=== PATIENT | male | born 1995 | race Two or more races ===

== ENCOUNTER 2016-08-11 12:04 | Inpatient (IN) | payer OTHER ==
[2016-08-11 12:46] VITALS: BMI 18.7
--- NOTE | 2016-08-11 16:35 | HP ---
COWS - Scale Resting Pulse: 1= MD 81-100 Sweatin= Chills/Flushing Restless Observation: 1= Difficult to Sit Still Pupil Size: 0= Normal to Room Light Bone or Joint Aches: 1= Mild Discomfort Runny Nose/ Eye Tearin= Nasal Congestion GI Upset > 30mins: 3= Vomiting/Diarrhea Tremor Observation: 2= Slight Tremor Visible Yawning Observation: 0= None Anxiety or Irritability: 2=Irritable/Anxious Goose Flesh Skin: 0=Smooth Skin COWS Score: 12 CIWA Score - CIWA Score Nausea/Vomitin Muscle Tremors: 4-Moderate,w/Arms Extend Anxiety: 4-Mod. Anxious/Guarded Agitation: 4-Moderately Restless Paroxysmal Sweats: 1-Minimal Palms Moist Orientation: 0-Oriented Tacttile Disturbances: 0-None Auditory Disturbances: 0-None Visual Disturbances: 0-None Headache: 3-Moderate CIWA-Ar Total Score: 18 Admission ROS BHS - HPI Chief Complaint: withdrawal sx Allergies/Adverse Reactions: Allergies Allergy/AdvReac Type Severity Reaction Status Date / Time No Known Allergies Allergy Verified 08/11/16 16:07 History of Present Illness: 21 years old male with long history of opiate, benzo, nicotine dependence, denies medical issue has anxiety, longest sobriety 4 weeks is admitted to detox Exam Limitations: No Limitations - Ebola screening Have you traveled outside of the country in the last 21 days: No Have you had contact with anyone from an Ebola affected area: No Have you been sick,other than usual withdrawal symptoms: No Do you have a fever: No - Review of Systems Constitutional: Chills, Loss of Appetite, Changes in sleep, Unexplained wgt Loss EENT: reports: No Symptoms Reported Respiratory: reports: No Symptoms reported Cardiac: reports: No Symptoms Reported GI: reports: Diarrhea, Nausea, Poor Appetite, Poor Fluid Intake, Vomiting, Abdominal cramping : reports: No Symptoms Reported Musculoskeletal: reports: Back Pain, Joint Pain, Muscle Pain, Neck Pain Integumentary: reports: No Symptoms Reported Neuro: reports: Tremors Endocrine: reports: No Symptoms Reported Hematology: reports: No Symptoms Reported Psychiatric: reports: Judgement Intact, Orientated x3, Anxious Other Systems: Reviewed and Negative Patient History - Patient Medical History Hx Anemia: No Hx Asthma: No Hx Chronic Obstructive Pulmonary Disease (COPD): No Hx Cancer: No Hx Cardiac Disorders: No Hx Congestive Heart Failure: No Hx Hypertension: No Hx Hypercholesterolemia: No Hx Pacemaker: No HX Cerebrovascular Accident: No Hx Seizures: No Hx Dementia: No Hx Diabetes: No Hx Gastrointestinal Disorders: No Hx Liver Disease: No Hx Genitourinary Disorders: No Hx Sexually Transmitted Disorders: No Hx Renal Disease (ESRD): No Hx Thyroid Disease: No Hx Human Immunodeficiency Virus (HIV): No (NEGATIVE HX) Hx Hepatitis C: No Hx Depression: Yes Hx Suicide Attempt: No Hx Bipolar Disorder: No Hx Schizophrenia: No - Patient Surgical History Past Surgical History: No Hx Neurologic Surgery: No Hx Cataract Extraction: No Hx Cardiac Surgery: No Hx Lung Surgery: No Hx Breast Surgery: No Hx Breast Biopsy: No Hx Abdominal Surgery: No Hx Appendectomy: No Hx Cholecystectomy: No Hx Genitourinary Surgery: No Hx Orthopedic Surgery: No - PPD History Previous Implant?: Yes Documented Results: Negative w/o proof Implanted On Prior [facility] Admission?: Yes Date: 11/30/15 PPD to be Administered?: Yes - Smoking Cessation Smoking history: Current every day smoker Have you smoked in the past 12 months: Yes Aproximately how many cigarettes per day: 4 Cigars Per Day: 0 Hx Chewing Tobacco Use: No Initiated information on smoking cessation: Yes 'Breaking Loose' booklet given: 08/11/16 - Substance & Tx. History Hx Alcohol Use: No Hx Substance Use: Yes Substance Use Type: Marijuana, Opiates, Tranquilizers Hx Substance Use Treatment: Yes - Substances Abused Alprazolam (Xanax) Route: Oral Frequency: Daily Amount used: 8MG Age of first use: 18 Date of Last Use: 08/10/16 Marijuana/Hashish Route: Smoking Frequency: Daily Amount used: 3 JOINTS Age of first use: 16 Date of Last Use: 08/10/16 OXYCODONE Route: Oral Frequency: Daily Amount used: 6-7 30 MG PILLS Age of first use: 20 Date of Last Use: 08/10/16 Family Disease History - Family Disease History Family Disease History: Heart Disease: Mother Admission Physical Exam BHS - Vital Signs Vital Signs: Vital Signs - 24 hr 08/11/16 12:37 Temperature 97.7 F Pulse Rate 99 H Respiratory 20 Rate Blood Pressure 123/72 - Physical General Appearance: Yes: Appropriately Dressed, Mild Distress, Thin, Tremorous, Irritable, Sweating, Anxious HEENTM: Yes: Hearing grossly Normal, Normal ENT Inspection, Normocephalic, Normal Voice Respiratory: Yes: Chest Non-Tender, Lungs Clear, Normal Breath Sounds, No Respiratory Distress, No Accessory Muscle Use Neck: Yes: Supple, Trachea in good position Breast: Yes: Breasts Symetrical Cardiology: Yes: Regular Rhythm, S1, S2, Tachycardia Abdominal: Yes: Non Tender, Soft Genitourinary: Yes: Within Normal Limits Back: Yes: Normal Inspection Musculoskeletal: Yes: full range of Motion, Gait Steady, Back pain, Muscle Pain Extremities: Yes: Normal Inspection, Normal Range of Motion, Non-Tender, Tremors Neurological: Yes: Fully Oriented, Alert, Motor Strength 5/5, Normal Response, Depressed Affect Integumentary: Yes: Warm Lymphatic: Yes: Within Normal Limits - Diagnostic (1) Cannabis dependence Current Visit: Yes Status: Chronic (2) Opioid dependence with withdrawal Current Visit: No Status: Acute (3) Sedative, hypnotic, or anxiolytic withdrawal Current Visit: Yes Status: Acute (4) Nicotine dependence Current Visit: Yes Status: Acute Qualifiers: Nicotine product type: cigarettes Substance use status: in withdrawal Qualified Code(s): F17.213 - Nicotine dependence, cigarettes, with withdrawal (5) Weight loss Current Visit: Yes Status: Acute Cleared for Admission [facility] - Detox or Rehab [facility] Level of Care: Medically Managed Detox Regimen/Protocol: Methadone/Valium [facility] Breath Alcohol Content Breath Alcohol Content: 0 Urine Drug Screen - Results Drug Screen Negative: No Urine Drug Screen Results: THC-Marijuana, BZO-Benzodiazepines, OXY-Oxycodone
[2016-08-11] MEDS ORDERED: NICOTINE POLACRILEX 2 MG GUM BC PRN (16:50)
[2016-08-11] MEDS ORDERED: ACETAMINOPHEN 325 MG TABLET (FP) PO PRN (16:50)
[2016-08-11] MEDS ORDERED: MAGNESIUM CITRATE 300 ML BOTTLE PO PRN (16:50)
[2016-08-11] MEDS ORDERED: diphenhydrAMINE HCL 50 MG CAPSULE PO PRN (16:50)
[2016-08-11] MEDS ORDERED: LOPERAMIDE HCL 2 MG CAPSULE PO PRN (16:50)
[2016-08-11] MEDS ORDERED: MAGNESIUM HYDROX 2400MG/30ML ORAL SUSPENSION 30 ML CUP PO PRN (16:50)
[2016-08-11] MEDS ORDERED: MENTHOL/PHENOL 1 EACH UD MM PRN (16:50)
[2016-08-11] MEDS ORDERED: IBUPROFEN 400 MG TABLET (FP) PO PRN (16:50)
[2016-08-11] MEDS ORDERED: P-EPHED 60MG/TRIPROLIDI 2.5MG TABLET PO PRN (16:50)
[2016-08-11] MEDS ORDERED: MAG HYDROX/AL HYDROX/SIMETH 30 ML UNIT-DOSE CUP PO PRN (16:50)
[2016-08-11] MEDS ORDERED: guaiFENesin/D-METHORPHAN HB 10 ML UNIT-DOSE CUPS PO PRN (16:50)
[2016-08-11] MEDS ORDERED: METHADONE HCL 10 MG TABLET (FOR DETOX USE ONLY) PO ONE ×2 (18:00→23:00)
[2016-08-11] MEDS ORDERED: diazePAM 5 MG TABLET PO ONE (18:00)
[2016-08-11] MEDS: THIAMINE HCL 100 MG TABLET (FP) PO SCH (22:22)
[2016-08-11] MEDS: diazePAM 5 MG TABLET PO SCH (22:22)
[2016-08-11 23:35] LABS: URINE APPEARANCE CLEAR; URINE BILIRUBIN NEGATIVE (NEGATIVE); URINE BLOOD NEGATIVE (NEGATIVE); URINE COLOR COLORLESS; URINE GLUCOSE (UA) NEGATIVE (NEGATIVE); URINE KETONE NEGATIVE (NEGATIVE); URINE LEUK ESTERASE NEGATIVE (NEGATIVE); URINE NITRITE NEGATIVE (NEGATIVE); URINE PROTEIN NEGATIVE (NEGATIVE); URINE UROBILINOGEN NEGATIVE E.U./dl (0.2-1.0)
[2016-08-12] MEDS: diazePAM 5 MG TABLET PO PRN ×3 (03:50→18:12)
[2016-08-12] MEDS: diazePAM 5 MG TABLET PO SCH ×3 (06:13→22:29)
[2016-08-12] MEDS ORDERED: METHADONE HCL 10 MG TABLET (FOR DETOX USE ONLY) PO SCH (10:00)
[2016-08-12 10:09] LABS: MCH 32.8 pg (25.7-33.7); MCHC 33.8 g/dl (32.0-35.9); MEAN CELL VOLUME 97.2 fl (80-96); MEAN PLT VOLUME 9.4 fl (7.5-11.1); PLATELET COUNT 215 K/MM3 (134-434); RDW 13.6 % (11.9-15.9); WHITE BLOOD COUNT 10.9 K/mm3 (4.0-10.0)
[2016-08-12] MEDS ORDERED: QUEtiapine FUMARATE 100 MG TABLET (FP) PO SCH (10:15)
[2016-08-12 10:22] LABS: ALBUMIN 3.9 g/dl (3.4-5.0); ALK PHOS 73 U/L (45-117); ANION GAP 8 (8-16); BILIRUBIN,TOTAL 0.3 mg/dL (0.2-1.0); CALCIUM 9.1 mg/dL (8.5-10.1); CO2 30 mmol/L (21-32); CREATININE 0.7 mg/dL (0.7-1.3); GLUCOSE,RANDOM 93 mg/dL (74-106); SGOT/AST 31 U/L (15-37); SGPT/ALT 46 U/L (12-78); TOT PROT 7.3 g/dl (6.4-8.2)
[2016-08-12] MEDS: NICOTINE 14 MG/24 HOURS TOPICAL PATCH TD SCH (10:34)
[2016-08-12] MEDS: PRENATAL VITAMINS W/ FOLIC ACID TABLET (FP) PO SCH (10:35)
[2016-08-12] MEDS: ASPIRIN 81 MG CHEWABLE TABLETS PO SCH (10:35)
--- NOTE | 2016-08-12 12:10 | PN ---
S CIWA - CIWA Score Nausea/Vomitin Muscle Tremors: 3 Anxiety: 3 Agitation: 2 Paroxysmal Sweats: 3 Orientation: 0-Oriented Tacttile Disturbances: 1-Very Mild Itch/Numbness Auditory Disturbances: 0-None Visual Disturbances: 0-None Headache: 0-None Present CIWA-Ar Total Score: 14 BHS COWS - Scale Resting Pulse: 0= DC 80 or Below Sweatin= Chills/Flushing Restless Observation: 1= Difficult to Sit Still Pupil Size: 1= Pupils >than Normal Bone or Joint Aches: 2= Severe Diffuse Aches Runny Nose/ Eye Tearin= Nasal Congestion GI Upset > 30mins: 1= Stomach Cramp Tremor Observation of Outstretched Hands: 1= Tremor [place], Not Seen Yawning Observation: 1= 1-2x During Session Anxiety or Irritability: 1=Feels Anxious/Irritable Goose Flesh Skin: 0=Smooth Skin COWS Score: 10 S Progress Note (SOAP) Subjective: interruptedd sleep, sweats shakes , dizzy Objective: 08/12/16 12:09 Vital Signs Temperature 97.3 F L 08/12/16 09:58 Pulse Rate 79 08/12/16 09:58 Respiratory Rate 18 08/12/16 09:58 Blood Pressure 121/75 08/12/16 09:58 O2 Sat by Pulse Oximetry (%) Laboratory Tests 08/11/16 08/12/16 08/12/16 23:20 06:00 06:00 WBC 10.9 H D RBC 4.19 Hgb 13.7 Hct 40.7 MCV 97.2 H MCHC 33.8 RDW 13.6 Plt Count 215 MPV 9.4 Sodium 141 Potassium 4.4 Chloride 103 Carbon Dioxide 30 Anion Gap 8 BUN 5 L D Creatinine 0.7 Creat Clearance w eGFR > 60 Random Glucose 93 Calcium 9.1 Total Bilirubin 0.3 D AST 31 D ALT 46 D Alkaline Phosphatase 73 Total Protein 7.3 Albumin 3.9 Urine Color Colorless Urine Appearance Clear Urine pH 8.0 Ur Specific [place] 1.004 Urine Protein Negative Urine Glucose (UA) Negative Urine Ketones Negative Urine Blood Negative Urine Nitrite Negative Urine Bilirubin Negative Urine Urobilinogen Negative Ur Leukocyte Esterase Negative pt aox3 in nad ambulating Assessment: 08/12/16 12:09 withdrawl sx's Plan: cont. detox increase fluids ensure bid
--- NOTE | 2016-08-12 13:27 | CONSULT ---
[facility] Psychiatric Consult - Data Date of interview: 08/12/16 Admission source: [facility] Identifying data: This is 21 years old male with Bipolar disorder history intoxcicated with: Opioids, Alcohol, Cannabis, Xanax, Substance Abuse History: - Smoking Cessation. Smoking history: Current every day smoker. Have you smoked in the past 12 months: Yes. Aproximately how many cigarettes per day: 4. Cigars Per Day: 0. Hx Chewing Tobacco Use: No. Initiated information on smoking cessation: Yes. 'Breaking Loose' booklet given : 08/11/16. - Substance & Tx. History. Hx Alcohol Use: No. Hx Substance Use: Yes. Substance Use Type: Marijuana, Opiates, Tranquilizers. Hx Substance Use Treatment: Yes. - Substances Abused. Alprazolam (Xanax). Route: Oral. Frequency: Daily. Amount used: 8MG. Age of first use: 18. Date of Last Use: 08/10/16. Marijuana/Hashish. Route: Smoking. Frequency: Daily. Amount used: 3 JOINTS. Age of first use: 16. Date of Last Use: 08/10/16. OXYCODONE. Route: Oral. Frequency: Daily. Amount used: 6-7 30 MG PILLS. Age of first use: 20. Date of Last Use: 08/10/16 Medical History: Denies Psychiatric History: Patient reports to carry Bipolar disorder since 16 tears old, [facility]. Reports being stable befors on Depakote 250mg po bidand Seroquel 159mg po bid Physical/Sexual Abuse/Trauma History: Denies Additional Comment: Depakote 250mg po bid and Seroquel 159mg po bid Mental Status Exam - Mental Status Exam Alert and Oriented to: Person Cognitive Function: Fair Patient Appearance: Unkempt Mood: Sad, Suspicious Patient Behavior: Cooperative Speech Pattern: Appropriate Voice Loudness: Normal Thought Process: Goal Oriented Thought Disorder: Being Controlled Hallucinations: Denies Suicidal Ideation: Denies Homicidal Ideation: Denies Insight/Judgement: Fair Sleep: Difficulty falling asleep Appetite: Weight loss Muscle strength/Tone: Normal Gait/Station: Normal Additional Comments: Depakote 250mg po bidand Seroquel 159mg po bid Psychiatric Findings - Problem List ([place] 1, 2,3) (1) Nicotine dependence Current Visit: Yes Status: Acute Qualifiers: Nicotine product type: cigarettes Substance use status: in withdrawal Qualified Code(s): F17.213 - Nicotine dependence, cigarettes, with withdrawal (2) Sedative, hypnotic, or anxiolytic withdrawal Current Visit: Yes Status: Acute (3) Cannabis dependence Current Visit: Yes Status: Chronic (4) Opioid dependence with withdrawal Current Visit: No Status: Acute (5) Bipolar disorder Current Visit: Yes Status: Acute - Initial Treatment Plan Initial Treatment Plan: Depakote 250mg po bidand Seroquel 159mg po bid
--- NOTE | 2016-08-12 14:27 | EKG ---
Test Reason : Blood Pressure : / mmHG Vent. Rate : 058 BPM Atrial Rate : 058 BPM P-R Int : 170 ms QRS Dur : 092 ms QT Int : 410 ms P-R-T Axes : 065 073 063 degrees QTc Int : 402 ms SINUS BRADYCARDIA WITH SINUS ARRHYTHMIA OTHERWISE NORMAL ECG WHEN COMPARED WITH ECG OF 11-AUG-2016 18:17, NO SIGNIFICANT CHANGE WAS FOUND Confirmed by BARBRA BERMUDEZ MD ([id number]) on 08/12/2016 2:27:35 PM Referred By: Confirmed By:BARBRA BERMUDEZ MD
--- NOTE | 2016-08-12 14:28 | EKG ---
Test Reason : Blood Pressure : / mmHG Vent. Rate : 084 BPM Atrial Rate : 084 BPM P-R Int : 148 ms QRS Dur : 090 ms QT Int : 360 ms P-R-T Axes : 079 079 059 degrees QTc Int : 425 ms NORMAL SINUS RHYTHM WITH SINUS ARRHYTHMIA NORMAL ECG NO PREVIOUS ECGS AVAILABLE Confirmed by AIDAN VELARDE, BARBRA ([id number]) on 08/12/2016 2:28:24 PM Referred By: Confirmed By:BARBRA BERMUDEZ MD
[2016-08-12] MEDS: DIVALPROEX SODIUM 250 MG TABLET E.C. (FP) PO SCH ×2 (15:18→22:29)
[2016-08-12] MEDS: QUEtiapine FUMARATE 50 MG TABLET PO SCH (22:29)
[2016-08-12] MEDS: THIAMINE HCL 100 MG TABLET (FP) PO SCH (22:29)
[2016-08-13] MEDS: diazePAM 5 MG TABLET PO PRN (01:36)
[2016-08-13] MEDS: PRENATAL VITAMINS W/ FOLIC ACID TABLET (FP) PO SCH (10:29)
[2016-08-13] MEDS: DIVALPROEX SODIUM 250 MG TABLET E.C. (FP) PO SCH (10:29)
[2016-08-13] MEDS: diazePAM 5 MG TABLET PO SCH ×2 (10:29→22:21)
[2016-08-13] MEDS: QUEtiapine FUMARATE 50 MG TABLET PO SCH ×2 (10:29→22:21)
[2016-08-13] MEDS: METHADONE HCL 5 MG TABLET (FOR DETOX USE ONLY) PO SCH (10:29)
[2016-08-13] MEDS: NICOTINE 14 MG/24 HOURS TOPICAL PATCH TD SCH (10:30)
[2016-08-13] MEDS: ASPIRIN 81 MG CHEWABLE TABLETS PO SCH (10:30)
--- NOTE | 2016-08-13 10:33 | PN ---
[facility] CIWA - CIWA Score Nausea/Vomitin-No Nausea/No Vomiting Muscle Tremors: 4-Moderate,w/Arms Extend Anxiety: 3 Agitation: 3 Paroxysmal Sweats: 3 Orientation: 0-Oriented Tacttile Disturbances: 0-None Auditory Disturbances: 0-None Visual Disturbances: 0-None Headache: 0-None Present CIWA-Ar Total Score: 13 BHS COWS - Scale Resting Pulse: 2= ID 101-120 Sweatin= Chills/Flushing Restless Observation: 1= Difficult to Sit Still Pupil Size: 0= Normal to Room Light Bone or Joint Aches: 2= Severe Diffuse Aches Runny Nose/ Eye Tearin= Nasal Congestion GI Upset > 30mins: 0= None Tremor Observation of Outstretched Hands: 2= Slight Tremor Visible Yawning Observation: 0= None Anxiety or Irritability: 2=Irritable/Anxious Goose Flesh Skin: 0=Smooth Skin COWS Score: 11 S Progress Note (SOAP) Subjective: agitation anxiety sweats i need to see psych again Objective: 08/13/16 10:30 Vital Signs Temperature 98.0 F 08/13/16 09:52 Pulse Rate 104 H 08/13/16 09:52 Respiratory Rate 18 08/13/16 09:52 Blood Pressure 143/64 08/13/16 09:52 O2 Sat by Pulse Oximetry (%) Laboratory Tests 08/11/16 08/12/16 08/12/16 23:20 06:00 06:00 WBC 10.9 H D RBC 4.19 Hgb 13.7 Hct 40.7 MCV 97.2 H MCHC 33.8 RDW 13.6 Plt Count 215 MPV 9.4 Sodium 141 Potassium 4.4 Chloride 103 Carbon Dioxide 30 Anion Gap 8 BUN 5 L D Creatinine 0.7 Creat Clearance w eGFR > 60 Random Glucose 93 Calcium 9.1 Total Bilirubin 0.3 D AST 31 D ALT 46 D Alkaline Phosphatase 73 Total Protein 7.3 Albumin 3.9 Urine Color Colorless Urine Appearance Clear Urine pH 8.0 Ur Specific [place] 1.004 Urine Protein Negative Urine Glucose (UA) Negative Urine Ketones Negative Urine Blood Negative Urine Nitrite Negative Urine Bilirubin Negative Urine Urobilinogen Negative Ur Leukocyte Esterase Negative RPR Titer 08/12/16 06:00 WBC RBC Hgb Hct MCV MCHC RDW Plt Count MPV Sodium Potassium Chloride Carbon Dioxide Anion Gap BUN Creatinine Creat Clearance w eGFR Random Glucose Calcium Total Bilirubin AST ALT Alkaline Phosphatase Total Protein Albumin Urine Color Urine Appearance Urine pH Ur Specific [place] Urine Protein Urine Glucose (UA) Urine Ketones Urine Blood Urine Nitrite Urine Bilirubin Urine Urobilinogen Ur Leukocyte Esterase RPR Titer Nonreactive awake/alert ambulating no acute distress Assessment: 08/13/16 10:33 withdrawal sx Plan: continue detox increase fluids psych consult ordered
--- NOTE | 2016-08-13 12:13 | PN ---
Psychiatric Progress Note Vital Signs: Vital Signs Period Temp Pulse Resp BP Sys/[place] Pulse Ox Last 24 Hr 96.3 F-98.2 F 81-114 16-18 100-143/56-71 Date of Session: 08/13/16 Chief Complaint:: Follow up visit HPI: Asked to see this patient who is requesting " more seroquel." ROS: Unremarkable.Patient is ambulatory.No somatic complaints.Normal vitals. Current Medications: Active Medications Generic Name Dose Route Start Last Admin Trade Name Freq PRN Reason Stop Dose Admin Acetaminophen 650 mg 08/11/16 16:50 Tylenol - PO Q4H PRN FEVER OR PAIN Al Hydroxide/Mg Hydroxide 30 ml 08/11/16 16:50 Mylanta Oral Suspension - PO Q6H PRN DYSPEPSIA Aspirin 81 mg 08/12/16 10:00 08/13/16 10:30 Asa - PO 81 mg DAILY POLO Administration Diazepam 10 mg 08/11/16 16:50 08/13/16 01:36 Valium - PO 08/14/16 16:50 10 mg Q4H PRN Administration WITHDRAWAL(CONT SUBST) Diazepam 5 mg 08/13/16 10:00 08/13/16 10:29 Valium - PO 08/14/16 22:01 5 mg BID POLO Administration Diazepam 5 mg 08/15/16 10:00 Valium - PO 08/15/16 10:01 DAILY POLO Diphenhydramine HCl 50 mg 08/11/16 16:50 08/13/16 01:36 Benadryl - PO 50 mg HSMR1 PRN Administration INSOMNIA Divalproex Sodium 250 mg 08/12/16 13:45 08/13/16 10:29 Depakote - PO 250 mg BID POLO Administration Eucalyptus/Menthol/Phenol/Sorbitol 1 each 08/11/16 16:50 Cepastat Lozenge - MM Q4H PRN SORE THROAT Guaifenesin 10 ml 08/11/16 16:50 Robitussin Dm - PO Q6H PRN COUGH Loperamide HCl 4 mg 08/11/16 16:50 Imodium - PO Q6H PRN DIARRHEA Magnesium Citrate 300 ml 08/11/16 16:50 Citroma - PO Q48H PRN CONSTIPATION Magnesium Hydroxide 30 ml 08/11/16 16:50 Milk Of Magnesia - PO DAILY PRN CONSTIPATION Methadone HCl 10 mg 08/15/16 10:00 Dolophine - PO 08/15/16 10:01 DAILY POLO Methadone HCl 15 mg 08/13/16 10:00 08/13/16 10:29 Dolophine - PO 08/14/16 10:01 15 mg DAILY POLO Administration Methadone HCl 5 mg 08/16/16 06:00 Dolophine - PO 08/16/16 06:01 DAILY@0600 POLO Nicotine 14 mg 08/12/16 10:00 08/13/16 10:30 Nicoderm Patch - TD Not Given DAILY POLO Nicotine Polacrilex 2 mg 08/11/16 16:50 Nicorette Gum - BC Q2H PRN NICOTINE REPLACEMENT RX Multivit/Folic Acid/Iron 1 tab 08/12/16 10:00 08/13/16 10:29 Vitamins ([facility]) - PO 1 tab DAILY POLO Administration Pseudoephedrine/Triprolidine 1 combo 08/11/16 16:50 Actifed - PO TID PRN NASAL CONGESTION Quetiapine Fumarate 150 mg 08/12/16 22:00 08/13/16 10:29 Seroquel - PO 150 mg BID POLO Administration Thiamine HCl 100 mg 08/11/16 22:00 08/12/16 22:29 Vitamin B1 - PO 100 mg HS POLO Administration Medication(s) Change(s): Depakote is raised to 250 mg daily + 500 mg po hs.Side effects/benefits of seroquel and depakote are discussed with the patient.He is made aware of the risk of blood dyscrasias,liver dysfunction,weight gain, abnormal involuntary movements and metabolic syndrome.Mr Grewal is in agreement with this careplan. Current Side Effect: No Lab tests ordered: Yes (valproic acid level in the morning on 08/14/16) Lab tests reviewed: Yes Provider note:: Chart reviewed.Patient seen.Dr Jaimes's note is appreciated.This patient is already known to this remote mortgage underwriter.He is clearly medication-seeking,manipulative and testing the limits.Discreetly inquiring about benzodiazepines.Mr Grewal does admit to total non-adherence to OPD care ( clinic attendance/medications) since his most recent stay at [facility] in November 2015.Just started seroquel and valproate.Patient is counseled about compliance with rules/unit regulations.Medications are adjusted (see medications changes section for details). Total face to face time:: 35 Mental Status Exam - Mental Status Exam Alert and Oriented to: Time, Place, Person Cognitive Function: Good Patient Appearance: Well Groomed Mood: Irritable Affect: Normal Range Patient Behavior: Cooperative Speech Pattern: Clear Voice Loudness: Normal Thought Process: Goal Oriented Thought Disorder: Not Present Hallucinations: Denies Suicidal Ideation: Denies Homicidal Ideation: Denies Insight/Judgement: Poor Sleep: Poorly, Difficulty falling asleep (already on seroquel) Appetite: Good Muscle strength/Tone: Normal Gait/Station: Normal Psychiatric Treatment Plan - Problem List (1) Bipolar disorder Current Visit: Yes (2) Nicotine dependence Current Visit: Yes Qualifiers: Nicotine product type: cigarettes Substance use status: in withdrawal Qualified Code(s): F17.213 - Nicotine dependence, cigarettes, with withdrawal (3) Sedative, hypnotic, or anxiolytic withdrawal Current Visit: Yes (4) Cannabis dependence Current Visit: Yes (5) Opioid dependence with withdrawal Current Visit: Yes
[2016-08-13] MEDS: THIAMINE HCL 100 MG TABLET (FP) PO SCH (22:21)
[2016-08-13] MEDS: DIVALPROEX SODIUM 500 MG TABLET E.C. PO SCH (22:21)
--- NOTE | 2016-08-14 09:29 | PN ---
BHS Progress Note (SOAP) Subjective: nausea, sweats, interrupte dsleep, anxeity, fatigue, PPD+ indruated 10mm, no respiratory symptoms, leg pains, no cough or sob, no sputum production Objective: 08/14/16 09:27 Vital Signs - 8 hr 08/14/16 08/14/16 03:30 06:00 Temperature 98.1 F Pulse Rate 83 Respiratory 16 16 Rate Blood Pressure 115/75 Laboratory Tests 08/11/16 08/12/16 08/12/16 23:20 06:00 06:00 WBC 10.9 H D RBC 4.19 Hgb 13.7 Hct 40.7 MCV 97.2 H MCHC 33.8 RDW 13.6 Plt Count 215 MPV 9.4 Sodium 141 Potassium 4.4 Chloride 103 Carbon Dioxide 30 Anion Gap 8 BUN 5 L D Creatinine 0.7 Creat Clearance w eGFR > 60 Random Glucose 93 Calcium 9.1 Total Bilirubin 0.3 D AST 31 D ALT 46 D Alkaline Phosphatase 73 Total Protein 7.3 Albumin 3.9 Urine Color Colorless Urine Appearance Clear Urine pH 8.0 Ur Specific [place] 1.004 Urine Protein Negative Urine Glucose (UA) Negative Urine Ketones Negative Urine Blood Negative Urine Nitrite Negative Urine Bilirubin Negative Urine Urobilinogen Negative Ur Leukocyte Esterase Negative RPR Titer 08/12/16 06:00 WBC RBC Hgb Hct MCV MCHC RDW Plt Count MPV Sodium Potassium Chloride Carbon Dioxide Anion Gap BUN Creatinine Creat Clearance w eGFR Random Glucose Calcium Total Bilirubin AST ALT Alkaline Phosphatase Total Protein Albumin Urine Color Urine Appearance Urine pH Ur Specific [place] Urine Protein Urine Glucose (UA) Urine Ketones Urine Blood Urine Nitrite Urine Bilirubin Urine Urobilinogen Ur Leukocyte Esterase RPR Titer Nonreactive PPD+ 10mm induration right forearm Assessment: 08/14/16 09:27 withdrawal sx, PPD+, needs cxr Plan: cont detox, will be d/c tomorrow to f/u with PCP for CXR and new ly dx PPD+, patiet counseled re: risk of TB and need for follow up, symptomatic relief of withdrawalsx, fluids, ambulation
[2016-08-14] MEDS ORDERED: DIVALPROEX SODIUM 250 MG TABLET E.C. (FP) PO SCH (10:00)
[2016-08-14] MEDS: METHADONE HCL 5 MG TABLET (FOR DETOX USE ONLY) PO SCH (10:15)
[2016-08-14] MEDS: NICOTINE 14 MG/24 HOURS TOPICAL PATCH TD SCH (10:15)
[2016-08-14] MEDS: PRENATAL VITAMINS W/ FOLIC ACID TABLET (FP) PO SCH (10:15)
[2016-08-14] MEDS: diazePAM 5 MG TABLET PO SCH ×2 (10:16→22:13)
[2016-08-14] MEDS: QUEtiapine FUMARATE 50 MG TABLET PO SCH ×2 (10:16→22:13)
[2016-08-14] MEDS: cloNIDine HCL 0.1 MG TABLET PO SCH ×2 (11:12→22:12)
[2016-08-14] MEDS: NAPROXEN 500 MG TABLET (FP) PO SCH ×2 (11:12→22:13)
[2016-08-14] MEDS: CYCLOBENZAPRINE HCL 10 MG TABLET (FP) PO SCH ×2 (13:12→22:13)
[2016-08-14] MEDS: diazePAM 5 MG TABLET PO PRN (13:12)
[2016-08-14] MEDS: hydrOXYzine HCL 25 MG TABLET (FP) PO SCH ×2 (13:28→22:12)
[2016-08-14] MEDS ORDERED: ZOLPIDEM TARTRATE 5 MG TABLET PO PRN (22:00)
[2016-08-14] MEDS: THIAMINE HCL 100 MG TABLET (FP) PO SCH (22:13)
[2016-08-14] MEDS: DIVALPROEX SODIUM 500 MG TABLET E.C. PO SCH (22:13)
[2016-08-14 22:24] VITALS: BP 112/80; PULSE 102; TEMP 97.9
[2016-08-15] MEDS: hydrOXYzine HCL 25 MG TABLET (FP) PO SCH (06:16)
[2016-08-15] MEDS: CYCLOBENZAPRINE HCL 10 MG TABLET (FP) PO SCH (06:16)
[2016-08-15] MEDS ORDERED: diazePAM 5 MG TABLET PO SCH (10:00)
[2016-08-15] MEDS ORDERED: METHADONE HCL 10 MG TABLET (FOR DETOX USE ONLY) PO SCH (10:00)
--- NOTE | 2016-08-15 10:45 | DS ---
[facility] Detox Discharge Summary Admission Date: 08/11/16 Discharge Date: 08/15/16 - History Present History: Cannabis Dependence, Opioid Dependence, Sedative Dependence Pertinent Past History: PPD + - Physical Exam Results Vital Signs: Vital Signs Temperature 97.9 F 08/14/16 22:24 Pulse Rate 102 H 08/14/16 22:24 Respiratory Rate 18 08/15/16 03:30 Blood Pressure 112/80 08/14/16 22:24 O2 Sat by Pulse Oximetry (%) Pertinent Admission Physical Exam Findings: WITHDRAWAL SX. Laboratory Last Values WBC 10.9 K/mm3 (4.0-10.0) H D 08/12/16 06:00 RBC 4.19 M/mm3 (4.00-5.60) 08/12/16 06:00 Hgb 13.7 GM/dL (11.7-16.9) 08/12/16 06:00 Hct 40.7 % (35.4-49) 08/12/16 06:00 MCV 97.2 fl (80-96) H 08/12/16 06:00 MCHC 33.8 g/dl (32.0-35.9) 08/12/16 06:00 RDW 13.6 % (11.9-15.9) 08/12/16 06:00 Plt Count 215 K/MM3 (134-434) 08/12/16 06:00 MPV 9.4 fl (7.5-11.1) 08/12/16 06:00 Sodium 141 mmol/L (136-145) 08/12/16 06:00 Potassium 4.4 mmol/L (3.5-5.1) 08/12/16 06:00 Chloride 103 mmol/L (98-107) 08/12/16 06:00 Carbon Dioxide 30 mmol/L (21-32) 08/12/16 06:00 Anion Gap 8 (8-16) 08/12/16 06:00 BUN 5 mg/dL (7-18) L D 08/12/16 06:00 Creatinine 0.7 mg/dL (0.7-1.3) 08/12/16 06:00 Creat Clearance w eGFR > 60 (>60) 08/12/16 06:00 Random Glucose 93 mg/dL (74-106) 08/12/16 06:00 Calcium 9.1 mg/dL (8.5-10.1) 08/12/16 06:00 Total Bilirubin 0.3 mg/dL (0.2-1.0) D 08/12/16 06:00 AST 31 U/L (15-37) D 08/12/16 06:00 ALT 46 U/L (12-78) D 08/12/16 06:00 Alkaline Phosphatase 73 U/L (45-117) 08/12/16 06:00 Total Protein 7.3 g/dl (6.4-8.2) 08/12/16 06:00 Albumin 3.9 g/dl (3.4-5.0) 08/12/16 06:00 Urine Color Colorless 08/11/16 23:20 Urine Appearance Clear 08/11/16 23:20 Urine pH 8.0 (5.0-8.0) 08/11/16 23:20 Ur Specific [place] 1.004 (1.001-1.035) 08/11/16 23:20 Urine Protein Negative (NEGATIVE) 08/11/16 23:20 Urine Glucose (UA) Negative (NEGATIVE) 08/11/16 23:20 Urine Ketones Negative (NEGATIVE) 08/11/16 23:20 Urine Blood Negative (NEGATIVE) 08/11/16 23:20 Urine Nitrite Negative (NEGATIVE) 08/11/16 23:20 Urine Bilirubin Negative (NEGATIVE) 08/11/16 23:20 Urine Urobilinogen Negative E.U./dl (0.2-1.0) 08/11/16 23:20 Ur Leukocyte Esterase Negative (NEGATIVE) 08/11/16 23:20 Valproic Acid < 3.000 ug/ml (50-100) L 08/14/16 08:00 RPR Titer Nonreactive (NONREACTIVE) 08/12/16 06:00 LABS NOTED - Treatment Hospital Course: Detox Protocol Followed, Detoxed Safely, Responded well, Discharged Condition Good, Rehab Referral Accepted - Medication Discharge Medications: Ambulatory Orders Divalproex [Depakote -] 250 mg PO BID #60 tablet.ec 08/12/16 Quetiapine Fumarate [Seroquel -] 50 mg PO BID #60 tablet 08/12/16 Quetiapine Fumarate [Seroquel] 100 mg PO BID #60 tablet 08/12/16 - Diagnosis (1) Nicotine dependence Status: Acute Qualifiers: Nicotine product type: cigarettes Substance use status: in withdrawal Qualified Code(s): F17.213 - Nicotine dependence, cigarettes, with withdrawal (2) Opioid dependence with withdrawal Status: Acute (3) Sedative, hypnotic, or anxiolytic withdrawal Status: Acute (4) Cannabis dependence Status: Chronic (5) Bipolar disorder Status: Acute - AMA Did Patient Leave Against Medical Advice: No
[2016-08-16] MEDS ORDERED: METHADONE HCL 5 MG TABLET (FOR DETOX USE ONLY) PO SCH (06:00)
== END 2016-08-15 09:39 | disposition home or self-care (01) | DRG 773 ==
LOC: YASAS 12:04 → Y6N 17:44
PROVIDERS: ADMIT Internal Medicine Addiction Medicine; ATTEND Internal Medicine Addiction Medicine
PROC: HZ2ZZZZ Detoxification Services for Substance Abuse Treatment (ICD-10-PCS; principal; 2016-08-11)
DX: F11.23 Opioid dependence with withdrawal (principal); F13.230 Sedative, hypnotic or anxiolytic dependence with withdrawal, uncomplicated; F12.20 Cannabis dependence, uncomplicated; F17.210 Nicotine dependence, cigarettes, uncomplicated; F31.9 Bipolar disorder, unspecified; R00.0 Tachycardia, unspecified; R76.11 Nonspecific reaction to tuberculin skin test without active tuberculosis; Z87.898 Personal history of other specified conditions
CPT/HCPCS: 36415; 80053; 80164; 81003; 85027; 86593; 93005; 93010

== ENCOUNTER 2017-04-04 01:36 | Emergency (ER) | payer OTHER ==
[2017-04-04 01:50] VITALS: BP 109/60; TEMP 98.6; BMI 19.0
[2017-04-04 01:52] VITALS: PULSE 88
[2017-04-04] MEDS ORDERED: KETOROLAC TROMETHAMINE 60 MG/2 ML VIAL IM ONE (02:08)
[2017-04-04] MEDS ORDERED: ACETAMINOPHEN 325 MG TABLET (FP) PO ONE (02:09)
[2017-04-04] MEDS ORDERED: AMOXICILLIN 500 MG CAPSULE (FP) PO ONE (02:10)
[2017-04-04] MEDS ORDERED: KETOROLAC TROMETHAMINE 60 MG/2 ML VIAL ONE (02:13)
[2017-04-04] MEDS ORDERED: ACETAMINOPHEN 325 MG TABLET (FP) ONE (02:13)
[2017-04-04] MEDS ORDERED: AMOXICILLIN 250 MG CAPSULE ONE (02:14)
--- NOTE | 2017-04-04 02:14 | PDOC ---
History of Present Illness - General Chief Complaint: Toothache Stated Complaint: TOOTHACHE Time Seen by Provider: 04/04/17 02:08 - History of Present Illness Initial Comments: 04/04/17 06:33 Chief complaint: Toothache History of present illness: Patient states that he has a cracked upper right molar, has appointment with his dentist this week, but his pain is uncontrolled. He has been taking Motrin and antibiotics, but he ran out of medication Review of systems: No fever/chills, joint or muscle aches, swelling of the mouth or face. Past medical history: Drug abuse Social/family history reviewed and noncontributory Physical exam: Alert and oriented well-developed well-nourished no acute distress cooperative Afebrile, vital signs normal Patient indicates pain in one of the upper right molars, no objective findings on exam. The tooth appears intact. There is no notable decay. There is no gingival inflammation or swelling. The tooth is not loose to palpation, but the patient does complain of pain with pressure on the crown. ENT otherwise clear Neck supple without nodes Impression: Possible early dental abscess Plan: Analgesics and antibiotics, to see his dentist for definitive treatment as soon as possible. It was emphasized that the antibiotic treatment was just temporary and that serious illnesses good result from just taking antibiotics and not having the tooth treated by a dentist, since infection may be present and may get worse. The patient seemed to understand and agree. Discharged in the , and a friend improved and fully ambulatory to follow-up as directed Past History - Past Medical History Allergies/Adverse Reactions: Allergies Allergy/AdvReac Type Severity Reaction Status Date / Time No Known Allergies Allergy Verified 04/04/17 01:39 Home Medications: Ambulatory Orders Amoxicillin - [Amoxicillin 250mg Capsule -] 250 mg PO TID #15 capsule 04/04/17 Diclofenac Sodium [Voltaren -] 50 mg PO TID PRN #20 tablet. 04/04/17 Anemia: No Asthma: No Cancer: No Cardiac Disorders: No CVA: No COPD: No CHF: No Dementia: No Diabetes: No GI Disorders: No Disorders: No HTN: No Hypercholesterolemia: No Kidney Stones: No Liver Disease: No Psychiatric Problems: Yes (BIPOLAR) Suicide Attempt (Hx): No Seizures: No Thyroid Disease: No - Surgical History Abdominal Surgery: No Appendectomy: No Cardiac Surgery: No Cholecystectomy: No Lung Surgery: No Neurologic Surgery: No Orthopedic Surgery: No - Reproductive History Testicular Surgery: No - Immunization History Immunization Up to Date: Yes - Psycho/Social/Smoking Cessation Hx Anxiety: Yes Suicidal Ideation: No Smoking History: Current every day smoker Have you smoked in the past 12 months: Yes Number of Cigarettes Smoked Daily: 4 Cigars Per Day: 0 Information on smoking cessation initiated: Yes 'Breaking Loose' booklet given: 08/11/16 Hx Alcohol Use: No Drug/Substance Use Hx: No Substance Use Type: None Hx Substance Use Treatment: Yes *Physical Exam - Vital Signs Last Vital Signs Temp Pulse Resp BP Pulse Ox 98.6 F 88 18 109/60 99 04/04/17 01:43 04/04/17 01:43 04/04/17 01:43 04/04/17 01:43 04/04/17 01:43 *DC/Admit/Observation/Transfer Diagnosis at time of Disposition: Toothache - Discharge Dispostion Disposition: HOME Condition at time of disposition: Improved Admit: No - Prescriptions Prescriptions: Amoxicillin - [Amoxicillin 250mg Capsule -] 250 mg PO TID #15 capsule Diclofenac Sodium [Voltaren -] 50 mg PO TID PRN #20 tablet.dr DUVALL Reason: Pain - Referrals Referrals: Conner Luong [Staff Physician] - 24 hours - Patient Instructions Printed Discharge Instructions: DI for Dental Pain Additional Instructions: see dentist or oral surgeon for surgical treatment within 2 days Antibiotic and pain medication as directed. You may add Tylenol or acetaminophen as needed.
== END 2017-04-04 02:30 | disposition home or self-care (01) ==
LOC: FER 01:36
PROC: 3E0233Z Introduction of Anti-inflammatory into Muscle, Percutaneous Approach (ICD-10-PCS; principal; 2017-04-04)
DX: K08.89 Other specified disorders of teeth and supporting structures (principal); F17.210 Nicotine dependence, cigarettes, uncomplicated
CPT/HCPCS: 96372; 99282-25

== ENCOUNTER 2017-04-18 22:14 | Emergency (ER) | payer OTHER ==
[2017-04-18 22:29] VITALS: BP 114/60; PULSE 65; TEMP 98.1; BMI 18.3
--- NOTE | 2017-04-18 23:18 | PDOC ---
History of Present Illness - General Chief Complaint: Pain, Acute Stated Complaint: TOOTH PAIN Time Seen by Provider: 04/18/17 22:40 - History of Present Illness Initial Comments: This 21-year-old man with a history of bipolar disorder but no other significant medical problems, presents with recurrent pain in right lower molar tooth. He was seen here on April 04 with partial avulsion of the right first lower molar tooth. He was prescribed amoxicillin and diclofenac pending evaluation by his dentist. Patient was scheduled to have the tooth extracted last week but he missed appointment because of the of his daughter. He had relief of the pain with amoxicillin/diclofenac He states that he ran out of the medications a few days ago and pain has recurred. He states he has a new appointment for tooth extraction April 29. Patient denies fever/chills/ facial edema. He has had no headache or generalized facial pain. Past History - Past Medical History Allergies/Adverse Reactions: Allergies Allergy/AdvReac Type Severity Reaction Status Date / Time No Known Allergies Allergy Verified 04/18/17 22:17 Home Medications: Ambulatory Orders Amoxicillin - [Amoxicillin 250mg Capsule -] 250 mg PO TID #15 capsule 04/04/17 Diclofenac Sodium [Voltaren -] 50 mg PO TID PRN #20 tablet. 04/04/17 Amoxicillin - [Amoxicillin 250mg Capsule -] 250 mg PO TID #30 cap 04/18/17 Diclofenac Sodium [Voltaren -] 50 mg PO TID PRN #30 tablet. 04/18/17 Anemia: No Asthma: No Cancer: No Cardiac Disorders: No CVA: No COPD: No CHF: No Dementia: No Diabetes: No GI Disorders: No Disorders: No HTN: No Hypercholesterolemia: No Kidney Stones: No Liver Disease: No Psychiatric Problems: Yes (BIPOLAR) Seizures: No Thyroid Disease: No - Surgical History Abdominal Surgery: No Appendectomy: No Cardiac Surgery: No Cholecystectomy: No Lung Surgery: No Neurologic Surgery: No Orthopedic Surgery: No - Reproductive History Testicular Surgery: No - Immunization History Immunization Up to Date: Yes - Suicide/Smoking/Psychosocial Hx Smoking History: Current every day smoker Have you smoked in the past 12 months: Yes Number of Cigarettes Smoked Daily: 6 Cigars Per Day: 0 Information on smoking cessation initiated: Yes 'Breaking Loose' booklet given: 08/11/16 Hx Alcohol Use: No Drug/Substance Use Hx: No Substance Use Type: None Hx Substance Use Treatment: Yes Review of Systems - Review of Systems Able to Perform ROS?: Yes Comments:: 12 point review of systems is negative except for what is noted in the history of present illness *Physical Exam - Vital Signs Last Vital Signs Temp Pulse Resp BP Pulse Ox 98.1 F 65 16 114/60 100 04/18/17 22:19 04/18/17 22:19 04/18/17 22:19 04/18/17 22:19 04/18/17 22:19 - Physical Exam Comments: GENERAL: HEAD: Normal with no signs of trauma. EYES: PERRLA, EOMI, sclera anicteric, conjunctiva clear. ENT: Ears normal, nares patent, oropharynx clear without exudates. Moist mucous membranes. Partial avulsion of crown, first right mandibular molar; no periapical gingival erythema/edema/tenderness No other dental edema/erythema/tenderness Medical Decision Making - Medical Decision Making Patient presents with painful right lower molar tooth that had crown partially avulsed; he had presented here 2 weeks ago with effective relief of his symptoms with amoxicillin/diclofenac. He missed appointment for extraction last week and has new appointment in 10 days. No new problems. Refill of amoxicillin/diclofenac in previous dosages sent to his pharmacy. Patient should keep the appointment for extraction; he should return to emergency room or see his doctor if he has further pain or experiences fever/ headache/generalized facial pain while taking medications. *DC/Admit/Observation/Transfer Diagnosis at time of Disposition: Toothache - Discharge Dispostion Disposition: HOME Condition at time of disposition: Stable - Prescriptions Prescriptions: Amoxicillin - [Amoxicillin 250mg Capsule -] 250 mg PO TID #30 cap Diclofenac Sodium [Voltaren -] 50 mg PO TID PRN #30 tablet.dr DUVALL Reason: Pain - Patient Instructions Printed Discharge Instructions: DI for Dental Pain Additional Instructions: Continue amoxicillin 250 mg 3 times a day Diclofenac 50 mg up to 3 times a day as needed for pain (take with food) Follow-up with your dentist on 04/29 for extraction as scheduled
== END 2017-04-18 23:34 | disposition home or self-care (01) ==
LOC: FER 22:14
DX: K08.89 Other specified disorders of teeth and supporting structures (principal); F31.9 Bipolar disorder, unspecified; F17.210 Nicotine dependence, cigarettes, uncomplicated
CPT/HCPCS: 99281-25

== ENCOUNTER 2017-07-15 18:25 | Emergency (ER) | payer SELFPAY ==
--- NOTE | 2017-07-15 19:07 | PDOC ---
History of Present Illness - General History Source: Patient Exam Limitations: No Limitations - General Chief Complaint: Toothache Stated Complaint: TOOTHACHE Time Seen by Provider: 07/15/17 19:06 Past History - Past Medical History Anemia: No Asthma: No Cancer: No Cardiac Disorders: No CVA: No COPD: No CHF: No Dementia: No Diabetes: No GI Disorders: No Disorders: No HTN: No Hypercholesterolemia: No Kidney Stones: No Liver Disease: No Psychiatric Problems: Yes (BIPOLAR) Seizures: No Thyroid Disease: No - Surgical History Abdominal Surgery: No Appendectomy: No Cardiac Surgery: No Cholecystectomy: No Lung Surgery: No Neurologic Surgery: No Orthopedic Surgery: No - Reproductive History Testicular Surgery: No - Immunization History Immunization Up to Date: Yes - Suicide/Smoking/Psychosocial Hx Smoking History: Current every day smoker Have you smoked in the past 12 months: Yes Number of Cigarettes Smoked Daily: 6 Cigars Per Day: 0 'Breaking Loose' booklet given: 08/11/16 Hx Alcohol Use: No Drug/Substance Use Hx: No Substance Use Type: None Hx Substance Use Treatment: Yes - Past Medical History Allergies/Adverse Reactions: Allergies Allergy/AdvReac Type Severity Reaction Status Date / Time No Known Allergies Allergy Verified 04/18/17 22:17 Home Medications: Ambulatory Orders Amoxicillin - [Amoxicillin 250mg Capsule -] 250 mg PO TID #15 capsule 04/04/17 Diclofenac Sodium [Voltaren -] 50 mg PO TID PRN #20 tablet. 04/04/17 Amoxicillin - [Amoxicillin 250mg Capsule -] 250 mg PO TID #30 cap 04/18/17 Diclofenac Sodium [Voltaren -] 50 mg PO TID PRN #30 tablet. 04/18/17 *DC/Admit/Observation/Transfer - Discharge Dispostion Condition at time of disposition: Good - Referrals Referrals: Estiven Ervin MD [Primary Care Provider] - - Patient Instructions - Post Discharge Activity
[2017-07-15 19:10] VITALS: BP 103/56; PULSE 65; TEMP 98.3; BMI 18.2
--- NOTE | 2017-07-15 19:10 | PDOC ---
History of Present Illness - History of Present Illness Initial Comments: 07/15/17 19:27 Patient is a 22 year old male with a PMHx of bipolar disorder, and substance abuse who presents to the ER with pain in left lower molar tooth. Patient states he had an appointment on the to get the rest of his tooth remove but something always comes up. Patient was seen around 1 month ago for similar pain in right lower molar. Patient states his tooth broke up little by little while eating. Patient is here for a shot they give to help lessen his toothache. PCP: Estiven Ervin Adult PAST MEDICAL HISTORY: no significant history PAST SURGICAL HISTORY: no significant history FAMILY HISTORY: no pertinent history SOCIAL HISTORY: opioid abuse MEDICATIONS: reviewed ALLERGIES: As per nursing notes ROS General: No fevers or chills, no weakness, no weight loss HEENT: + left lower molar toothache. No change in vision. No sore throat, No ear pain Cardiovascular: No chest pain or shortness of breath Respiratory:No cough, or wheezing. Gastrointestinal: No nausea, vomiting, diarrhea or constipation, No rectal bleeding Genitourinary: No dysuria, hematuria, or frequency Musculoskeletal: No joint or muscle pain or swelling Neurologic: No headache, vertigo, dizziness or loss of consciousness Psychiatric: No depression Skin: No rashes or easy bruising Endocrine: No increased thirst or abnormal weight change Allergic: No skin or latex allergy All other systems reviewed and normal PE GENERAL: The patient is awake, alert, and fully oriented, in no acute distress. HEAD: Normal with no signs of trauma. EYES: Pupils equal, round and reactive to light, extraocular movements intact, sclera anicteric, conjunctiva clear. MOUTH: Poor dentition, multiple teeth missing bilateral upper and lower molars. Left lower molar -> tenderness upon palpation, some erythema, no abscess or palpable collection. EXTREMITIES: Normal range of motion, no edema. NEUROLOGICAL: Normal speech, normal gait. PSYCH: Normal mood, normal affect. SKIN: Warm, Dry, normal turgor, no rashes or lesions noted. <Shania Silva - Last Filed: 07/15/17 20:24> - General History Source: Patient Exam Limitations: No Limitations - History of Present Illness Initial Comments: A portion of this note was documented by scribe services under my direction. I have reviewed the details of the note, within reason, and agree with the documentation. The case summary and management plan written by me. Assessment and plan: This is a 22-year-old male who comes in complaining of left lower pain in his first molar. Patient this is patient's third ED visit for tooth pain over the last 3 months. Patient has missed 2 appointments with his dentist to have the issues addressed. Patient was counseled that it is very important that he keeps his next dental appointment as this is a recurrent problem and is not can resolve until he gets it taken care of. Patient was given amoxicillin for possible dental infection and anti-inflammatories for the pain. He says he has an appointment with his dentist in 3 weeks. <Marybel Adhikari I - Last Filed: 07/15/17 20:48> - General Chief Complaint: Toothache Stated Complaint: TOOTHACHE Time Seen by Provider: 07/15/17 19:06 Past History <Shania Silva - Last Filed: 07/15/17 20:24> - Past Medical History Anemia: No Asthma: No Cancer: No Cardiac Disorders: No CVA: No COPD: No CHF: No Dementia: No Diabetes: No GI Disorders: No Disorders: No HTN: No Hypercholesterolemia: No Kidney Stones: No Liver Disease: No Psychiatric Problems: Yes (BIPOLAR) Seizures: No Thyroid Disease: No - Surgical History Abdominal Surgery: No Appendectomy: No Cardiac Surgery: No Cholecystectomy: No Lung Surgery: No Neurologic Surgery: No Orthopedic Surgery: No - Reproductive History Testicular Surgery: No - Immunization History Immunization Up to Date: Yes - Suicide/Smoking/Psychosocial Hx Smoking History: Current every day smoker Have you smoked in the past 12 months: Yes Number of Cigarettes Smoked Daily: 6 Cigars Per Day: 0 'Breaking Loose' booklet given: 08/11/16 Hx Alcohol Use: No Drug/Substance Use Hx: No Substance Use Type: None Hx Substance Use Treatment: Yes <Marybel Adhikari Last Filed: 07/15/17 20:48> - Past Medical History Allergies/Adverse Reactions: Allergies Allergy/AdvReac Type Severity Reaction Status Date / Time No Known Allergies Allergy Verified 04/18/17 22:17 Home Medications: Ambulatory Orders Amoxicillin - [Amoxicillin 250mg Capsule -] 250 mg PO TID #15 capsule 04/04/17 Diclofenac Sodium [Voltaren -] 50 mg PO TID PRN #20 tablet. 04/04/17 Amoxicillin - [Amoxicillin 250mg Capsule -] 250 mg PO TID #30 cap 04/18/17 Diclofenac Sodium [Voltaren -] 50 mg PO TID PRN #30 tablet. 04/18/17 Amoxicillin - [Amoxicillin 500mg Capsule -] 500 mg PO BID #14 capsule 07/15/17 Naproxen 500 mg PO BID #28 tablet. 07/15/17 *Physical Exam - Vital Signs Last Vital Signs Temp Pulse Resp BP Pulse Ox 98.3 F 65 20 103/56 95 07/15/17 18:28 07/15/17 18:28 07/15/17 18:28 07/15/17 18:28 07/15/17 18:28 <Shania Silva - Last Filed: 07/15/17 20:24> *DC/Admit/Observation/Transfer - Attestations Scribe Attestion: 07/15/17 19:29 Documentation prepared by Shania Silva, acting as hospital medical biller for Marybel Adhikari MD. <Shania Silva - Last Filed: 07/15/17 20:24> - Discharge Dispostion Admit: No <Marybel Adhikari I - Last Filed: 07/15/17 20:48> Diagnosis at time of Disposition: Dentalgia - Discharge Dispostion Disposition: ELOPED Condition at time of disposition: Good - Prescriptions Prescriptions: Amoxicillin - [Amoxicillin 500mg Capsule -] 500 mg PO BID #14 capsule Naproxen 500 mg PO BID #28 tablet.dr - Referrals Referrals: Estiven Ervin MD [Primary Care Provider] - - Patient Instructions Printed Discharge Instructions: DI for Tooth Decay, DI for Dental Pain Additional Instructions: Get the prescription filled for amoxicillin and take one tablet twice a day for one week this is for infection. In addition to that take Naprosyn 1 tablet twice a day for pain. Do not skip your next appointment with your dentist. Return to the emergency department immediately with ANY new, persistent or worsening symptoms. Continue any medications as previously prescribed by your physician. . Please make sure your doctor reviews the results of your emergency evaluation. Thank you for coming to the Emergency Department today for your care. It was a pleasure to see you today. Please note that your evaluation is INCOMPLETE until you follow-up with your doctor. - Post Discharge Activity
[2017-07-15] MEDS ORDERED: KETOROLAC TROMETHAMINE 60 MG/2 ML VIAL IM ONE (19:19)
[2017-07-15] MEDS ORDERED: KETOROLAC TROMETHAMINE 60 MG/2 ML VIAL ONE (19:21)
[2017-07-15] MEDS ORDERED: AMOXICILLIN 500 MG CAPSULE (FP) PO ONE (19:54)
== END 2017-07-15 20:00 | disposition home or self-care (01) ==
LOC: FER 18:25
PROC: 3E0233Z Introduction of Anti-inflammatory into Muscle, Percutaneous Approach (ICD-10-PCS; principal; 2017-07-15)
DX: K08.89 Other specified disorders of teeth and supporting structures (principal)
CPT/HCPCS: 99282-25

== ENCOUNTER 2017-09-05 23:32 | Emergency (ER) | payer OTHER ==
--- NOTE | 2017-09-05 23:39 | PDOC ---
History of Present Illness - General Chief Complaint: Respiratory Stated Complaint: DRY COUGH, MISSED METHADONE CLINIC TODAY Time Seen by Provider: 09/05/17 23:34 History Source: Patient Exam Limitations: No Limitations - History of Present Illness Initial Comments: 09/05/17 23:37 This is a 22-year-old male who said that he missed his methadone dose about 12 hours ago and is concerned because he thinks he may be withdrawing from the methadone. Patient is complaining of some sweating and doesn't feel well. Patient denies any chest pain or shortness of breath. Patient is complaining of some mild nausea but no vomiting or diarrhea. PAST MEDICAL HISTORY: Methadone dependence PAST SURGICAL HISTORY: no significant history FAMILY HISTORY: no pertinant history SOCIAL HISTORY: Pt lives with family and is employed. MEDICATIONS: reviewed ALLERGIES: As per nursing notes Review of Systems General: No fevers or chills, no weakness, no weight loss HEENT: No change in vision. No sore throat,. No ear pain CardioVascular: No chest pain or shortness of breath Respiratory:No cough, or wheezing. Gastrointestinal: + nausea, vomitting, diarrhea or constipation, No rectal bleeding Genitourinary: No dysuria, hematuria, or frequency Musculoskeletal: No joint or muscle pain or swelling Neurologic: No headache, vertigo, dizziness or loss of consciousness Psychiatric: nor depression Skin: No rashes or easy bruising Endocrine: no increased thirst or abnormal weight change Allergic: no skin or latex allergy All other systems reviewed and normal Exam: General: Well-nourished well-developed individual, no acute distress, patient is drowsy but arousable HEENT: Throat: Normal, tonsils normal, no erythema or exudate Neck: Supple, no meningeal signs, no lymphadenopathy Eyes::Pupils equal reactive and round, extraocular motion intact. Patient's pupils are somewhat constricted. Chest: Nontender to palpation Cardiac: S1-S2 normal, regular rate and rhythm, no murmurs rubs or gallops Respiratory: Lungs clear to auscultation bilateral Abdomen: Soft, nondistended, normal bowel sounds, nontender to palpation diffusely Extremities: Warm, dry there is no swelling or diaphoresis , no cyanosis, clubbing, or edema Skin: No rashes Neuro: Alert and oriented x3, CN II - XII intact, nonfocal exam with normal strength, normal sensation, normal reflexes, normal gait, Psych: Normal mood and affect Assessment and plan: This is a 22-year-old male who comes in complaining of possible withdrawal symptoms. Patient was concerned because he missed a dose of his methadone. Patient was reassured that these symptoms will be mild and that he should go to his clinic early in the morning to try to get his dose early. Patient discharged home. Past History - Past Medical History Allergies/Adverse Reactions: Allergies Allergy/AdvReac Type Severity Reaction Status Date / Time No Known Allergies Allergy Verified 09/05/17 23:33 Home Medications: Ambulatory Orders Alprazolam [Xanax] 2 mg PO DAILY 09/05/17 Methadone [Dolophine -] 50 mg PO DAILY 09/05/17 Anemia: No Asthma: No Cancer: No Cardiac Disorders: No CVA: No COPD: No CHF: No Dementia: No Diabetes: No GI Disorders: No Disorders: No HTN: No Hypercholesterolemia: No Kidney Stones: No Liver Disease: No Psychiatric Problems: Yes (BIPOLAR) Seizures: No Thyroid Disease: No - Surgical History Abdominal Surgery: No Appendectomy: No Cardiac Surgery: No Cholecystectomy: No Lung Surgery: No Neurologic Surgery: No Orthopedic Surgery: No - Reproductive History Testicular Surgery: No - Immunization History Immunization Up to Date: Yes - Suicide/Smoking/Psychosocial Hx Smoking History: Current every day smoker Have you smoked in the past 12 months: Yes Number of Cigarettes Smoked Daily: 6 Cigars Per Day: 0 'Breaking Loose' booklet given: 08/11/16 Hx Alcohol Use: No Drug/Substance Use Hx: No Substance Use Type: None Hx Substance Use Treatment: Yes *DC/Admit/Observation/Transfer Diagnosis at time of Disposition: Methadone dependence - Discharge Dispostion Disposition: HOME Condition at time of disposition: Stable Admit: No Decision to Admit order Date/Time: 09/05/17 23:38 It is not unsafe for you to miss a dose of methadone. You may experience some mild symptoms with withdrawal but it is more dangerous to take any additional medications and to wait until you next dose of methadone. My recommendation is that you go to your clinic early in the morning and see if you can get her dose of methadone a little early. Return to the emergency department immediately with ANY new, persistent or worsening symptoms. Continue any medications as previously prescribed by your physician. You should follow up with your primary doctor as soon as possible regarding today's emergency department visit. . Please make sure your doctor reviews the results of your emergency evaluation. Thank you for coming to the Emergency Department today for your care. It was a pleasure to see you today. Please note that your evaluation is INCOMPLETE until you follow-up with your doctor. - Referrals - Patient Instructions Additional Instructions: It is not a problem if you miss a dose of methadone. She may experience some mild withdrawal symptoms otherwise taking additional medication is more dangerous than the mild withdrawal symptoms you may experience. It is my recommendation that you try to go to the clinic earlier in the morning to see if you can get your dose of little early today. Continue any medications as previously prescribed by your physician. You should follow up with your primary doctor as soon as possible regarding today's emergency department visit. . Please make sure your doctor reviews the results of your emergency evaluation. Thank you for coming to the Emergency Department today for your care. It was a pleasure to see you today. Please note that your evaluation is INCOMPLETE until you follow-up with your doctor. - Post Discharge Activity
[2017-09-05 23:40] VITALS: BP 117/78; PULSE 76; TEMP 97.5; BMI 17.6
== END 2017-09-05 23:45 | disposition home or self-care (01) ==
LOC: FER 23:32
DX: F11.20 Opioid dependence, uncomplicated (principal)
CPT/HCPCS: 99281-25

== ENCOUNTER 2017-09-10 09:13 | Inpatient (IN) | payer OTHER ==
--- NOTE | 2017-09-10 09:14 | PDOC ---
History of Present Illness - General Chief Complaint: Nausea Stated Complaint: NAUSEA Time Seen by Provider: 09/10/17 09:14 History Source: Patient Exam Limitations: No Limitations - History of Present Illness Travel History: No Initial Comments: 09/10/17 09:18 Mr Grewal is a 22-year-old male with a history of Bipolar D/o, h/o polysubstance abuse, currently compliant with methadone program who presents to the ER via private auto with a complaint of absominal pain, nausea. PT states his symptoms began yesterday after dinner and a beer He noted abdominal pain in the center of his abdomen, which he describes as feeling like his insides/organs are being twisted, rates his pain 10/10 Pain is constant but waxes and wanes in intensity. 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 MEDICATIONS: Methadone ALLERGIES: denies Review of Systems General: No fevers or chills, no weakness, no weight loss HEENT: No change in vision. No sore throat,. No ear pain CardioVascular: No chest pain or shortness of breath Respiratory:No cough, or wheezing. Gastrointestinal: + nausea, abdominal pain Mo: vomiting, diarrhea or constipation Genitourinary: No dysuria, hematuria, or frequency Musculoskeletal: No joint or muscle pain or swelling Neurologic: No headache, vertigo, dizziness or loss of consciousness Psychiatric: no depression Skin: No rashes or easy bruising Endocrine: no increased thirst or abnormal weight change Allergic: no skin or latex allergy Exam: General: Well-nourished well-developed individual,pt arrives walking in to the ER, appears uncomfortable, bent over due to pain HEENT: Throat: Normal, tonsils normal, no erythema or exudate Neck: Supple, no meningeal signs, no lymphadenopathy Eyes::Pupils equal reactive and round, extraocular motion intact. Patient's pupils are somewhat constricted. Chest: Nontender to palpation Cardiac: S1-S2 normal, regular rate and rhythm, no murmurs rubs or gallops Respiratory: Lungs clear to auscultation bilateral Abdomen: Soft, pt is tender to palpation diffusely and pushes my hand away, unable to eval for guarding or rebound Extremities: Warm, dry there is no swelling or diaphoresis , no cyanosis, clubbing, or edema Skin: No rashes Neuro: Alert and oriented x3, CN II - XII intact, nonfocal exam with normal strength, normal sensation, normal reflexes, normal gait, Psych: Normal mood and affect 09/10/17 09:25 Past History - Past Medical History Allergies/Adverse Reactions: Allergies Allergy/AdvReac Type Severity Reaction Status Date / Time No Known Allergies Allergy Verified 09/05/17 23:33 Home Medications: Ambulatory Orders Alprazolam [Xanax] 2 mg PO DAILY 09/05/17 Methadone [Dolophine -] 50 mg PO DAILY 09/05/17 Acetaminophen [Tylenol .Regular Strength -] 650 mg PO Q4H PRN tablet 09/11/17 Anemia: No Asthma: No Cancer: No Cardiac Disorders: No CVA: No COPD: No CHF: No Dementia: No Diabetes: No GI Disorders: No Disorders: No HTN: No Hypercholesterolemia: No Kidney Stones: No Liver Disease: No Psychiatric Problems: Yes (BIPOLAR) Seizures: No Thyroid Disease: No - Surgical History Abdominal Surgery: No Appendectomy: No Cardiac Surgery: No Cholecystectomy: No Lung Surgery: No Neurologic Surgery: No Orthopedic Surgery: No - Reproductive History Testicular Surgery: No - Immunization History Immunization Up to Date: Yes - Suicide/Smoking/Psychosocial Hx Smoking History: Current every day smoker Have you smoked in the past 12 months: Yes Number of Cigarettes Smoked Daily: 6 Cigars Per Day: 0 'Breaking Loose' booklet given: 08/11/16 Hx Alcohol Use: No Drug/Substance Use Hx: No Substance Use Type: None Hx Substance Use Treatment: Yes Abd/GI Specific PMHX - Complaint Specific PMHX Hepatitis: No Pancreatitis: No ED Treatment Course - LABORATORY CBC & Chemistry Diagram: 09/10/17 09:45 09/10/17 09:45 Medical Decision Making - Medical Decision Making 09/10/17 09:36 22 yo M presenting to the ER with a complaint of abdominal pain and nausea Pt differential is broad and incluedes Gastritis, early gastroenteritis, early appendicitis, biliary colic, SBO, cannabiniod cyclical vomiting Will do: Labs IV hydration Tylenol IV Zofran CT abd and pelvis Re assessment 09/10/17 10:17 Laboratory Tests 09/10/17 09/10/17 09:45 09:45 WBC 9.7 Hgb 14.3 Hct 42.4 Plt Count 235 Sodium 134 L Potassium 3.8 Chloride 102 Carbon Dioxide 26 BUN 13 D Creatinine 0.7 Random Glucose 105 Total Bilirubin 0.6 D AST 20 ALT [address] with po contrast (BMI is <25) CT abdomen and pelvis read as Acute Appendicitis (please note, I did NOT received a call from the Radiologist) 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
[2017-09-10] MEDS ORDERED: ONDANSETRON 4 MG/2 ML VIAL IVPB ONE (09:16)
[2017-09-10] MEDS ORDERED: SODIUM CHLORIDE 1,000 ML IV STA ×2 (09:16→13:04)
[2017-09-10] MEDS ORDERED: ACETAMINOPHEN INJECTION 100 ML IVPB ONE (09:35)
[2017-09-10] MEDS ORDERED: ONDANSETRON 4 MG/2 ML VIAL ONE (09:35)
[2017-09-10] MEDS ORDERED: FAMOTIDINE 20 MG/50 ML IVPB 20 MG/50 ML MG IVPB ONE (09:35)
[2017-09-10 09:58] LABS: BASO % 1.1 % (0-2.0); EOS % 3.9 % (0-4.5); HEMATOCRIT 42.4 % (35.4-49); HEMOGLOBIN 14.3 GM/dl (11.7-16.9); LYMPH % 24.3 % (8-40); MCH 31.9 pg (25.7-33.7); MCHC 33.7 g/dl (32.0-35.9); MEAN CELL VOLUME 94.7 fl (80-96); MONO % 5.8 % (3.8-10.2); NEUT % 64.9 % (42.8-82.8); PLATELET COUNT 235 K/MM3 (134-434); RBC 4.48 M/mm3 (4.00-5.60); RDW 12.3 % (11.9-15.9); WHITE BLOOD COUNT 9.7 K/mm3 (4.0-10.8)
[2017-09-10] MEDS ORDERED: FAMOTIDINE IV 20 MG/12 ML VIAL IVPUSH SCH (10:00)
[2017-09-10] MEDS: ACETAMINOPHEN 1000 MG/100 ML VIAL (NON FORMULARY) IVPB ONE ×2 (10:05→21:52)
[2017-09-10 10:12] LABS: ALBUMIN 4.4 g/dl (3.5-5.0); ALK PHOS 63 U/L (32-92); ANION GAP 6 (8-16); BILIRUBIN,TOTAL 0.6 mg/dl (0.2-1.0); BLOOD UREA NITROGEN 13 mg/dl (7-18); CALCIUM 9.7 mg/dl (8.4-10.2); CHLORIDE 102 mmol/L (98-107); CO2 26 mmol/L (22-28); CREATININE 0.7 mg/dl (0.6-1.3); GLUCOSE,RANDOM 105 mg/dl (74-106); POTASSIUM 3.8 mmol/L (3.5-5.1); SGOT/AST 20 U/L (10-42); SGPT/ALT 14 U/L (10-40); SODIUM 134 mmol/L (136-145); TOT PROT 7.7 g/dl (6.4-8.3)
[2017-09-10] MEDS ORDERED: PIPERACILLIN/TAZOB 4.5 GM 4.5 GM in DEXTROSE 5%-WATER - 100 ML IVPB ONE (13:04)
[2017-09-10] MEDS ORDERED: PIPERACILLIN/TAZOBACTAM 4.5 GM VIAL IVPB ONE (13:19)
--- NOTE | 2017-09-10 13:50 | PN ---
Progress Note (short form) - Note Progress Note: surgery 22m admitted for acute appendicitis. zosyn started. no fever. wbc wnl. Plan- for appendectomy. needs to be transferred to [facility] and awaiting anesthesia/OR availability.
[2017-09-10 14:02] LABS: INR 1.11 (0.82-1.09); PROTHROMBIN TIME (PATIENT) 12.4 SEC (10.2-13.0)
[2017-09-10] MEDS ORDERED: DEXTROSE 5%-0.45% SALINE 1,000 ML IV SCH ×2 (18:45→21:30)
[2017-09-10 18:52] VITALS: BMI 16.1
[2017-09-10] MEDS: PIPERACILLIN/TAZOB 3.375 GM/50 ML PRE-DOCKED IVPB ONE ×2 (20:36→20:39)
--- NOTE | 2017-09-10 20:52 | OP ---
Operative Note - Note: Operative Date: 09/10/17 Pre-Operative Diagnosis: acute appendicitis Operation: laparoscopic appendectomy Findings: tip appendicitis, non ruptured Post-Operative Diagnosis: Same as Pre-op Surgeon: Hank Fisher Anesthesiologist/LICENSED AIRCRAFT MAINTENANCE ENGINEER: Suresh Lara Anesthesia: General Specimens Removed: appendix Estimated Blood Loss (mls): 10
[2017-09-10] MEDS ORDERED: ACETAMINOPHEN 325 MG TABLET (FP) PO PRN ×2 (20:53→23:18)
[2017-09-10] MEDS ORDERED: oxyCODONE HCL 5 MG TABLET PO PRN (20:53)
[2017-09-10] MEDS ORDERED: MORPHINE SULFATE 10 MG/1 ML *VIAL IVPUSH PRN ×2 (20:53→23:03)
--- NOTE | 2017-09-10 21:03 | HP ---
Admitting History and Physical - Smoking History Smoking history: Current every day smoker Have you smoked in the past 12 months: Yes Aproximately how many cigarettes per day: 6 - Alcohol/Substance Use Hx Alcohol Use: No Home Medications - Allergies Allergies/Adverse Reactions: Allergies Allergy/AdvReac Type Severity Reaction Status Date / Time No Known Allergies Allergy Verified 09/05/17 23:33 - Home Medications Home Medications: Ambulatory Orders Alprazolam [Xanax] 2 mg PO DAILY 09/05/17 Methadone [Dolophine -] 50 mg PO DAILY 09/05/17 Family Disease History - Family Disease History Family Disease History: Heart Disease: Mother Physical Examination Vital Signs: Vital Signs Temperature 99.6 F 09/10/17 18:00 Pulse Rate 73 09/10/17 18:00 Respiratory Rate 16 09/10/17 18:00 Blood Pressure 134/77 09/10/17 18:00 O2 Sat by Pulse Oximetry (%) 96 09/10/17 18:00 Labs: CBC, BMP 09/10/17 09:45 09/10/17 09:45
[2017-09-10] MEDS ORDERED: MEPERIDINE HCL CARPU-JECT 50 MG/1 ML DISP.SYRIN IVPUSH ONE (21:35)
[2017-09-10] MEDS: HYDROmorphone HCL CARPU-JECT 4 MG/1 ML DISP.SYRIN IVPUSH PRN ×4 (21:54→22:24)
[2017-09-10] MEDS ORDERED: FAMOTIDINE 20 MG/50 ML IVPB 20 MG/50 ML MG IVPB SCH (22:00)
[2017-09-10] MEDS: MORPHINE SULFATE 10 MG/1 ML *VIAL IVPUSH PRN (23:32)
[2017-09-11] MEDS: oxyCODONE HCL 5 MG TABLET PO PRN ×2 (01:44→09:44)
[2017-09-11] MEDS: PIPERACILLIN/TAZOB 3.375 GM 3.375 GM in DEXTROSE 5%-WATER - 50 ML IVPB SCH ×2 (02:39→08:50)
[2017-09-11] MEDS ORDERED: PIPERACILLIN/TAZOB 3.375 GM/50 ML PRE-DOCKED IVPB SCH (03:00)
[2017-09-11] MEDS: MORPHINE SULFATE 10 MG/1 ML *VIAL IVPUSH PRN (06:16)
[2017-09-11] MEDS ORDERED: PT OWN MED DRAWER 7, Y5N ONE ×2 (06:33→08:02)
[2017-09-11 06:44] VITALS: TEMP 98.7
--- NOTE | 2017-09-11 09:55 | PN ---
Progress Note (short form) - Note Progress Note: Anesthesiology Post-op 22 y.o. male POD#1 s/p laparoscopic appendectomy under GA. Pt. is AA+Ox3, in NAD. He is tolerating PO intake and denies n/v. Pain is present but well-controlled. VSS. No apparent anesthesia-related issues. Stable post-operative course. Continue management as per primary team.
[2017-09-11] MEDS ORDERED: FAMOTIDINE 20 MG/50 ML IVPB 20 MG/50 ML MG IVPB SCH (10:00)
[2017-09-11] MEDS ORDERED: ENOXAPARIN NA (PORCINE) 40 MG/0.4 ML DISP.SYRIN SQ SCH (10:00)
--- NOTE | 2017-09-11 10:14 | PN ---
Progress Note (short form) - Note Progress Note: surgery pt seen and examined. feels well. ambulating. voiding. tolerating diet. afebrile abd- soft, nt, bandages intact Plan- surgically stable for d/c off narcotics and abx. ok shower Tuesday am. no lifting. 2 weeks off work. f/u in about 2 weeks for staple removal. [phone]
[2017-09-11 10:26] VITALS: BP 129/56; PULSE 67
--- NOTE | 2017-09-11 13:18 | CONS ---
DATE OF CONSULTATION: 09/10/2017 REASON FOR CONSULTATION: Acute appendicitis. This is an emergency room consultation at the request of emergency room physician. The patient was subsequently admitted to the hospital, transferred to the [facility], and is being seen and examined now. BRIEF HISTORY: A 22-year-old male, history of bipolar disorder and methadone dependence, who presented to [place] emergency room complaining of abdominal pain, nausea, and vomiting. He was refusing abdominal exam and pushing the emergency room physician's hands away. Noted to have normal white blood cell count and no fever. He had a CAT scan of his abdomen and pelvis, which showed a dilated appendix with fluid around it, consistent with acute appendicitis as well as possible appendicoliths. He was admitted to the hospital. Arrangements were made to transfer to the [facility], as the [facility] does not provide operating room services on weekends. After being transferred and OR team becoming available, he presents now to proceed with surgery. The patient currently has no nausea or vomiting. He has received a 2nd dose of Zosyn antibiotic and feels better and he has remained afebrile. His past medical history is as stated in HPI. His past surgical history is nil. Social history is positive for tobacco, positive for alcohol, and positive for marijuana as well as methadone. His family history is negative for malignancy in the immediate family. He has no known drug allergies. REVIEW OF SYSTEMS: General: Denies fatigue or malaise. Cardiac: Denies chest pain or palpitations. Respiratory: Denies shortness of breath. Gastrointestinal: Currently no nausea, no vomiting, no diarrhea, no blood in his stool. Admits to mild abdominal pain. Genitourinary: Denies dysuria. Musculoskeletal: Denies joint pain, joint swelling. Psychiatric: Admits to anxiety. PHYSICAL EXAMINATION: General: This is a thin 22-year-old male in no distress. Vital Signs: He is afebrile. HEENT: Head is normocephalic. Sclerae are anicteric. Neck: Supple. Chest: Clear. Abdomen: Softly distended. He grabs my hand whenever I touch his skin. He appears to have diffuse tenderness but his voluntary guarding makes his exam limited. He does not appear to localize to the right lower quadrant. Extremities: His extremities have no edema. ASSESSMENT: This is a 22-year-old male, methadone dependent, with abdominal pain, nausea and vomiting, improved on antibiotics, and CAT scan evidence of acute uncomplicated appendicitis. Clinically, CAT scan diagnosis is acute appendicitis and his CAT scan is 95% correct. Likely this is acute appendicitis. I agree with admission. I agree with Zosyn antibiotic, which will cover E coli and other enteric as well as gram-negative related arnaldo. At this point, will proceed with surgery. Risks and benefits have been explained to patient in detail. These are including but not limited to the possibility of conversion to open, the possibility of injury to viscera or bladder, the possibility of blood loss requiring blood transfusion, the possibility of future hernia, the possibility of future obstruction, the possibility of infection, possibility of staple line dehiscence, plus a multitude of medical risks including but not limited to cardiac, neurologic, pulmonary, and vascular complications, even . The patient understands these risks and is agreeable to surgery. His fiancee was present during this conversation and she is agreeable to this as well. DO SHERON VAIL/[id number]
--- NOTE | 2017-09-11 19:50 | OP ---
DATE OF OPERATION: 09/10/2017 PREOPERATIVE DIAGNOSIS: Acute appendicitis. POSTOPERATIVE DIAGNOSIS: Acute appendicitis. PROCEDURE: Laparoscopic appendectomy, lavage. SURGEON: Hank Fisher DO TECHNICAL COMMUNICATOR: None. ANESTHESIOLOGIST: Suresh Lara MD INTRAOPERATIVE FINDINGS: Thick and inflamed tip of the appendix, nonperforated with inflammatory fluid. BLOOD LOSS: Minimal SPECIMEN: Appendix. DRAINS: None. COMPLICATIONS: None. DISPOSITION: Recovery room in stable condition. BRIEF HISTORY: He is a 22-year-old male on methadone with bipolar disorder who presents with signs and symptoms of acute appendicitis and CT scan evidence to support that. He presents now for appendectomy. PROCEDURE: The patient was placed in the supine position. After general anesthesia was initiated, the abdomen was prepped and draped in the sterile fashion. A Izaguirre catheter was inserted. The patient is already on Zosyn antibiotic. Next, a vertical incision was made infraumbilical with a scalpel. We carried this through the skin and subcutaneous tissue. The fascia was then lifted with a Jerald clamp and incised vertically. The peritoneum was entered bluntly. Next a 0 Vicryl stitch was placed across the fascial defect and used to secure the Paula trocar. Pneumoperitoneum was then created, followed by insertion of a 5-mm 30-degree laparoscope. Next two 5 -mm trocars were placed; one was suprapubic with care to avoid injury to the bladder and one in the left lower quadrant lateral to the rectus muscle. At this point, attention was turned to the right lower quadrant. The appendix was seen. The distal third was thickened and inflamed, consistent with tip appendicitis. A window was made at the base. The LigaSure device was used to divide the mesoappendix in multiple wells. The multifire vascular load stapler 30 mm in length was used to divided the appendix at its base and when firing the staple line was inspected. It was intact with no bleeding. No breaks and no sign of ischemia. The appendix was then removed through the infraumbilical trocar site and sent to pathology marked as a specimen. A limb lavage was done and inflammatory fluid was suctioned from the pelvis. At this point, trocars were removed under direct visualization and no bleeding was noted. Pneumoperitoneum was released. The fascia of the infraumbilical trocar site was then closed with multiple interrupted 0 Vicryl sutures. The 3 skin incisions were closed with carolynn and Dermabond dressing was placed. Overall the patient tolerated the procedure well. There were no complications. Izaguirre catheter was placed at the beginning of the operation and was removed at the end. DO SHERON VAIL/[id number] MTDD
--- NOTE | 2017-09-13 13:29 | PATH ---
Surgical Pathology Report Patient Name: IDRIS PAZ [facility]. Rec. #: [id number] /Age/Gender: 1995 (Age: 22) / M Account: [id number] Location: [address] [place] [address]/[facility] Taken: 09/10/2017 Received: 09/12/2017 Reported: 09/13/2017 Physicians: Maikol Owusu M.D. Specimen(s) Received APPENDIX Clinical History Appendicitis Final Diagnosis APPENDIX, LAPAROSCOPIC APPENDECTOMY: ACUTE APPENDICITIS. Electronically Signed Alka Ocampo M.D. Gross Description Received in formalin, labeled "appendix," is a 9.5 cm. in length vermiform appendix with a stapled margin of resection and moderate attached fat. The serosa is robertson-rivera and smooth. Sectioning reveals a fecal material throughout the lumen. The wall of the appendix averages 0.1 cm. in thickness. Reach Truck Operator sections are submitted in one cassette. /09/12/2017 [facility]09/12/2017
--- NOTE | 2017-09-14 19:53 | DS ---
Physical Examination Vital Signs: Vital Signs Temperature 98.7 F 09/11/17 06:00 Pulse Rate 67 09/11/17 10:00 Respiratory Rate 18 09/11/17 10:00 Blood Pressure 129/56 09/11/17 10:00 O2 Sat by Pulse Oximetry (%) 99 09/10/17 22:50 Labs: CBC, BMP 09/10/17 09:45 09/10/17 09:45 Discharge Summary Reason For Visit: APPENDIDTIS Condition: Stable - Instructions Referrals: Steffi Canseco MD [Staff Physician] - Hank Fisher MD [Staff Physician] - Disposition: HOME - Home Medications Comprehensive Discharge Medication List: Ambulatory Orders Alprazolam [Xanax] 2 mg PO DAILY 09/05/17 Methadone [Dolophine -] 50 mg PO DAILY 09/05/17 Acetaminophen [Tylenol .Regular Strength -] 650 mg PO Q4H PRN tablet 09/11/17
== END 2017-09-11 11:00 | disposition home or self-care (01) | DRG 225 ==
LOC: FER 09:13 → J6S 18:00
PROVIDERS: ADMIT Internal Medicine; ATTEND Internal Medicine
PROC: 0DTJ4ZZ Resection of Appendix, Percutaneous Endoscopic Approach (ICD-10-PCS; principal; 2017-09-10 20:30)
DX: K35.80 Unspecified acute appendicitis (principal); F31.9 Bipolar disorder, unspecified; F17.210 Nicotine dependence, cigarettes, uncomplicated; F11.20 Opioid dependence, uncomplicated; F12.10 Cannabis abuse, uncomplicated
CPT/HCPCS: 36415; 74177-TC; 80053; 85025; 85610; 86850; 86900; 86901; 88304-TC; 99285-25

== ENCOUNTER 2017-09-17 16:20 | Emergency (ER) | payer OTHER ==
[2017-09-17 16:38] VITALS: BP 112/65; PULSE 82; TEMP 98; BMI 17.6
[2017-09-17] MEDS ORDERED: NAPROXEN 375 MG TABLET (FP) PO ONE (16:53)
--- NOTE | 2017-09-17 16:53 | PDOC ---
History of Present Illness - General Chief Complaint: Toothache Stated Complaint: left lower tooth ache - History of Present Illness Initial Comments: 09/17/17 16:56 The patient is a 22 year old male with no significant PMH who presents for evaluation of tooth pain. The patient reports that he has many dental issues and is scheduled to be evaluated by a dentist this month. He reports pain in his lower posterior pre-molar and notes cold sensitivity as well. He denies fevers, chills, SOB, chest pain, nausea or vomiting. Past History - Past Medical History Allergies/Adverse Reactions: Allergies Allergy/AdvReac Type Severity Reaction Status Date / Time No Known Allergies Allergy Verified 09/17/17 16:24 Home Medications: Ambulatory Orders Methadone [Dolophine -] 50 mg PO DAILY 09/05/17 Amoxicillin - [Amoxicillin 500mg Capsule -] 500 mg PO TID #21 capsule 09/17/17 Naproxen [Naprosyn -] 375 mg PO BID #20 tablet 09/17/17 Anemia: No Asthma: No Cancer: No Cardiac Disorders: No CVA: No COPD: No CHF: No Dementia: No Diabetes: No GI Disorders: No Disorders: No HTN: No Hypercholesterolemia: No Kidney Stones: No Liver Disease: No Psychiatric Problems: Yes (BIPOLAR) Seizures: No Thyroid Disease: No - Surgical History Abdominal Surgery: No Appendectomy: Yes Cardiac Surgery: No Cholecystectomy: No Lung Surgery: No Neurologic Surgery: No Orthopedic Surgery: No - Reproductive History Testicular Surgery: No - Immunization History Immunization Up to Date: Yes - Suicide/Smoking/Psychosocial Hx Smoking History: Current every day smoker Have you smoked in the past 12 months: Yes Number of Cigarettes Smoked Daily: 6 Cigars Per Day: 0 Information on smoking cessation initiated: Yes 'Breaking Loose' booklet given: 09/17/17 Hx Alcohol Use: No Drug/Substance Use Hx: Yes Substance Use Type: None Hx Substance Use Treatment: Yes Review of Systems - Review of Systems Comments:: 09/17/17 17:02 Constitutional: No fevers, chills, fatigue, malaise HEENT: Tooth Pain. No Rhinorrhea, nasal congestion, visual changes Cardiovascular: No chest pain, syncope, palpitations, lightheadedness Respiratory: No Cough, SOB, Hemoptysis, Gastrointestinal: No Abdominal pain, Nausea, Vomiting, Constipation, Diarrhea, Melena Genitourinary: No Dysuria, Frequency, Urgency, Hesitancy, Hematuria, Flank pain Musculoskeletal: No Myalgia, arthralgia Skin: No rashes, itching, bruising, pallor Neurologic: No Headache, Dizziness, Numbness, Weakness, or Tingling Psychiatric: No Hallucinations. No SI or HI *Physical Exam - Vital Signs Last Vital Signs Temp Pulse Resp BP Pulse Ox 98 F 82 20 112/65 96 09/17/17 16:24 09/17/17 16:24 09/17/17 16:24 09/17/17 16:24 09/17/17 16:24 - Physical Exam Comments: 09/17/17 17:02 General Appearance: Nourished. No Apparent Distress HEENT: Tooth number 20 is carious with exposed pulp. Poor dentition noted. No Pharyngeal Erythema, Tonsillar Exudate, Tonsillar Erythema Neck: No Cervical Lymphadenopathy Respiratory/Chest: Lungs Clear, Normal Breath Sounds. No Crackles, Rales, Rhonchi, Wheezing Cardiovascular: Regular Rhythm, Regular Rate. No Murmur, Gallops, Rubs Gastrointestinal/Abdominal: Normal Bowel Sounds, Soft. Well healing laperscopy wounds. No Guarding, Rebound, Tenderness Musculoskeletal: No CVA Tenderness Extremity: Normal Capillary Refill Integumentary: Normal Color, Dry, Warm Neurologic: Fully Oriented, Alert, Normal Mood/Affect, Normal Response, Medical Decision Making - Medical Decision Making 09/17/17 17:12 The patient is a 22 year old male with no significant PMH s/p recent appendectomy who presents for evaluation of tooth pain. Given the patient's physical exam, it is likely his symptoms are due to pulpitis and dental caries. They are no signs of abscess or systemic infection. We are comfortable discharging the patient home with dental follow up on amoxocillin and naprosyn. We discussed the plan with the patient who voiced understanding and is agreeable with the plan. *DC/Admit/Observation/Transfer Diagnosis at time of Disposition: Toothache - Discharge Dispostion Disposition: HOME Condition at time of disposition: Stable Admit: No - Prescriptions Prescriptions: Amoxicillin - [Amoxicillin 500mg Capsule -] 500 mg PO TID #21 capsule Naproxen [Naprosyn -] 375 mg PO BID #20 tablet - Referrals - Patient Instructions Printed Discharge Instructions: DI for Tooth Decay, DI for Dental Pain Additional Instructions: Please return to the ER if you experience concerning or worsening symptoms including worsening pain, fevers, chills, or difficulty breathing. We have sent a prescription for antibiotics to your pharmacy that you should take three times a day. We have also sent a prescription for Naprosyn that you may take twice a day as needed for pain management. Please call to schedule a follow up appointment with your dentist within 2-3 days to have your teeth evaluated. - Post Discharge Activity
[2017-09-17] MEDS ORDERED: AMOXICILLIN 500 MG CAPSULE (FP) PO ONE (17:00)
[2017-09-17] MEDS ORDERED: NAPROXEN 375 MG TABLET (FP) ONE (17:01)
--- NOTE | 2017-09-17 17:03 | PDOC ---
Attending Attestation - Resident Resident Name: Enrrique Garza - ED Attending Attestation I have performed the following: I have examined & evaluated the patient, The case was reviewed & discussed with the resident, I agree w/resident's findings & plan - HPI HPI: 09/17/17 17:01 22-year-old man is here one week post appendectomy. His laparoscopic appendectomy wounds are healing well without problems. He is complaining of a toothache in tooth #20. He is under the care of a dentist, but his next appointment is not until next week. He complains of cold sensitivity and pain to the tooth. There is no swelling or abscess. There is no change in the floor of his mouth. There is no difficulty speaking or swallowing. - Physicial Exam PE: 09/17/17 17:01 On examination, the patient is awake, alert, and fully oriented. There is no facial swelling. There is no trismus. Tooth #20 is carious with tap tenderness. There is no adjacent abscess or gum swelling. The floor the mouth is soft. On abdominal examination, the laparoscopic appendectomy wounds are healing well without swelling, erythema, or discharge. They are clean and dry. - Medical Decision Making 09/17/17 17:02 Impression: #1) toothache, tooth #20, no signs of abscess. Findings consistent with pulpitis secondary to caries. Patient will be treated with amoxicillin and Naprosyn. He continues on his methadone maintenance 60 mg daily. #2) status post appendectomy with benign abdominal examination and wounds healing well. Patient is stable for discharge with dental follow-up.
[2017-09-17] MEDS ORDERED: AMOXICILLIN 250 MG CAPSULE ONE (17:04)
== END 2017-09-17 17:14 | disposition home or self-care (01) ==
LOC: FER 16:20
DX: K08.89 Other specified disorders of teeth and supporting structures (principal); F31.9 Bipolar disorder, unspecified; F17.210 Nicotine dependence, cigarettes, uncomplicated
CPT/HCPCS: 99282-25

== ENCOUNTER 2017-09-25 14:29 | Emergency (ER) | payer OTHER ==
[2017-09-25] MEDS ORDERED: METHADONE HCL 10 MG TABLET PO ONE (14:35)
--- NOTE | 2017-09-25 14:35 | PDOC ---
History of Present Illness <Steffi Babcock - Last Filed: 09/25/17 14:39> - General History Source: Patient, Old Records Exam Limitations: No Limitations - History of Present Illness Initial Comments: 09/25/17 14:46 The patient is a 22 year old male with a past medical history of Bipolar disorder and polysubstance abuse (currently compliant with methadone program) who states that he missed his methadone dose this morning and thinks he may be withdrawing from methadone. He states that his normal dose is 60mg. He denies any tremors or diarrhea. <Shimon Quan - Last Filed: 09/25/17 14:47> - General Chief Complaint: Substance Abuse Stated Complaint: MISSED HIS METHADONE DOSE Time Seen by Provider: 09/25/17 14:34 Past History - Past Medical History Anemia: No Asthma: No Cancer: No Cardiac Disorders: No CVA: No COPD: No CHF: No Dementia: No Diabetes: No GI Disorders: No Disorders: No HTN: No Hypercholesterolemia: No Kidney Stones: No Liver Disease: No Psychiatric Problems: Yes (BIPOLAR) Seizures: No Thyroid Disease: No - Surgical History Abdominal Surgery: No Appendectomy: Yes Cardiac Surgery: No Cholecystectomy: No Lung Surgery: No Neurologic Surgery: No Orthopedic Surgery: No - Reproductive History Testicular Surgery: No - Immunization History Immunization Up to Date: Yes - Suicide/Smoking/Psychosocial Hx Smoking History: Current every day smoker Have you smoked in the past 12 months: Yes Number of Cigarettes Smoked Daily: 6 Cigars Per Day: 0 'Breaking Loose' booklet given: 09/17/17 Hx Alcohol Use: No Drug/Substance Use Hx: Yes Substance Use Type: None Hx Substance Use Treatment: Yes <Steffi Babcock - Last Filed: 09/25/17 14:39> <Shimon Quan - Last Filed: 09/25/17 14:47> - Past Medical History Allergies/Adverse Reactions: Allergies Allergy/AdvReac Type Severity Reaction Status Date / Time No Known Allergies Allergy Verified 09/17/17 16:24 Home Medications: Ambulatory Orders Methadone [Dolophine -] 50 mg PO DAILY 09/05/17 Amoxicillin - [Amoxicillin 500mg Capsule -] 500 mg PO TID #21 capsule 09/17/17 Naproxen [Naprosyn -] 375 mg PO BID #20 tablet 09/17/17 Review of Systems - Review of Systems Able to Perform ROS?: Yes Comments:: 09/25/17 14:46 GENERAL/CONSTITUTIONAL: No fever or chills. No weakness. GASTROINTESTINAL: No nausea, vomiting, diarrhea or constipation. MUSCULOSKELETAL: No joint or muscle swelling or pain. No neck or back pain. SKIN: No rash NEUROLOGIC: No headache, vertigo, loss of consciousness, or change in strength/ sensation. ENDOCRINE: No abnormal weight change. <Shimon Quan - Last Filed: 09/25/17 14:47> *Physical Exam - Physical Exam Comments: GENERAL: Awake, alert, and fully oriented, in no acute distress HEAD: No signs of trauma EYES: PERRLA, EOMI, sclera anicteric, conjunctiva clear ENT: Auricles normal inspection, hearing grossly normal, nares patent, oropharynx clear without exudates. Moist mucosa NECK: Normal ROM, supple, no lymphadenopathy, JVD, or masses LUNGS: Breath sounds equal, clear to auscultation bilaterally. No wheezes, and no crackles HEART: Mild tachycardia, normal S1 and S2, no murmurs, rubs or gallops ABDOMEN: Soft, nontender, normoactive bowel sounds. No guarding, no rebound. No masses EXTREMITIES: Normal range of motion, no edema. No clubbing or cyanosis. No cords, erythema, or tenderness NEUROLOGICAL: Cranial nerves II through XII grossly intact. Normal speech, normal gait SKIN: Warm, Dry, normal turgor, no rashes or lesions noted. <Steffi Babcock - Last Filed: 09/25/17 14:39> - Vital Signs Last Vital Signs Temp Pulse Resp BP Pulse Ox 99.4 F 109 H 20 120/90 96 09/25/17 14:31 09/25/17 14:31 09/25/17 14:31 09/25/17 14:31 09/25/17 14:31 <Shimon Quan - Last Filed: 09/25/17 14:47> ED Treatment Course - Medications Given in the ED: ED Medications Discontinued Medications Generic Name Dose Route Start Last Admin Trade Name Freq PRN Reason Stop Dose Admin Methadone HCl 50 mg 09/25/17 14:35 09/25/17 14:44 Dolophine - PO 09/25/17 14:36 50 mg ONCE ONE Administration <Shimon Quan - Last Filed: 09/25/17 14:47> Medical Decision Making - Medical Decision Making 09/25/17 14:42 Last recorded dose of methadone as recorded in [facility] chart review was 50mg. He states current dose is 60mg, however, the clinic is closed and the after- hours number is not working. I told him I was willing to give the last verified dose, he was amenable to that. Stable for DC. <Steffi Babcock - Last Filed: 09/25/17 14:39> *DC/Admit/Observation/Transfer - Discharge Dispostion Admit: No <Steffi Babcock - Last Filed: 09/25/17 14:39> - Attestations Scribe Attestion: 09/25/17 14:47 Documentation prepared by Shimon Quan, acting as medical case manager for Steffi Babcock MD. <Shimon Quan - Last Filed: 09/25/17 14:47> Diagnosis at time of Disposition: Methadone dependence - Discharge Dispostion Disposition: HOME Condition at time of disposition: Stable
[2017-09-25 14:40] VITALS: BP 120/90; PULSE 109; TEMP 99.4; BMI 18.7
[2017-09-25] MEDS ORDERED: METHADONE HCL 10 MG TABLET ONE (14:42)
== END 2017-09-25 14:55 | disposition home or self-care (01) ==
LOC: FER 14:29
DX: F11.20 Opioid dependence, uncomplicated (principal); F31.9 Bipolar disorder, unspecified
CPT/HCPCS: 99281-25

== ENCOUNTER 2017-10-06 20:54 | Emergency (ER) | payer OTHER ==
[2017-10-06 23:15] VITALS: BP 132/76; PULSE 100; TEMP 98.7; BMI 18.3
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
[2017-10-06] MEDS ORDERED: METHADONE HCL 10 MG TABLET PO ONE (23:43)
[2017-10-06] MEDS ORDERED: METHADONE HCL 10 MG TABLET ONE (23:46)
== END 2017-10-06 23:51 | disposition home or self-care (01) ==
LOC: FER 20:54
DX: F11.20 Opioid dependence, uncomplicated (principal); F17.210 Nicotine dependence, cigarettes, uncomplicated; F31.9 Bipolar disorder, unspecified
CPT/HCPCS: 99282-25

== ENCOUNTER 2017-11-06 02:53 | Emergency (ER) | payer OTHER ==
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
[2017-11-06 03:23] VITALS: BP 117/67; PULSE 92; TEMP 98.5; BMI 18.3
[2017-11-06] MEDS ORDERED: AMOXICILLIN 500 MG CAPSULE (FP) PO ONE (04:12)
[2017-11-06] MEDS ORDERED: METHADONE HCL 10 MG TABLET PO ONE (04:12)
[2017-11-06] MEDS ORDERED: METHADONE HCL 10 MG TABLET ONE (04:15)
[2017-11-06] MEDS ORDERED: AMOXICILLIN 250 MG CAPSULE ONE (04:16)
== END 2017-11-06 04:44 | disposition home or self-care (01) ==
LOC: FER 02:53
DX: F11.20 Opioid dependence, uncomplicated (principal); S00.83XA Contusion of other part of head, initial encounter; S02.81XA Fracture of other specified skull and facial bones, right side, initial encounter for closed fracture; F17.210 Nicotine dependence, cigarettes, uncomplicated; F31.9 Bipolar disorder, unspecified
CPT/HCPCS: 70486-TC; 99281-25

== ENCOUNTER 2017-11-07 03:11 | Emergency (ER) | payer OTHER ==
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
[2017-11-07 05:02] VITALS: BP 138/78; PULSE 88; TEMP 98.4; BMI 23.7
== END 2017-11-07 04:05 | disposition home or self-care (01) ==
LOC: FER 03:11
DX: F11.20 Opioid dependence, uncomplicated (principal); F17.210 Nicotine dependence, cigarettes, uncomplicated; F31.9 Bipolar disorder, unspecified
CPT/HCPCS: 99281-25

== ENCOUNTER 2017-11-08 09:58 | Inpatient (IN) | payer OTHER ==
[2017-11-08 10:39] VITALS: BMI 17.9
--- NOTE | 2017-11-08 13:08 | HP ---
CIWA Score - CIWA Score Nausea/Vomitin-Mild Nausea/No Vomiting Muscle Tremors: 4-Moderate,w/Arms Extend Anxiety: 4-Mod. Anxious/Guarded Agitation: 4-Moderately Restless Paroxysmal Sweats: 1-Minimal Palms Moist Orientation: 1-Uncertain about Date Tacttile Disturbances: 0-None Auditory Disturbances: 0-None Visual Disturbances: 0-None Headache: 0-None Present CIWA-Ar Total Score: 15 Admission ROS BHS - HPI Chief Complaint: withdrawal sx from xanax Allergies/Adverse Reactions: Allergies Allergy/AdvReac Type Severity Reaction Status Date / Time No Known Allergies Allergy Verified 11/08/17 11:13 History of Present Illness: 22 years old male with long history of xanax nicotine dependence has bipolar ii is admitted to detox Exam Limitations: No Limitations - Ebola screening Have you traveled outside of the country in the last 21 days: No Have you had contact with anyone from an Ebola affected area: No Have you been sick,other than usual withdrawal symptoms: No Do you have a fever: No - Review of Systems Constitutional: Loss of Appetite, Changes in sleep, Unintentional Wgt. Loss, Unexplained wgt Loss EENT: reports: No Symptoms Reported Respiratory: reports: No Symptoms reported Cardiac: reports: No Symptoms Reported GI: reports: Diarrhea, Nausea, Poor Appetite, Poor Fluid Intake, Indigestion, Abdominal cramping : reports: No Symptoms Reported Musculoskeletal: reports: No Symptoms Reported Integumentary: reports: No Symptoms Reported Neuro: reports: Tremors Endocrine: reports: No Symptoms Reported Hematology: reports: No Symptoms Reported Psychiatric: reports: Judgement Intact, Anxious, Depressed Other Systems: Reviewed and Negative Patient History - Patient Medical History Hx Anemia: No Hx Asthma: No Hx Chronic Obstructive Pulmonary Disease (COPD): No Hx Cancer: No Hx Cardiac Disorders: No Hx Congestive Heart Failure: No Hx Hypertension: No Hx Hypercholesterolemia: No Hx Pacemaker: No HX Cerebrovascular Accident: No Hx Seizures: No Hx Dementia: No Hx Diabetes: No Hx Gastrointestinal Disorders: No Hx Liver Disease: No Hx Genitourinary Disorders: No Hx Sexually Transmitted Disorders: No Hx Renal Disease (ESRD): No Hx Thyroid Disease: No Hx Human Immunodeficiency Virus (HIV): No (NEGATIVE HX) Hx Hepatitis C: No Hx Depression: No Hx Suicide Attempt: No Hx Bipolar Disorder: Yes Hx Schizophrenia: No - Patient Surgical History Past Surgical History: No Hx Neurologic Surgery: No Hx Cataract Extraction: No Hx Cardiac Surgery: No Hx Lung Surgery: No Hx Breast Surgery: No Hx Breast Biopsy: No Hx Abdominal Surgery: No Hx Appendectomy: Yes Hx Cholecystectomy: No Hx Genitourinary Surgery: No Hx Orthopedic Surgery: No Anesthesia Reaction: No - PPD History Previous Implant?: Yes Documented Results: Negative w/proof Implanted On Prior [facility] Admission?: Yes Date: 08/13/16 Results: 0mm PPD to be Administered?: Yes - Reproductive History Patient : No - Smoking Cessation Smoking history: Current every day smoker Have you smoked in the past 12 months: Yes Aproximately how many cigarettes per day: 8 Cigars Per Day: 0 Hx Chewing Tobacco Use: No Initiated information on smoking cessation: Yes 'Breaking Loose' booklet given: 11/08/17 - Substance & Tx. History Hx Alcohol Use: No Hx Substance Use: Yes Substance Use Type: Tranquilizers Hx Substance Use Treatment: Yes (2015 [facility] - Substances Abused Heroin Route: Inhalation Frequency: Daily Amount used: 8 BAGS Age of first use: 21 Date of Last Use: 11/07/17 XANAX Route: Oral Frequency: Daily Amount used: 16MG Age of first use: 18 Date of Last Use: 11/07/17 MARIJUNA Route: Smoking Frequency: Daily Amount used: $60 Age of first use: 17 Date of Last Use: 11/07/17 Family Disease History - Family Disease History Family Disease History: Heart Disease: Mother Admission Physical Exam S - Vital Signs Vital Signs: Vital Signs - 24 hr 11/08/17 10:34 Temperature 97.4 F L Pulse Rate 78 Respiratory 17 Rate Blood Pressure 125/58 - Physical General Appearance: Yes: Appropriately Dressed, Mild Distress, Thin, Tremorous, Irritable, Sweating, Anxious HEENTM: Yes: Hearing grossly Normal, Normocephalic, Normal Voice Respiratory: Yes: Chest Non-Tender, Lungs Clear, Normal Breath Sounds, No Respiratory Distress, No Accessory Muscle Use Neck: Yes: Supple, Trachea in good position Breast: Yes: Breasts Symetrical Cardiology: Yes: Regular Rhythm, Regular Rate, S1, S2 Abdominal: Yes: Non Tender, Soft, Increased Bowel Sounds Genitourinary: Yes: Within Normal Limits Back: Yes: Normal Inspection Musculoskeletal: Yes: full range of Motion, Gait Steady, Back pain, Muscle Pain Extremities: Yes: Normal Inspection, Normal Range of Motion, Non-Tender, Tremors Neurological: Yes: Alert, Motor Strength 5/5, Normal Response, Depressed Affect Integumentary: Yes: Warm, Other (hands multiple skin abrasion) Lymphatic: Yes: Within Normal Limits - Diagnostic (1) Methadone maintenance therapy patient Current Visit: Yes Status: Chronic (2) Nicotine dependence Current Visit: Yes Status: Acute Qualifiers: Nicotine product type: cigarettes Substance use status: in withdrawal Qualified Code(s): F17.213 - Nicotine dependence, cigarettes, with withdrawal (3) Positive PPD Current Visit: Yes Status: Resolved (4) Sedative, hypnotic, or anxiolytic withdrawal Current Visit: Yes Status: Acute (5) Weight loss Current Visit: Yes Status: Acute Cleared for Admission [facility] - Detox or Rehab [facility] Level of Care: Medically Managed Detox Regimen/Protocol: Valium [facility] Breath Alcohol Content Breath Alcohol Content: 0 Urine Drug Screen - Results Drug Screen Negative: No Urine Drug Screen Results: THC-Marijuana, OPI-Opiates, BZO-Benzodiazepines, MTD- Methadone
[2017-11-08] MEDS ORDERED: MAGNESIUM HYDROX 2400MG/30ML ORAL SUSPENSION 30 ML CUP PO PRN (13:13)
[2017-11-08] MEDS ORDERED: MAGNESIUM CITRATE 300 ML BOTTLE PO PRN (13:13)
[2017-11-08] MEDS ORDERED: MAG HYDROX/AL HYDROX/SIMETH 30 ML UNIT-DOSE CUP PO PRN (13:13)
[2017-11-08] MEDS ORDERED: LOPERAMIDE HCL 2 MG CAPSULE PO PRN (13:13)
[2017-11-08] MEDS ORDERED: MENTHOL/PHENOL 1 EACH UD MM PRN (13:13)
[2017-11-08] MEDS ORDERED: NICOTINE POLACRILEX 2 MG GUM BUC PRN (13:13)
[2017-11-08] MEDS ORDERED: guaiFENesin/D-METHORPHAN HB 10 ML UNIT-DOSE CUPS PO PRN (13:13)
[2017-11-08] MEDS ORDERED: ACETAMINOPHEN 325 MG TABLET (FP) PO PRN (13:13)
[2017-11-08] MEDS ORDERED: P-EPHED 60MG/TRIPROLIDI 2.5MG TABLET PO PRN (13:13)
[2017-11-08] MEDS ORDERED: IBUPROFEN 400 MG TABLET (FP) PO PRN (13:13)
[2017-11-08] MEDS ORDERED: diazePAM 5 MG TABLET PO ONE (13:50)
[2017-11-08] MEDS ORDERED: BACITRACIN 0.9 GM PACKET TP ONE (13:50)
[2017-11-08] MEDS: NICOTINE 14 MG/24 HOURS TOPICAL PATCH TD SCH (14:37)
--- NOTE | 2017-11-08 16:25 | EKG ---
Test Reason : Blood Pressure : / mmHG Vent. Rate : 059 BPM Atrial Rate : 059 BPM P-R Int : 170 ms QRS Dur : 090 ms QT Int : 416 ms P-R-T Axes : 064 076 057 degrees QTc Int : 411 ms SINUS BRADYCARDIA WITH MARKED SINUS ARRHYTHMIA OTHERWISE NORMAL ECG WHEN COMPARED WITH ECG OF 12-AUG-2016 06:48, NO SIGNIFICANT CHANGE WAS FOUND Confirmed by MD ALEXIS, YORDY ([id number]) on 11/08/2017 4:24:44 PM Referred By: Confirmed By:YORDY ESPINOZA MD
[2017-11-08] MEDS: diazePAM 5 MG TABLET PO PRN (18:07)
[2017-11-08 18:54] LABS: URINE APPEARANCE CLEAR; URINE BILIRUBIN NEGATIVE (<2.0 mg/dL); URINE BLOOD NEGATIVE (NEGATIVE); URINE COLOR YELLOW; URINE GLUCOSE (UA) NEGATIVE (NEGATIVE); URINE KETONE NEGATIVE (NEGATIVE); URINE LEUK ESTERASE TRACE (NEGATIVE); URINE NITRITE NEGATIVE (NEGATIVE); URINE PROTEIN NEGATIVE (NEGATIVE); URINE UROBILINOGEN 4.0 E.U/dl mg/dL (0.2-1.0)
[2017-11-08 19:02] LABS: EPI CELLS RARE /HPF (FEW); URINE MUCUS FEW
[2017-11-08] MEDS ORDERED: THIAMINE HCL 100 MG TABLET (FP) PO SCH (22:00)
[2017-11-08] MEDS ORDERED: MELATONIN 5 MG TABLETS PO PRN (22:00)
[2017-11-08] MEDS: diazePAM 5 MG TABLET PO SCH (23:06)
[2017-11-09] MEDS: diazePAM 5 MG TABLET PO SCH ×2 (06:14→13:22)
[2017-11-09] MEDS: diazePAM 5 MG TABLET PO PRN (08:57)
[2017-11-09] MEDS ORDERED: PRENATAL VITAMINS W/ FOLIC ACID TABLET (FP) PO SCH (10:00)
--- NOTE | 2017-11-09 10:02 | CONSULT ---
[facility] Psychiatric Consult - Data Date of interview: 11/09/17 Admission source: [facility] Identifying data: Readmission to [facility] for this 22 y/o [place]-born male seeking detox treatment on for benzodiazepine (xanax),marihuana and opiate (oxycodone) dependence.Patient is single,a father of one (six month old daughter),domiciled (lives with parents) and currently employed ([employer]). Substance Abuse History: Confirmed by patient in this session.Details in current [facility] report : Smoking history: Current every day smoker. Have you smoked in the past 12 months: Yes. Aproximately how many cigarettes per day: 8. Cigars Per Day: 0. Hx Chewing Tobacco Use: No. Initiated information on smoking cessation: Yes. 'Breaking Loose' booklet given: 11/08/17. - Substance & Tx. History. Hx Alcohol Use: No. Hx Substance Use: Yes. Substance Use Type : Tranquilizers. Hx Substance Use Treatment: Yes (2015 [facility]). - Substances Abused. Heroin. Route: Inhalation. Frequency: Daily. Amount used: 8 BAGS. Age of first use: 21. Date of Last Use: 11/07/17. XANAX. Route: Oral. Frequency: Daily. Amount used: 16MG. Age of first use: 18. Date of Last Use: 11/07/17. MARIJUNA. Route: Smoking. Frequency: Daily. Amount used: $60. Age of first use: 17. Date of Last Use: 11/07/17 Medical History: Weight loss and recent history of appendectomy (2018). Psychiatric History: Patient is already known to this lyric writer : first psychiatric breakdown occurred at age 17.Diagnosed with Bipolar Disorder.History of multiple psychiatric hospitalizations at [facility] in [place], [place].Treated with various medications, including valproate, aripriprazole and seroquel.Mr Carmina is known for chronic non-adherence to OPD care (affiliated with [facility]) and psychotropic medications.Also known for a past history of elopements from institutions ( patient's own report).Denies history of suicide attempts.Currently on methadone maintenance (60 mg/day). Physical/Sexual Abuse/Trauma History: Patient denies. Additional Comment: Urine Drug Screen Results: THC-Marijuana, OPI-Opiates, BZO- Benzodiazepines, MTD-Methadone.Noted. Mental Status Exam - Mental Status Exam Alert and Oriented to: Time, Place, Person Cognitive Function: Good Patient Appearance: Well Groomed (thin habitus ; patient appears emaciated ; name of daughter tattooed on right forearm) Mood: Nervous, Anxious Affect: Mood Congruent Patient Behavior: Fatigued, Talkative, Cooperative Speech Pattern: Clear, Appropriate Voice Loudness: Normal Thought Process: Goal Oriented Thought Disorder: Not Present Hallucinations: Denies Suicidal Ideation: Denies Homicidal Ideation: Denies Insight/Judgement: Poor Sleep: Poorly, Difficulty falling asleep Appetite: Poor, Weight loss Muscle strength/Tone: Normal Gait/Station: Normal Psychiatric Findings - Problem List ([place] 1, 2,3) (1) Opioid dependence with withdrawal Current Visit: Yes Status: Acute (2) Opioid dependence on agonist therapy Current Visit: Yes Status: Acute (3) Sedative, hypnotic, or anxiolytic withdrawal Current Visit: Yes Status: Acute (4) Cannabis dependence Current Visit: Yes Status: Chronic (5) Nicotine dependence Current Visit: Yes Status: Acute Qualifiers: Nicotine product type: cigarettes Substance use status: in withdrawal Qualified Code(s): F17.213 - Nicotine dependence, cigarettes, with withdrawal (6) Substance induced mood disorder Current Visit: Yes Status: Acute (7) Bipolar disorder Current Visit: Yes Status: Chronic - Initial Treatment Plan Initial Treatment Plan: Psychoeducation.Sleep hygiene.Detoxification in progress.Patient has expressed the wish to resume treatment with seroquel and valproate.Made aware of side effects/benefits of both drugs.Will start seroquel 100 mg po hs + depakote 250 mg po bid.PAtient consented (verbally) to this plan of care.Observation.
[2017-11-09 10:03] LABS: HEMOGLOBIN 13.3 GM/dL (11.7-16.9); MCH 33.3 pg (25.7-33.7); MEAN CELL VOLUME 97.9 fl (80-96); MEAN PLT VOLUME 9.9 fl (7.5-11.1); PLATELET COUNT 204 K/MM3 (134-434); RBC 3.98 M/mm3 (4.00-5.60); RDW 13.6 % (11.9-15.9); WHITE BLOOD COUNT 8.7 K/mm3 (4.0-10.0)
[2017-11-09] MEDS: NICOTINE 14 MG/24 HOURS TOPICAL PATCH TD SCH (10:24)
[2017-11-09 10:37] LABS: CHLORIDE 105 mmol/L (98-107); POTASSIUM 4.4 mmol/L (3.5-5.1); SODIUM 140 mmol/L (136-145)
[2017-11-09] MEDS ORDERED: METHADONE HCL 10 MG TABLET PO ONE (10:37)
[2017-11-09] MEDS ORDERED: METHADONE 40 MG, METHADONE 20 MG PO ONE (10:45)
[2017-11-09 11:03] LABS: ALBUMIN 4.3 g/dl (3.4-5.0); ALK PHOS 75 U/L (45-117); ANION GAP 5 (8-16); BILIRUBIN,TOTAL 0.6 mg/dL (0.2-1.0); BLOOD UREA NITROGEN 15 mg/dL (7-18); CALCIUM 9.4 mg/dL (8.5-10.1); CO2 30 mmol/L (21-32); CREATININE 0.7 mg/dL (0.7-1.3); GLUCOSE,RANDOM 92 mg/dL (74-106); SGOT/AST 93 U/L (15-37); SGPT/ALT 67 U/L (12-78); TOT PROT 7.6 g/dl (6.4-8.2)
[2017-11-09] MEDS ORDERED: METHADONE HCL 40 MG DISPERSABLE TABLET ONE (11:04)
[2017-11-09] MEDS ORDERED: METHADONE HCL 10 MG TABLET ONE (11:04)
--- NOTE | 2017-11-09 12:54 | PN ---
S CIWA - CIWA Score Nausea/Vomitin-No Nausea/No Vomiting Muscle Tremors: 4-Moderate,w/Arms Extend Anxiety: 4-Mod. Anxious/Guarded Agitation: 4-Moderately Restless Paroxysmal Sweats: 1-Minimal Palms Moist Orientation: 0-Oriented Tacttile Disturbances: 0-None Auditory Disturbances: 0-None Visual Disturbances: 0-None Headache: 0-None Present CIWA-Ar Total Score: 13 S Progress Note (SOAP) Subjective: ANXIETY,IRRITABILITY,RESTLESSNESS,YAWNING,MUSCLE ACHES,GOOSE BUMPS. Objective: 11/09/17 12:53 Vital Signs Temperature 96.9 F L 11/09/17 09:47 Pulse Rate 83 11/09/17 09:47 Respiratory Rate 18 11/09/17 09:47 Blood Pressure 106/71 11/09/17 09:47 O2 Sat by Pulse Oximetry (%) Laboratory Tests 11/08/17 11/09/17 11/09/17 18:00 06:00 06:00 WBC 8.7 RBC 3.98 L Hgb 13.3 D Hct 39.0 MCV 97.9 H MCH 33.3 MCHC 34.0 RDW 13.6 Plt Count 204 MPV 9.9 Sodium 140 Potassium 4.4 Chloride 105 Carbon Dioxide 30 Anion Gap 5 L BUN 15 D Creatinine 0.7 Creat Clearance w eGFR > 60 Random Glucose 92 Calcium 9.4 Total Bilirubin 0.6 D AST 93 H D ALT 67 D Alkaline Phosphatase 75 Total Protein 7.6 Albumin 4.3 Urine Color Yellow Urine Appearance Clear Urine pH 7.0 Ur Specific [place] 1.026 Urine Protein Negative Urine Glucose (UA) Negative Urine Ketones Negative Urine Blood Negative Urine Nitrite Negative Urine Bilirubin Negative Urine Urobilinogen 4.0 e.u/dl Ur Leukocyte Esterase Trace Urine WBC (Auto) <1 Urine RBC (Auto) 1 Ur Epithelial Cells Rare Urine Mucus Few RPR Titer 11/09/17 06:00 WBC RBC Hgb Hct MCV MCH MCHC RDW Plt Count MPV Sodium Potassium Chloride Carbon Dioxide Anion Gap BUN Creatinine Creat Clearance w eGFR Random Glucose Calcium Total Bilirubin AST ALT Alkaline Phosphatase Total Protein Albumin Urine Color Urine Appearance Urine pH Ur Specific [place] Urine Protein Urine Glucose (UA) Urine Ketones Urine Blood Urine Nitrite Urine Bilirubin Urine Urobilinogen Ur Leukocyte Esterase Urine WBC (Auto) Urine RBC (Auto) Ur Epithelial Cells Urine Mucus RPR Titer Nonreactive Assessment: 11/09/17 12:54 WITHDRAWAL SX Plan: CONTINUE DETOX INCREASE PO FLUIDS
[2017-11-09 17:58] VITALS: BP 120/65; PULSE 54; TEMP 98.3
--- NOTE | 2017-11-09 19:19 | DS ---
[facility] Detox Discharge Summary Admission Date: 11/08/17 Discharge Date: 11/09/17 - History Present History: Sedative Dependence Additional Comments: Patient insist on leaving today, although it advise for him to stay and continue to treatment. Denies suicidal / homicidal ideation. The patient verbalizes he understands the risks and complications that may result from the refusal of medical care which may include and permanent disability and has the mental capacity to make such decision. Patient advised to seek medical care at local ER , PCP or urgent care if symptoms worsen. Pertinent Past History: Methadone maintenance therapy patient hx +PPD Weight loss Vital Signs Temperature 98.3 F 11/09/17 17:57 Pulse Rate 54 L 11/09/17 17:57 Respiratory Rate 16 11/09/17 17:57 Blood Pressure 120/65 11/09/17 17:57 O2 Sat by Pulse Oximetry (%) Laboratory Last Values WBC 8.7 K/mm3 (4.0-10.0) 11/09/17 06:00 RBC 3.98 M/mm3 (4.00-5.60) L 11/09/17 06:00 Hgb 13.3 GM/dL (11.7-16.9) D 11/09/17 06:00 Hct 39.0 % (35.4-49) 11/09/17 06:00 MCV 97.9 fl (80-96) H 11/09/17 06:00 MCH 33.3 pg (25.7-33.7) 11/09/17 06:00 MCHC 34.0 g/dl (32.0-35.9) 11/09/17 06:00 RDW 13.6 % (11.9-15.9) 11/09/17 06:00 Plt Count 204 K/MM3 (134-434) 11/09/17 06:00 MPV 9.9 fl (7.5-11.1) 11/09/17 06:00 Sodium 140 mmol/L (136-145) 11/09/17 06:00 Potassium 4.4 mmol/L (3.5-5.1) 11/09/17 06:00 Chloride 105 mmol/L (98-107) 11/09/17 06:00 Carbon Dioxide 30 mmol/L (21-32) 11/09/17 06:00 Anion Gap 5 (8-16) L 04/25/18 06:00 BUN 15 mg/dL (7-18) D 11/09/17 06:00 Creatinine 0.7 mg/dL (0.7-1.3) 11/09/17 06:00 Creat Clearance w eGFR > 60 (>60) 11/09/17 06:00 Random Glucose 92 mg/dL (74-106) 11/09/17 06:00 Calcium 9.4 mg/dL (8.5-10.1) 11/09/17 06:00 Total Bilirubin 0.6 mg/dL (0.2-1.0) D 11/09/17 06:00 AST 93 U/L (15-37) H D 11/09/17 06:00 ALT 67 U/L (12-78) D 11/09/17 06:00 Alkaline Phosphatase 75 U/L (45-117) 11/09/17 06:00 Total Protein 7.6 g/dl (6.4-8.2) 11/09/17 06:00 Albumin 4.3 g/dl (3.4-5.0) 11/09/17 06:00 Urine Color Yellow 11/08/17 18:00 Urine Appearance Clear 11/08/17 18:00 Urine pH 7.0 (5.0-8.0) 11/08/17 18:00 Ur Specific [place] 1.026 (1.001-1.035) 11/08/17 18:00 Urine Protein Negative (NEGATIVE) 11/08/17 18:00 Urine Glucose (UA) Negative (NEGATIVE) 11/08/17 18:00 Urine Ketones Negative (NEGATIVE) 11/08/17 18:00 Urine Blood Negative (NEGATIVE) 11/08/17 18:00 Urine Nitrite Negative (NEGATIVE) 11/08/17 18:00 Urine Bilirubin Negative (<2.0 mg/dL) 11/08/17 18:00 Urine Urobilinogen 4.0 e.u/dl mg/dL (0.2-1.0) 11/08/17 18:00 Ur Leukocyte Esterase Trace (NEGATIVE) 11/08/17 18:00 Urine WBC (Auto) <1 /hpf (3-5) 11/08/17 18:00 Urine RBC (Auto) 1 /hpf (0-3) 11/08/17 18:00 Ur Epithelial Cells Rare /HPF (FEW) 11/08/17 18:00 Urine Mucus Few 11/08/17 18:00 RPR Titer Nonreactive (NONREACTIVE) 11/09/17 06:00 - Physical Exam Results Vital Signs: Vital Signs Temperature 98.3 F 11/09/17 17:57 Pulse Rate 54 L 11/09/17 17:57 Respiratory Rate 16 11/09/17 17:57 Blood Pressure 120/65 11/09/17 17:57 O2 Sat by Pulse Oximetry (%) - Medication Discharge Medications: Ambulatory Orders Methadone [Dolophine -] 60 mg PO DAILY 10/03/17 Depakote 11/08/17 Seroquel 100 mg PO DAILY 11/08/17 - Diagnosis (1) History of positive PPD Current Visit: Yes Status: Acute (2) Nicotine dependence Current Visit: Yes Status: Acute Qualifiers: Nicotine product type: cigarettes Substance use status: in withdrawal Qualified Code(s): F17.213 - Nicotine dependence, cigarettes, with withdrawal (3) Weight loss Current Visit: Yes Status: Acute (4) Bipolar disorder Current Visit: Yes Status: Chronic (5) Methadone maintenance therapy patient Current Visit: Yes Status: Chronic (6) Sedative, hypnotic, or anxiolytic withdrawal Current Visit: Yes Status: Chronic - AMA Did Patient Leave Against Medical Advice: No
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
[2017-11-09] MEDS ORDERED: DIVALPROEX SODIUM 250 MG TABLET E.C. PO SCH (22:00)
[2017-11-09] MEDS ORDERED: QUEtiapine FUMARATE 100 MG TABLET (FP) PO SCH (22:00)
[2017-11-10] MEDS ORDERED: METHADONE HCL 10 MG TABLET PO SCH (06:00)
[2017-11-10] MEDS ORDERED: METHADONE 40 MG, METHADONE 20 MG PO SCH (06:00)
[2017-11-10] MEDS ORDERED: diazePAM 5 MG TABLET PO SCH (10:00)
[2017-11-12] MEDS ORDERED: diazePAM 5 MG TABLET PO SCH (10:00)
== END 2017-11-09 18:51 | disposition left against medical advice (07) | DRG 770 ==
LOC: YASAS 09:58 → Y3N 13:40
PROVIDERS: ADMIT Internal Medicine; ATTEND Internal Medicine
PROC: HZ2ZZZZ Detoxification Services for Substance Abuse Treatment (ICD-10-PCS; principal; 2017-11-08)
DX: F11.20 Opioid dependence, uncomplicated (principal); F13.230 Sedative, hypnotic or anxiolytic dependence with withdrawal, uncomplicated; F12.20 Cannabis dependence, uncomplicated; F17.210 Nicotine dependence, cigarettes, uncomplicated; F31.9 Bipolar disorder, unspecified; F19.24 Other psychoactive substance dependence with psychoactive substance-induced mood disorder; Z68.1 Body mass index [BMI] 19.9 or less, adult; R76.11 Nonspecific reaction to tuberculin skin test without active tuberculosis
CPT/HCPCS: 36415; 80053; 81003; 81015; 85027; 86593; 93005; 93010

== ENCOUNTER 2017-11-29 14:34 | Emergency (ER) | payer OTHER ==
[2017-11-29 14:40] VITALS: BP 119/80; PULSE 93; TEMP 98.9; BMI 18.3
[2017-11-29] MEDS ORDERED: ONDANSETRON *ODT* 4 MG TABLET SL ONE (14:52)
[2017-11-29] MEDS ORDERED: ONDANSETRON *ODT* 4 MG TABLET ONE (14:56)
--- NOTE | 2017-11-29 15:04 | PDOC ---
History of Present Illness - General History Source: Patient Exam Limitations: No Limitations <Mey Magana - Last Filed: 11/29/17 15:00> - History of Present Illness Initial Comments: 11/29/17 15:04 Patient is a 22 M, with PMHx of polysubstance abuse, depression, anxiety, and bipolar disorder who presents to the ED for missed methadone treatment. Patient states that he normally takes 50 mg of methadone. His last dose was Tuesday. He states that he tried stopping cold turkey. He missed his appointment today at 11am. He is currently complaining of nausea and diarrhea. He denies vomiting. <Shania Silva - Last Filed: 11/29/17 15:38> - General Chief Complaint: Psychiatric Stated Complaint: missed my methadone Time Seen by Provider: 11/29/17 14:42 Past History - Past Medical History Anemia: No Asthma: No Cancer: No Cardiac Disorders: No CVA: No COPD: No CHF: No Dementia: No Diabetes: No GI Disorders: No Disorders: No HTN: No Hypercholesterolemia: No Kidney Stones: No Liver Disease: No Psychiatric Problems: Yes (depression/anxiety /bipolar) Seizures: No Thyroid Disease: No - Surgical History Abdominal Surgery: No Appendectomy: Yes Cardiac Surgery: No Cholecystectomy: No Lung Surgery: No Neurologic Surgery: No Orthopedic Surgery: No - Reproductive History Testicular Surgery: No - Immunization History Immunization Up to Date: Yes - Suicide/Smoking/Psychosocial Hx Smoking History: Current every day smoker Have you smoked in the past 12 months: Yes Number of Cigarettes Smoked Daily: 3 Cigars Per Day: 0 Information on smoking cessation initiated: Yes 'Breaking Loose' booklet given: 11/29/17 Hx Alcohol Use: No Drug/Substance Use Hx: Yes Substance Use Type: Tranquilizers Hx Substance Use Treatment: Yes (2015 [facility]) <Mey Magana - Last Filed: 11/29/17 15:00> <Shania Silva - Last Filed: 11/29/17 15:38> - Past Medical History Allergies/Adverse Reactions: Allergies Allergy/AdvReac Type Severity Reaction Status Date / Time No Known Allergies Allergy Verified 11/29/17 14:36 Home Medications: Ambulatory Orders Methadone [Dolophine -] 50 mg PO DAILY 10/03/17 Divalproex Sodium [Depakote] 250 mg PO DAILY 11/29/17 Ondansetron [Zofran *Odt*] 8 mg SL TID PRN #15 od.tablet MDD 3 11/29/17 Review of Systems - Review of Systems Comments:: 11/29/17 15:04 GENERAL/CONSTITUTIONAL: No fever or chills. No weakness. HEAD, EYES, EARS, NOSE AND THROAT: No change in vision. No ear pain or discharge. No sore throat. GASTROINTESTINAL: +nausea, no vomiting, +diarrhea, no constipation. GENITOURINARY: No dysuria, frequency, or change in urination. CARDIOVASCULAR: No chest pain or shortness of breath. RESPIRATORY: No cough, wheezing, or hemoptysis. MUSCULOSKELETAL: No joint or muscle swelling or pain. No neck or back pain. SKIN: No rash NEUROLOGIC: No headache, vertigo, loss of consciousness, or change in strength/ sensation. ENDOCRINE: No increased thirst. No abnormal weight change. HEMATOLOGIC/LYMPHATIC: No anemia, easy bleeding, or history of blood clots. ALLERGIC/IMMUNOLOGIC: No hives or skin allergy. <Shania Silva - Last Filed: 11/29/17 15:38> *Physical Exam - Vital Signs Last Vital Signs Temp Pulse Resp BP Pulse Ox 98.9 F 93 H 16 119/80 100 11/29/17 14:37 11/29/17 14:37 11/29/17 14:37 11/29/17 14:37 11/29/17 14:37 <Mey Magana - Last Filed: 11/29/17 15:00> - Vital Signs Last Vital Signs Temp Pulse Resp BP Pulse Ox 98.9 F 93 H 16 119/80 100 11/29/17 14:37 11/29/17 14:37 11/29/17 14:37 11/29/17 14:37 11/29/17 14:37 - Physical Exam Comments: 11/29/17 15:04 GENERAL: Awake, alert, and fully oriented, in no acute distress HEAD: No signs of trauma EYES: PERRLA, EOMI, sclera anicteric, conjunctiva clear ENT: Auricles normal inspection, nares patent, Moist mucosa NECK: Normal ROM, supple, no lymphadenopathy, JVD, or masses LUNGS: Breath sounds equal, clear to auscultation bilaterally. No wheezes, and no crackles HEART: Slightly tachycardic. Regular rate and rhythm, normal S1 and S2, no murmurs, rubs or gallops ABDOMEN: Soft, nontender, normoactive bowel sounds. No guarding, no rebound. No masses EXTREMITIES: Normal range of motion, no edema. No clubbing or cyanosis. No cords, erythema, or tenderness NEUROLOGICAL: Normal speech SKIN: Warm, Dry, normal turgor, no rashes or lesions noted. <Shania Silva - Last Filed: 11/29/17 15:38> ED Treatment Course - Medications Given in the ED: ED Medications Discontinued Medications Generic Name Dose Route Start Last Admin Trade Name Freq PRN Reason Stop Dose Admin Ondansetron HCl 4 mg 11/29/17 14:52 11/29/17 14:57 Zofran Odt - SL 11/29/17 14:53 4 mg ONCE ONE Administration <Mey Magana - Last Filed: 11/29/17 15:00> - Medications Given in the ED: ED Medications Discontinued Medications Generic Name Dose Route Start Last Admin Trade Name Freq PRN Reason Stop Dose Admin Ondansetron HCl 4 mg 11/29/17 14:52 11/29/17 14:57 Zofran Odt - SL 11/29/17 14:53 4 mg ONCE ONE Administration <Shania Silva - Last Filed: 11/29/17 15:38> Medical Decision Making - Medical Decision Making 11/29/17 15:00 22-year-old history of methadone use currently gets 50 mg daily missed his clinic today as it closes at 11 AM. Has not had his methadone for the last 4 days she was trying to get off of it. Today complaining of nausea and diarrhea no vomiting no fevers or chills no other current complaints Plan Will give anti-emetics and patient to follow up with his methadone clinic on the day following <Mey Magana - Last Filed: 11/29/17 15:00> *DC/Admit/Observation/Transfer <Mey Magana - Last Filed: 11/29/17 15:00> - Attestations Scribe Attestion: 11/29/17 15:05 Documentation prepared by Shania Silva, acting as medical doctor nuclear medicine for Mey Magana MD. <Shania Silva - Last Filed: 11/29/17 15:38> Diagnosis at time of Disposition: Opiate withdrawal - Discharge Dispostion Disposition: HOME Condition at time of disposition: Improved - Prescriptions Prescriptions: Ondansetron [Zofran *Odt*] 8 mg SL TID PRN #15 od.tablet MDD 3 PRN Reason: Nausea - Patient Instructions Additional Instructions: He should follow up with her methadone clinic tomorrow take Zofran 8 mg every 8 hours as needed for nausea drink plenty of liquids return for any problems or concerns
== END 2017-11-29 15:15 | disposition home or self-care (01) ==
LOC: FER 14:34
DX: F15.93 Other stimulant use, unspecified with withdrawal (principal); F31.9 Bipolar disorder, unspecified; F19.10 Other psychoactive substance abuse, uncomplicated
CPT/HCPCS: 99281-25; Q0162

== ENCOUNTER 2018-05-10 22:49 | Emergency (ER) | payer OTHER ==
[2018-05-10 22:56] VITALS: BP 133/68; PULSE 100; TEMP 98; BMI 13.5
[2018-05-10] MEDS ORDERED: diphenhydrAMINE HCL 25 MG CAPSULE (FP) PO ONE ×2 (23:08→23:10)
--- NOTE | 2018-05-10 23:08 | PDOC ---
History of Present Illness - General Chief Complaint: Allergic Reaction Stated Complaint: ALLERGIC REACTION Time Seen by Provider: 05/10/18 23:03 - History of Present Illness Initial Comments: 05/10/18 23:45 Chief complaint: Itchy rash History of present illness: Itchy rash trunk and extremities for approximately 1 hour after ingesting oxycodone. The patient had taken this medication once previously. No other suspicious injections or food intake Review of systems: No fever/chills, headache, chest pain, shortness of breath, abdominal pain, nausea, vomiting, diarrhea, irritation in the throat or swelling of the tongue oropharynx lips or face, no wheezing or chest tightness Past medical history: Psychiatric disorder, drug abuse, alcohol abuse. Physical exam: Alert oriented well-developed well-nourished no acute distress. No respiratory distress. Afebrile, vital signs normal HEENT clear. The oropharynx is clear, without edema, swelling, or erythema Neck supple without bruit mass or nodes Chest clear with full breath sounds throughout bilaterally, no wheezes rales or rhonchi, respiratory rate 12 and unlabored, O2 saturation 99% CV regular without murmur rub or gallop Abdomen benign Neurological intact Skin: Diffuse urticaria trunk and extremities, the skin is very dry as well Impression: Urticaria, acute, secondary to oxycodone. No sign of angioedema or other serious drug reaction Plan: Avoid oxycodone. Moisturizer. Benadryl. Follow-up primary physician 24 hours. Itching is improved. Fully ambulatory and in no distress upon discharge Past History - Past Medical History Allergies/Adverse Reactions: Allergies Allergy/AdvReac Type Severity Reaction Status Date / Time No Known Allergies Allergy Verified 01/19/18 17:42 Home Medications: Ambulatory Orders Aripiprazole [Abilify] 5 mg PO DAILY #7 tablet 05/10/18 Diphenhydramine HCl [Benadryl -] 25 - 50 mg PO Q6H #20 capsule 05/10/18 Divalproex Sodium [Depakote] 250 mg PO BID #14 tablet. 05/10/18 Mineral Oil/Petrolat,Wht/Water [Eucerin] 1 applic TP QID #1 jar 05/10/18 Quetiapine Fumarate [Seroquel] 300 mg PO DAILY #7 tablet 05/10/18 Anemia: No Asthma: No Cancer: No Cardiac Disorders: No CVA: No COPD: No CHF: No DVT: No Dementia: No Diabetes: No GI Disorders: No Disorders: No HTN: No Hypercholesterolemia: No Kidney Stones: No Liver Disease: No Psychiatric Problems: Yes (BIPOLOAR) Seizures: No Thyroid Disease: No - Surgical History Abdominal Surgery: No Appendectomy: Yes Cardiac Surgery: No Cholecystectomy: No Lung Surgery: No Neurologic Surgery: No Orthopedic Surgery: No - Reproductive History Testicular Surgery: No - Immunization History Immunization Up to Date: Yes - Suicide/Smoking/Psychosocial Hx Smoking History: Current every day smoker Have you smoked in the past 12 months: Yes Number of Cigarettes Smoked Daily: 20 Cigars Per Day: 0 Information on smoking cessation initiated: Yes 'Breaking Loose' booklet given: 05/10/18 Hx Alcohol Use: No Drug/Substance Use Hx: Yes Substance Use Type: None, Opiates, Prescribed Hx Substance Use Treatment: Yes (2015 [facility]) *Physical Exam - Vital Signs Last Vital Signs Temp Pulse Resp BP Pulse Ox 98 F 100 H 15 133/68 100 05/10/18 22:53 05/10/18 22:53 05/10/18 22:53 05/10/18 22:53 05/10/18 22:53 *DC/Admit/Observation/Transfer Diagnosis at time of Disposition: Urticaria - Discharge Dispostion Disposition: HOME Condition at time of disposition: Stable Decision to Admit order: No - Prescriptions Prescriptions: Aripiprazole [Abilify] 5 mg PO DAILY #7 tablet Diphenhydramine HCl [Benadryl -] 25 - 50 mg PO Q6H #20 capsule Divalproex Sodium [Depakote] 250 mg PO BID #14 tablet. Mineral Oil/Petrolat,Wht/Water [Eucerin] 1 applic TP QID #1 jar Quetiapine Fumarate [Seroquel] 300 mg PO DAILY #7 tablet - Referrals Referrals: Estiven Ervin MD [Primary Care Provider] - 24 hours - Patient Instructions Printed Discharge Instructions: DI for Adverse Drug Reaction -- Allergic - Post Discharge Activity
== END 2018-05-10 23:21 | disposition home or self-care (01) ==
LOC: FER 22:49
DX: L50.9 Urticaria, unspecified (principal); F31.9 Bipolar disorder, unspecified; F17.210 Nicotine dependence, cigarettes, uncomplicated
CPT/HCPCS: 99283-25

== ENCOUNTER 2018-10-07 15:42 | Emergency (ER) | payer OTHER ==
[2018-10-07 16:04] VITALS: BP 103/70; PULSE 100; TEMP 98; BMI 13.4
--- NOTE | 2018-10-07 16:07 | PDOC ---
*Physical Exam - Vital Signs Last Vital Signs Temp Pulse Resp BP Pulse Ox 98.0 F 100 H 20 103/70 95 10/07/18 15:43 10/07/18 15:43 10/07/18 15:43 10/07/18 15:43 10/07/18 15:43 - Physical Exam Comments: 10/07/18 16:21 note started in error, see other note *DC/Admit/Observation/Transfer Diagnosis at time of Disposition: Toothache - Discharge Dispostion Disposition: HOME Condition at time of disposition: Stable - Prescriptions Prescriptions: Amoxicillin - [Amoxicillin 500mg Capsule -] 500 mg PO TID #21 capsule Naproxen [Naprosyn -] 375 mg PO BID PRN #20 tablet PRN Reason: toothache pain - Referrals Referrals: Estiven Ervin MD [Primary Care Provider] - - Patient Instructions - Post Discharge Activity
[2018-10-07] MEDS ORDERED: NAPROXEN 375 MG TABLET (FP) PO ONE (16:17)
[2018-10-07] MEDS ORDERED: AMOXICILLIN 500 MG CAPSULE (FP) PO ONE (16:18)
--- NOTE | 2018-10-07 16:20 | PDOC ---
History of Present Illness - General History Source: Patient Exam Limitations: No Limitations - History of Present Illness Initial Comments: 10/07/18 16:29 The patient is a 23 year old male, with a significant past medical history of substance abuse, alcohol abuse, anxiety, and depression, who presents to the emergency department with toothache #20 since 6am. The patient notes he is under the care of a dentist (Dr. Leahy), working on a root canal, but his next appointment is not until Tuesday. The patient describes the pain as throbbing sensation and notes he is unable to drink, eat, or chew food. The patient denies any facial pain, facial swelling, neck swelling, or change in the floor of his mouth. The patient denies taking any medication for pain relief. The patient denies chest pain, shortness of breath, or dizziness. The patient denies fevers, chills, nausea, vomiting, diarrhea, or constipation. Allergies: NKDA Past surgical history: Appendectomy Social history: Smokes ppd of cigarettes. Regularly smokes marijuana. Occasionally drinks alcohol. PCP: Estiven Larson Psychiatrist: at [facility] <Gabriela Bañuelos - Last Filed: 10/07/18 16:35> <Thee Willis - Last Filed: 10/07/18 16:43> - General Chief Complaint: Toothache Stated Complaint: TOOTHACHE Time Seen by Provider: 10/07/18 15:58 Past History <Gabriela Bañuelos - Last Filed: 10/07/18 16:35> - Past Medical History Anemia: No Asthma: No Cancer: No Cardiac Disorders: No CVA: No COPD: No CHF: No DVT: No Dementia: No Diabetes: No GI Disorders: No Disorders: No HTN: No Hypercholesterolemia: No Kidney Stones: No Liver Disease: No Psychiatric Problems: Yes (BIPOLOAR) Seizures: No Thyroid Disease: No - Surgical History Abdominal Surgery: No Appendectomy: Yes Cardiac Surgery: No Cholecystectomy: No Lung Surgery: No Neurologic Surgery: No Orthopedic Surgery: No - Reproductive History Testicular Surgery: No - Immunization History Immunization Up to Date: Yes - Suicide/Smoking/Psychosocial Hx Smoking History: Current every day smoker Have you smoked in the past 12 months: Yes Number of Cigarettes Smoked Daily: 20 Cigars Per Day: 0 Information on smoking cessation initiated: Yes 'Breaking Loose' booklet given: 01/29/18 Hx Alcohol Use: No Drug/Substance Use Hx: Yes Substance Use Type: None, Opiates, Prescribed Hx Substance Use Treatment: Yes ([facility]) <Thee Willis - Last Filed: 10/07/18 16:43> - Past Medical History Allergies/Adverse Reactions: Allergies Allergy/AdvReac Type Severity Reaction Status Date / Time No Known Allergies Allergy Verified 10/07/18 16:06 Home Medications: Ambulatory Orders Amoxicillin - [Amoxicillin 500mg Capsule -] 500 mg PO TID #21 capsule 10/07/18 Naproxen [Naprosyn -] 375 mg PO BID PRN #20 tablet 10/07/18 Review of Systems - Review of Systems Able to Perform ROS?: Yes Comments:: 10/07/18 16:30 CONSTITUTIONAL: Absent: Fever, Chills, Diaphoresis, Generalized Weakness, Malaise, Loss of Appetite HEENT: Absent: Rhinorrhea, Nasal Congestion, Throat Pain, Throat Swelling, Difficulty Swallowing, Mouth Swelling, Ear Pain, Eye Pain, Visual Changes TOOTH: Present: Toothache on tooth #20 Absent: facial pain, facial swelling, neck swelling, or change in the floor of his mouth. CARDIOVASCULAR: Absent: Chest Pain, Syncope, Palpitations, Irregular Heart Rate, Lightheadedness , Peripheral Edema RESPIRATORY: Absent: Cough, Shortness of Breath, SOB with Exertion, Orthopnea, Wheezing, Stridor, Hemoptysis GASTROINTESTINAL: Absent: Abdominal pain, Abdominal Distension, Nausea, Vomiting, Diarrhea, Constipation, Melena, Hematochezia GENITOURINARY: Absent: Dysuria, Frequency, Urgency, Hesitancy, Flank Pain, Genital Pain MUSCULOSKELETAL: Absent: Myalgia, Arthralgia, Joint Swelling, Back pain, Neck Pain SKIN: Absent: Rash, Itching, Pallor HEMEATOLOGIC/IMMUNOLOGIC: Absent: Easy Bleeding, Easy Bruising, Lymphadenopathy, Frequent infections ENDOCRINE: Absent: Unexplained Weight Gain, Unexplained Weight Loss, Heat Intolerance, Cold Intolerance NEUROLOGIC: Absent: Headache, Focal Weakness, Paresthesias, Vertigo, Lightheadedness, Unsteady Gait, Seizure, Mental Status Changes, Incontinence PSYCHIATRIC: Absent: Anxiety, Depression All Other Systems: Reviewed and Negative <Gabriela Bañuelos - Last Filed: 10/07/18 16:35> *Physical Exam - Vital Signs Last Vital Signs Temp Pulse Resp BP Pulse Ox 98.0 F 100 H 20 103/70 95 10/07/18 15:43 10/07/18 15:43 10/07/18 15:43 10/07/18 15:43 10/07/18 15:43 - Physical Exam Comments: 10/07/18 16:30 GENERAL: The patient is awake, alert, and fully oriented, in no acute distress. HEAD: Normal with no signs of trauma. EYES: Pupils equal, round and reactive to light, extraocular movements intact, sclera anicteric, conjunctiva clear. ENT: Ears normal, nares patent, oropharynx clear without exudates. Moist mucous membranes. TOOTH:(+)Tooth #20 is carious, with multiple carious other teeth.(+) tooth #20 tap tenderness. No abscess adjacent to the tooth. No facial pain, facial swelling, neck swelling, or change in the floor of his mouth. NECK: Normal range of motion, supple without lymphadenopathy, JVD, or masses. LUNGS: Breath sounds equal, clear to auscultation bilaterally. No wheezes, and no crackles. HEART: Regular rate and rhythm, normal S1 and S2 without murmur, rub or gallop. ABDOMEN: Soft, nontender, normoactive bowel sounds. No guarding, no rebound. No masses. EXTREMITIES: Normal range of motion, no edema. No clubbing or cyanosis. No cords , erythema, or tenderness. NEUROLOGICAL: Cranial nerves II through XII grossly intact. Normal speech, normal gait. PSYCH: Normal mood, normal affect. SKIN: Warm, Dry, normal turgor, no rashes or lesions noted. <Gabriela Bañuelos - Last Filed: 10/07/18 16:35> - Vital Signs Last Vital Signs Temp Pulse Resp BP Pulse Ox 98.0 F 100 H 20 103/70 95 10/07/18 15:43 10/07/18 15:43 10/07/18 15:43 10/07/18 15:43 10/07/18 15:43 <Thee Willis - Last Filed: 10/07/18 16:43> Moderate Sedation - Procedure Monitoring Vital Signs: Procedure Monitoring Vital Signs Temperature 98.0 F 10/07/18 15:43 Pulse Rate 100 H 10/07/18 15:43 Respiratory Rate 20 10/07/18 15:43 Blood Pressure 103/70 10/07/18 15:43 O2 Sat by Pulse Oximetry (%) 95 10/07/18 15:43 <Gabriela Bañuelos - Last Filed: 10/07/18 16:35> - Procedure Monitoring Vital Signs: Procedure Monitoring Vital Signs Temperature 98.0 F 10/07/18 15:43 Pulse Rate 100 H 10/07/18 15:43 Respiratory Rate 20 10/07/18 15:43 Blood Pressure 103/70 10/07/18 15:43 O2 Sat by Pulse Oximetry (%) 95 10/07/18 15:43 <Thee Willis - Last Filed: 10/07/18 16:43> Medical Decision Making - Medical Decision Making 10/07/18 16:38 23 y/o man known to me from prior visits, c/o toothache since 6 am. Is under dental care for multiple severely carious teeth. Exam with tap tender, carious #20, multiple other teeth in poor repair. No abscess, no facial, jaw or floor of mouth swelling. Speech and swallowing normal. Rx for amoxicilling and naprosyn with f/u Tuesday to the dentist, reviewed with patient danger signs to return. <Thee Willis - Last Filed: 10/07/18 16:43> *DC/Admit/Observation/Transfer - Attestations Scribe Attestion: 10/07/18 16:31 Documentation prepared by Gabriela Bañuelos, acting as medical biller for Thee Willis MD <Gabriela Bañuelos - Last Filed: 10/07/18 16:35> - Discharge Dispostion Decision to Admit order: No <Thee Willis - Last Filed: 10/07/18 16:43> Diagnosis at time of Disposition: Toothache - Discharge Dispostion Disposition: HOME Condition at time of disposition: Stable - Prescriptions Prescriptions: Amoxicillin - [Amoxicillin 500mg Capsule -] 500 mg PO TID #21 capsule Naproxen [Naprosyn -] 375 mg PO BID PRN #20 tablet PRN Reason: toothache pain - Referrals Referrals: Estiven Ervin MD [Primary Care Provider] - - Patient Instructions Printed Discharge Instructions: DI for Dental Pain Additional Instructions: see other note with discharge instructions - Post Discharge Activity
[2018-10-07] MEDS ORDERED: AMOXICILLIN 250 MG CAPSULE ONE (16:27)
[2018-10-07] MEDS ORDERED: NAPROXEN 375 MG TABLET (FP) ONE (16:27)
== END 2018-10-07 16:33 | disposition home or self-care (01) ==
LOC: FER 15:42
DX: K08.89 Other specified disorders of teeth and supporting structures (principal); F31.9 Bipolar disorder, unspecified; F17.210 Nicotine dependence, cigarettes, uncomplicated; F41.8 Other specified anxiety disorders
CPT/HCPCS: 99282-25

== ENCOUNTER 2019-01-05 23:00 | Emergency (ER) | payer OTHER ==
--- NOTE | 2019-01-05 23:02 | PDOC ---
History of Present Illness - General Chief Complaint: Toothache Stated Complaint: TOOTHACHE Time Seen by Provider: 01/05/19 23:01 - History of Present Illness Initial Comments: 01/06/19 03:00 Pt presents to the Ed complaining of tooth pain that has been present for a week. States that he has multiple dental issues and follows with a dentist who is treating him for these issues. He has dental follow up next week. Denies fevers or facial swelling. Requesting naprosen and antibiotics, since this improved his pain the last time he had a tooth ache. Past History - Past Medical History Allergies/Adverse Reactions: Allergies Allergy/AdvReac Type Severity Reaction Status Date / Time No Known Allergies Allergy Verified 10/07/18 16:06 Home Medications: Ambulatory Orders Amoxicillin - [Amoxicillin 250mg Capsule -] 250 mg PO TID #21 capsule 01/05/19 Naproxen [Naprosyn] 500 mg PO BID PRN #30 tablet 01/05/19 Anemia: No Asthma: No Cancer: No Cardiac Disorders: No CVA: No COPD: No CHF: No DVT: No Dementia: No Diabetes: No GI Disorders: No Disorders: No HTN: No Hypercholesterolemia: No Kidney Stones: No Liver Disease: No Psychiatric Problems: Yes (BIPOLOAR) Seizures: No Thyroid Disease: No - Surgical History Abdominal Surgery: No Appendectomy: Yes Cardiac Surgery: No Cholecystectomy: No Lung Surgery: No Neurologic Surgery: No Orthopedic Surgery: No - Reproductive History Testicular Surgery: No - Immunization History Immunization Up to Date: Yes - Suicide/Smoking/Psychosocial Hx Smoking History: Current every day smoker Have you smoked in the past 12 months: Yes Number of Cigarettes Smoked Daily: 20 Cigars Per Day: 0 'Breaking Loose' booklet given: 01/29/18 Hx Alcohol Use: No Drug/Substance Use Hx: Yes Substance Use Type: None, Opiates, Prescribed Hx Substance Use Treatment: Yes (2016 [facility]) Review of Systems - Review of Systems Able to Perform ROS?: Yes Is the patient limited Bulgarian proficient: No HEENTM: Yes: Mouth Pain, Dental Problems *Physical Exam - Physical Exam Comments: 01/06/19 03:02 Gen: alert, NAD HEENT: no facial swelling. No trismus. + severe dental caries. Patient points at tooth #19 as the location of his pain. Teeth 18, 19 and 20 have severe dental caries and are almost worn down to the gum. No fluctuance. Medical Decision Making - Medical Decision Making 01/06/19 03:06 Pt presents to the ED complaining of severe dental caries and requesting antibiotics and pain control. Will treat with naproxen and amoxicillin and advise to follow up with his dentist. *DC/Admit/Observation/Transfer Diagnosis at time of Disposition: Toothache - Discharge Dispostion Disposition: HOME Condition at time of disposition: Good Decision to Admit order: No - Prescriptions Prescriptions: Amoxicillin - [Amoxicillin 250mg Capsule -] 250 mg PO TID #21 capsule Naproxen [Naprosyn] 500 mg PO BID PRN #30 tablet PRN Reason: Severe Pain - Referrals - Patient Instructions Printed Discharge Instructions: DI for Tooth Decay Additional Instructions: you came to the Ed for pain in your tooth. You should call the dentist for follow up on Tuesday. Return to the ED for swelling of the face, tongue or jaw, fever, difficulty breathing or swallowing, other new or worsening symptoms. - Post Discharge Activity
[2019-01-05] MEDS ORDERED: NAPROXEN 500 MG TABLET (FP) PO ONE (23:06)
[2019-01-05 23:09] VITALS: BP 120/94; PULSE 75; TEMP 98.5; BMI 13.4
[2019-01-05] MEDS ORDERED: NAPROXEN 500 MG TABLET (FP) ONE (23:10)
[2019-01-05] MEDS ORDERED: AMOXICILLIN 250 MG CAPSULE PO ONE (23:14)
[2019-01-05] MEDS ORDERED: AMOXICILLIN 250 MG CAPSULE ONE (23:19)
== END 2019-01-05 23:20 | disposition home or self-care (01) ==
LOC: FER 23:00
DX: K08.89 Other specified disorders of teeth and supporting structures (principal); F31.9 Bipolar disorder, unspecified; F17.210 Nicotine dependence, cigarettes, uncomplicated
CPT/HCPCS: 99282-25

== ENCOUNTER 2019-02-18 15:26 | Emergency (ER) | payer OTHER ==
[2019-02-18 15:35] VITALS: BP 120/90; PULSE 89; TEMP 98.7; BMI 18.9
--- NOTE | 2019-02-18 15:55 | PDOC ---
History of Present Illness - General Chief Complaint: Urinary Problem Stated Complaint: trouble urinating Time Seen by Provider: 02/18/19 15:28 History Source: Patient Exam Limitations: No Limitations - History of Present Illness Initial Comments: 02/18/19 15:54 23 y/o male recently admitted for psychological issues and placed on Subaxone and Seroquel, presents to ER with difficulty urinating. No fever or chills. No back pain, N/V/d/C. Denies discharge or dysuria. No hematuria as well. Severity: mild Past History - Past Medical History Allergies/Adverse Reactions: Allergies Allergy/AdvReac Type Severity Reaction Status Date / Time No Known Allergies Allergy Verified 02/18/19 15:28 Home Medications: Ambulatory Orders Buprenorphine HCl/Naloxone HCl [Suboxone 8 mg-2 mg Sl Tablets] 1 each SL BID 11/03 Diphenhydramine [Benadryl -] 50 mg PO DAILY 02/18/19 Quetiapine Fumarate [Seroquel -] 50 mg PO DAILY 02/18/19 Quetiapine Fumarate [Seroquel] 300 mg PO HS 02/18/19 Anemia: No Asthma: No Cancer: No Cardiac Disorders: No CVA: No COPD: No CHF: No DVT: No Dementia: No Diabetes: No GI Disorders: No Disorders: No HTN: No Hypercholesterolemia: No Kidney Stones: No Liver Disease: No Psychiatric Problems: Yes (BIPOLOAR) Seizures: No Thyroid Disease: No - Surgical History Abdominal Surgery: No Appendectomy: Yes Cardiac Surgery: No Cholecystectomy: No Lung Surgery: No Neurologic Surgery: No Orthopedic Surgery: No - Reproductive History Testicular Surgery: No - Immunization History Immunization Up to Date: Yes - Suicide/Smoking/Psychosocial Hx Smoking History: Never smoked Have you smoked in the past 12 months: Yes Number of Cigarettes Smoked Daily: 20 Cigars Per Day: 0 'Breaking Loose' booklet given: 01/29/18 Hx Alcohol Use: No Drug/Substance Use Hx: No Substance Use Type: None, Opiates, Prescribed Hx Substance Use Treatment: Yes (2015 [facility]) Review of Systems - Review of Systems Able to Perform ROS?: Yes Is the patient limited Bengali proficient: No Constitutional: No: Chills, Fever Respiratory: No: Cough, Shortness of Breath Cardiac (ROS): No: Chest Pain ABD/GI: No: Nausea, Vomiting : No: Burning, Flank Pain, Hematuria *Physical Exam - Vital Signs Last Vital Signs Temp Pulse Resp BP Pulse Ox 98.7 F 89 18 120/90 100 02/18/19 15:27 02/18/19 15:27 02/18/19 15:27 02/18/19 15:27 02/18/19 15:27 ED Treatment Course - ADDITIONAL ORDERS Additional order review: 02/18/19 17:03 Patient is able to produce urine Will need to follow up with Urology Pt is in agreement with plan *DC/Admit/Observation/Transfer Diagnosis at time of Disposition: Urinary retention - Discharge Dispostion Disposition: HOME Condition at time of disposition: Stable Decision to Admit order: No - Referrals Referrals: Santiago Pham MD [Staff Physician] - - Patient Instructions Printed Discharge Instructions: DI for Urinary Retention in Men Additional Instructions: Fluids, rest, Tylenol Follow up with Urologist If worsen return to ER - Post Discharge Activity
== END 2019-02-18 17:09 | disposition home or self-care (01) ==
LOC: FER 15:26
DX: R33.9 Retention of urine, unspecified (principal); F31.9 Bipolar disorder, unspecified
CPT/HCPCS: 36415; 81003; 87086; 87491; 87591; 99282-25

== ENCOUNTER 2020-02-07 21:55 | Emergency (ER) | payer OTHER ==
[2020-02-07 22:05] VITALS: BP 113/71; PULSE 90; TEMP 98.5; BMI 18.8
--- NOTE | 2020-02-08 00:09 | PDOC ---
Documentation entered by Oliverio Wilhelm SCRIBE, acting as scribe for Kathy Melara MD. Kathy Melara MD: This documentation has been prepared by the Choco sandoval Angel, SCRIBE, under my direction and personally reviewed by me in its entirety. I confirm that the documentation accurately reflects all work, treatment, procedures, and medical decision making performed by me. History of Present Illness - General Chief Complaint: RX Refill Stated Complaint: PRESCRIPTION REFILL Time Seen by Provider: 02/07/20 21:57 History Source: Patient Exam Limitations: No Limitations - History of Present Illness Initial Comments: 02/07/20 22:31 The patient is a 24 year old male with a significant past medical history of substance abuse, alcohol abuse, anxiety, and depression who presents to the ED for a prescription refill. The patient was told by his psychiatrist to come into the ED to get a refill of his prescription which would be enough until his next appointment that is in 2 weeks. Since the patient has finished his medications he has not been sleeping and has had no appetite. The patient takes 100mg of Seroquel in the morning and 300mg at night, 600mg of Gabapentin 3 times a day,Remeron 30mg at night. The patient has no complaints here in the ED. Past History - Medical History Allergies/Adverse Reactions: Allergies Allergy/AdvReac Type Severity Reaction Status Date / Time No Known Allergies Allergy Verified 02/07/20 21:58 Home Medications: Ambulatory Orders Quetiapine Fumarate [Seroquel -] 100 mg PO DAILY 02/18/19 Quetiapine Fumarate [Seroquel] 300 mg PO HS 02/18/19 Gabapentin [Neurontin] 600 mg PO TID #42 tablet 02/07/20 Mirtazapine [Remeron -] 30 mg PO DAILY #14 tablet 02/07/20 Quetiapine Fumarate [Seroquel -] 100 mg PO DAILY #14 tablet 02/07/20 Quetiapine Fumarate [Seroquel -] 300 mg PO HS #14 tab 02/07/20 Anemia: No Asthma: No Cancer: No Cardiac Disorders: No CVA: No COPD: No CHF: No DVT: No Dementia: No Diabetes: No GI Disorders: No Disorders: No HTN: No Hypercholesterolemia: No Kidney Stones: No Liver Disease: No Psychiatric Problems: Yes (BIPOLOAR) Seizures: No Thyroid Disease: No - Surgical History Abdominal Surgery: No Appendectomy: Yes Cardiac Surgery: No Cholecystectomy: No Lung Surgery: No Neurologic Surgery: No Orthopedic Surgery: No - Reproductive History Testicular Surgery: No - Immunization History Immunization Up to Date: Yes - Psycho-Social/Smoking History Smoking History: Never smoked Have you smoked in the past 12 months: Yes Number of Cigarettes Smoked Daily: 20 Cigars Per Day: 0 'Breaking Loose' booklet given: 01/29/18 Review of Systems - Review of Systems Able to Perform ROS?: Yes Comments:: 02/07/20 22:37 GENERAL/CONSTITUTIONAL: No fever or chills. No weakness. HEAD, EYES, EARS, NOSE AND THROAT: No change in vision. No ear pain or discharge. No sore throat. CARDIOVASCULAR: No chest pain or shortness of breath. RESPIRATORY: No cough, wheezing, or hemoptysis. GASTROINTESTINAL: No nausea, vomiting, diarrhea or constipation. GENITOURINARY: No dysuria, frequency, or change in urination. MUSCULOSKELETAL: No joint or muscle swelling or pain. No neck or back pain. SKIN: No rash NEUROLOGIC: No headache, vertigo, loss of consciousness, or change in strength/sensation. ENDOCRINE: No increased thirst. No abnormal weight change. HEMATOLOGIC/LYMPHATIC: No anemia, easy bleeding, or history of blood clots. ALLERGIC/IMMUNOLOGIC: No hives or skin allergy. *Physical Exam - Physical Exam 02/07/20 22:36 GENERAL: Awake, alert, and fully oriented, in no acute distress HEAD: No signs of trauma EYES: PERRLA, EOMI, sclera anicteric, conjunctiva clear ENT: Auricles normal inspection, hearing grossly normal, nares patent, oropharynx clear without exudates. Moist mucosa NECK: Normal ROM, supple, no lymphadenopathy, JVD, or masses LUNGS: Breath sounds equal, clear to auscultation bilaterally. No wheezes, and no crackles HEART: Regular rate and rhythm, normal S1 and S2, no murmurs, rubs or gallops ABDOMEN: Soft, nontender, normoactive bowel sounds. No guarding, no rebound. No masses EXTREMITIES: Normal range of motion, no edema. No clubbing or cyanosis. No cords, erythema, or tenderness NEUROLOGICAL: Cranial nerves II through XII grossly intact. Normal speech, normal gait SKIN: Warm, Dry, normal turgor, no rashes or lesions noted. Medical Decision Making - Medical Decision Making As noted above, this 24-year-old man with a history of substance abuse and anxiety/depression presents to the ER in the company of his mother with a request for prescription refill: He states that he cannot see his psychiatrist for 2 weeks and he has run out of his medications. He was told by his psychiatrist to present to an ER for prescription refill. He has no specific complaints currently. He states he has difficulty sleeping and eating if he does not take his medications. Patient was unsure of dosages of his medication. Patient states that he uses [email or web address] in [place] for his regular pharmacy. This pharmacy was contacted by telephone and the following medications were on record (last filled in August of this year): Neurontin 600 mg 3 times a day Seroquel 100 mg once a day,during the day Seroquel 300 mg at bedtime Remeron 30 mg at bedtime A 2-week supply of each of the above medications was transmitted electronically to the pharmacy. The patient was discharged with instructions to return to the ER as needed and to use his prescriptions as prescribed. He should keep his appointment with his psychiatrist in 2 weeks as scheduled. Discharge - Discharge Information Problems reviewed: Yes Clinical Impression/Diagnosis: Prescription refill Condition: Stable Disposition: HOME - Additional Discharge Information Prescriptions: Gabapentin [Neurontin] 600 mg PO TID #42 tablet Mirtazapine [Remeron -] 30 mg PO DAILY #14 tablet Quetiapine Fumarate [Seroquel -] 100 mg PO DAILY #14 tablet Quetiapine Fumarate [Seroquel -] 300 mg PO HS #14 tab - Follow up/Referral - Patient Discharge Instructions Additional Instructions: continue medications as previously prescribed followup with your psychiatrist in 2 weeks as scheduled return to ER as needed - Post Discharge Activity
== END 2020-02-07 22:40 | disposition home or self-care (01) ==
LOC: FER 21:55
DX: Z76.0 Encounter for issue of repeat prescription (principal)
CPT/HCPCS: 99282-25

== ENCOUNTER 2020-04-07 22:00 | Inpatient (IN) | payer OTHER ==
--- OUTSIDE RECORDS SUMMARY | 2020-04-07 22:19 | XMS ---
:1995 Author Organization [facility] Care Team Providers Name Role Phone [facility] Unavailable Unavailable ED STAFF DENISE MACHUCA Unavailable Unavailable MEGHAN STROUD MD Unavailable Unavailable Sheron STROUD MD Unavailable Unavailable Sheron STROUD MD Unavailable Unavailable MD LEESA Unavailable Unavailable MD LAZARO Unavailable Unavailable MD Karan Unavailable Unavailable MD Karan Unavailable Unavailable MD Karan Unavailable Unavailable MD Miriam Unavailable Unavailable MD BENNY Unavailable Unavailable Tory Carter MD Unavailable Unavailable Tory Carter MD Unavailable Unavailable Tory Carter MD Unavailable Unavailable Tory Carter MD Unavailable Unavailable Carter, B Unavailable Unavailable Carter, B Unavailable Unavailable Carter B Unavailable Unavailable Carter, B Unavailable Unavailable Raul B Unavailable Unavailable Raul B Unavailable Unavailable Carter, B Unavailable Unavailable Carter, B Unavailable Unavailable Carter, B Unavailable Unavailable Carter B Unavailable Unavailable Carter B Unavailable Unavailable Carter B Unavailable Unavailable Carter B Unavailable Unavailable Carter, B Unavailable Unavailable Carter, B Unavailable Unavailable Carter, B Unavailable Unavailable Carter, B Unavailable Unavailable Carter, B Unavailable Unavailable Carter B Unavailable Unavailable Carter, B Unavailable Unavailable Carter, B Unavailable Unavailable Carter, B Unavailable Unavailable Carter, B Unavailable Unavailable Carter, B Unavailable Unavailable Carter, B Unavailable Unavailable Carter, B Unavailable Unavailable Carter B Unavailable Unavailable Carter B Unavailable Unavailable Carter B Unavailable Unavailable Carter B Unavailable Unavailable Carter, B Unavailable Unavailable Carter, B Unavailable Unavailable Carter, B Unavailable Unavailable Carter, B Unavailable Unavailable Carter, B Unavailable Unavailable Carter B Unavailable Unavailable Carter, B Unavailable Unavailable Carter B Unavailable Unavailable Carter, B Unavailable Unavailable Carter, B Unavailable Unavailable Raul B Unavailable Unavailable Raul B Unavailable Unavailable Carter, B Unavailable Unavailable Carter, B Unavailable Unavailable Carter B Unavailable Unavailable Carter B Unavailable Unavailable Carter B Unavailable Unavailable Carter B Unavailable Unavailable Carter, B Unavailable Unavailable Raul B Unavailable Unavailable Raul B Unavailable Unavailable Raul B Unavailable Unavailable Tory Carter MD Unavailable Unavailable Carter, B Unavailable Unavailable Carter, B Unavailable Unavailable Carter, B Unavailable Unavailable Carter, B Unavailable Unavailable Carter, B Unavailable Unavailable Raul B Unavailable Unavailable Raul B Unavailable Unavailable Raul B Unavailable Unavailable [id number] Unavailable Unavailable MD REGGIE Unavailable Unavailable MD ARNOLD Unavailable Unavailable MD ORLIN Unavailable Unavailable ED STAFF PHYSICIAN Unavailable Unavailable MD Amado Unavailable Unavailable Derek Unavailable [phone] MD HERNANDEZ Unavailable Unavailable ED STAFF PHYSICIAN Unavailable Unavailable NEHA SLAVA Unavailable Unavailable ED STAFF PHYSICIAN Unavailable Unavailable Other Unavailable Unavailable CANEVA, M.D. Unavailable Unavailable MD DARREN Unavailable Unavailable MD ABRAHAM Unavailable Unavailable EMERGENCY SERVICE, X Unavailable Unavailable LEIA YUNG Unavailable Unavailable Neha VELARDE Unavailable Unavailable ALEXIS TONY Unavailable Unavailable ARTIS MORGAN Unavailable Unavailable OJSE L Unavailable Unavailable PEPPER MARTINEZ Unavailable Unavailable Re-disclosure Warning The records that you are about to access may contain information from federally- assisted alcohol or drug abuse programs. If such information is present, then the following federally mandated warning applies: This information has been disclosed to you from records protected by federal confidentiality rules (42 CFR part 2). The federal rules prohibit you from making any further disclosure of this information unless further disclosure is expressly permitted by the written consent of the person to whom it pertains or as otherwise permitted by 42 CFR part 2. A general authorization for the release of medical or other information is NOT sufficient for this purpose. The Federal rules restrict any use of the information to criminally investigate or prosecute any alcohol or drug abuse patient.The records that you are about to access may contain highly sensitive health information, the redisclosure of which is protected by Article 27-F of the [facility] Public Health law. If you continue you may haveaccess to information: Regarding HIV / AIDS; Provided by facilities licensed or operated by the [facility] Office of Mental Health; or Provided by the [facility] Office for People With Developmental Disabilities. If such information is present, then the following [facility] mandated warning applies: This information has been disclosed to you from confidential records which are protected by state law. State law prohibits you from making any further disclosure of this information without the specific written consent of the person to whom it pertains, or as otherwise permitted by law. Any unauthorized further disclosure in violation of state law may result in a fine or penitentiary sentence or both. A general authorization for the release of medical or other information is NOT sufficient authorization for further disclosure. Advance Directives Directive Description Driver License Reviewing Officer Health Associate Status Observation Data S ource(s) Description Advance No [facility] Advance No [facility] Allergies and Adverse Reactions Type Description Substance Reaction Status Data Source(s ) Drug allergy No Known Allergies No Known NO KNOWN ALLERG [place] [facility] Encounters Encounter Providers Location Date Indications Data Source(s ) Emergency Attender: ICU-EMERG 04/06/2020 [facility] - David Russo 11:48:00 AM FACE?/EMPRESS [facility] MDAttender: EDT - Doctor Other 04/06/2020 01:15:00 PM EDT [facility]PP[facility] SPRAY TO FACE?/EMPRESS Patient discharged. Inpatient Attender: CECILY ESPINOZA H-HAL6 04/03/2020 03:06:00 [facility] PRIYANKAENGAttender: STAFF ED PM EDT - 04/05/2020 [facility] Center STAFF PHYSICIANAdmitter: 11:35:00 AM EDT CECILY TONYReferrer: CECILY TONY Patient discharged. Outpatient Attender: SLAVA SOLOMON H 03/26/2020 Nealtrudy hernández [facility] ARNABAdmitter: SLAVA 12:00:00 PM EDT [facility] NEHA SLAVA Attender: Slava Neha Positive 03/26/2020 NEX TGEN ([facility] 12:00:00 PM EDT [facility] 03/26/2020 [place]) 12:00:00 PM EDT Inpatient Attender: SISI GORMAN 02/24/2020 [facility] ANDREEdmitter: ALE 01:31:00 PM EDT - [facility] 02/28/2020 10:23:00 PM EDT Patient discharged. Outpatient [facility] 02/24/2020 12:16:00 PM EDT - [address] [place] [address] 02:41:00 PM EDT Patient discharged. Outpatient Attender: ARCADIO [facility] 02/23/2020 09:25:00 [facility] SONDRAdmitter: ARCADIO EDT - 02/23/2020 [facility] REGGIE 11:04:00 PM EDT Patient discharged. Emergency Attender: EDDIE, 02/06/2020 RT HIP PROBLEM [facility]: 12:34:00 AM EDT [facility] EMERGENCY SERVICE, Corpor ation XAdmitter: ARTIS MORGAN RT HIP PROBLEM Emergency Attender: DILSHAD, 01/16/2020 [facility]: [facility]00 AM EDT [facility] EMERGENCY SERVICE, Corpor ation XAdmitter: LEIA YUNG [place] [place] Emergency Attender: SINA ED STAFF H 01/16/2020 08:00:00 AM [facility] PHYSICIANAttender: STAFF ED EDT - 01/16/2020 Medical Center STAFF PHYSICIANAdmitter: SINA 01:12:00 PM EDT ED STAFF PHYSICIAN Patient discharged. Emergency Attender: DENISE HESS STAFF H 01/03/2020 05:21:00 AM [facility] PHYSICIANAttender: STAFF ED EDT - 01/03/2020 [facility] Center STAFF PHYSICIANAdmitter: 04:53:00 PM EDT DENISE ED STAFF PHYSICIAN Patient discharged. Inpatient Attender: SISI GORMAN 11/24/2019 11:32:00 PM [facility] V[facility]CTOR EDT - 11/30/2019 [facility] 10:36:00 PM EDT Patient discharged. Outpatient ST 11/24/2019 10:35:00 PM EDT - [address] [place] [address] 11:44:00 PM EDT Patient discharged. Emergency Attender: Karina Fischer 11/24/2019 10:08:00 OVERD OSE AM.[facility] MDConsultant: Bailey AM EDT - 11/24/2019 [facility] Sheikh PRACHI 10:22:00 PM EDT OVERDOSE AM.LUCY Patient discharged. Inpatient Attender: COLIN GORMAN 11/13/2019 01:09:00 PM [facility] SOTOAttender: MEGHAN EDT - 11/20/2019 [facility] MAXIMUS MDAdmitter: 10:41:00 PM EDT RODRÍGUEZ ZAPATA Patient discharged. Outpatient STV 11/13/2019 09:23:00 AM EDT - [address] [place] [address] 02:16:00 PM EDT Patient discharged. Outpatient Attender: HVC9 HHHVCC 09/04/2019 01:39:25 PM [facility] ([facility]) Patient admitted. Unlisted evaluation 08/22/2019 05:11:00 NETSMART (Mental and management EST [facility] Inpatient Attender: ANEUDY3Sultana 08/15/2019 08:26:00 [facility] MARK PM EST - 08/22/2019 Hospi turner FAEZAdmitter: 11:14:00 PM EST JASON DOE Patient discharged. Attender: 08/15/2019 [facility] [id number] 08:26:00 PM [facility]_6766 Outpatient STV 08/15/2019 [facility] [place] 07:53:00 PM EST - Hospita l 08/15/2019 09:05:00 PM EST Patient discharged. Attender: 08/15/2019 [facility] [id number] 07:53:00 PM [facility]6766 Emergency Attender: VERNA ED STAFF H 06/29/2019 [facility] PHYSICIANAttender: STAFF ED STAFF 01:43:00 AM [facility] PHYSICIANAdmitter: JUVEE ED STAFF 06/29/2019 PHYSICIAN 04:54:00 AM EST Patient discharged. Outpatient Attender: SLAVA H 05/31/2019 [facility] [place] BAZANABAdmitter: 12:00:00 PM [facility] SLAVA NEHA SLAVA Attender: Slava Positive 05/31/2019 NEXTGEN ( [facility] MD Directions 12:00:00 PM [facility] - 05/31/2019 Medical 12:00:00 PM [facility]) Psychiatric Attender: Omero Akhtar Positive 05/31/2019 NEX TGEN ([facility] Derek Directions 10:14:00 AM [facility] Interview (45+ - 05/31/2019 Medical Min) 10:14:00 AM [facility]) Inpatient Attender: CIARRA CANNON-2S 03/17/2019 [facility] Erwin DOMINGOAdmitter: 09:36:00 AM EDT [facility] santos DOE - 03/21/2019 11:11:00 PM EDT Patient discharged. Attender: 03/17/2019 [facility] [id number] 09:36:00 AM EDT [facility] 03/17/2019 [facility] 09:11:00 AM EDT - Hospita l 03/17/2019 11:11:00 PM EDT Patient discharged. Attender: 03/17/2019 [facility] [id number] 09:11:00 AM EDT [facility]6766 Emergency H 02/22/2019 [facility] 02:40:00 AM EDT - Medical Center 02/22/2019 05:09:00 AM EDT Patient discharged. Emergency H 02/22/2019 12:09:00 AM EDT - [address] [place] [address] 02:12:00 AM EDT Patient discharged. Outpatient 02/15/2019 10:14:10 AM EDT [facility] ([facility]) Patient admitted. Outpatient 02/15/2019 10:14:06 AM EDT [facility] ([facility]) Patient admitted. Outpatient 02/15/2019 09:52:56 AM EDT [facility] ([facility]) Patient admitted. Outpatient 02/15/2019 09:52:52 AM EDT [facility] ([facility]) Patient admitted. Outpatient 02/08/2019 10:58:52 AM EDT [facility] ([facility]) Patient admitted. Outpatient 02/08/2019 10:58:48 AM EDT [facility] ([facility]) Patient admitted. Inpatient Attender: JORDAN CANNON-1D 02/05/2019 06:18:00 [facility] Nhungfrancisco CLARENCEdmitter: CIARRA EDT - [facility]2019 [facility]00 PM EDT Patient discharged. Attender: 02/05/2019 [facility] [id number] 06:18:00 [facility] 02/05/2019 [place] 07:49:00 [facility] 02/05/2019 06:24:00 PM EDT Patient discharged. Attender: 02/05/2019 [facility] oRselyn [id number] 07:49:00 AM EDT [facility]_6766 Attender: 01/29/2019 [facility] [id number] 05:02:00 PM EDT [facility]_6766 Inpatient Attender: CIARRA DOMINGOAttender: DAVIS-3S 01/27/2019 [facility] MONROEOVAAdmitter: ANESHAN 07:31:00 PM EDT [facility] - 02/05/2019 06:17:00 PM EDT Patient discharged. Attender: 01/27/2019 [facility] [id number] 07:31:00 PM EDT [facility]6766 Outpatient [facility] 01/27/2019 [facility] 05:47:00 [facility] 01/27/2019 05:03:00 PM EDT Patient discharged. Attender: 01/27/2019 [facility] [id number] 05:47:00 PM EDT [address] Inpatient Attender: JUAN MARTINEZAdmitter: H-HAL5 01/21/2019 [facility] JUAN MARTINEZReferrer: JUAN 10:15:00 PM E DT [facility] PEPPER MARTINEZ - 01/25/2019 [place] 08:27:00 AM EDT Outpatient Attender: Brittany Carter MDAdmitter: [facility] 01/21/2019 [facility] MD 07:47:00 PM EDT [facility] 01/21/2019 [facility] 08:31:00 PM EDT Attender: 01/21/2019 [facility] [id number] 07:47:00 PM EDT [place] [id number] [facility] Emergency H 01/09/2019 [place] 08:57:00 PM EDT Medical Center Attender: 01/27/2018 [facility] [id number] 06:40:00 PM EDT [facility]6766 Hospital Attender: 12/18/2017 [place] [id number] 06:39:00 PM EDT [place] [id number] Hospital Attender: 12/18/2017 [place] [id number] 05:30:00 PM EDT [place] [id number] Hospital Attender: 10/12/2017 [facility] [id number] 02:11:00 PM EDT [facility] [place] [address] Hospital Attender: 05/18/2017 [facility] [id number] 08:22:00 PM EDT [place] [address] Hospital Attender: 05/18/2017 [facility] Steve.[id number] 07:09:00 PM EDT [place] [address] Hospital Attender: 08/19/2016 [place] [id number] 04:28:00 PM [place] [address] Hospital Attender: 08/19/2016 [facility] Steve.[id number] 02:28:00 PM [place] [address] Hospital Attender: 12/12/2015 [place] [id number] 03:08:00 PM EDT [place] [address] Hospital Attender: 12/11/2015 [place] [id number] 06:00:00 [facility] [place] [address] Hospital Attender: 12/05/2015 [place] [id number] 03:04:00 PM EDT [place] [address] Hospital Attender: 12/05/2015 [address].[id number] 12:13:00 [place] [address] Hospital Attender: 11/27/2015 [address].[id number] 02:31:00 PM [facility] Hospital[facility] [place] [address] Hospital Attender: 11/16/2015 [place] [id number] 12:23:00 PM EDT [facility]6766 Hospital Attender: 06/23/2015 [facility] [id number] 04:55:00 PM [facility]6766 Hospital Attender: 06/23/2015 [facility] [id number] 02:24:00 PM [facility]6766 Hospital Attender: 12/29/2012 [facility] [id number] 01:51:00 PM EDT [place] [id number] Hospital Attender: 12/28/2012 [facility] [id number] 02:55:00 PM EDT [facility]6766 Hospital Attender: 11/22/2012 [facility] [id number] 03:45:00 PM EDT [facility]6766 Hospital Attender: 11/20/2012 [facility] [id number] 11:09:00 PM EDT [place] [id number] [facility] Immunizations Vaccine Date Status Description Data Source(s) Tdap 01/16/2020 09:09:00 AM EDT completed [facility] Medications Medication Brand Start Product Dose Route Administrative [facility] Indications Reaction Description Data Name Date Form Instructions Instructions Source(s) 0.9% NaCl 0.9% 999 UNK active 0.9% NaCl [facility] IV NaCl 2020 mL IV Give r [facility] IV 01:30: 1000 mL; IV Health 18 AM rate: [facility] EDT over 30 Corporatio minutes n Medication administered onsite Tylenol Tylenol 02/06/2020 1000 UNK active Tylen ol [facility] 01:04:23 AM mg Infus ion [facility] (AD (AD EDT (ADULT) or Care GT 50 kg Corporation 1000 mg IVPB Medication administered onsite Afrin 12 Hour 01/17/2020 999 MG UNK completed Afrin 12 [place] 0.05 % Nasal 02:36:12 PM Hour 0.05 % [facility] EDT Nasal [facility] USE Corpora tion 1 SPRAY IN EACH NOSTRIL TWICE DAILY. Dispense: 15 Supervising physician: Artis Morgan Amoxicillin-P 01/17/2020 999 MG UNK [facility] Clav[facility]ate [facility] Clavulanate [facility] 87 875-125 MG Corporati on Oral Tablet TAKE 1 TABLET TWICE DAILY AFTER MEALS Dispense: 20 Supervising physician: Artis Morgan Amoxicillin-P 01/17/2020 999 MG UNK [facility] 02:36[facility]12 PM [facility] Clavulanate [facility] Clavulanate [facility] 87 875-125 MG Corporati on Oral Tablet TAKE 1 TABLET TWICE DAILY AFTER MEALS Dispense: 20 Supervising physician: Artis Morgan Afrin 12 Hour 01/17/2020 999 MG UNK completed Afrin 12 [place] 0.05 % Nasal 02:36:12 PM Hour 0.05 % [facility] EDT Nasal [employer] USE Corpora tion 1 SPRAY IN EACH NOSTRIL TWICE DAILY. Dispense: 15 Supervising physician: Artis Morgan Afrin 12 Hour 01/16/2020 999 MG UNK completed Afrin 12 [place] 0.05 % Nasal 04:31:06 PM Hour 0.05 % [facility] EDT Nasal [facility] [employer] USE Corpora tion 1 SPRAY IN EACH NOSTRIL TWICE DAILY. Dispense: 15 Supervising physician: MATY Root Amoxicillin-P 01/16/2020 999 MG UNK [facility] 04:31:06 PM [facility] Clavulanate [facility] Clavulanate [facility] 87 875-125 MG Corporati on Oral Tablet TAKE 1 TABLET TWICE DAILY AFTER MEALS Dispense: 20 Supervising physician: MATY Root Afrin 12 Hour 01/16/2020 999 MG UNK completed Afrin 12 [place] 0.05 % Nasal 04:31:06 PM Hour 0.05 % [facility] EDT Nasal [facility] [employer] USE Corpora tion 1 SPRAY IN EACH NOSTRIL TWICE DAILY. Dispense: 15 Supervising physician: MATY Root Amoxicillin-P 01/16/2020 999 MG UNK [facility] ot 04:31:06 PM [facility] Clavulanate EDT Clavulanate H [facility] Care 87 875-125 MG Corporati on Oral Tablet TAKE 1 TABLET TWICE DAILY AFTER MEALS Dispense: 20 Supervising physician: MATY Root Tylenol Tylenol 01/16/2020 1000 UNK active Tylen ol [place] [facility] (AD Infusion 11:39:37 AM mg [facility] ([facility]ADULT[facility] or Health Ca re GT 50 kg Corporation 1000 mg IVPB Medication administered onsite Buprenorphine Suboxone - 11/30/2019 1 SUBLINGUAL complete d Suboxone - [facility] 8 MG / 8 MG-2 MG 12:00:00 AM Film 8 MG-2 [facility] Naloxone 2 MG SUBLINGUAL EDT SUBLI [facility] Oral Strip Film Film [Suboxone] gabapentin 600 Gabapentin 11/30/2019 1 ORAL completed Gabapentin [facility] Oral Tablet - 600 MG 12:00:00 AM Table - 600 MG [facility] ORAL Tablet EDT t ORAL Tablet H ospital quetiapine 300 SEROquel - 02/14/2019 ORAL completed [facility] Oral Tablet 300 MG ORAL 12:00:00 AM [facility] [Seroquel] Tablet EDT Hospita l gabapentin gabapentin 999 oral completed aaliyah apentin [place] MG [facility] Corporati on Buprenorphine Suboxone 999 sublingual completed Suboxone [place] 12 MG / MG [facility] Naloxone 3 MG Health Oral Strip Care [Suboxone] Corporati on quetiapine 25 Seroquel 999 oral completed Se roquel [place] MG Oral Tablet MG er Co unty [Seroquel] Health Care Corporati on quetiapine 25 Seroquel 999 oral completed Se roquel [place] MG Oral Tablet MG er Co unty [Seroquel] Health Care Corporati on No known completed [facility] medications. [facility] gabapentin gabapentin 999 oral completed aaliyah apentin [place] MG [facility] Corporati on Buprenorphine Suboxone 999 sublingual completed Suboxone [place] 12 MG / MG [facility] Naloxone 3 MG Health Oral Strip Care [Suboxone] Corporati on Insurance Providers Payer name Policy type Policy ID Covered Covered republican's Policy P linden / Coverage republican ID relationship to [place] Inf ormation type es[place] MVP MEDICAID [id number] SP [id number] [facility] [id number] 01 [id number] ACUTE W [id number] 01 [id number] O Medicaid Medicaid [id number] Medicaid Medicaid [id number] 1 [id number] Self Pay Self Pay 1 MVP/HHP O [id number] 01 [id number] O [facility] O [id number] 01 [id number] ACUTE MVP PSYCH OP O [id number] 01 [id number] W [id number] 01 [id number] MVP/HHP O [id number] 01 [id number] 500 SELF PAY [id number] Self [id number] MEDICAID OP [id number] Self [id number] MMC MVP [id number] Self [id number] 500 HARMONIOUS SELF PAY [id number] Self [id number] MEDICAID INP [id number] Self [id number] H PSYCH UNK [id number] MEDICAID [id number] SP [id number] MVP MEDICAID [id number] SP [id number] HMO UNK [id number] [place] [id number] PT [id number] [facility] SELF PAY 0000 Self 0000 MEDICAID INP [id number] Self [id number] H PSYCH MMC MVP [id number] Self [id number] 500 HARMONIOUS [place] [id number] PT [id number] [facility] SELF PAY 00 Self 00 MEDICAID INP [id number] Self [id number] H PSYCH MMC MVP [id number] Self [id number] HARMONIOUS SELF PAY 0000 Self 0000 MEDICAID INP [id number] Self [id number] H PSYCH MMC MVP [id number] Self [id number] 500 HARMONIOUS MVP/P [id number] self [id number] SELF PAY 00 Self 00 MEDICAID INP [id number] Self [id number] H PSYCH MMC MVP [id number] Self [id number] 500 HARMONIOUS HEALTHCARE SELF PAY 00 Self 00 MEDICAID INP [id number] Self [id number] H REHAB MVP/HHP O [id number] 01 [id number] 500 MVP MEDICAID [id number] SP [id number] HMO SELF PAY 00 Self 00 MEDICAID INP [id number] Self [id number] H PSYCH MMC MVP [id number] Self [id number] 500 HARMONIOUS HEALTHCARE [facility] O [id number] ACUTE SVW O [id number] INPATIENT - 0 ER VISIT MVP/HHP O [id number] Problems, Conditions, and Diagnoses Code Display Name Description Problem Type Effective Data Sour ce(s) Dates [id number] Mixed anxiety and Mixed anxiety and Complaint 07/18/2019 [facility] depressive disorder depressive 12:00:00 PM Hosp ital (disorder) disorder EST [id number] Psychoactive Psychoactive Complaint 12/18/2017 [facility] substance use substance use 12:00:00 PM Hospita l disorder (disorder) disorder EDT [id number] Psychoactive Psychoactive Complaint 12/18/2017 [facility] substance use substance use 12:00:00 PM [facility] disorder (disorder) disorder EDT [id number] Bipolar affective Bipolar affective Complaint 12/18/2017 [facility] disorder, current disorder, current 12:00:00 PM Hospital episode depression episode depression EDT (disorder) 97291584 Opioid dependence Opioid dependence Complaint 12/18/2017 [facility] (disorder) 12:00:00 PM Hospital EDT 53634892 Bipolar disorder Bipolar disorder Complaint 12/[facility]/2017 [facility]00 PM [facility] EDT 68378511 Psychoactive Psychoactive Complaint 12/18/2017 [facility] use substance use 12:00:00 [facility] disorder (disorder) disorder EDT 91880641 Psychoactive Psychoactive Complaint 12/18/2017 [facility] use substance use 12:00:00 PM [facility] (disorder) disorder EDT [id number] Bipolar affective Bipolar affective Complaint 12/18/2017 [facility] disorder, current disorder, current 12:00:00 PM Hospital episode depression episode depression EDT (disorder) 21307786 Opioid dependence Opioid dependence Complaint 12/18/2017 [facility] (disorder) 12:00:00 PM Hospital EDT 67921629 Bipolar disorder Bipolar disorder Complaint 12/18/2017 [facility]order) [facility]:00 PM [facility] EDT 09533899 Psychoactive Psychoactive Complaint 12/18/2017 [facility] use substance use 12:00:00 [facility] (disorder) disorder EDT 06818896 Psychoactive Psychoactive Complaint 12/18/2017 [facility] substance use substance use 12:00:00 PM [facility] (disorder) disorder EDT 231152259 Bipolar affective Bipolar affective Complaint 12/18/2017 [facility] disorder, current disorder, current 12:00:00 PM Hospital episode depression episode depression EDT (disorder) 12523148 Opioid dependence Opioid dependence Complaint 12/18/2017 [facility] (disorder) 12:00:00 PM Hospital EDT 84263942 Bipolar disorder Bipolar disorder Complaint 12/18/2017 [facility] ([facility]order) 12:00:00 PM [facility] EDT 75708786 Psychoactive Psychoactive Complaint 12/18/2017 [facility] substance use substance use 12:00:00 PM [facility] (disorder) disorder EDT 36513513 Psychoactive Psychoactive Complaint 12/18/2017 [facility] substance use substance use 12:00:00 PM [facility] (disorder) disorder EDT 185056784 Bipolar affective Bipolar affective Complaint 12/18/2017 [facility] disorder, current disorder, current 12:00:00 PM Hospital episode depression episode depression EDT (disorder) 62719668 Opioid dependence Opioid dependence Complaint 12/18/2017 [facility] (disorder) 12:00:00 PM Hospital EDT 80686470 Bipolar disorder Bipolar disorder Complaint 12/18/2017 [facility]order) 12:[facility]:00 PM [facility] EDT 38423698 Psychoactive Psychoactive Complaint 12/18/2017 [facility] substance use substance use 12:00:00 PM [facility] (disorder) disorder EDT 11910608 Psychoactive Psychoactive Complaint 12/18/2017 [facility] substance use substance use 12:00:00 PM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 to non-numeric Serum Health in Serum or results) System Plasma A/GRatio 1.57 Normal (applies A/G Ratio [facility] to non-numeric Health results) System Glomerular Greater than Normal (applies GFR [facility] filtration 90 eGFR will to non-numeric Health rate/1.73 sq provide results) System M.predicted clinicians [Volume with a more Rate/Area] in accurate Serum or Plasma indicator of by renal function Creatinine-base then the serum d formula creatinine. (CKD-EPI) The eGFR is automatically calculated from an empiric formula (endorsed by the [employer]) which incorporates age, sex, and race.Clinician s may notice surprisingly low GFR's with serum creatinine valueswithin normal range- particularly in elderly women (with low muscle mass).In the hospital setting, the eGFR should add an element of safety in drug dosing, in assessing the risk of IV contrast administration , and in assessing vascular risk.The NKF staging system is as follows:Normal : eGFR >90 with no kidney markersStage 1: eGFR >90 with kidney markers*Stage 2: eGFR 60-89Stage 3: eGFR 30-59Stage 4: eGFR 15-29Stage 5: eGFR <15 (usually requiring dialysis)*Thee ers include: Proteinuria, Hematuria, abnormal imaging-studie s, or other blood or urine test abnormalities Anion gap in 11.00 mmol/L Normal (applies Anion Gap [facility] Serum or Plasma to non-numeric Health results) System ID Date Data Source [id number] 04/06/2020 02:16:08 PM EDT [facility] Name Value Range Interpretation Description Data Sup porting Code Source(s) Document(s ) Amphetamine Negative Normal (applies Amphetamine [facility] [Mass/volume] to non-numeric Level, Urine Health in Urine results) System Cut-off = 1000 ng/mL Benzodiazepines Negative Normal (applies Benzodiazepines, [facility] [Mass/volume] in to non-numeric Urine Health S ystem Urine results) Cut-off = 200 ng/mL Barbiturates Negative Normal (applies to Barbiturate [facility] [Mass/volume] in non-numeric Screen, Urine Health System Urine by Screen results) method Cut-off = 200 ng/mL [id number],Urine Negative Normal (applies to Opiate 300, [facility] non-numeric results) Urine System Cut-off = 300 ng/mL Methadone Negative Normal (applies to Methadone Level, [facility] [Mass/volume] in non-numeric Urine System Urine results) Cut-off = 300 ng/mL Cocaine Negative Normal (applies Cocaine [facility] metabolites.other to non-numeric Metabolite Health System [Mass/volume] in Urine results) Screen, Urine Cut-off = 300 ng/mL THC Positive Abnormal (applies to non-numeric THC [facility] results) These results are for medical treatment only. The positive findings are unconfirmed. Request confirmatory/quantitative test i f needed. Phencyclidine Negative Normal (applies Phencyclidine, Urine [facility] [Mass/volume] in to non-numeric Health yste Urine results) Cut-off = 25 ng/mL ID Date Data Source LIPID.[id number] 04/04/2020 06:40:00 AM EDT [facility] Name Value Range Interpretation Description Data Sup porting Code Source(s) Document(s ) Triglyceride < 150 <content [facility] [Mass/volume] in styleCode="[facility] Serum or Plasma d">Triglycerid [facility] </content>46 MG/DL<content styleCode="Evy lics"> (< 150 MG/DL)</conten t> Cholesterol -<200 <content [facility] [Mass/volume] in styleCode="Chris Jeanette Serum or Plasma d">Cholesterol Medical </content>160 Center MG/DL<content styleCode="Evy lics"> (-<200 MG/DL)</conten t> UNK > 60 Below low normal <content Saint styleCode="Chris Jeanette d">HDL- Medical Cholesterol Center </content>53 MG/DL L<content styleCode="Evy lics"> (> 60 MG/DL)</conten t> UNK < 100 <content Saint styleCode="Chris Jeanette d">LDL-Cholest [facility] </content>98 MG/DL<content styleCode="Evy lics"> (< 100 MG/DL)</conten t> ID Date Data Source HematologyRou.[id number] 04/04/2020 06:40:00 AM EDT [facility] nt [facility] 0400 Name Value Range Interpretation Description Data Sup porting Code Source(s) Document(s ) Leukocytes 4.4-11.0 <content [facility] [#/volume] in styleCode="Bold Jeanette Blood by ">White Blood Medical Automated count Cell Count Center </content>7.71 KCUMM<content styleCode="Ital ics"> (4.4-11.0 KCUMM)</content > Hemoglobin 13.5-17. <content [facility] [Mass/volume] in 5 styleCode="Bold Jeanette Blood ">Hemoglobin Medical </content>14.0 Center G/DL<content styleCode="Ital ics"> (13.5-17.5 G/DL)</content> Erythrocyte mean 80.0-100 <content [facility] corpuscular .0 styleCode="Bold Jeanette volume [Entitic ">Mean Medical volume] by Corpuscular Center Automated count Volume </content>92.5 FL<content styleCode="Ital ics"> (80.0-100.0 FL)</content> Erythrocytes 4.4-5.9 Below low normal <content [facility] [#/volume] in styleCode="Bold Jeanette Blood by ">Red Blood Medical Automated count Cell Count Center </content>4.39 MCUMM L<content styleCode="Ital ics"> (4.4-5.9 MCUMM)</content > Hematocrit 41.0-53. Below low normal <content Saint [Volume 0 styleCode="Bold Jeanette Fraction] of ">Hematocrit Medical Blood by </content>40.6 Center Automated count % L<content styleCode="Ital ics"> (41.0-53.0 %)</content> Platelets 130-400 <content Saint [#/volume] in styleCode="Bold Jeanette Blood by ">Platelet Medical Automated count Count Center </content>244 KCUMM<content styleCode="Ital ics"> (130-400 KCUMM)</content > Erythrocyte 11.5-14. <content [facility] distribution 5 styleCode="Bold Jeanette width [Ratio] by ">Red Cell Medical Automated count Distribution Center Width </content>12.2 %<content styleCode="Ital ics"> (11.5-14.5 %)</content> Erythrocyte mean 32.0-37. <content [facility] corpuscular 0 styleCode="Bold Jeanette hemoglobin ">Mean Corpus. Medical concentration Hgb Center [Mass/volume] by Concentration Automated count ([facility]) </content>34.5 G/DL<content styleCode="Ital ics"> (32.0-37.0 G/DL)</content> Erythrocyte mean 26.0-34. <content [facility] corpuscular 0 styleCode="Bold Jeanette hemoglobin ">Mean Medical [Entitic mass] Corposcular Center by Automated Hemoglobin count </content>31.9 PG<content styleCode="Ital ics"> (26.0-34.0 PG)</content> Platelet mean 8.0-11.0 Above high <content [facility] volume [Entitic normal styleCode="Bold Jeanette volume] in Blood ">Mean Platelet Medical by Automated Volume Center count </content>11.2 FL H<content styleCode="Ital ics"> (8.0-11.0 FL)</content> UNK 0.0 <content Saint styleCode="Bold Jeanette ">Nucleated Red Medical Blood Cell Center Count </content>0.00 KCUMM<content styleCode="Ital ics"> (0.0 KCUMM)</content > UNK 0 <content Saint styleCode="Bold Jeanette ">Nucleated Red Medical Blood Cell Center </content>0.0 /100<content styleCode="Ital ics"> (0 /100)</content> ID Date Data Source GFR(Creatinine).[id number] 04/04/2020 06:40:00 AM EDT [facility] 0-0400 Name Value Range Interpretation Code Description Data Meche rce(s) Supporting Document(s ) UNK > 60 <content [facility] styleCode="Bold"> Medical Cent er EGFR </content>111 GFR<content styleCode="Italic s"> (> 60 GFR)</content> ID Date Data Source CHMROUTINECCDA.[id number] 04/04/2020 06:40:00 AM EDT [facility] -0400 Name Value Range Interpretation Description Data Sup porting Code Source(s) Document(s ) UNK 4.2-5.8 <content Saint styleCode="Chris Jeanette d">Hemoglobin Medical A1C Center </content>5.5 %<content styleCode="Evy lics"> (4.2-5.8 %)</content> Phosphate 2.5-4.5 <content Saint [Mass/volume] styleCode="Chris Jeanette in Serum or d">Phosphorus Medical Plasma </content>4.5 Center MG/DL<content styleCode="Evy lics"> (2.5-4.5 MG/DL)</conten t> Magnesium 1.6-2.3 <content [facility] [Mass/volume] styleCode="Chris Jeanette in Serum or d">Magnesium Medical Plasma </content>2.2 Center MG/DL<content styleCode="Evy lics"> (1.6-2.3 MG/DL)</conten t> ID Date Data Source [facility].[id number] 04/04/2020 06:40:00 AM EDT [facility] Name Value Range Interpretation Description Data Sup porting Code Source(s) Document(s ) Sodium 137-145 <content [facility] [Moles/volume] styleCode="Chris Jeanette in Serum or d">Sodium Medical Plasma </content>138 Center MEQ/L<content styleCode="Evy lics"> (137-145 MEQ/L)</conten t> UNK 9-20 <content Saint styleCode="Chris Jeanette d">BUN Medical </content>14 Center MG/DL<content styleCode="Evy lics"> (9-20 MG/DL)</conten t> Potassium 3.5-5.3 <content Saint [Moles/volume] styleCode="Chris Jeanette in Serum or d">Potassium Medical Plasma </content>4.7 Center MEQ/L<content styleCode="Evy lics"> (3.5-5.3 MEQ/L)</conten t> Chloride 98-107 Below low normal <content Saint [Moles/volume] styleCode="Chris Jeanette in Serum or d">Chloride Medical Plasma </content>96 Center MEQ/L L<content styleCode="Evy lics"> (98-107 MEQ/L)</conten t> Creatinine 0.5-1.3 <content [facility] [Mass/volume] styleCode="Chris Jeanette in Serum or d">Creatinine Medical Plasma </content>0.9 Center MG/DL<content styleCode="Evy lics"> (0.5-1.3 MG/DL)</conten t> Carbon 22-30 Above high normal <content Saint dioxide, total styleCode="Chris Bhats [Moles/volume] d">Carbon Medical in Serum or Dioxide Center Plasma </content>35 MEQ/L H<content styleCode="Evy lics"> (22-30 MEQ/L)</conten t> Calcium 8.4-10.2 <content [facility] [Mass/volume] styleCode="Chris Bhats in Serum or d">Calcium Medical Plasma </content>10.1 Center MG/DL<content styleCode="Evy lics"> (8.4-10.2 MG/DL)</conten t> UNK > 60 <content Saint styleCode="Chris Bhats d">EGFR Medical </content>111 Center GFR<content styleCode="Evy lics"> (> 60 GFR)</content> Glucose 74-106 <content Saint [Mass/volume] styleCode="Chris Bhtas in Serum or d">Glucose Medical Plasma </content>91 Center MG/DL<content styleCode="Evy lics"> (74-106 MG/DL)</conten t> ID Date Data Source Urinalysis.[id number] 04/03/2020 08:35:00 PM EDT [facility] 0 Name Value Range Interpretation Description Data Sup porting Code Source(s) Document(s ) Ketones NEGATIVE <content [facility] [Mass/volume] styleCode="Chris Reid in Urine by d">Urine Medical Test strip Ketone Center </content>NEGA TIVE MG/DL<content styleCode="Evy lics"> (NEGATIVE MG/DL)</conten t> UNK CLEAR <content Saint styleCode="Chris Bhats d">Urine Medical Clarity Center </content>JUICE R <content styleCode="Evy lics"> (CLEAR )</content> Color of Urine YELLOW <content Saint styleCode="Chris Jeanette d">Color, Medical Urine Center </content>YELL OW <content styleCode="Evy lics"> (YELLOW )</content> Glucose NEGATIVE <content [facility] [Mass/volume] styleCode="Chris Bhats in Urine by d">Urine Medical Test strip Glucose Center </content>NEGA TIVE MG/DL<content styleCode="Evy lics"> (NEGATIVE MG/DL)</conten t> UNK NEGATIVE <content Saint styleCode="Chris Jeanette d">Urine Medical Bilirubin Center </content>NEGA TIVE <content styleCode="Evy lics"> (NEGATIVE )</content> Protein NEGATIVE <content Saint [Mass/volume] styleCode="Chris Bhats in Urine by d">Urine Medical Test strip Protein Center </content>TRAC E MG/DL<content styleCode="Evy lics"> (NEGATIVE MG/DL)</conten t> Hemoglobin NEGATIVE <content Saint [Presence] in styleCode="Chris Bhats Urine by Test d">Urine Blood Medical strip </content>NEGA Center TIVE <content styleCode="Evy lics"> (NEGATIVE )</content> Urobilinogen 0.2-1.0 <content Saint [Units/volume] styleCode="Chris Bhats in Urine by d">Urine Medical Test strip Urobilinogen Center </content>1.0 MG/DL<content styleCode="Evy lics"> (0.2-1.0 MG/DL)</conten t> Specific 1.015-1.02 <content Saint gravity of 5 styleCode="Chris Jeanette Urine by Test d">Urine Medical strip Specific Center [facility] </content>1.02 5 <content styleCode="Evy lics"> (1.015-1.025 )</content> pH of Urine by 4.5-8.0 <content Saint Test strip styleCode="Chris Jeanette d">Urine pH Medical </content>6.5 Center <content styleCode="Evy lics"> (4.5-8.0 )</content> UNK 0-3 <content Saint styleCode="Chris Jeanette d">Urine White Medical Blood Cell Center </content>0-3 HPF<content styleCode="Evy lics"> (0-3 HPF)</content> UNK NEGATIVE <content Saint styleCode="Chris Jeanette d">Urine Medical Bacteria Center </content>FEW HPF<content styleCode="Evy lics"> (NEGATIVE HPF)</content> Nitrite NEGATIVE <content [Presence] in styleCode="Chris Reid Urine by Test d">Urine Medical strip Nitrite Center </content>NEGA TIVE <content styleCode="Evy lics"> (NEGATIVE )</content> Leukocyte NEGATIVE <content Saint esterase styleCode="Chris Bhats [Presence] in d">Urine Medical Urine by Test Leukocyte Center strip </content>NEGA TIVE <content styleCode="Evy lics"> (NEGATIVE )</content> UNK 0-3 <content Saint styleCode="Chris Jeanette d">Urine Red Medical Blood Cell Center </content>5 - 10 HPF<content styleCode="Evy lics"> (0-3 HPF)</content> UNK NONE SEEN <content Saint styleCode="Chris Jeanette d">Fine Medical Granular Cast Center </content>3-5 LPF<content styleCode="Evy lics"> (NONE SEEN LPF)</content> UNK NONE <content Saint styleCode="Chris Jeanette d">Calcium Medical Oxalate Center Crystal </content>FEW HPF<content styleCode="Evy lics"> (NONE HPF)</content> UNK 0-2 <content Saint styleCode="Chris Jeanette d">Hyaline Medical Cast Center </content>0-1 LPF<content styleCode="Evy lics"> (0-2 LPF)</content> UNK NONE SEEN <content Saint styleCode="Chris Jeanette d">Epithelial Medical Cell Center </content>0-2 HPF<content styleCode="Evy lics"> (NONE SEEN HPF)</content> UNK NONE SEEN <content Saint styleCode="Chris Jeanette d">Urine Mucus Medical </content>MANY Center HPF<content styleCode="Evy lics"> (NONE SEEN HPF)</content> ID Date Data Source CHMROUTINECCDA.[id number] 04/03/2020 08:35:00 PM EDT Neal [facility] -0400 Name Value Range Interpretation Description Data Sup porting Code Source(s) Document(s ) Cannabinoids <content Saint [Presence] in styleCode="[facility] Urine by Screen d">Cannabinoid Medical method >50 ng/mL s Center </content>PRES UMPTIVE POSITIVE NG/ML (Reference Range: not available)<br/ > ID Date Data Source Liver 04/03/2020 04:10:00 PM EDT [facility] Profile.[id number] Name Value Range Interpretation Description Data Sup porting Code Source(s) Document(s ) Alanine 7-50 <content Saint aminotransferase styleCode="Bold"> Michael hs [Enzymatic Alanine Medical activity/volume] Aminotransferase Center in Serum or Plasma (ALT) </content>16 IU/L<content styleCode="Italic s"> (7-50 IU/L)</content> Aspartate 17-59 <content [facility] aminotransferase styleCode="Bold"> Michael hs [Enzymatic Aspartate Medical activity/volume] Aminotransferase Center in Serum or Plasma (AST) </content>27 IU/L<content styleCode="Italic s"> (17-59 IU/L)</content> Albumin 3.5-5.0 Above high <content Saint [Mass/volume] in normal styleCode="Bold"> Michael hs Serum or Plasma Albumin Medical </content>5.4 Center G/DL H<content styleCode="Italic s"> (3.5-5.0 G/DL)</content> Bilirubin.total 0.2-1.3 <content Saint [Mass/volume] in styleCode="Bold"> Michael hs Serum or Plasma Bilirubin Total Medical </content>0.5 Center MG/DL<content styleCode="Italic s"> (0.2-1.3 MG/DL)</content> Alkaline 38-126 <content Saint phosphatase styleCode="Bold"> Jeanette [Enzymatic Alkaline Medical activity/volume] Phosphatase (ALP) Cente r in Serum or Plasma </content>77 IU/L<content styleCode="Italic s"> (38-126 IU/L)</content> UNK 0.0-0.3 <content Saint styleCode="Bold"> Jeanette Bilirubin, Direct Medical </content>< 0.2 Center MG/DL<content styleCode="Italic s"> (0.0-0.3 MG/DL)</content> ID Date Data Source HematologyRou.[id number] 04/03/2020 04:10:00 PM EDT Neal [facility] 0400 Name Value Range Interpretation Description Data Sup porting Code Source(s) Document(s ) Erythrocytes 4.4-5.9 <content Saint [#/volume] in styleCode="Bold Jeanette Blood by ">Red Blood Medical Automated count Cell Count Center </content>4.51 MCUMM<content styleCode="Ital ics"> (4.4-5.9 MCUMM)</content > Leukocytes 4.4-11.0 <content Saint [#/volume] in styleCode="Bold Jeanette Blood by ">White Blood Medical Automated count Cell Count Center </content>9.68 KCUMM<content styleCode="Ital ics"> (4.4-11.0 KCUMM)</content > Hemoglobin 13.5-17. <content Saint [Mass/volume] in 5 styleCode="Bold Jeanette Blood ">Hemoglobin Medical </content>14.4 Center G/DL<content styleCode="Ital ics"> (13.5-17.5 G/DL)</content> Hematocrit 41.0-53. <content Saint [Volume 0 styleCode="Bold Jeanette Fraction] of ">Hematocrit Medical Blood by </content>41.7 Center Automated count %<content styleCode="Ital ics"> (41.0-53.0 %)</content> Erythrocyte mean 32.0-37. <content [facility] corpuscular 0 styleCode="Bold Jeanette hemoglobin ">Mean Corpus. Medical concentration Hgb Center [Mass/volume] by Concentration Automated count (MCHC) </content>34.5 G/DL<content styleCode="Ital ics"> (32.0-37.0 G/DL)</content> Erythrocyte mean 26.0-34. <content [facility] corpuscular 0 styleCode="Bold Jeanette hemoglobin ">Mean Medical [Entitic mass] Corposcular Center by Automated Hemoglobin count </content>31.9 PG<content styleCode="Ital ics"> (26.0-34.0 PG)</content> Erythrocyte mean 80.0-100 <content [facility] corpuscular .0 styleCode="Bold Jeanette volume [Entitic ">Mean Medical volume] by Corpuscular Center Automated count Volume </content>92.5 FL<content styleCode="Ital ics"> (80.0-100.0 FL)</content> UNK 0 <content Saint styleCode="Bold Jeanette ">Nucleated Red Medical Blood Cell Center </content>0.0 /100<content styleCode="Ital ics"> (0 /100)</content> Platelet mean 8.0-11.0 <content Saint volume [Entitic styleCode="Bold Jeanette volume] in Blood ">Mean Platelet Medical by Automated Volume Center count </content>10.5 FL<content styleCode="Ital ics"> (8.0-11.0 FL)</content> Platelets 130-400 <content Saint [#/volume] in styleCode="Bold Jeanette Blood by ">Platelet Medical Automated count Count Center </content>253 KCUMM<content styleCode="Ital ics"> (130-400 KCUMM)</content > Erythrocyte 11.5-14. <content Saint distribution 5 styleCode="Bold Jeanette width [Ratio] by ">Red Cell Medical Automated count Distribution Center Width </content>12.2 %<content styleCode="Ital ics"> (11.5-14.5 %)</content> UNK 0.0 <content Saint styleCode="Bold Jeanette ">Nucleated Red Medical Blood Cell Center Count </content>0.00 KCUMM<content styleCode="Ital ics"> (0.0 KCUMM)</content > ID Date Data Source GFR(Creatinine).[id number] 04/03/2020 04:10:00 PM EDT Neal [facility] 0-0400 Name Value Range Interpretation Code Description Data Meche rce(s) Supporting Document(s ) UNK > 60 <content [facility] styleCode="Bold"> Medical Cent er EGFR </content>127 GFR<content styleCode="Italic s"> (> 60 GFR)</content> ID Date Data Source [facility].[id number] 04/03/2020 04:10:00 PM EDT [facility] Name Value Range Interpretation Description Data Sup porting Code Source(s) Document(s ) Sodium 137-145 <content Saint [Moles/volume] in styleCode="Bold"> [facility] Serum or Plasma Sodium Medical </content>138 Center MEQ/L<content styleCode="Italic s"> (137-145 MEQ/L)</content> Chloride 98-107 Below low <content Saint [Moles/volume] in normal styleCode="Bold"> [facility]aim [facility] Serum or Plasma Chloride Medical </content>96 Center MEQ/L L<content styleCode="Italic s"> (98-107 MEQ/L)</content> Potassium 3.5-5.3 <content Saint [Moles/volume] in styleCode="Bold"> [facility] Serum or Plasma Potassium Medical </content>4.6 Center MEQ/L<content styleCode="Italic s"> (3.5-5.3 MEQ/L)</content> Carbon dioxide, 22-30 Above high <content Saint total normal styleCode="Bold"> Jeanette [Moles/volume] in Carbon Dioxide Medical Serum or Plasma </content>33 Center MEQ/L H<content styleCode="Italic s"> (22-30 MEQ/L)</content> Creatinine 0.5-1.3 <content Saint [Mass/volume] in styleCode="Bold"> Michael hs Serum or Plasma Creatinine Medical </content>0.8 Center MG/DL<content styleCode="Italic s"> (0.5-1.3 MG/DL)</content> UNK 9-20 <content [facility] styleCode="Bold"> Jeanette BUN </content>15 Medical MG/DL<content Center styleCode="Italic s"> (9-20 MG/DL)</content> Calcium 8.4-10. Above high <content [facility] [Mass/volume] in 2 normal styleCode="Bold"> Michael hs Serum or Plasma Calcium Medical </content>10.5 Center MG/DL H<content styleCode="Italic s"> (8.4-10.2 MG/DL)</content> UNK > 60 <content [facility] styleCode="Bold"> Jeanette EGFR Medical </content>127 Center GFR<content styleCode="Italic s"> (> 60 GFR)</content> Glucose 74-106 Above high <content [facility] [Mass/volume] in normal styleCode="Bold"> Michael hs Serum or Plasma Glucose Medical </content>110 Center MG/DL H<content styleCode="Italic s"> (74-106 MG/DL)</content> Aspartate 17-59 <content [facility] aminotransferase styleCode="Bold"> Michael hs [Enzymatic Aspartate Medical activity/volume] Aminotransferase Center in Serum or Plasma (AST) </content>27 IU/L<content styleCode="Italic s"> (17-59 IU/L)</content> Alkaline 38-126 <content [facility] phosphatase styleCode="Bold"> Jeanette [Enzymatic Alkaline Medical activity/volume] Phosphatase (ALP) Cente r in Serum or Plasma </content>77 IU/L<content styleCode="Italic s"> (38-126 IU/L)</content> Alanine 7-50 <content [facility] aminotransferase styleCode="Bold"> Michael hs [Enzymatic Alanine Medical activity/volume] Aminotransferase Center in Serum or Plasma (ALT) </content>16 IU/L<content styleCode="Italic s"> (7-50 IU/L)</content> Albumin 3.5-5.0 Above high <content [facility] [Mass/volume] in normal styleCode="Bold"> Michael hs Serum or Plasma Albumin Medical </content>5.4 Center G/DL H<content styleCode="Italic s"> (3.5-5.0 G/DL)</content> Bilirubin.total 0.2-1.3 <content [facility] [Mass/volume] in styleCode="Bold"> Michael hs Serum or Plasma Bilirubin Total Medical </content>0.5 Center MG/DL<content styleCode="Italic s"> (0.2-1.3 MG/DL)</content> ID Date Data Source [id number] 02/25/2020 12:00:00 AM EDT [facility] Name Value Range Interpretation Code Description Data Meche rce(s) Supporting Document(s ) 2019-nCoV [facility] RNA XXX ELISABETH+probe- Imp This lab was ordered by [facility] and reported by [employer] [facility]. ID Date Data Source [id number] 01/16/2020 10:18:00 AM EDT [facility] Name Value Range Interpretation Description Data Sup porting Code Source(s) Document(s ) Potassium 3.5-5.3 <content [facility] [Moles/volume] styleCode="Chris Jeanette in Serum or d">Potassium Medical Plasma </content>3.8 Center MEQ/L<content styleCode="Evy lics"> (3.5-5.3 MEQ/L)</conten t> Sodium 137-145 <content [facility] [Moles/volume] styleCode="Chris Jeanette in Serum or d">Sodium Medical Plasma </content>137 Center MEQ/L<content styleCode="Evy lics"> (137-145 MEQ/L)</conten t> Chloride 98-107 <content [facility] [Moles/volume] styleCode="Chris Jeanette in Serum or d">Chloride Medical Plasma </content>104 Center MEQ/L<content styleCode="Evy lics"> (98-107 MEQ/L)</conten t> Glucose 74-106 Above high normal <content [facility] [Mass/volume] styleCode="Chris Jeanette in Serum or d">Glucose Medical Plasma </content>134 Center MG/DL H<content styleCode="Evy lics"> (74-106 MG/DL)</conten t> UNK 9-20 <content Saint styleCode="Chris Jeanette d">BUN Medical </content>13 Center MG/DL<content styleCode="Evy lics"> (9-20 MG/DL)</conten t> Calcium 8.4-10.2 <content [facility] [Mass/volume] styleCode="Chris Jeanette in Serum or d">Calcium Medical Plasma </content>8.8 Center MG/DL<content styleCode="Evy lics"> (8.4-10.2 MG/DL)</conten t> Creatinine 0.5-1.3 <content [facility] [Mass/volume] styleCode="Chris Jeanette in Serum or d">Creatinine Medical Plasma </content>0.8 Center MG/DL<content styleCode="Evy lics"> (0.5-1.3 MG/DL)</conten t> Carbon 22-30 <content [facility] dioxide, total styleCode="Chris Bhats [Moles/volume] d">Carbon Medical in Serum or Dioxide Center Plasma </content>27 MEQ/L<content styleCode="Evy lics"> (22-30 MEQ/L)</conten t> UNK > 60 <content Saint styleCode="Chris Bhats d">EGFR Medical </content>127 Center GFR<content styleCode="Evy lics"> (> 60 GFR)</content> ID Date Data Source GFR(Creatinine).[id number] 01/16/2020 10:18:00 AM EDT [facility] 0-0400 Name Value Range Interpretation Code Description Data Meche rce(s) Supporting Document(s ) UNK > 60 <content [facility] styleCode="Bold"> Medical Cent er EGFR </content>127 GFR<content styleCode="Italic s"> (> 60 GFR)</content> ID Date Data Source Coagulation 01/16/2020 09:51:00 AM [facility] Rout.[id number] EDT Name Value Range Interpretation Description Data Sup porting Code Source(s) Document(s ) UNK 9.0-13.0 Above high normal <content [facility] styleCode="Bold" Jeanette >Protime Medical </content>14.1 Center SEC H<content styleCode="Itali cs"> (9.0-13.0 SEC)</content> INR in 0.80-1.2 Above high normal <content [facility] Platelet poor 0 styleCode="Bold" Jeanette plasma by >INR Medical Coagulation </content>1.27 # Center assay H<content styleCode="Itali cs"> (0.80-1.20 #)</content> aPTT in 25.1-36. <content [facility] Platelet poor 5 styleCode="Bold" Jeanette plasma by >Partial Medical Coagulation Thromboplastin Center assay Time </content>30.8 SEC<content styleCode="Itali cs"> (25.1-36.5 SEC)</content> ID Date Data Source [facility].[id number] 01/16/2020 08:55:00 AM EDT [facility] Name Value Range Interpretation Description Data Sup porting Code Source(s) Document(s ) Chloride 98-107 <content Saint [Moles/volume] in styleCode="Bold"> [facility] Serum or Plasma Chloride Medical </content>102 Center MEQ/L<content styleCode="Italic s"> (98-107 MEQ/L)</content> Sodium 137-145 <content Saint [Moles/volume] in styleCode="Bold"> [facility] Serum or Plasma Sodium Medical </content>137 Center MEQ/L<content styleCode="Italic s"> (137-145 MEQ/L)</content> Carbon dioxide, 22-30 <content [facility] total styleCode="Bold"> Jeanette [Moles/volume] in Carbon Dioxide Medical Serum or Plasma </content>26 Center MEQ/L<content styleCode="Italic s"> (22-30 MEQ/L)</content> UNK 9-20 <content [facility] styleCode="Bold"> Jeanette BUN </content>14 Medical MG/DL<content Center styleCode="Italic s"> (9-20 MG/DL)</content> Potassium <content Saint [Moles/volume] in styleCode="Bold"> [facility] Serum or Plasma Potassium Medical </content>Test Center not performed. MEQ/L (Reference Range: not available)
Glucose 74-106 Above high <content [facility] [Mass/volume] in normal styleCode="Bold"> Michael hs Serum or Plasma Glucose Medical </content>108 Center MG/DL H<content styleCode="Italic s"> (74-106 MG/DL)</content> UNK > 60 <content [facility] styleCode="Bold"> Jeanette EGFR Medical </content>149 Center GFR<content styleCode="Italic s"> (> 60 GFR)</content> Calcium 8.4-10. <content [facility] [Mass/volume] in 2 styleCode="Bold"> Michael hs Serum or Plasma Calcium Medical </content>9.8 Center MG/DL<content styleCode="Italic s"> (8.4-10.2 MG/DL)</content> Creatinine 0.5-1.3 <content [facility] [Mass/volume] in styleCode="Bold"> Michael hs Serum or Plasma Creatinine Medical </content>0.7 Center MG/DL<content styleCode="Italic s"> (0.5-1.3 MG/DL)</content> Bilirubin.total 0.2-1.3 <content [facility] [Mass/volume] in styleCode="Bold"> Michael hs Serum or Plasma Bilirubin Total Medical </content>1.0 Center MG/DL<content styleCode="Italic s"> (0.2-1.3 MG/DL)</content> Aspartate 17-59 <content [facility] aminotransferase styleCode="Bold"> Michael hs [Enzymatic Aspartate Medical activity/volume] Aminotransferase Center in Serum or Plasma (AST) </content>40 IU/L<content styleCode="Italic s"> (17-59 IU/L)</content> Alanine 7-50 <content [facility] aminotransferase styleCode="Bold"> Michael hs [Enzymatic Alanine Medical activity/volume] Aminotransferase Center in Serum or Plasma (ALT) </content>25 IU/L<content styleCode="Italic s"> (7-50 IU/L)</content> Alkaline 38-126 <content [facility] phosphatase styleCode="Bold"> Jeanette [Enzymatic Alkaline Medical activity/volume] Phosphatase (ALP) Cente r in Serum or Plasma </content>59 IU/L<content styleCode="Italic s"> (38-126 IU/L)</content> Albumin 3.5-5.0 <content [facility] [Mass/volume] in styleCode="Bold"> Michael hs Serum or Plasma Albumin Medical </content>4.9 Center G/DL<content styleCode="Italic s"> (3.5-5.0 G/DL)</content> ID Date Data Source GFR(Creatinine).[id number] 01/16/2020 08:55:00 AM EDT [facility] 0-0400 Name Value Range Interpretation Code Description Data Meche rce(s) Supporting Document(s ) UNK > 60 <content [facility] styleCode="Bold"> Medical Cent er EGFR </content>149 GFR<content styleCode="Italic s"> (> 60 GFR)</content> ID Date Data Source HematologyRou.[id number] 01/16/2020 08:55:00 AM EDT [facility] 0400 Name Value Range Interpretation Description Data Sup porting Code Source(s) Document(s ) Leukocytes 4.4-11.0 Above high <content [facility] [#/volume] in normal styleCode="Bold Jeanette Blood by ">White Blood Medical Automated count Cell Count Center </content>16.72 KCUMM H<content styleCode="Ital ics"> (4.4-11.0 KCUMM)</content > Hemoglobin 13.5-17. Below low normal <content [facility] [Mass/volume] in 5 styleCode="Bold Jeanette Blood ">Hemoglobin Medical </content>13.0 Center G/DL L<content styleCode="Ital ics"> (13.5-17.5 G/DL)</content> Erythrocytes 4.4-5.9 Below low normal <content [facility] [#/volume] in styleCode="Bold Jeanette Blood by ">Red Blood Medical Automated count Cell Count Center </content>3.99 MCUMM L<content styleCode="Ital ics"> (4.4-5.9 MCUMM)</content > Erythrocyte mean 32.0-37. <content [facility] corpuscular 0 styleCode="Bold Jeanette hemoglobin ">Mean Corpus. Medical concentration Hgb Center [Mass/volume] by Concentration Automated count (MCHC) </content>34.9 G/DL<content styleCode="Ital ics"> (32.0-37.0 G/DL)</content> Erythrocyte mean 80.0-100 <content [facility] corpuscular .0 styleCode="Bold Jeanette volume [Entitic ">Mean Medical volume] by Corpuscular Center Automated count Volume </content>93.2 FL<content styleCode="Ital ics"> (80.0-100.0 FL)</content> Erythrocyte mean 26.0-34. <content [facility] corpuscular 0 styleCode="Bold Jeanette hemoglobin ">Mean Medical [Entitic mass] Corposcular Center by Automated Hemoglobin count </content>32.6 PG<content styleCode="Ital ics"> (26.0-34.0 PG)</content> Hematocrit 41.0-53. Below low normal <content Saint [Volume 0 styleCode="Bold Jeanette Fraction] of ">Hematocrit Medical Blood by </content>37.2 Center Automated count % L<content styleCode="Ital ics"> (41.0-53.0 %)</content> UNK 0 <content [facility] styleCode="Bold Jeanette ">Nucleated Red Medical Blood Cell Center </content>0.0 /100<content styleCode="Ital ics"> (0 /100)</content> UNK 0.0 <content Saint styleCode="Bold Jeanette ">Nucleated Red Medical Blood Cell Center Count </content>0.00 KCUMM<content styleCode="Ital ics"> (0.0 KCUMM)</content > Erythrocyte 11.5-14. <content Saint distribution 5 styleCode="Bold Jeanette width [Ratio] by ">Red Cell Medical Automated count Distribution Center Width </content>12.8 %<content styleCode="Ital ics"> (11.5-14.5 %)</content> Platelets 130-400 <content Saint [#/volume] in styleCode="Bold Jeanette Blood by ">Platelet Medical Automated count Count Center </content>247 KCUMM<content styleCode="Ital ics"> (130-400 KCUMM)</content > Platelet mean 8.0-11.0 <content [facility] volume [Entitic styleCode="Bold Jeanette volume] in Blood ">Mean Platelet Medical by Automated Volume Center count </content>10.8 FL<content styleCode="Ital ics"> (8.0-11.0 FL)</content> ID Date Data Source Liver 01/16/2020 08:55:00 AM EDT [facility] Profile.[id number] Name Value Range Interpretation Description Data Sup porting Code Source(s) Document(s ) Bilirubin.total 0.2-1.3 <content [facility] [Mass/volume] in styleCode="Bold"> Michael hs Serum or Plasma Bilirubin Total Medical </content>1.0 Center MG/DL<content styleCode="Italic s"> (0.2-1.3 MG/DL)</content> Aspartate 17-59 <content [facility] aminotransferase styleCode="Bold"> Michael hs [Enzymatic Aspartate Medical activity/volume] Aminotransferase Center in Serum or Plasma (AST) </content>40 IU/L<content styleCode="Italic s"> (17-59 IU/L)</content> Alanine 7-50 <content [facility] aminotransferase styleCode="Bold"> Michael hs [Enzymatic Alanine Medical activity/volume] Aminotransferase Center in Serum or Plasma (ALT) </content>25 IU/L<content styleCode="Italic s"> (7-50 IU/L)</content> Alkaline 38-126 <content [facility] phosphatase styleCode="Bold"> Jeanette [Enzymatic Alkaline Medical activity/volume] Phosphatase (ALP) Cente r in Serum or Plasma </content>59 IU/L<content styleCode="Italic s"> (38-126 IU/L)</content> Albumin 3.5-5.0 <content [facility] [Mass/volume] in styleCode="Bold"> Michael hs Serum or Plasma Albumin Medical </content>4.9 Center G/DL<content styleCode="Italic s"> (3.5-5.0 G/DL)</content> UNK 0.0-0.3 <content [facility] styleCode="Bold"> Jeanette Bilirubin, Direct Medical </content>< 0.2 Center MG/DL<content styleCode="Italic s"> (0.0-0.3 MG/DL)</content> ID Date Data Source [id number] 01/16/2020 12:00:00 AM EDT [facility] Name Value Range Interpretation Code Description Data Meche rce(s) Supporting Document(s ) 2019-nCoV [facility] RNA XXX ELISABETH+probe- Imp This lab was ordered by [facility] and reported by [employer]. ID Date Data Source Urinalysis.[id number] 01/03/2020 07:00:00 AM EDT [facility] 0 Name Value Range Interpretation Description Data Sup porting Code Source(s) Document(s ) UNK CLEAR <content [facility] styleCode="Chris Jeanette d">Urine Medical Clarity Center </content>JUICE R <content styleCode="Evy lics"> (CLEAR )</content> Color of Urine YELLOW <content [facility] styleCode="Chris Jeanette d">Color, Medical Urine Center </content>YELL OW <content styleCode="Evy lics"> (YELLOW )</content> Specific 1.015-1.02 Above high <content Saint gravity of 5 normal styleCode="Chris [facility] Urine by Test d">Urine Medical strip Specific Center Sage </content>>= 1.030 H<content styleCode="Evy lics"> (1.015-1.025 )</content> UNK NEGATIVE <content Saint styleCode="Chris Jeanette d">Urine Medical Bilirubin Center </content>NEGA TIVE <content styleCode="Evy lics"> (NEGATIVE )</content> Hemoglobin NEGATIVE <content Saint [Presence] in styleCode="Chris Bhats Urine by Test d">Urine Blood Medical strip </content>NEGA Center TIVE <content styleCode="Evy lics"> (NEGATIVE )</content> Ketones NEGATIVE <content [facility] [Mass/volume] styleCode="Chris Bhats in Urine by d">Urine Medical Test strip Ketone Center </content>NEGA TIVE MG/DL<content styleCode="Evy lics"> (NEGATIVE MG/DL)</conten t> Glucose NEGATIVE <content [facility] [Mass/volume] styleCode="Chris Jeanette in Urine by d">Urine Medical Test strip Glucose Center </content>NEGA TIVE MG/DL<content styleCode="Evy lics"> (NEGATIVE MG/DL)</conten t> Urobilinogen 0.2-1.0 <content Saint [Units/volume] styleCode="Chris Bhats in Urine by d">Urine Medical Test strip Urobilinogen Center </content>0.2 MG/DL<content styleCode="Evy lics"> (0.2-1.0 MG/DL)</conten t> Leukocyte NEGATIVE <content [facility] esterase styleCode="Chris Bhats [Presence] in d">Urine Medical Urine by Test Leukocyte Center strip </content>NEGA TIVE <content styleCode="Evy lics"> (NEGATIVE )</content> pH of Urine by 4.5-8.0 <content Saint Test strip styleCode="Chris Bhats d">Urine pH Medical </content>6.0 Center <content styleCode="Evy lics"> (4.5-8.0 )</content> Protein NEGATIVE <content Saint [Mass/volume] styleCode="Chris Bhats in Urine by d">Urine Medical Test strip Protein Center </content>NEGA TIVE MG/DL<content styleCode="Evy lics"> (NEGATIVE MG/DL)</conten t> Nitrite NEGATIVE <content Saint [Presence] in styleCode="Chris Bhats Urine by Test d">Urine Medical strip Nitrite Center </content>NEGA TIVE <content styleCode="Evy lics"> (NEGATIVE )</content> ID Date Data Source CHMROUTINECCDA.[id number] 01/03/2020 07:00:00 AM EDT [facility] -0400 Name Value Range Interpretation Description Data Sup porting Code Source(s) Document(s ) Cannabinoids <content Saint [Presence] in styleCode="Chris [facility] Urine by Screen d">Cannabinoid Medical method >50 ng/mL s Center </content>PRES UMPTIVE POSITIVE NG/ML (Reference Range: not available)<br/ > ID Date Data Source HematologyRou.[id number] 01/03/2020 06:10:00 AM EDT [facility] 0400 Name Value Range Interpretation Description Data Sup porting Code Source(s) Document(s ) Leukocytes 4.4-11.0 Above high <content Saint [#/volume] in normal styleCode="Bold Jeanette Blood by ">White Blood Medical Automated count Cell Count Center </content>11.61 KCUMM H<content styleCode="Ital ics"> (4.4-11.0 KCUMM)</content > Hemoglobin 13.5-17. Below low normal <content [facility] [Mass/volume] in 5 styleCode="Bold Jeanette Blood ">Hemoglobin Medical </content>12.4 Center G/DL L<content styleCode="Ital ics"> (13.5-17.5 G/DL)</content> Erythrocyte mean 80.0-100 <content [facility] corpuscular .0 styleCode="Bold Jeanette volume [Entitic ">Mean Medical volume] by Corpuscular Center Automated count Volume </content>90.8 FL<content styleCode="Ital ics"> (80.0-100.0 FL)</content> Hematocrit 41.0-53. Below low normal <content Saint [Volume 0 styleCode="Bold Jeanette Fraction] of ">Hematocrit Medical Blood by </content>34.4 Center Automated count % L<content styleCode="Ital ics"> (41.0-53.0 %)</content> Erythrocytes 4.4-5.9 Below low normal <content [facility] [#/volume] in styleCode="Bold Jeanette Blood by ">Red Blood Medical Automated count Cell Count Center </content>3.79 MCUMM L<content styleCode="Ital ics"> (4.4-5.9 MCUMM)</content > Erythrocyte mean 26.0-34. <content [facility] corpuscular 0 styleCode="Bold Jeanette hemoglobin ">Mean Medical [Entitic mass] Corposcular Center by Automated Hemoglobin count </content>32.7 PG<content styleCode="Ital ics"> (26.0-34.0 PG)</content> Platelets 130-400 <content [facility] [#/volume] in styleCode="Bold Jeanette Blood by ">Platelet Medical Automated count Count Center </content>201 KCUMM<content styleCode="Ital ics"> (130-400 KCUMM)</content > Erythrocyte mean 32.0-37. <content [facility] corpuscular 0 styleCode="Bold Jeanette hemoglobin ">Mean Corpus. Medical concentration Hgb Center [Mass/volume] by Concentration Automated count (MCHC) </content>36.0 G/DL<content styleCode="Ital ics"> (32.0-37.0 G/DL)</content> Erythrocyte 11.5-14. <content [facility] distribution 5 styleCode="Bold Jeanette width [Ratio] by ">Red Cell Medical Automated count Distribution Center Width </content>12.3 %<content styleCode="Ital ics"> (11.5-14.5 %)</content> Platelet mean 8.0-11.0 <content [facility] volume [Entitic styleCode="Bold Jeanette volume] in Blood ">Mean Platelet Medical by Automated Volume Center count </content>10.0 FL<content styleCode="Ital ics"> (8.0-11.0 FL)</content> UNK 0 <content Saint styleCode="Bold Jeanette ">Nucleated Red Medical Blood Cell Center </content>0.0 /100<content styleCode="Ital ics"> (0 /100)</content> UNK 0.0 <content Saint styleCode="Bold Jenaette ">Nucleated Red Medical Blood Cell Center Count </content>0.00 KCUMM<content styleCode="Ital ics"> (0.0 KCUMM)</content > ID Date Data Source GFR(Creatinine).[id number] 01/03/2020 06:10:00 AM EDT [facility] 0-0400 Name Value Range Interpretation Code Description Data Meche rce(s) Supporting Document(s ) UNK > 60 <content [facility] styleCode="Bold"> Medical Cent er EGFR </content>127 GFR<content styleCode="Italic s"> (> 60 GFR)</content> ID Date Data Source [facility].[id number] 01/03/2020 06:10:00 AM EDT [facility] Name Value Range Interpretation Description Data Sup porting Code Source(s) Document(s ) Chloride 98-107 <content [facility] [Moles/volume] styleCode="Chris Jeanette in Serum or d">Chloride Medical Plasma </content>104 Center MEQ/L<content styleCode="Evy lics"> (98-107 MEQ/L)</conten t> Sodium 137-145 <content [facility] [Moles/volume] styleCode="Chris Jeanette in Serum or d">Sodium Medical Plasma </content>137 Center MEQ/L<content styleCode="Evy lics"> (137-145 MEQ/L)</conten t> Potassium 3.5-5.3 Below low normal <content [facility] [Moles/volume] styleCode="Chris Jeanette in Serum or d">Potassium Medical Plasma </content>3.4 Center MEQ/L L<content styleCode="Evy lics"> (3.5-5.3 MEQ/L)</conten t> Carbon 22-30 <content [facility] dioxide, total styleCode="Chris Jeanette [Moles/volume] d">Carbon Medical in Serum or Dioxide Center Plasma </content>24 MEQ/L<content styleCode="Evy lics"> (22-30 MEQ/L)</conten t> Calcium 8.4-10.2 <content [facility] [Mass/volume] styleCode="Chris Jeanette in Serum or d">Calcium Medical Plasma </content>9.7 Center MG/DL<content styleCode="Evy lics"> (8.4-10.2 MG/DL)</conten t> UNK > 60 <content Saint styleCode="Chris Jeanette d">EGFR Medical </content>127 Center GFR<content styleCode="Evy lics"> (> 60 GFR)</content> UNK 9-20 <content Saint styleCode="Chris Bhats d">BUN Medical </content>13 Center MG/DL<content styleCode="Evy lics"> (9-20 MG/DL)</conten t> Glucose 74-106 Above high normal <content Saint [Mass/volume] styleCode="Chris Bhats in Serum or d">Glucose Medical Plasma </content>112 Center MG/DL H<content styleCode="Evy lics"> (74-106 MG/DL)</conten t> Creatinine 0.5-1.3 <content [facility] [Mass/volume] styleCode="Chris Bhats in Serum or d">Creatinine Medical Plasma </content>0.8 Center MG/DL<content styleCode="Evy lics"> (0.5-1.3 MG/DL)</conten t> ID Date Data Source [id number] 11/24/2019 01:25:[address] [facility] CUT-OFF >= 25 NG/ML.THE FINDINGS OF THE URINE DRUG SCREEN ARE USED SOLELY FOR PATIENT MANAGEMENT AND GUIDANCE. THE RESULTS DARVIN ULD NOT BE USED FOR FORENSIC PURPOSE. ANY CLINICALLY UNSUSPECTED POSITIVE DRUG SCR EEN CAN BE CONFIRMED BY CALLING THE LABORATORY 3 DAYS WITHIN RECEIPT OF REPO RT. Name Value Range Interpretation Code Description Data Meche rce(s) Supporting Document(s ) PCP (UR) NEGATIVE [facility] ID Date Data Source [id number] 11/24/2019 01:25:[address] [facility] CUT-OFF >= 50 NG/ML. Name Value Range Interpretation Code Description Data Meche rce(s) Supporting Document(s ) THC (UR) POSITIVE [facility] ID Date Data Source [id number] 11/24/2019 01:25:[address] [facility] CUT-OFF >= 300 NG/ML. Name Value Range Interpretation Description Data Sup porting Code Source(s) Document(s ) OPIATES (UR) NEGATIVE [facility] ID Date Data Source [id number] 11/24/2019 01:25:[address] [facility] CUT-OFF >= 300 NG/ML. Name Value Range Interpretation Description Data Sup porting Code Source(s) Document(s ) COCAINE (UR) POSITIVE [facility] ID Date Data Source [id number] 11/24/2019 01:25:[address] [facility] CUT-OFF >= 200 NG/ML. Name Value Range Interpretation Description Data Sup porting Code Source(s) Document(s ) BENZODIAZEPINES POSITIVE [place] (UR) [facility] ID Date Data Source [id number] 11/24/2019 01:25:[address] [facility] CUT-OFF >= 200 NG/ML. Name Value Range Interpretation Description Data Sup porting Code Source(s) Document(s ) BARBITURATES NEGATIVE [place] (UR) Hospital ID Date Data Source [id number] [facility]/ML. Name Value Range Interpretation Description Data Sup porting Code Source(s) Document(s ) AMPHETAMINES NEGATIVE [place] (UR) Hospital ID Date Data Source [id number] 11/24/2019 [facility]16[facility]ROSLYN SNEED Name Value Range Interpretation Description Data Sup porting Code Source(s) Document(s ) Glucose 151 mg/dL [place] [Mass/volume] [facility] [facility] blood by Glucometer ID Date Data Source [id number] [facility]: NONE DETECTED <20 MG/DL NONE TO MILD EUPHORIA 20-49 MG/DL MILD EUPHORIA 50-99 MG/DL MODERATE EUPHORIA 100-149 MG/DL INTOXICATION 150-300 MG/DL Name Value Range Interpretation Description Data Sup porting Code Source(s) Document(s ) Ethanol < 20 [place] [Mass/volume mg/dL Hospital ] in Serum or Plasma ID Date Data Source [id number] 11/24/2019 10:37:00 AM [facility] TEST RESULT IS A TOTAL TRICYCLIC VALUE.T RICYCLIC ANTIDEPRESSANT REFERENCE RANGE: AMITRIPTYLINE AND METABOLITE (NORTRIPTYL INE) TOTAL THERAPEUTIC: 75 - 225 NG/ML. TOTAL TOXIC: > 400 NG/ML. NORTRIPTYLINE ONLY TOTAL THERAPEUTIC: 50 - 150 NG/ML. TOTAL TOXIC: > 400 NG/ML. IMIPRAMINE AND METABOLITE (DESIPRAMINE) TOTAL THERAPEUTIC: 125 - 175 NG/ML. TOTAL TOXIC: > 400 NG/ML. Name Value Range Interpretation Description Data Sup porting Code Source(s) Document(s ) TRICYCLIC 195 [place] ANTIDEPRESSANT ng/mL Hospital ID Date Data Source [id number] 11/24/2019 10:37:00 AM [facility] REFERENCE RANGES: ANALGESIC: 0.0 - 10.0 MG/DL. ARTHRITIC THERAPY: 15.0 - 30.0 MG/DL. Name Value Range Interpretation Description Data Sup porting Code Source(s) Document(s ) Salicylates < 3.0 [place] [Mass/volume] mg/dL Hospital in Serum or Plasma ID Date Data Source [id number] 11/24/2019 10:37:00 AM [facility] THERAPEUTIC RANGE: 10.0-30.0 UG/MLTOXIC RANGE: 4 HRS AFTER INGESTION >150 UG/ML 12 HRS AFTER INGESTION >35 UG/ML Name Value Range Interpretation Description Data Sup porting Code Source(s) Document(s ) ACETAMINOPHEN < 10.0 [place] ug/mL Hospital ID Date Data Source [id number] 11/24/2019 10:37:[address] [facility] Name Value Range Interpretation Description Data Sup porting Code Source(s) Document(s ) Creatine 520 U/L [facility] Hospital [Enzymatic activity/volu me] in Serum or Plasma ID Date Data Source [id number] 11/24/2019 10:37:[address] [facility] Name Value Range Interpretation Description Data Sup porting Code Source(s) Document(s ) Aspartate 34 U/L [place] aminotransferase [facility] [Enzymatic Hospital activity/volume] in Serum or Plasma ID Date Data Source [id number] 11/24/2019 10:37:[address] [facility] Name Value Range Interpretation Description Data Sup porting Code Source(s) Document(s ) Alanine 44 U/L [place] aminotransferase [place] [Enzymatic Hospital activity/volume] in Serum or Plasma ID Date Data Source [id number] 11/24/2019 10:37:00 AM [facility] Name Value Range Interpretation Description Data Sup porting Code Source(s) Document(s ) Alkaline 57 U/L [place] phosphatase Hospital [Enzymatic activity/volume ] in Serum or Plasma ID Date Data Source [id number] 11/24/2019 10:37:00 AM [facility] Name Value Range Interpretation Description Data Sup porting Code Source(s) Document(s ) Bilirubin.t 0.4 mg/dL [facility] [Mass/volum e] in Serum or Plasma ID Date Data Source [id number] 11/24/2019 10:37:00 AM [facility] Name Value Range Interpretation Code Description Data Meche rce(s) Supporting Document(s ) Albumin/Glob 2.2 [place] ulin [Mass Hospital Ratio] in Serum or Plasma ID Date Data Source [id number] 11/24/2019 10:37:00 AM EDT [place] [facility] Name Value Range Interpretation Description Data Sup porting Code Source(s) Document(s ) Albumin 4.2 g/dL [place] [Mass/volume Hospital ] in Serum or Plasma ID Date Data Source [id number] 11/24/2019 10:37:[address] [facility] Name Value Range Interpretation Description Data Sup porting Code Source(s) Document(s ) Protein 6.1 g/dL [place] [Mass/volume Hospital ] in Serum or Plasma ID Date Data Source [id number] 11/24/2019 10:37:[address] [facility] Name Value Range Interpretation Description Data Sup porting Code Source(s) Document(s ) Calcium 9.3 mg/dL [place] [Mass/volume Hospital ] in Serum or Plasma ID Date Data Source [id number] 11/24/2019 10:37:[address] [facility] Name Value Range Interpretation Code Description Data Meche rce(s) Supporting Document(s ) Urea 15.0 [place] nitrogen/Cre Hospital atinine [Mass Ratio] in Serum or Plasma ID Date Data Source [id number] 11/24/2019 10:37:[address] [facility] Name Value Range Interpretation Description Data Sup porting Code Source(s) Document(s ) Creatinine 0.6 mg/dL [place] [Mass/volume] Hospital in Serum or Plasma ID Date Data Source [id number] 11/24/2019 10:37:[address] [facility] Name Value Range Interpretation Description Data Sup porting Code Source(s) Document(s ) Urea nitrogen 9 mg/dL [place] [Mass/volume] Hospital in Serum or Plasma ID Date Data Source [id number] 11/24/2019 10:37:00 AM EDT [facility] [place] [facility] Name Value Range Interpretation Code Description Data Meche rce(s) Supporting Document(s ) Anion gap in 9 [place] Serum or Hospital Plasma ID Date Data Source [id number] 11/24/2019 10:37:[address] [facility] Value Range Interpretation Description Data Sup porting Code Source(s) Document(s ) Carbon 31 mmol/L [place] dioxide, Hospital total [Moles/volu me] in Serum or Plasma ID Date Data Source [id number] 11/24/2019 10:37:[address] [facility] Name Value Range Interpretation Description Data Sup porting Code Source(s) Document(s ) Chloride 105 [place] [Moles/volum mmol/L Hospital e] in Serum or Plasma ID Date Data Source [id number] 11/24/2019 10:37:[address] [facility] Value Range Interpretation Description Data Sup porting Code Source(s) Document(s ) Potassium 3.9 [place] [Moles/volume mmol/L Hospital ] in Serum or Plasma ID Date Data Source [id number] 11/24/2019 10:37:[address] [facility] Value Range Interpretation Description Data Sup porting Code Source(s) Document(s ) Sodium 141 mmol/L [place] [Moles/volu Hospital me] in Serum or Plasma ID Date Data Source [id number] 11/24/2019 10:37:[address] [facility] Name Value Range Interpretation Description Data Sup porting Code Source(s) Document(s ) Glucose 109 mg/dL [place] [Mass/volume Hospital ] in Serum or Plasma ID Date Data Source [id number] 11/24/2019 10:37:[address] [facility] Value Range Interpretation Code Description Data Supporting Source(s) Document(s ) NUCLEATED RBCS 0.0 % [place] (AUTO Hospital DIFF%)DIS ID Date Data Source [id number] 11/24/2019 10:37:[address] [facility] Name Value Range Interpretation Description Data Sup porting Code Source(s) Document(s ) Differential AUTOMATED [place] cell count [facility] method - Blood ID Date Data Source [id number] 11/24/2019 10:37:[address] [facility] Name Value Range Interpretation Description Data Sup porting Code Source(s) Document(s ) Immature 0.02 [place] granulocytes 10*3/uL Hospital [#/volume] in Blood by Automated count ID Date Data Source [id number] 11/24/2019 10:37:[address] [facility] Value Range Interpretation Description Data Sup porting Code Source(s) Document(s ) Basophils 0.05 [place] [#/volume] in 10*3/uL Hospital Blood by Automated count ID Date Data Source [id number] 11/24/2019 10:37:[address] [facility] Value Range Interpretation Description Data Sup porting Code Source(s) Document(s ) Eosinophils 0.45 [place] [#/volume] in 10*3/uL Hospital Blood by Automated count ID Date Data Source [id number] 11/24/2019 10:37:[address] [facility] Name Value Range Interpretation Description Data Sup porting Code Source(s) Document(s ) Monocytes 1.10 [place] [#/volume] in 10*3/uL Hospital Blood by Automated count ID Date Data Source [id number] 11/24/2019 10:37:[address] [facility] Value Range Interpretation Description Data Sup porting Code Source(s) Document(s ) Lymphocytes 3.10 [place] [#/volume] in 10*3/uL Hospital Blood by Automated count ID Date Data Source [id number] 11/24/2019 10:37:[address] [facility] Value Range Interpretation Description Data Sup porting Code Source(s) Document(s ) Neutrophils 3.82 [place] [#/volume] in 10*3/uL Hospital Blood by Automated count ID Date Data Source [id number] 11/24/2019 10:37:[address] [facility] Value Range Interpretation Description Data Sup porting Code Source(s) Document(s ) Nucleated 0.0 % [place] erythrocytes/10 Hospital 0 leukocytes [Ratio] in Blood by Automated count ID Date Data Source [id number] 11/24/2019 10:37:[address] [facility] Value Range Interpretation Description Data Sup porting Code Source(s) Document(s ) Immature 0.2 % [place] granulocytes/10 Hospital 0 leukocytes in Blood by Automated count ID Date Data Source [id number] 11/24/2019 10:37:[address] [facility] Value Range Interpretation Description Data Sup porting Code Source(s) Document(s ) Basophils/100 0.6 % [place] leukocytes in Hospital Blood by Automated count ID Date Data Source [id number] 11/24/2019 10:37:[address] [facility] Value Range Interpretation Description Data Sup porting Code Source(s) Document(s ) Eosinophils/100 5.3 % [place] leukocytes in Hospital Blood by Automated count ID Date Data Source [id number] 11/24/2019 10:37:[address] [facility] Value Range Interpretation Description Data Sup porting Code Source(s) Document(s ) Monocytes/100 12.9 % [place] leukocytes in Hospital Blood by Automated count ID Date Data Source [id number] 11/24/2019 10:37:[address] [facility] Name Value Range Interpretation Description Data Sup porting Code Source(s) Document(s ) Lymphocytes/10 36.3 % [place] 0 leukocytes Hospital in Blood by Automated count ID Date Data Source [id number] 11/24/2019 10:37:[address] [facility] Name Value Range Interpretation Description Data Sup porting Code Source(s) Document(s ) Neutrophils/10 44.7 % [place] 0 leukocytes Hospital in Blood by Automated count ID Date Data Source [id number] 11/24/2019 10:37:[address] [facility] Value Range Interpretation Description Data Sup porting Code Source(s) Document(s ) Platelet mean 11.2 fL [place] volume Hospital [Entitic volume] in Blood by Automated count ID Date Data Source [id number] 11/24/2019 10:37:[address] [facility] Value Range Interpretation Description Data Sup porting Code Source(s) Document(s ) Platelets 178 [place] [#/volume] in 10*3/uL Hospital Blood by Automated count ID Date Data Source [id number] 11/24/2019 10:37:[address] [facility] Value Range Interpretation Description Data Sup porting Code Source(s) Document(s ) Erythrocyte 11.8 % [place] distribution Hospital width [Ratio] by Automated count ID Date Data Source [id number] 11/24/2019 10:37:[address] [facility] Value Range Interpretation Description Data Sup porting Code Source(s) Document(s ) Erythrocyte mean 34.7 [place] corpuscular g/dL Hospital hemoglobin concentration [Mass/volume] by Automated count ID Date Data Source [id number] 11/24/2019 10:37:[address] [facility] Name Value Range Interpretation Description Data Sup porting Code Source(s) Document(s ) Erythrocyte 32.4 pg [facility] corpuscular hemoglobin [Entitic mass] by Automated count ID Date Data Source [id number] 11/24/2019 10:37:[address] [facility] Value Range Interpretation Description Data Sup porting Code Source(s) Document(s ) Erythrocyte 93.2 fL [facility] corpuscular volume [Entitic volume] by Automated count ID Date Data Source [id number] 11/24/2019 10:37:[address] [facility] Value Range Interpretation Description Data Sup porting Code Source(s) Document(s ) Hematocrit 33.1 % [place] [Volume Hospital Fraction] of Blood by Automated count ID Date Data Source [id number] 11/24/2019 10:37:[address] [facility] Value Range Interpretation Description Data Sup porting Code Source(s) Document(s ) Hemoglobin 11.5 g/dL [place] [Mass/volume] Hospital in Blood ID Date Data Source [id number] 11/24/2019 10:37:[address] [facility] Value Range Interpretation Description Data Sup porting Code Source(s) Document(s ) Erythrocytes 3.55 [place] [#/volume] in 10*6/uL Hospital Blood by Automated count ID Date Data Source [id number] 11/24/2019 10:37:[address] [facility] Name Value Range Interpretation Description Data Sup porting Code Source(s) Document(s ) Leukocytes 8.5 [place] [#/volume] in 10*3/uL Hospital Blood by Automated count ID Date Data Source [id number] 11/14/2019 12:00:00 AM EDT [facility] Name Value Range Interpretation Code Description Data Meche rce(s) Supporting Document(s ) 2019-nCoV [place]OH RNA XXX ELISABETH+probe- Imp This lab was ordered by [facility] and reported by [facility]. ID Date Data Source [id number] 01/22/2019 12:28:00 AM EDT [facility] 0 Name Value Range Interpretation Description Data Sup porting Code Source(s) Document(s ) UNK NEGATIVE <content [facility] styleCode="Chris Jeanette d">Urine Medical Bilirubin Center </content>NEGA TIVE <content styleCode="Evy lics"> (NEGATIVE )</content> Color of Urine YELLOW <content [facility] styleCode="Chris Jeanette d">Color, Medical Urine Center </content>YELL OW <content styleCode="Evy lics"> (YELLOW )</content> UNK CLEAR <content [facility] styleCode="Chris Jeanette d">Urine Medical Clarity Center </content>JUICE R <content styleCode="Evy lics"> (CLEAR )</content> Glucose NEGATIVE <content [facility] [Mass/volume] styleCode="Chris Jeanette in Urine by d">Urine Medical Test strip Glucose Center </content>NEGA TIVE MG/DL<content styleCode="Evy lics"> (NEGATIVE MG/DL)</conten t> Protein NEGATIVE <content [facility] [Mass/volume] styleCode="Chris Jeanette in Urine by d">Urine Medical Test strip Protein Center </content>NEGA TIVE MG/DL<content styleCode="Evy lics"> (NEGATIVE MG/DL)</conten t> pH of Urine by 4.5-8.0 <content [facility] Test strip styleCode="Chris Jeanette d">Urine pH Medical </content>7.0 Center <content styleCode="Evy lics"> (4.5-8.0 )</content> Ketones NEGATIVE <content [facility] [Mass/volume] styleCode="Chris Jeanette in Urine by d">Urine Medical Test strip Ketone Center </content>NEGA TIVE MG/DL<content styleCode="Evy lics"> (NEGATIVE MG/DL)</conten t> Specific 1.015-1.02 Below low normal <content [facility] gravity of 5 styleCode="Chris Reid Urine by Test d">Urine Medical strip Specific Center [facility] </content><= 1.005 L<content styleCode="Evy lics"> (1.015-1.025 )</content> Hemoglobin NEGATIVE <content [facility] [Presence] in styleCode="Chris Reid Urine by Test d">Urine Blood Medical strip </content>NEGA Center TIVE <content styleCode="Evy lics"> (NEGATIVE )</content> Urobilinogen 0.2-1.0 <content [facility] [Units/volume] styleCode="Chris Bhats in Urine by d">Urine Medical Test strip Urobilinogen Center </content>0.2 MG/DL<content styleCode="Evy lics"> (0.2-1.0 MG/DL)</conten t> Leukocyte NEGATIVE <content [facility] esterase styleCode="Chris Bhats [Presence] in d">Urine Medical Urine by Test Leukocyte Center strip </content>NEGA TIVE <content styleCode="Evy lics"> (NEGATIVE )</content> Nitrite NEGATIVE <content [facility] [Presence] in styleCode="Chris Reid Urine by Test d">Urine Medical strip Nitrite Center </content>NEGA TIVE <content styleCode="Evy lics"> (NEGATIVE )</content> ID Date Data Source Liver 01/22/2019 12:28:00 AM EDT [facility] [id number] Name Value Range Interpretation Description Data Sup porting Code Source(s) Document(s ) Aspartate 17-59 <content [facility] aminotransferase styleCode="Bold"> Michael hs [Enzymatic Aspartate Medical activity/volume] Aminotransferase Center in Serum or Plasma (AST) </content>20 IU/L<content styleCode="Italic s"> (17-59 IU/L)</content> Bilirubin.total 0.2-1.3 <content [facility] [Mass/volume] in styleCode="Bold"> Michael hs Serum or Plasma Bilirubin Total Medical </content>0.5 Center MG/DL<content styleCode="Italic s"> (0.2-1.3 MG/DL)</content> Alanine 7-50 <content [facility] aminotransferase styleCode="Bold"> [facility] [Enzymatic Alanine Medical activity/volume] Aminotransferase Center in Serum or Plasma (ALT) </content>14 IU/L<content styleCode="Italic s"> (7-50 IU/L)</content> Alkaline 38-126 <content [facility] phosphatase styleCode="Bold"> Jeanette [Enzymatic Alkaline Medical activity/volume] Phosphatase (ALP) Cente r in Serum or Plasma </content>59 IU/L<content styleCode="Italic s"> (38-126 IU/L)</content> Albumin 3.5-5.0 <content [facility] [Mass/volume] in styleCode="Bold"> Michael hs Serum or Plasma Albumin Medical </content>4.9 Center G/DL<content styleCode="Italic s"> (3.5-5.0 G/DL)</content> ID Date Data Source [id number] 01/22/2019 12:28:00 AM EDT Neal nt [facility] 0400 Name Value Range Interpretation Description Data Sup porting Code Source(s) Document(s ) Erythrocytes 4.4-5.9 Below low normal <content [facility] [#/volume] in styleCode="Bold Jeanette Blood by ">Red Blood Medical Automated count Cell Count Center </content>4.35 MCUMM L<content styleCode="Ital ics"> (4.4-5.9 MCUMM)</content > Hematocrit 41.0-53. Below low normal <content [facility] [Volume 0 styleCode="Bold Jeanette Fraction] of ">Hematocrit Medical Blood by </content>40.1 Center Automated count % L<content styleCode="Ital ics"> (41.0-53.0 %)</content> Hemoglobin 13.5-17. <content [facility] [Mass/volume] in 5 styleCode="Bold Jeanette Blood ">Hemoglobin Medical </content>13.9 Center G/DL<content styleCode="Ital ics"> (13.5-17.5 G/DL)</content> Leukocytes 4.4-11.0 <content [facility] [#/volume] in styleCode="Bold Jeanette Blood by ">White Blood Medical Automated count Cell Count Center </content>9.78 KCUMM<content styleCode="Ital ics"> (4.4-11.0 KCUMM)</content > Platelet mean 8.0-11.0 Above high <content [facility] volume [Entitic normal styleCode="Bold Jeanette volume] in Blood ">Mean Platelet Medical by Automated Volume Center count </content>11.6 FL H<content styleCode="Ital ics"> (8.0-11.0 FL)</content> Erythrocyte mean 80.0-100 <content [facility] corpuscular .0 styleCode="Bold Jeanette volume [Entitic ">Mean Medical volume] by Corpuscular Center Automated count Volume </content>92.2 FL<content styleCode="Ital ics"> (80.0-100.0 FL)</content> Erythrocyte 11.5-14. <content [facility] distribution 5 styleCode="Bold Jeanette width [Ratio] by ">Red Cell Medical Automated count Distribution Center Width </content>12.3 %<content styleCode="Ital ics"> (11.5-14.5 %)</content> Erythrocyte mean 32.0-37. <content [facility] corpuscular 0 styleCode="Bold Jeanette hemoglobin ">Mean Corpus. Medical concentration Hgb Center [Mass/volume] by Concentration Automated count (MCHC) </content>34.7 G/DL<content styleCode="Ital ics"> (32.0-37.0 G/DL)</content> Erythrocyte mean 26.0-34. <content [facility] corpuscular 0 styleCode="Bold Jeanette hemoglobin ">Mean Medical [Entitic mass] Corposcular Center by Automated Hemoglobin count </content>32.0 PG<content styleCode="Ital ics"> (26.0-34.0 PG)</content> Platelets 130-400 <content [facility] [#/volume] in styleCode="Bold Jeanette Blood by ">Platelet Medical Automated count Count Center </content>233 KCUMM<content styleCode="Ital ics"> (130-400 KCUMM)</content > Lymphocytes 24.0-44. Below low normal <content [facility] [#/volume] in 0 styleCode="Bold Jeanette Blood by ">Lymphocyte Medical Automated count </content>19.3 Center % L<content styleCode="Ital ics"> (24.0-44.0 %)</content> Monocytes 3.0-10.0 <content [facility] [#/volume] in styleCode="Bold Jeanette Blood by ">Monocyte Medical Automated count </content>5.6 Center %<content styleCode="Ital ics"> (3.0-10.0 %)</content> Neutrophils 36-66 Above high <content [facility] [#/volume] in normal styleCode="Bold Jeanette Blood by ">Neutrophil Medical Automated count </content>71.4 Center % H<content styleCode="Ital ics"> (36-66 %)</content> UNK 1.6-7.3 <content [facility] styleCode="Bold Jeanette ">Neutrophil Medical Count Center </content>6.98 KCUMM<content styleCode="Ital ics"> (1.6-7.3 KCUMM)</content > UNK 1.0-4.8 <content [facility] styleCode="Bold Jeanette ">Lymphocyte Medical Count Center </content>1.89 KCUMM<content styleCode="Ital ics"> (1.0-4.8 KCUMM)</content > Eosinophils 0-5.0 <content [facility] [#/volume] in styleCode="Bold Jeanette Blood by ">Eosinophil Medical Automated count </content>2.7 Center %<content styleCode="Ital ics"> (0-5.0 %)</content> Basophils 0.0-1.0 <content [facility] [#/volume] in styleCode="Bold Jeanette Blood by ">Basophil Medical Automated count </content>0.7 Center %<content styleCode="Ital ics"> (0.0-1.0 %)</content> UNK 0.2-0.9 <content [facility] styleCode="Bold Jeanette ">Monocyte Medical Count Center </content>0.55 KCUMM<content styleCode="Ital ics"> (0.2-0.9 KCUMM)</content > UNK 0.0-0.6 <content [facility] styleCode="Bold Jeanette ">Eosinophil Medical Count Center </content>0.26 KCUMM<content styleCode="Ital ics"> (0.0-0.6 KCUMM)</content > UNK 0.0-0.3 <content [facility] styleCode="Bold Jeanette ">Basophil Medical Count Center </content>0.07 KCUMM<content styleCode="Ital ics"> (0.0-0.3 KCUMM)</content > UNK 0.0 <content [facility] styleCode="Bold Jeanette ">Nucleated Red Medical Blood Cell Center Count </content>0.00 KCUMM<content styleCode="Ital ics"> (0.0 KCUMM)</content > UNK < 1 <content [facility] styleCode="Bold Jeanette ">Immature Medical Granulocyte Center Ratio </content>0.3 %<content styleCode="Ital ics"> (< 1 %)</content> UNK 0-0.1 <content [facility] styleCode="Bold Jeanette ">Immature Medical Granulocyte Center Count </content>0.03 KCUMM<content styleCode="Ital ics"> (0-0.1 KCUMM)</content > UNK 0 <content [facility] styleCode="Bold Jeanette ">Nucleated Red Medical Blood Cell Center </content>0.0 /100<content styleCode="Ital ics"> (0 /100)</content> ID Date Data Source GFR(Creatinine).[id number] 01/22/2019 12:28:00 AM EDT [facility] 0-0400 Name Value Range Interpretation Code Description Data Meche rce(s) Supporting Document(s ) UNK > 60 <content [facility] styleCode="Bold"> Medical Cent er EGFR </content>128 GFR<content styleCode="Italic s"> (> 60 GFR)</content> ID Date Data Source Coagulation 01/22/2019 12:28:00 AM [facility] ical Center Rout.[id number] EDT Name Value Range Interpretation Description Data Sup porting Code Source(s) Document(s ) INR in <content [facility] Platelet poor styleCode="Bold"> Jeanette plasma by INR Medical Coagulation </content>Test Center assay not performed. # (Reference Range: not available)
aPTT in <content [facility] Platelet poor styleCode="Bold"> Jeanette plasma by Partial Medical Coagulation Thromboplastin Center assay Time </content>Test not performed. SEC (Reference Range: not available)
UNK <content [facility] styleCode="Bold"> Jeanette Protime Medical </content>Test Center not performed. SEC (Reference Range: not available)
ID Date Data Source [id number] 01/22/2019 12:28:00 AM EDT [facility] -0400 Name Value Range Interpretation Description Data Sup porting Code Source(s) Document(s ) Protein 6.3-8.2 <content [facility] [Mass/volume] styleCode="Chris Jeanette in Serum or d">Total Medical Plasma Protein Center </content>8.2 G/DL<content styleCode="Evy lics"> (6.3-8.2 G/DL)</content > Phosphate 2.5-4.5 <content [facility] [Mass/volume] styleCode="Chris Jeanette in Serum or d">Phosphorus Medical Plasma </content>3.6 Center MG/DL<content styleCode="Evy lics"> (2.5-4.5 MG/DL)</conten t> Magnesium 1.6-2.3 <content [facility] [Mass/volume] styleCode="Chris Jeanette in Serum or d">Magnesium Medical Plasma </content>2.0 Center MG/DL<content styleCode="Evy lics"> (1.6-2.3 MG/DL)</conten t> Cannabinoids <content [facility] [Presence] in styleCode="Chris Reid Urine by Screen d">Cannabinoid Medical method >50 s Center ng/mL </content>PRES UMPTIVE POSITIVE NG/ML (Reference Range: not available)<br/ > UNK >= 1.0 <content [facility] styleCode="Chris Jeanette d">AG Ratio Medical </content>1.5 Center <content styleCode="Evy lics"> (>= 1.0 )</content> UNK 2.3-3.5 <content [facility] styleCode="Chris Jeanette d">Globulin Medical </content>3.3 Center G/DL<content styleCode="Evy lics"> (2.3-3.5 G/DL)</content > ID Date Data Source [id number] 01/22/2019 12:28:00 AM EDT [facility] Name Value Range Interpretation Description Data Sup porting Code Source(s) Document(s ) Carbon dioxide, 22-30 <content [facility] total styleCode="Bold"> Jeanette [Moles/volume] in Carbon Dioxide Medical Serum or Plasma </content>28 Center MEQ/L<content styleCode="Italic s"> (22-30 MEQ/L)</content> Sodium 137-145 <content [facility] [Moles/volume] in styleCode="Bold"> Chaim phs Serum or Plasma Sodium Medical </content>142 Center MEQ/L<content styleCode="Italic s"> (137-145 MEQ/L)</content> Potassium 3.5-5.3 <content [facility] [Moles/volume] in styleCode="Bold"> Chaim phs Serum or Plasma Potassium Medical </content>4.3 Center MEQ/L<content styleCode="Italic s"> (3.5-5.3 MEQ/L)</content> Chloride 98-107 <content [facility] [Moles/volume] in styleCode="Bold"> Chaim phs Serum or Plasma Chloride Medical </content>103 Center MEQ/L<content styleCode="Italic s"> (98-107 MEQ/L)</content> Aspartate 17-59 <content [facility] aminotransferase styleCode="Bold"> Michael hs [Enzymatic Aspartate Medical activity/volume] Aminotransferase Center in Serum or Plasma (AST) </content>20 IU/L<content styleCode="Italic s"> (17-59 IU/L)</content> Creatinine 0.5-1.3 <content [facility] [Mass/volume] in styleCode="Bold"> Michael hs Serum or Plasma Creatinine Medical </content>0.8 Center MG/DL<content styleCode="Italic s"> (0.5-1.3 MG/DL)</content> UNK 9-20 <content [facility] styleCode="Bold"> Jeanette BUN </content>13 Medical MG/DL<content Center styleCode="Italic s"> (9-20 MG/DL)</content> Calcium 8.4-10. <content [facility] [Mass/volume] in 2 styleCode="Bold"> Michael hs Serum or Plasma Calcium Medical </content>10.0 Center MG/DL<content styleCode="Italic s"> (8.4-10.2 MG/DL)</content> Glucose 74-106 Below low <content [facility] [Mass/volume] in normal styleCode="Bold"> Michael hs Serum or Plasma Glucose Medical </content>65 Center MG/DL L<content styleCode="Italic s"> (74-106 MG/DL)</content> UNK > 60 <content [facility] styleCode="Bold"> Jeanette EGFR Medical </content>128 Center GFR<content styleCode="Italic s"> (> 60 GFR)</content> Alkaline 38-126 <content [facility] phosphatase styleCode="Bold"> Jeanette [Enzymatic Alkaline Medical activity/volume] Phosphatase (ALP) Cente r in Serum or Plasma </content>59 IU/L<content styleCode="Italic s"> (38-126 IU/L)</content> Alanine 7-50 <content [facility] aminotransferase styleCode="Bold"> Michael hs [Enzymatic Alanine Medical activity/volume] Aminotransferase Center in Serum or Plasma (ALT) </content>14 IU/L<content styleCode="Italic s"> (7-50 IU/L)</content> Albumin 3.5-5.0 <content [facility] [Mass/volume] in styleCode="Bold"> Michael hs Serum or Plasma Albumin Medical </content>4.9 Center G/DL<content styleCode="Italic s"> (3.5-5.0 G/DL)</content> Bilirubin.total 0.2-1.3 <content [facility] [Mass/volume] in styleCode="Bold"> Michael hs Serum or Plasma Bilirubin Total Medical </content>0.5 Center MG/DL<content styleCode="Italic s"> (0.2-1.3 MG/DL)</content> Procedure Social History Code Duration Value Status Description Data Source(s ) Smoking 04/03/2020 Daily Smoker completed Daily Smoker [facility] 07:42:00 PM EDT Medical C enter Smoking 04/03/2020 Daily Smoker completed Daily Smoker [facility] 04:39:00 PM EDT Medical C enter Smoking 04/03/2020 Daily Smoker completed Daily Smoker [facility] 04:01:00 PM EDT Medical C enter Smoking 04/03/2020 Daily Smoker completed Daily Smoker [facility] 03:40:00 PM EDT Medical C enter Smoking 04/03/2020 Daily Smoker completed Daily Smoker [facility] 03:15:00 PM EDT Medical C enter Smoking 01/16/2020 Daily Smoker completed Daily Smoker [facility] 08:36:00 AM EDT Medical C enter Smoking 01/16/2020 Daily Smoker completed Daily Smoker [facility] 08:25:00 AM EDT Medical C enter Smoking 01/16/2020 Daily Smoker completed Daily Smoker [facility] 08:19:00 AM EDT Medical C enter Smoking 01/03/2020 Daily Smoker completed Daily Smoker [facility] 01:53:00 PM EDT Medical C enter Smoking 01/03/2020 Daily Smoker completed Daily Smoker [facility] 05:39:00 AM EDT Medical C enter Smoking 01/03/2020 Daily Smoker completed Daily Smoker [facility] 05:30:00 AM EDT Medical C enter Smoking 01/03/2020 Daily Smoker completed Daily Smoker [facility] 05:22:00 AM EDT Medical C enter Smoking 06/29/2019 Daily Smoker completed Daily Smoker [facility] 02:38:00 AM EST Medical C enter Smoking 06/29/2019 Daily Smoker completed Daily Smoker [facility] 01:54:00 AM EST Medical C enter Smoking 02/22/2019 Daily Smoker completed Daily Smoker [facility] 03:00:00 AM EDT Medical C enter Smoking 02/22/2019 Daily Smoker completed Daily Smoker [facility] 02:48:00 AM EDT Medical C enter Smoking 02/22/2019 Daily Smoker completed Daily Smoker [facility] 02:43:00 AM EDT Medical C enter Smoking 02/22/2019 Daily Smoker completed Daily Smoker [facility] 12:17:00 AM EDT Medical C enter Smoking 02/22/2019 Daily Smoker completed Daily Smoker [facility] 12:00:00 AM EDT Medical C enter Smoking 01/22/2019 Daily Smoker completed Daily Smoker [facility] 02:00:00 AM EDT Medical C enter Smoking 01/22/2019 Daily Smoker completed Daily Smoker [facility] 12:19:00 AM EDT Medical C enter Smoking 01/21/2019 Daily Smoker completed Daily Smoker [facility] 11:17:00 PM EDT Medical C enter Smoking 01/21/2019 Daily Smoker completed Daily Smoker [facility] 10:22:00 PM EDT Medical C enter Smoking 01/10/2019 Daily Smoker completed Daily Smoker [facility] 03:58:00 AM EDT Medical C enter Smoking 01/10/2019 Daily Smoker completed Daily Smoker [facility] 03:02:00 AM EDT Medical C enter Smoking 01/10/2019 Daily Smoker completed Daily Smoker [facility] 01:24:00 AM EDT Medical C enter Smoking 01/09/2019 Daily Smoker completed Daily Smoker [facility] 11:46:00 PM EDT Medical C enter Smoking 01/09/2019 Daily Smoker completed Daily Smoker [facility] 10:30:00 PM EDT Medical C enter Smoking Unknown if ever completed Unknown if ever Nohemi Reid smoked smoked Medical Center Smoking Unknown if ever completed Unknown if ever Whit e Iaeger smoked smoked Hospital Vital Signs ID Date Data Source UNK Name Value Range Interpretation Description Data Sour ce(s) Code Body surface 1.6 m2 1.6 m2 [facility] area Derived Health Syste m from formula Body mass index 18.4 kg/m2 18.4 kg/m2 [facility] e (BMI) [Ratio] Health Syst em Body weight 56.69 kg 56.69 kg [facility] Body height 175.26 cm 175.26 cm [facility] Body 98.2 [degF] 0 - 200 Normal (applies to 98.2 [degF] [facility] temperature non-numeric Health Syste m results) Body 36.7 Wendi 0 - 99.9 Normal (applies to 36.7 Wendi [facility] iore temperature non-numeric Health Syste m results) Diastolic blood 66 mm[Hg] 0 - 999 Below low normal 66 mm[Hg] [facility] pressure [facility] System Systolic blood 114 mm[Hg] 0 - 999 Normal (applies to 114 mm[Hg] [facility] pressure non-numeric Health System results) Oxygen 93 % 0 - 999 Normal (applies to 93 % [facility] iore saturation in non-numeric Health Sys tem Arterial blood results) by Pulse oximetry Respiratory 20 0 - 999 Above high normal 20 [facility] iore rate Health System Heart rate 192 0 - 999 Above upper panic 192 [facility] limits Health System Heart rate 102 0 - 999 Above high normal 102 [facility] Health System Body 37.111567 Wendi 37.575524 Wendi [facility] Medical Cente r Respiratory 20 /min 20 /min [facility] rate Medical Center Heart rate 67 /min 67 /min [facility] Diastolic blood 86 mm[Hg] 86 mm[Hg] [facility] ephs pressure Medical Center Systolic blood 105 mm[Hg] 105 mm[Hg] [facility] pressure Medical Center Body 36.766159 Wendi 36.212098 Wendi [facility] temperature Medical Cente r Respiratory 20 /min 20 /min [facility] rate Medical Center Heart rate 53 /min 53 /min [facility] Diastolic blood 59 mm[Hg] 59 mm[Hg] [facility] ephs pressure Medical Center Systolic blood 107 mm[Hg] 107 mm[Hg] [facility] pressure Medical Center Body 36.397456 Wendi 36.673301 Wendi [facility] temperature Medical Cente r Respiratory 20 /min 20 /min [facility] rate Medical Center Heart rate 82 /min 82 /min [facility] Diastolic blood 78 mm[Hg] 78 mm[Hg] [facility] ephs pressure Medical Center Systolic blood 118 mm[Hg] 118 mm[Hg] [facility] pressure Medical Center Heart rate 102 /min 102 /min [facility] Diastolic blood 74 mm[Hg] 74 mm[Hg] [facility] ephs pressure Medical Center Systolic blood 113 mm[Hg] 113 mm[Hg] [facility] pressure Medical Center Body 37.835184 Wendi 37.736482 Wendi [facility] temperature Medical Cente r Respiratory 20 /min 20 /min [facility] rate Medical Center Heart rate 55 /min 55 /min [facility] Diastolic blood 46 mm[Hg] 46 mm[Hg] [facility] pressure Medical Center Systolic blood 87 mm[Hg] 87 mm[Hg] [facility] pressure Medical Center Body 36.581751 Wendi 36.104600 Wendi [facility] Medical Cente r Respiratory 18 /min 18 /min [facility] Medical Center Heart rate 57 /min 57 /min [facility] Diastolic blood 64 mm[Hg] 64 mm[Hg] [facility] pressure Medical Center Systolic blood 118 mm[Hg] 118 mm[Hg] [facility] Center Body weight 57.284807 kg 57.252269 kg [facility] Measured Medical Center Body height 182.853796 cm 182.596643 cm [facility] Body mass index 17.04 kg/m2 17.04 kg/m2 [facility] (BMI) [Ratio] Medical [facility] Body weight 57.303599 kg 57.630855 kg [facility] Measured Medical Center Body height 182.517837 cm 182.008726 cm [facility] Body mass index 17.04 kg/m2 17.04 kg/m2 [facility] (BMI) [Ratio] [facility] Body 36.061213 Wendi 36.203577 Wendi [facility] Medical Cente r Respiratory 20 /min 20 /min [facility] Heart rate 68 /min 68 /min [facility] Oxygen 97 % 97 % [facility] saturation in Medical [facility] Arterial blood by Pulse oximetry Body 36.408943 Wendi 36.264093 Wendi [facility] Medical Cente r Respiratory 18 /min 18 /min [facility] Medical Center Heart rate 62 /min 62 /min [facility] Diastolic blood 79 mm[Hg] 79 mm[Hg] [facility] pressure Medical Center Systolic blood 128 mm[Hg] 128 mm[Hg] [facility] Medical Center Body weight 58.276064 kg 58.158359 kg [facility] Measured Medical Center Oxygen 96 % 96 % [place] saturation in Medical [facility] Arterial blood by Pulse oximetry Body height 182.030262 cm 182.030871 cm [facility] Body mass index 17.6 kg/m2 17.6 kg/m2 [facility] (BMI) [Ratio] Medical [place] [address] Body 36.742909 Wendi 36.888683 Wendi [facility] temperature Medical Cente r Respiratory 18 /min 18 /min [facility] Diastolic blood 86 mm[Hg] 86 mm[Hg] [facility] pressure Medical Center Systolic blood 136 mm[Hg] 136 mm[Hg] [facility] pressure Medical Center Diastolic blood 75 mmHg 75 mmHg [facility] Systolic blood 107 mmHg 107 mmHg [facility] Respiratory 18 bpm 18 bpm [facility] Heart rate 87 bpm 87 bpm [facility] Diastolic blood 72 mmHg 72 mmHg [facility] Systolic blood 113 mmHg 113 mmHg [facility] Respiratory 18 bpm 18 bpm [facility] Heart rate 86 bpm 86 bpm [facility] Body 98.0 98.0 [facility] Diastolic blood 80 mmHg 80 mmHg [facility] Systolic blood 109 mmHg 109 mmHg [facility] Respiratory 16 bpm 16 bpm [facility] Heart rate 86 bpm 86 bpm [facility] Body 98.3 98.3 [facility] Systolic blood 121 mm[Hg] 121 mm[Hg] [facility] pressure [facility] Diastolic blood 77 mm[Hg] 77 mm[Hg] [facility] pressure Medical [place] Heart rate 84 /min 84 /min [facility] Oxygen 99 % 99 % [facility] saturation in Medical [facility] Arterial blood by Pulse oximetry Respiratory 18 /min 18 /min [facility] Body 36.659432 Wendi 36.543898 Wendi [facility] Medical Cente r Systolic blood 111 mm[Hg] 111 mm[Hg] [facility] pressure Medical Center Diastolic blood 48 mm[Hg] 48 mm[Hg] [facility] pressure Medical Center Heart rate 95 /min 95 /min [facility] Oxygen 97 % 97 % [facility] saturation in Medical [facility] Arterial blood by Pulse oximetry Respiratory 19 /min 19 /min [facility] Body 36.741246 Wendi 36.231244 Wendi [facility] temperature Medical Cente r Body 36.636871 Wendi 36.139311 Wendi [facility] temperature Medical Cente r Respiratory 18 /min 18 /min [facility] Oxygen 98 % 98 % [facility] saturation in Medical [place] [facility] Arterial blood by Pulse oximetry Heart rate 82 /min 82 /min [facility] Diastolic blood 82 mm[Hg] 82 mm[Hg] [facility] pressure Medical Center Systolic blood 136 mm[Hg] 136 mm[Hg] [facility] Medical Center Body 37.926300 Wendi 37.571288 Wendi [facility] temperature Medical Cente r Respiratory 18 /min 18 /min [facility] Oxygen 97 % 97 % [facility] saturation in Medical [place] [facility] Arterial blood by Pulse oximetry Heart rate 88 /min 88 /min [facility] Diastolic blood 76 mm[Hg] 76 mm[Hg] [facility] pressure Medical Center Systolic blood 142 mm[Hg] 142 mm[Hg] [facility] Medical Center Body 35.209716 Wendi 35.335844 Wendi [facility] Medical Cente r Respiratory 18 /min 18 /min [facility] Oxygen 99 % 99 % [facility] saturation in Medical [place] [address] Arterial blood by Pulse oximetry Heart rate 100 /min 100 /min [facility] Diastolic blood 76 mm[Hg] 76 mm[Hg] [facility] pressure Medical Center Systolic blood 138 mm[Hg] 138 mm[Hg] [facility] Medical Center Body 37.924816 Wendi 37.703724 Wendi [facility] Medical Cente r Respiratory 17 /min 17 /min [facility] Oxygen 97 % 97 % [facility] saturation in Medical [address] [address] Arterial blood by Pulse oximetry Heart rate 92 /min 92 /min [facility] Diastolic blood 88 mm[Hg] 88 mm[Hg] [facility] pressure Medical Center Systolic blood 146 mm[Hg] 146 mm[Hg] [facility] Center Body weight 79.091413 kg 79.872118 kg [facility] Medical Center Body 36.853849 Wendi 36.388145 Wendi [facility] Medical Cente r Respiratory 16 /min 16 /min [facility] Oxygen 95 % 95 % [facility] saturation in Medical [address] Arterial blood by Pulse oximetry Heart rate 107 /min 107 /min [facility] Body height 193.483239 cm 193.932367 cm [facility] Diastolic blood 100 mm[Hg] 100 mm[Hg] [facility] pressure Medical Center Systolic blood 155 mm[Hg] 155 mm[Hg] [facility] pressure Medical Center Body mass index 21.3 kg/m2 21.3 kg/m2 [facility] (BMI) [Ratio] [facility] [address] [facility] Diastolic blood 83 mmHg 83 mmHg [facility] Systolic blood 131 mmHg 131 mmHg [facility] Respiratory 18 bpm 18 bpm [facility] Heart rate 112 bpm 112 bpm [facility] Diastolic blood 76 mmHg 76 mmHg [facility] Systolic blood 126 mmHg 126 mmHg [facility] Respiratory 18 bpm 18 bpm [facility] Heart rate 100 bpm 100 bpm [facility] Body 98.[address] [facility] Diastolic blood 62 mmHg 62 mmHg [facility] Systolic blood 118 mmHg 118 mmHg [facility] Respiratory 18 bpm 18 bpm [facility] Heart rate 111 bpm 111 bpm [facility] Diastolic blood 76 mmHg 76 mmHg [facility] Systolic blood 132 mmHg 132 mmHg [facility] Respiratory 18 bpm 18 bpm [facility] Heart rate 105 bpm 105 bpm [facility] Body 98.[address] [facility] Diastolic blood 71 mmHg 71 mmHg [facility] Systolic blood 119 mmHg 119 mmHg [facility] Respiratory 18 bpm 18 bpm [facility] Heart rate 120 bpm 120 bpm [facility] Diastolic blood 77 mmHg 77 mmHg [facility] Systolic blood 139 mmHg 139 mmHg [facility] Respiratory 18 bpm 18 bpm [facility] Heart rate 110 bpm 110 bpm [facility] Body 98.[address] [facility] Diastolic blood 74 mmHg 74 mmHg [facility] Systolic blood 118 mmHg 118 mmHg [facility] Respiratory 18 bpm 18 bpm [facility] Heart rate 118 bpm 118 bpm [facility] Diastolic blood 83 mmHg 83 mmHg [facility] Systolic blood 122 mmHg 122 mmHg [facility] Respiratory 18 bpm 18 bpm [facility] Heart rate 111 bpm 111 bpm [facility] Diastolic blood 57 mmHg 57 mmHg [facility] Systolic blood 128 mmHg 128 mmHg [facility] Respiratory 18 bpm 18 bpm [facility] Heart rate 90 bpm 90 bpm [facility] Diastolic blood 78 mmHg 78 mmHg [facility] Systolic blood 137 mmHg 137 mmHg [facility] Respiratory 18 bpm 18 bpm [facility] Heart rate 85 bpm 85 bpm [facility] Body 98.4 98.4 [facility] Diastolic blood 70 mmHg 70 mmHg [facility] Systolic blood 115 mmHg 115 mmHg [facility] Heart rate 89 bpm 89 bpm [facility] Body weight 144 lbs 144 lbs [facility] Diastolic blood 89 mmHg 89 mmHg [facility] Systolic blood 141 mmHg 141 mmHg [facility] Respiratory 18 bpm 18 bpm [facility] Heart rate 110 bpm 110 bpm [facility] Body 98.5 98.5 [facility] Body weight 144 lbs 144 lbs [facility] Diastolic blood 87 mmHg 87 mmHg [facility] Systolic blood 145 mmHg 145 mmHg [facility] Respiratory 18 bpm 18 bpm [facility] Heart rate 98 bpm 98 bpm [facility] Body 98.5 98.5 [facility] Diastolic blood 68 mm[Hg] 68 mm[Hg] [facility] Systolic blood 118 mm[Hg] 118 mm[Hg] [facility] Respiratory 20 /min 20 /min [facility] Heart rate 90 /min 90 /min [facility] Body 36.[address]i [address] [facility] Body 97.3 [degF] 97.3 [degF] [facility] Body mass index 22.0 kg/m2 22.0 kg/m2 [facility] (BMI) [Ratio] Hospital Body weight 165.35 [lb_av] 165.35 [lb_av] [facility] Diastolic blood 73 mmHg 73 mmHg [facility] Systolic blood 113 mmHg 113 mmHg [facility] Respiratory 18 bpm 18 bpm [facility] Heart rate 109 bpm 109 bpm [facility] Diastolic blood 70 mmHg 70 mmHg [facility] Systolic blood 122 mmHg 122 mmHg [facility] Respiratory 18 bpm 18 bpm [facility] Heart rate 91 bpm 91 bpm [facility] Body 96.[address] [facility] Diastolic blood 83 mmHg 83 mmHg [facility] Systolic blood 127 mmHg 127 mmHg [facility] Respiratory 18 bpm 18 bpm [facility] Heart rate 98 bpm 98 bpm [facility] Diastolic blood 78 mmHg 78 mmHg [facility] Systolic blood 120 mmHg 120 mmHg [facility] Respiratory 18 bpm 18 bpm [facility] Heart rate 98 bpm 98 bpm [facility] Body 98.[address] [facility] Respiratory 18 bpm 18 bpm [facility] Body 96.[address] [facility] Diastolic blood 81 mmHg 81 mmHg [facility] Systolic blood 125 mmHg 125 mmHg [facility] Heart rate 82 bpm 82 bpm [facility] Diastolic blood 71 mmHg 71 mmHg [facility] Systolic blood 118 mmHg 118 mmHg [facility] Heart rate 84 bpm 84 bpm [facility] Diastolic blood 67 mmHg 67 mmHg [facility] Systolic blood 111 mmHg 111 mmHg [facility] Respiratory 19 bpm 19 bpm [facility] Heart rate 86 bpm 86 bpm [facility].2 97[facility] 64 mmHg 64 mmHg [facility] Systolic blood 113 mmHg 113 mmHg [facility] Respiratory 93 bpm 93 bpm [facility] Heart rate 18 bpm 18 bpm [facility] Body 98.[address] [facility] Diastolic blood 64 mmHg 64 mmHg [facility] Systolic blood 115 mmHg 115 mmHg [facility] Respiratory 90 bpm 90 bpm [facility] Heart rate 18 bpm 18 bpm [facility].0 98[facility] 74 mmHg 74 mmHg [facility] Systolic blood 118 mmHg 118 mmHg [facility] Respiratory 18 bpm 18 bpm [facility] Heart rate 78 bpm 78 bpm [facility] Diastolic blood 74 mmHg 74 mmHg [facility] Systolic blood 112 mmHg 112 mmHg [facility] Respiratory 18 bpm 18 bpm [facility] Heart rate 65 bpm 65 bpm [facility] Body 96.3 96.3 [facility] Di[facility] blood 63 mmHg 63 mmHg [facility] Systolic blood 104 mmHg 104 mmHg [facility] Heart rate 103 bpm 103 bpm [facility] Diastolic blood 54 mmHg 54 mmHg [facility] Systolic blood 95 mmHg 95 mmHg [facility] Respiratory 18 bpm 18 bpm [facility] Heart rate 86 bpm 86 bpm [facility] Body 98.0 98.0 [facility] Diastolic blood 76 mmHg 76 mmHg [facility] Systolic blood 110 mmHg 110 mmHg [facility] Heart rate 102 bpm 102 bpm [facility] Diastolic blood 71 mmHg 71 mmHg [facility] Systolic blood 120 mmHg 120 mmHg [facility] Respiratory 19 bpm 19 bpm [facility] Heart rate 94 bpm 94 bpm [facility] Body 97.[address] [facility] Respiratory 18 bpm 18 bpm [facility] Body 97.[address] [facility] Diastolic blood 71 mmHg 71 mmHg [facility] Systolic blood 121 mmHg 121 mmHg [facility] Heart rate 89 bpm 89 bpm [facility] Systolic blood 131 mmHg 131 mmHg [facility] Heart rate 107 bpm 107 bpm [facility] Respiratory 20 bpm 20 bpm [facility] Body 97.9 97.9 [facility] Diastolic blood 78 mmHg 78 mmHg [facility] Body weight 133 lbs 133 lbs [facility] Respiratory 20 bpm 20 bpm [facility] Body 97.1 97.1 [facility] Diastolic blood 68 mmHg 68 mmHg [facility] Systolic blood 122 mmHg 122 mmHg [facility] Heart rate 87 bpm 87 bpm [facility] Diastolic blood 67 mmHg 67 mmHg [facility] Systolic blood 102 mmHg 102 mmHg [facility] Respiratory 18 bpm 18 bpm [facility] Heart rate 94 bpm 94 bpm [facility] Body 98.8 98.8 [facility] Diastolic blood 73 mmHg 73 mmHg [facility] Systolic blood 122 mmHg 122 mmHg [facility] Respiratory 18 bpm 18 bpm [facility] Heart rate 80 bpm 80 bpm [facility] Body 97.1 97.1 [facility] Diastolic blood 74 mmHg 74 mmHg [facility] Systolic blood 114 mmHg 114 mmHg [facility] Respiratory 18 bpm 18 bpm [facility] Heart rate 77 bpm 77 bpm [facility] Body 97.1 97.1 [facility] Body 36.281498 Wendi 36.333994 Wendi [facility] Medical Cente r Respiratory 18 /min 18 /min [facility] Oxygen 97 % 97 % [facility] saturation in Medical [place] [facility] Arterial blood by Pulse oximetry Heart rate 78 /min 78 /min [facility] Diastolic blood 78 mm[Hg] 78 mm[Hg] [facility] Systolic blood 116 mm[Hg] 116 mm[Hg] [facility] Body 36.659157 Wendi 36.007802 Wendi [facility] Medical Cente r Respiratory 18 /min 18 /min [facility] Oxygen 99 % 99 % [facility] saturation in [facility] [place] [facility] Arterial blood by Pulse oximetry Heart rate 82 /min 82 /min [facility] Diastolic blood 74 mm[Hg] 74 mm[Hg] [facility] pressure Medical Center Systolic blood 119 mm[Hg] 119 mm[Hg] [facility] Diastolic blood 83 mmHg 83 mmHg [facility] Systolic blood 139 mmHg 139 mmHg [facility] Respiratory 18 bpm 18 bpm [facility] Heart rate 114 bpm 114 bpm [facility] Diastolic blood 80 mmHg 80 mmHg [facility] Systolic blood 144 mmHg 144 mmHg [facility] Respiratory 18 bpm 18 bpm [facility] Heart rate 101 bpm 101 bpm [facility] Body 97.1 97.1 [facility] 150 lbs 150 lbs [facility] Diastolic blood 86 mmHg 86 mmHg [facility] Systolic blood 130 mmHg 130 mmHg [facility] Respiratory 20 bpm 20 bpm [facility] Heart rate 119 bpm 119 bpm [facility] Diastolic blood 87 mmHg 87 mmHg [facility] Systolic blood 141 mmHg 141 mmHg [facility] Respiratory 20 bpm 20 bpm [facility] Heart rate 110 bpm 110 bpm [facility] Body 97.4 97.4 [facility] Diastolic blood 78 mmHg 78 mmHg [facility] Systolic blood 124 mmHg 124 mmHg [facility] Respiratory 18 bpm 18 bpm [facility] Heart rate 124 bpm 124 bpm [facility] Body 98.3 98.3 [facility] Body 36.122576 Wendi 36.346543 Wendi [facility] temperature Medical Cente r Respiratory 17 /min 17 /min [facility] Oxygen 98 % 98 % [facility] saturation in [facility] ter Arterial blood by Pulse oximetry Heart rate 98 /min 98 /min [facility] Diastolic blood 87 mm[Hg] 87 mm[Hg] [facility] pressure Medical Center Systolic blood 146 mm[Hg] 146 mm[Hg] [facility] pressure Medical Center Body weight 85.513971 kg 85.655106 kg [facility] Body 36.848876 Wendi 36.890629 Wendi [facility] temperature Medical Cente r Respiratory 18 /min 18 /min [facility] Oxygen 98 % 98 % [facility] saturation in [facility] [place] [facility] Arterial blood by Pulse oximetry Heart rate 81 /min 81 /min [facility] Diastolic blood 78 mm[Hg] 78 mm[Hg] [facility] pressure Medical Center Systolic blood 141 mm[Hg] 141 mm[Hg] [facility] pressure Medical Center Diastolic blood 66 mmHg 66 mmHg [facility] Systolic blood 127 mmHg 127 mmHg [facility] Respiratory 18 bpm 18 bpm [facility] Heart rate 109 bpm 109 bpm [facility] Diastolic blood 67 mmHg 67 mmHg [facility] Systolic blood 114 mmHg 114 mmHg [facility] Respiratory 18 bpm 18 bpm [facility] Heart rate 94 bpm 94 bpm [facility] Body 97.[address] [facility] Diastolic blood 58 mmHg 58 mmHg [facility] Systolic blood 124 mmHg 124 mmHg [facility] Respiratory 18 bpm 18 bpm [facility] Heart rate 110 bpm 110 bpm [facility] Body weight 132 lbs 132 lbs [facility] Diastolic blood 68 mmHg 68 mmHg [facility] Systolic blood 102 mmHg 102 mmHg [facility] Respiratory 18 bpm 18 bpm [facility] Heart rate 88 bpm 88 bpm [facility] Body 98.2 98.2 [facility] Diastolic blood 69 mmHg 69 mmHg [facility] Systolic blood 108 mmHg 108 mmHg [facility] Respiratory 18 bpm 18 bpm [facility] Heart rate 70 bpm 70 bpm [facility] Body 98.[address] [facility] Diastolic blood 83 mmHg 83 mmHg [facility] Systolic blood 136 mmHg 136 mmHg [facility] Respiratory 18 bpm 18 bpm [facility] Heart rate 101 bpm 101 bpm [facility] Diastolic blood 77 mmHg 77 mmHg [facility] Systolic blood 134 mmHg 134 mmHg [facility] Respiratory 18 bpm 18 bpm [facility] Heart rate 111 bpm 111 bpm [facility] Respiratory 18 bpm 18 bpm [facility] Body 97.4 97.4 [facility] Diastolic blood 67 mmHg 67 mmHg [facility] Systolic blood 98 mmHg 98 mmHg [facility] Heart rate 91 bpm 91 bpm [facility] Diastolic blood 75 mmHg 75 mmHg [facility] Systolic blood 119 mmHg 119 mmHg [facility] Respiratory 18 bpm 18 bpm [facility] Heart rate 107 bpm 107 bpm [facility] Body 99.4 99.4 [facility] Diastolic blood 76 mmHg 76 mmHg [facility] Systolic blood 118 mmHg 118 mmHg [facility] Heart rate 104 bpm 104 bpm [facility] Diastolic blood 72 mmHg 72 mmHg [facility] Systolic blood 115 mmHg 115 mmHg [facility] Respiratory 18 bpm 18 bpm [facility] Heart rate 91 bpm 91 bpm [facility] Body 97.[address] [facility] Body weight 128 lbs 128 lbs [facility] Diastolic blood 73 mmHg 73 mmHg [facility] Systolic blood 125 mmHg 125 mmHg [facility] Heart rate 96 bpm 96 bpm [facility] Diastolic blood 82 mmHg 82 mmHg [facility] Systolic blood 125 mmHg 125 mmHg [facility] Respiratory 20 bpm 20 bpm [facility] Heart rate 96 bpm 96 bpm [facility] Body 98.[address] [facility] Body 98.[address] [facility] Diastolic blood 73 mmHg 73 mmHg [facility] Systolic blood 125 mmHg 125 mmHg [facility] Respiratory 20 bpm 20 bpm [facility] Heart rate 96 bpm 96 bpm [facility] Respiratory 18 bpm 18 bpm [facility] Body 99.[address] [facility] Diastolic blood 65 mmHg 65 mmHg [facility] Systolic blood 103 mmHg 103 mmHg [facility] Heart rate 84 bpm 84 bpm [facility] Respiratory 18 bpm 18 bpm [facility] Body 97.[address] [facility] Diastolic blood 67 mmHg 67 mmHg [facility] Systolic blood 108 mmHg 108 mmHg [facility] Heart rate 88 bpm 88 bpm [facility] Diastolic blood 71 mmHg 71 mmHg [facility] Systolic blood 110 mmHg 110 mmHg [facility] Heart rate 80 bpm 80 bpm [facility] Diastolic blood 70 mmHg 70 mmHg [facility] Systolic blood 107 mmHg 107 mmHg [facility] Respiratory 18 bpm 18 bpm [facility] Heart rate 72 bpm 72 bpm [facility] Body 97.[address] [facility] Diastolic blood 60 mmHg 60 mmHg [facility] Systolic blood 112 mmHg 112 mmHg [facility] Respiratory 20 bpm 20 bpm [facility] Heart rate 94 bpm 94 bpm [facility] Body 98.[address] [facility] Diastolic blood 62 mmHg 62 mmHg [facility] Systolic blood 109 mmHg 109 mmHg [facility] Respiratory 20 bpm 20 bpm [facility] Heart rate 86 bpm 86 bpm [facility] Body 98.[address] [facility] Diastolic blood 84 mmHg 84 mmHg [facility] Systolic blood 118 mmHg 118 mmHg [facility] Heart rate 66 bpm 66 bpm [facility] Diastolic blood 72 mmHg 72 mmHg [facility] Systolic blood 110 mmHg 110 mmHg [facility] Respiratory 18 bpm 18 bpm [facility] Heart rate 68 bpm 68 bpm [facility] Body 97.[address] [facility] Diastolic blood 63 mmHg 63 mmHg [facility] Systolic blood 105 mmHg 105 mmHg [facility] Respiratory 16 bpm 16 bpm [facility] Heart rate 77 bpm 77 bpm [facility] Body 98.[address] [facility] Diastolic blood 80 mmHg 80 mmHg [facility] Systolic blood 127 mmHg 127 mmHg [facility] Respiratory 16 bpm 16 bpm [facility] Heart rate 82 bpm 82 bpm [facility] Diastolic blood 78 mmHg 78 mmHg [facility] Systolic blood 123 mmHg 123 mmHg [facility] Respiratory 16 bpm 16 bpm [facility] Heart rate 82 bpm 82 bpm [facility] Body 36.7 36.7 Fahrenheit [facility] Body 97.[address] [facility] Diastolic blood 73 mmHg 73 mmHg [facility] Systolic blood 117 mmHg 117 mmHg [facility] Respiratory 18 bpm 18 bpm [facility] Heart rate 93 bpm 93 bpm [facility] Diastolic blood 72 mmHg 72 mmHg [facility] Systolic blood 99 mmHg 99 mmHg [facility] Respiratory 18 bpm 18 bpm [facility] Heart rate 83 bpm 83 bpm [facility] Body weight 127 lbs 127 lbs [facility] Diastolic blood 54 mmHg 54 mmHg [facility] Systolic blood 111 mmHg 111 mmHg [facility] Respiratory 18 bpm 18 bpm [facility] Heart rate 80 bpm 80 bpm [facility] Body 97.8 97.8 [facility] Body 36.381449 Wendi 36.386317 Wendi [facility] temperature Medical Cente r Respiratory 18 /min 18 /min [facility] rate Medical Center Heart rate 72 /min 72 /min [facility] Diastolic blood 50 mm[Hg] 50 mm[Hg] [facility] pressure Medical Center Systolic blood 118 mm[Hg] 118 mm[Hg] [facility] pressure Medical Center Body 36.003252 Wendi 36.888530 Wendi [facility] Medical Cente r Respiratory 18 /min 18 /min [facility] Medical [place] Heart rate 84 /min 84 /min [facility] Diastolic blood 47 mm[Hg] 47 mm[Hg] [facility] pressure Medical Center Systolic blood 123 mm[Hg] 123 mm[Hg] [facility] pressure Medical Center Body 36.442654 Wendi 36.940699 Ewndi [facility] Medical Cente r Respiratory 20 /min 20 /min [facility] rate Medical [place] Heart rate 65 /min 65 /min [facility] Diastolic blood 51 mm[Hg] 51 mm[Hg] [facility] pressure Medical Center Systolic blood 97 mm[Hg] 97 mm[Hg] [facility] pressure Medical Center Body 36.900042 Wendi 36.463975 Wendi [facility] Medical Cente r Respiratory 16 /min 16 /min [facility] Oxygen 98 % 98 % [facility] saturation in [facility] ter Arterial blood by Pulse oximetry Heart rate 85 /min 85 /min [facility] Diastolic blood 55 mm[Hg] 55 mm[Hg] [facility] pressure Medical Center Systolic blood 100 mm[Hg] 100 mm[Hg] [facility] pressure Medical Center Body 36.134108 Wendi 36.930033 Wendi [facility] temperature Medical Cente r Respiratory 18 /min 18 /min [facility] rate Medical [place] Heart rate 47 /min 47 /min [facility] Diastolic blood 45 mm[Hg] 45 mm[Hg] [facility] pressure Medical Center Systolic blood 98 mm[Hg] 98 mm[Hg] [facility] Body weight 51.896622 kg 51.002362 kg [facility] Body height 182.631802 cm 182.671059 cm [facility] Body mass index 15.33 kg/m2 15.33 kg/m2 [facility] (BMI) [Ratio] [facility] Body 36.774717 Wendi 36.213535 Wendi [facility] temperature Medical Cente r Respiratory 18 /min 18 /min [facility] Heart rate 88 /min 88 /min [facility] Diastolic blood 50 mm[Hg] 50 mm[Hg] [facility] pressure Medical Center Systolic blood 110 mm[Hg] 110 mm[Hg] [facility] Heart rate 73 /min 73 /min [facility] Diastolic blood 59 mm[Hg] 59 mm[Hg] [facility] pressure Medical Center Systolic blood 118 mm[Hg] 118 mm[Hg] [facility] Body 37.813400 Wendi 37.403798 Wendi [facility] Medical Cente r Respiratory 16 /min 16 /min [facility] Body weight 51.788786 kg 51.568601 kg [facility] Body height 182.793683 cm 182.469477 cm [facility] Body mass index 15.33 kg/m2 15.33 kg/m2 [facility] (BMI) [Ratio] [facility] Body weight 51.687782 kg 51.371206 kg [facility] Body height 182.966333 cm 182.834914 cm [facility] Body mass index 15.33 kg/m2 15.33 kg/m2 [facility] (BMI) [Ratio] [facility] Body 37.964220 Wendi 37.099429 Wendi [facility] Medical Cente r Respiratory 18 /min 18 /min [facility] Center Heart rate 77 /min 77 /min [facility] Diastolic blood 55 mm[Hg] 55 mm[Hg] [facility] pressure Medical Center Systolic blood 106 mm[Hg] 106 mm[Hg] [facility] Body weight 54.518455 kg 54.640901 kg [facility] Oxygen 95 % 95 % [facility] saturation in [facility] [place] [facility] Arterial blood by Pulse oximetry Body 36.508362 Wendi 36.602747 Wendi [facility] temperature Medical Cente r Respiratory 17 /min 17 /min [facility] rate [facility] Center Heart rate 77 /min 77 /min [facility] Diastolic blood 62 mm[Hg] 62 mm[Hg] [facility] pressure [facility] Center Systolic blood 117 mm[Hg] 117 mm[Hg] [facility] pressure Medical Center Body 36.470659 Wendi 36.660138 Wendi [facility] temperature Medical Cente r Respiratory 20 /min 20 /min [facility] Oxygen 98 % 98 % [facility] saturation in [facility] [place] [facility] Arterial blood by Pulse oximetry Heart rate 67 /min 67 /min [facility] Diastolic blood 62 mm[Hg] 62 mm[Hg] [facility] pressure [facility] Systolic blood 109 mm[Hg] 109 mm[Hg] [facility] pressure [facility] Center Body 36.332135 Wendi 36.327359 Wendi [facility] Medical Cente r Respiratory 19 /min 19 /min [facility] Oxygen 98 % 98 % [facility] saturation in [facility] [place] [facility] Arterial blood by Pulse oximetry Heart rate 69 /min 69 /min [facility] Diastolic blood 94 mm[Hg] 94 mm[Hg] [facility] Systolic blood 113 mm[Hg] 113 mm[Hg] [facility] pressure [facility] Center Body 36.686657 Wendi 36.608491 Wendi [facility] temperature Medical Cente r Respiratory 16 /min 16 /min [facility] Medical [place] Oxygen 98 % 98 % [facility] saturation in Medical [place] [facility] Arterial blood by Pulse oximetry Heart rate 81 /min 81 /min [facility] Diastolic blood 50 mm[Hg] 50 mm[Hg] [facility] pressure [facility] Center Systolic blood 100 mm[Hg] 100 mm[Hg] [facility] pressure Medical Center Diastolic blood 68 mmHg 68 mmHg [facility] Systolic blood 119 mmHg 119 mmHg [facility] Heart rate 97 bpm 97 bpm [facility] Diastolic blood 75 mmHg 75 mmHg [facility] Systolic blood 119 mmHg 119 mmHg [facility] Respiratory 18 bpm 18 bpm [facility] Heart rate 88 bpm 88 bpm [facility] Body 97 Fahrenheit 97 Fahrenheit [facility] Diastolic blood 67 mmHg 67 mmHg [facility] Systolic blood 120 mmHg 120 mmHg [facility] Respiratory 18 bpm 18 bpm [facility] Heart rate 108 bpm 108 bpm [facility] Body 96.[address] [facility] Diastolic blood 70 mmHg 70 mmHg [facility] Systolic blood 117 mmHg 117 mmHg [facility] Heart rate 108 bpm 108 bpm [facility] Diastolic blood 67 mmHg 67 mmHg [facility] Systolic blood 121 mmHg 121 mmHg [facility] Respiratory 18 bpm 18 bpm [facility] Heart rate 91 bpm 91 bpm [facility] Body 96.[address] [facility] Diastolic blood 75 mmHg 75 mmHg [facility] Systolic blood 124 mmHg 124 mmHg [facility] Respiratory 18 bpm 18 bpm [facility] Heart rate 95 bpm 95 bpm [facility] Diastolic blood 80 mmHg 80 mmHg [facility] Systolic blood 131 mmHg 131 mmHg [facility] Respiratory 18 bpm 18 bpm [facility] Heart rate 94 bpm 94 bpm [facility] Body 98.[address] [facility] Diastolic blood 68 mmHg 68 mmHg [facility] Systolic blood 125 mmHg 125 mmHg [facility] Respiratory 18 bpm 18 bpm [facility] Heart rate 971 bpm 971 bpm [facility] Diastolic blood 74 mmHg 74 mmHg [facility] Systolic blood 132 mmHg 132 mmHg [facility] Respiratory 18 bpm 18 bpm [facility] Heart rate 83 bpm 83 bpm [facility] Body 97.[address] [facility] Diastolic blood 89 mmHg 89 mmHg [facility] Systolic blood 115 mmHg 115 mmHg [facility] Heart rate 76 bpm 76 bpm [facility] Diastolic blood 74 mmHg 74 mmHg [facility] Systolic blood 120 mmHg 120 mmHg [facility] Respiratory 19 bpm 19 bpm [facility] Heart rate 86 bpm 86 bpm [facility] Body 97.[address] [facility] Diastolic blood 68 mmHg 68 mmHg [facility] Systolic blood 129 mmHg 129 mmHg [facility] Respiratory 18 bpm 18 bpm [facility] Heart rate 112 bpm 112 bpm [facility] Diastolic blood 64 mmHg 64 mmHg [facility] Systolic blood 116 mmHg 116 mmHg [facility] Respiratory 18 bpm 18 bpm [facility] Heart rate 108 bpm 108 bpm [facility] Body 96.1 96.[facility] Di[facility] blood 74 mmHg 74 mmHg [facility] Systolic blood 125 mmHg 125 mmHg [facility] Respiratory 18 bpm 18 bpm [facility] Heart rate 88 bpm 88 bpm [facility] Body weight 127 lbs 127 lbs [facility] Diastolic blood 69 mmHg 69 mmHg [facility] Systolic blood 117 mmHg 117 mmHg [facility] Respiratory 18 bpm 18 bpm [facility] Heart rate 77 bpm 77 bpm [facility] Body 95.7 95.7 [facility] Diastolic blood 68 mmHg 68 mmHg [facility] Systolic blood 117 mmHg 117 mmHg [facility] Respiratory 18 bpm 18 bpm [facility] Heart rate 74 bpm 74 bpm [facility] Respiratory 18 bpm 18 bpm [facility] Heart rate 66 bpm 66 bpm [facility] mmHg 81 mmHg [facility] Systolic blood 102 mmHg 102 mmHg [facility] Diastolic blood 69 mmHg 69 mmHg [facility] Systolic blood 134 mmHg 134 mmHg [facility] Respiratory 18 bpm 18 bpm [facility] Heart rate 64 bpm 64 bpm [facility] Diastolic blood 63 mmHg 63 mmHg [facility] Systolic blood 110 mmHg 110 mmHg [facility] Respiratory 18 bpm 18 bpm [facility] Heart rate 67 bpm 67 bpm [facility] 95.9 95.[facility] Di[facility] blood 69 mmHg 69 mmHg [facility] Systolic blood 104 mmHg 104 mmHg [facility] Respiratory 18 bpm 18 bpm [facility] Heart rate 82 bpm 82 bpm [facility] Diastolic blood 62 mmHg 62 mmHg [facility] Systolic blood 96 mmHg 96 mmHg [facility] Respiratory 18 bpm 18 bpm [facility] Heart rate 76 bpm 76 bpm [facility] 62 mmHg 62 mmHg [facility] Systolic blood 133 mmHg 133 mmHg [facility] Respiratory 18 bpm 18 bpm [facility] Heart rate 98 bpm 98 bpm [facility] Body 98.2 98.[facility] Di[facility] blood 70 mmHg 70 mmHg [facility] Systolic blood 122 mmHg 122 mmHg [facility] Respiratory 18 bpm 18 bpm [facility] Heart rate 101 bpm 101 bpm [facility] Body 97.8 97.8 [facility] Diastolic blood 65 mmHg 65 mmHg [facility] Systolic blood 112 mmHg 112 mmHg [facility] Heart rate 89 bpm 89 bpm [facility] Diastolic blood 62 mmHg 62 mmHg [facility] Systolic blood 115 mmHg 115 mmHg [facility] Respiratory 16 bpm 16 bpm [facility] Heart rate 70 bpm 70 bpm [facility] Body 98.1 98.1 [facility] ID Date Data Source [id number] 02/28/2020 10:23:15 PM EDT [facility] Name Value Range Interpretation Code Description Data Source(s) Body weight Measured 144 lb 144 lb [facility] ID Date Data Source [id number] 02/24/2020 01:41:59 PM EDT [facility] Name Value Range Interpretation Code Description Data Source(s) Body weight Measured 144 lb 144 lb [facility] ID Date Data Source [id number] 02/25/2020 12:12:49 PM EDT [facility] Name Value Range Interpretation Code Description Data Source(s) Body weight Measured 144 lb 144 lb [facility] ID Date Data Source [id number] 11/30/2019 10:37:35 PM EDT [facility] Name Value Range Interpretation Code Description Data Source(s) Body weight Measured 144 lb 144 lb [facility] Body weight Measured 133 lb 133 lb [facility] ID Date Data Source [id number] 11/24/2019 11:44:52 PM EDT [facility] Name Value Range Interpretation Code Description Data Source(s) Body weight Measured 133 lb 133 lb [facility] ID Date Data Source [id number] 11/20/2019 10:41:33 PM EDT [facility] Name Value Range Interpretation Code Description Data Source(s) Body weight Measured 133 lb 133 lb [facility] ID Date Data Source [id number] 11/13/2019 01:17:01 PM EDT [facility] Name Value Range Interpretation Code Description Data Source(s) Body weight Measured 133 lb 133 lb [facility] ID Date Data Source [id number] 08/22/2019 11:14:15 PM [facility] Name Value Range Interpretation Code Description Data Source(s) Body weight Measured 133 lb 133 lb [facility] Body weight Measured 150 lb 150 lb [facility] ID Date Data Source [id number] 08/15/2019 09:05:11 PM [facility] Name Value Range Interpretation Code Description Data Source(s) Body weight Measured 150 lb 150 lb [facility] Patient Treatment Plan of Care Planned Activity Planned Date Details Description Data Source (s) 0.9% NaCl IV 02/06/2020 01:30:18 [facility] Tylenol Infusion (AD 02/06/2020 01:04:23 [facility] Tylenol Infusion (AD 01/16/2020 11:39:37 [facility]
[2020-04-07 22:42] VITALS: BMI 18.7
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
[2020-04-07] MEDS ORDERED: ACETAMINOPHEN 325 MG TABLET (FP) PO PRN (23:20)
[2020-04-07] MEDS ORDERED: MAG HYDROX/AL HYDROX/SIMETH 30 ML UNIT-DOSE CUP PO PRN (23:20)
[2020-04-07] MEDS ORDERED: MAGNESIUM HYDROX 2400MG/30ML ORAL SUSPENSION 30 ML CUP PO PRN (23:20)
[2020-04-07] MEDS ORDERED: guaiFENesin 200 MG/10 ML 10 ML UNIT-DOSE CUPS PO PRN (23:20)
[2020-04-07] MEDS ORDERED: ONDANSETRON *ODT* 4 MG TABLET SL PRN (23:20)
[2020-04-07] MEDS ORDERED: BISMUTH SUBSALICYLATE 524 MG/30 ML UD PO PRN (23:20)
[2020-04-07] MEDS ORDERED: MAGNESIUM CITRATE 300 ML BOTTLE PO PRN (23:20)
[2020-04-07] MEDS ORDERED: MENTHOL/PHENOL 1 EACH UD MM PRN (23:20)
[2020-04-07] MEDS ORDERED: chlordiazePOXIDE HCL 25 MG CAPSULE PO PRN (23:23)
[2020-04-07] MEDS ORDERED: BENZOCAINE 20 % GEL TUBE MM PRN (23:24)
--- OUTSIDE RECORDS SUMMARY | 2020-04-07 23:26 | XMS ---
:1995 Author Organization [facility] Care Team Providers Name Role Phone [facility] Unavailable Unavailable ED STAFF DENISE [...] Unavailable MD Amado Unavailable Unavailable Derek Unavailable [phone] MD HERNANDEZ Unavailable Unavailable ED STAFF PHYSICIAN Unavailable Unavailable NEHA SLAVA Unavailable Unavailable ED STAFF PHYSICIAN Unavailable Unavailable Other Unavailable Unavailable CANEVA, M.D. Unavailable Unavailable MD DARREN Unavailable Unavailable MD ABRAHAM Unavailable Unavailable EMERGENCY SERVICE, X Unavailable Unavailable LEIA YUNG Unavailable Unavailable Neha VELARDE Unavailable Unavailable ALEXIS TONY Unavailable Unavailable ARTIS MORGAN Unavailable Unavailable JOSE L Unavailable Unavailable PEPPER MARTINEZ Unavailable Unavailable [...] is protected by Article 27-F of the [facility] Public Health law. If you continue you may haveaccess to information: Regarding HIV / AIDS; Provided by facilities licensed or operated by the [facility] Office of Mental Health; or Provided by the [facility] Office for People With Developmental Disabilities. If such information is present, then the following [facility] mandated warning applies: This information has [...] law may result in a fine or halfway sentence or both. A general authorization for the release of medical or other information is NOT sufficient authorization for further disclosure. 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 MDAttender: EDT - Doctor Other 04/06/2020 01:15:00 PM EDT PEPPER SPRAY TO FACE?/EMPRESS Patient discharged. Inpatient Attender: CECILY ESPINOZA H-HAL6 04/03/2020 03:06:00 [facility] PRIYANKAENGAttender: STAFF ED PM EDT - 04/05/2020 [facility] STAFF PHYSICIANAdmitter: 11:35:00 AM EDT CECILY TONYReferrer: CECILY TONY Patient discharged. Outpatient Attender: SLAVA SOLOMON H 03/26/2020 Nealtrudy hernández [facility] ARNABAdmitter: SLAVA 12:00:00 PM EDT [facility] NEHA SLAVA Attender: Slava Neha Positive 03/26/2020 NEX TGEN ([facility] 12:00:00 PM EDT [facility] 03/26/2020 Media) 12:00:00 PM EDT Inpatient Attender: SISI GORMAN 02/24/2020 [facility] ANDREEdmitter: ALE 01:31:00 PM EDT - [facility] 02/28/2020 10:23:00 PM EDT Patient discharged. Outpatient [facility] 02/24/2020 12:16:00 PM EDT - [address] [place] [address] 02:41:00 PM EDT Patient discharged. Outpatient Attender: ARCADIO [facility] 02/23/2020 09:25:00 [facility] SONDRAdmitter: ARCADIO EDT - 02/23/2020 [facility] REGGIE 11:04:00 PM EDT Patient discharged. Emergency Attender: EDDIE, 02/06/2020 RT HIP PROBLEM [facility] 12:[facility]00 AM EDT [facility] EMERGENCY SERVICE, Corpor ation XAdmitter: ARTIS MORGAN RT HIP PROBLEM Emergency Attender: DILSHAD, 01/16/2020 F[facility]IAL [place] W [facility]: 11:24:00 AM EDT [facility] EMERGENCY SERVICE, Corpor ation XAdmitter: LEIA YUNG FACIAL [place] Emergency Attender: SINA ED STAFF H 01/16/2020 08:00:00 AM [facility] PHYSICIANAttender: STAFF ED EDT - 01/16/2020 Medical Center STAFF PHYSICIANAdmitter: SINA 01:12:00 PM EDT ED STAFF PHYSICIAN Patient discharged. Emergency Attender: DENISE HESS STAFF H 01/03/2020 05:21:00 AM [facility] PHYSICIANAttender: STAFF ED EDT - 01/03/2020 [facility] STAFF PHYSICIANAdmitter: 04:53:00 PM EDT DENISE ED STAFF PHYSICIAN Patient discharged. Inpatient Attender: SISI GORMAN 11/24/2019 11:32:00 PM [facility] VÍCTOR EDT - 11/30/2019 [facility] 10:36:00 PM EDT Patient discharged. Outpatient ST 11/24/2019 10:35:00 PM EDT - [address] [place] [address] 11:44:00 PM EDT Patient discharged. Emergency Attender: Karina Fischer 11/24/2019 10:08:[address] MDConsultant: Bailey AM EDT - 11/24/2019 [facility] Sheikh PRACHI 10:22:00 PM EDT OVERDOSE AM.LUCY Patient discharged. Inpatient Attender: COLIN GORMAN 11/13/2019 01:09:00 PM [facility] SOTOAttender: MEGHAN EDT - 11/20/2019 [facility] MAXIMUS MDAdmitter: 10:41:00 PM EDT RODRÍGUEZ ZAPATA Patient discharged. Outpatient STV 11/13/2019 09:23:00 AM EDT - [address] [place] [address] 02:16:00 PM EDT Patient discharged. Outpatient Attender: HVC9 HHHVCC 09/04/2019 01:39:25 PM [facility] ([facility]) Patient admitted. Unlisted evaluation 08/22/2019 05:11:00 NETSMART (Mental and management EST [facility] Inpatient Attender: ANEUDY3Sultana 08/15/2019 08:26:00 [facility] MARK PM EST - 08/22/2019 Hospi turner FAEZAdmitter: 11:14:00 PM EST JASON DOE Patient discharged. Attender: 08/15/2019 [facility] [id number] 08:26:00 PM [facility]_6766 Outpatient STV 08/15/2019 [facility] [place] 07:53:00 PM EST - Hospita l 08/15/2019 09:05:00 PM EST Patient discharged. Attender: 08/15/2019 [facility] [id number] 07:53:00 PM [facility]6766 Emergency Attender: VERNA ED STAFF H 06/29/2019 [facility] PHYSICIANAttender: STAFF ED STAFF 01:43:00 AM [facility] PHYSICIANAdmitter: JUVEE ED STAFF 06/29/2019 PHYSICIAN 04:54:00 AM EST Patient discharged. Outpatient Attender: SLAVA H 05/31/2019 [facility] [place] BAZANABAdmitter: 12:00:00 PM [facility] SLAVA NEHA SLAVA Attender: Slava Positive 05/31/2019 NEXTGEN ( [facility] MD Directions 12:00:00 PM [facility] - 05/31/2019 Medical 12:00:00 PM [facility]) Psychiatric Attender: Omero Akhtar Positive 05/31/2019 NEX TGEN ([facility] Derek Directions 10:14:00 AM [facility] Interview (45+ - 05/31/2019 Medical Min) 10:14:00 AM [facility]) Inpatient Attender: CIARRA CANNON-2S 03/17/2019 [facility] Erwin DOMINGOAdmitter: 09:36:00 AM EDT [facility] santos DOE - 03/21/2019 11:11:00 PM EDT Patient discharged. Attender: 03/17/2019 [facility] [id number] 09:36:00 AM EDT [facility]_[address] 03/17/2019 [facility] 09:11:00 AM EDT - Hospita l 03/17/2019 11:11:00 PM EDT Patient discharged. Attender: 03/17/2019 [facility] [id number] 09:11:00 AM EDT [facility]6766 Emergency H 02/22/2019 [facility] 02:40:00 AM EDT - Medical Center 02/22/2019 05:09:00 AM EDT Patient discharged. Emergency H 02/22/2019 12:09:00 AM EDT - [address] [place] [address] 02:12:00 AM EDT Patient discharged. Outpatient 02/15/2019 10:14:10 AM EDT [facility] ([facility]) Patient admitted. Outpatient 02/15/2019 10:14:06 AM EDT [facility] ([facility]) Patient admitted. Outpatient 02/15/2019 09:52:56 AM EDT [facility] ([facility]) Patient admitted. Outpatient 02/15/2019 09:52:52 AM EDT [facility] ([facility]) Patient admitted. Outpatient 02/08/2019 10:58:52 AM EDT [facility] ([facility]) Patient admitted. Outpatient 02/08/2019 10:58:48 AM EDT [facility] ([facility]) Patient admitted. Inpatient Attender: JORDAN CANNON-1D 02/05/2019 06:18:00 [facility] Nhungfrancisco CLARNECEdmitter: CIARRA EDT - [facility] PM EDT Patient discharged. Attender: 02/05/2019 [facility] [id number] 06:18:00 [facility] 02/05/2019 [place] 07:49:00 AM [facility] 02/05/2019 06:24:00 PM EDT Patient discharged. Attender: 02/05/2019 [facility] [place] [id number] 07:49:00 AM EDT [facility]_6766 Attender: 01/29/2019 [facility] [id number] 05:02:00 PM EDT [facility]_6766 Inpatient Attender: CIARRA DOMINGOAttender: DAVIS-3S 01/27/2019 [facility] MONROEOVAAdmitter: ANESHAN 07:31:00 PM EDT [facility] - 02/05/2019 06:17:00 PM EDT Patient discharged. Attender: 01/27/2019 [facility] Pope.[id number] 07:31:00 PM EDT [facility]6766 Outpatient [facility] 01/27/2019 [facility] 05:47:00 PM ED[facility] 01/27/2019 05:03:00 PM EDT Patient discharged. Attender: 01/27/2019 [facility] [id number] 05:47:00 PM EDT [address] Inpatient Attender: JUAN MARTINEZAdmitter: H-HAL5 01/21/2019 [facility] JUAN MARTINEZReferrer: JUAN 10:15:00 PM E DT [facility] PEPPER MARTINEZ - 01/25/2019 Media 08:27:00 AM EDT Outpatient Attender: Brittany Carter MDAdmitter: [facility] 01/21/2019 [facility] Carter MD 07:47:00 PM EDT [facility] 01/21/2019 [facility] 08:31:00 PM EDT Attender: 01/21/2019 [facility] [id number] 07:47:00 PM EDT [place] [id number] [facility] Emergency H 01/09/2019 Jeanette 08:57:00 PM EDT Medical Center Attender: 01/27/2018 [facility] [id number] 06:40:00 PM EDT [facility]6766 Hospital Attender: 12/18/2017 [place] [id number] 06:39:00 PM EDT [place] 9648466 Hospital Attender: 12/18/2017 [place] [id number] 05:30:00 PM EDT [place] 9648466 Hospital Attender: 10/12/2017 [facility] [id number] 02:11:00 PM EDT [facility] [place] [address] Hospital Attender: 05/18/2017 [facility] [id number] 08:22:00 PM EDT [place] [address] Hospital Attender: 05/18/2017 [facility] Steve.[id number] 07:09:00 PM EDT [place] [address] Hospital Attender: 08/19/2016 [place] [id number] 04:28:00 PM [place] [address] Hospital Attender: 08/19/2016 [facility] Steve.[id number] 02:28:00 PM [place] [address] Hospital Attender: 12/12/2015 [place] [id number] 03:08:00 PM EDT [place] [address] Hospital Attender: 12/11/2015 [place] [id number] 06:00:00 [facility] [place] [address] Hospital Attender: 12/05/2015 [place] [id number] 03:04:00 PM EDT [place] [address] Hospital Attender: 12/05/2015 [address].[id number] 12:13:00 PM [place] [address] Hospital Attender: 11/27/2015 [address].[id number] 02:31:00 PM [facility] [address] Hospital Attender: 11/16/2015 [place] [id number] 12:23:00 PM EDT [facility]6766 Hospital Attender: 06/23/2015 [facility] [id number] 04:55:00 PM [facility]6766 Hospital Attender: 06/23/2015 [facility] [id number] 02:24:00 PM [facility]6766 Hospital Attender: 12/29/2012 [facility] [id number] 01:51:00 PM EDT [place] [address]8466 Hospital Attender: 12/28/2012 [facility] [id number] 02:55:00 PM EDT [facility]6766 Hospital Attender: 11/22/2012 [facility] [id number] 03:45:00 PM EDT [facility]6766 Hospital Attender: 11/20/2012 [facility] [id number] 11:09:00 PM EDT [place] [address]648466 [facility] Immunizations Vaccine Date Status Description Data Source(s) Tdap 01/16/2020 09:09:00 AM EDT completed [facility] Medications Medication Brand Start Product Dose Route Administrative Pharmacy [facility] Indications Reaction Description Data Name Date Form Instructions Instructions Source(s) 0.9% NaCl 0.9% 999 UNK active 0.9% NaCl [facility] IV NaCl 2020 mL IV Give r [facility] IV 01:30: 1000 mL; IV Health 18 AM rate: [facility] EDT over 30 Corporatio minutes n Medication administered onsite Tylenol Tylenol 02/06/2020 1000 UNK active Tylen ol [facility] 01:04:23 AM mg Infus ion [facility] (AD (AD EDT (ADULT) or Care GT 50 kg Corporation 1000 mg IVPB Medication administered onsite Afrin 12 Hour 01/17/2020 999 MG UNK completed Afrin 12 [place] 0.05 % Nasal 02:36:12 PM Hour 0.05 % [facility] EDT Nasal Health Care Solution USE Corpora tion 1 SPRAY IN EACH NOSTRIL TWICE DAILY. Dispense: 15 Supervising physician: Artis Morgan Amoxicillin-P 01/17/2020 999 MG UNK [facility] 02:[facility]12 PM [facility] Clavulanate [facility] Clavulanate [facility] 87 875-125 MG Corporati on Oral Tablet TAKE 1 TABLET TWICE DAILY AFTER MEALS Dispense: 20 Supervising physician: Artis Morgan Amoxicillin-P 01/17/2020 999 MG UNK [facility] 02:36:12 PM [facility] Clavulanate [facility] Clavulanate [facility] 87 875-125 MG Corporati on Oral Tablet TAKE 1 TABLET TWICE DAILY AFTER MEALS Dispense: 20 Supervising physician: Artis Morgan Afrin 12 Hour 01/17/2020 999 MG UNK completed Afrin 12 [place] 0.05 % Nasal 02:36:12 PM Hour 0.05 % [facility] EDT Nasal Health [facility] [employer] USE Corpora tion 1 SPRAY IN EACH NOSTRIL TWICE DAILY. Dispense: 15 Supervising physician: Artis Morgan Afrin 12 Hour 01/16/2020 999 MG UNK completed Afrin 12 [place] 0.05 % Nasal 04:31:06 PM Hour 0.05 % [facility] EDT Nasal [facility] [employer] USE Corpora tion 1 SPRAY IN EACH NOSTRIL TWICE DAILY. Dispense: 15 Supervising physician: MATY Root Amoxicillin-P 01/16/2020 999 MG UNK [facility] 04:31:06 PM [facility] Clavulanate [facility] Clavulanate [facility] 87 875-125 MG Corporati on Oral Tablet TAKE 1 TABLET TWICE DAILY AFTER MEALS Dispense: 20 Supervising physician: MATY Root Afrin 12 Hour 01/16/2020 999 MG UNK completed Afrin 12 [place] 0.05 % Nasal 04:31:06 PM Hour 0.05 % [facility] EDT Nasal Health [facility] USE Corpora tion 1 SPRAY IN EACH NOSTRIL TWICE DAILY. Dispense: 15 Supervising physician: MATY Root Amoxicillin-P 01/16/2020 999 MG UNK [facility] 04:31:06 PM [facility] Clavulanate EDT Clavulanate H [facility] Care 87 875-125 MG Corporati on Oral Tablet TAKE 1 TABLET TWICE DAILY AFTER MEALS Dispense: 20 Supervising physician: MATY Root Tylenol Tylenol 01/16/2020 1000 UNK active Tylen ol [facility] (AD Infusion 11:39:37 AM [facility] ([facility] ([facility] or Health Ca re GT 50 kg Corporation 1000 mg IVPB Medication administered onsite Buprenorphine Suboxone - 11/30/2019 1 SUBLINGUAL complete d Suboxone - [facility] 8 MG / 8 MG-2 MG 12:00:00 AM Film 8 MG-2 [facility] N[facility] 2 MG SUBLINGUAL EDT SUBLI [facility] Oral Strip Film Film [Suboxone] gabapentin 600 [...] 999 oral completed aaliyah apentin [place] [facility] Corporati on Buprenorphine Suboxone 999 sublingual completed Suboxone [place] 12 MG / MG [facility] Naloxone 3 MG Health Oral Strip Care [Suboxone] Corporati on quetiapine 25 Seroquel 999 oral completed Se roquel [place] MG Oral Tablet MG er Co unty [Seroquel] Health Care Corporati on quetiapine 25 Seroquel 999 oral completed Se roquel [place] MG Oral Tablet MG er Co unty [Seroquel] Health Care Corporati on No known completed [facility] medications. [facility] gabapentin gabapentin 999 oral completed aaliyah apentin [place] MG [facility] Corporati on Buprenorphine Suboxone 999 sublingual completed Suboxone [place] 12 MG / MG [facility] Naloxone 3 MG Health Oral Strip Care [Suboxone] Corporati on Insurance Providers Payer name Policy type Policy ID Covered Covered alliance party's Policy P linden / Coverage alliance party ID relationship to [place] Inf ormation type españa [facility] MEDICAID [id number] SP [id number] [facility] MEDICAID [id number] SP [id number] [facility] [id number] 01 [id number] ACUTE W [id number] O Medicaid Medicaid [id number] MVP Medicaid Medicaid [id number] 1 [id number] Self Pay Self Pay 1 MVP/HHP O [id number] [id number] [facility] O [id number] 01 [id number] ACUTE MVP PSYCH OP O [id number] 01 [id number] W [id number] 01 [id number] MVP/HHP O [id number] 01 [id number] SELF PAY [id number] Self [id number] MEDICAID OP [id number] Self [id number] MMC MVP [id number] Self [id number] 500 HARMONIOUS SELF PAY [id number] Self [id number] MEDICAID INP [id number] Self [id number] H PSYCH UNK [id number] MEDICAID [id number] SP [id number] MVP MEDICAID [id number] SP [id number] HMO UNK [id number] [place] [id number] PT [id number] [facility] SELF PAY 0000 Self 0000 MEDICAID INP [id number] Self [id number] H PSYCH MMC MVP [id number] Self [id number] HARMONIOUS [place] [id number] PT [id number] [facility] SELF PAY 00 Self 00 MEDICAID INP [id number] Self [id number] H PSYCH MMC MVP [id number] Self [id number] HARMONIOUS SELF PAY 0000 Self 0000 MEDICAID INP [id number] Self [id number] H PSYCH MMC MVP [id number] Self [id number] HARMONIOUS MVP/HHP [id number] self [id number] SELF PAY 00 Self 00 MEDICAID INP [id number] Self [id number] H PSYCH MMC MVP [id number] Self [id number] HARMONIOUS HEALTHCARE SELF PAY 00 Self 00 MEDICAID INP [id number] Self [id number] H REHAB MVP/HHP O [id number] 01 [id number] 500 MVP MEDICAID [id number] SP [id number] HMO SELF PAY 00 Self 00 MEDICAID INP [id number] Self [id number] H PSYCH MMC MVP [id number] Self [id number] 500 [facility] O [id number] 01 [id number] ACUTE SVHW O [id number] INPATIENT - 0 ER VISIT MVP/HHP O [id number] 01 [id number] Problems, Conditions, and Diagnoses Code Display Name Description Problem Type Effective Data Sour ce(s) Dates 214590489 Mixed anxiety and Mixed anxiety and Complaint 07/18/2019 [facility] depressive disorder depressive 12:00:00 PM Hosp ital (disorder) disorder EST [id number] Psychoactive Psychoactive Complaint 12/18/2017 [facility] substance use substance use 12:00:00 PM Hospita l disorder (disorder) disorder EDT [id number] Psychoactive Psychoactive Complaint 12/18/2017 [facility] substance use substance use 12:00:00 PM Hospita l disorder (disorder) disorder EDT [id number] Bipolar affective Bipolar affective Complaint 12/18/2017 [facility] disorder, current disorder, current 12:00:00 PM Hospital episode depression episode depression EDT (disorder) 48943679 Opioid dependence Opioid dependence Complaint 12/18/2017 [facility] (disorder) 12:00:00 PM Hospital EDT 26722854 Bipolar disorder Bipolar disorder Complaint 12/18/2017 [facility] (disorder) 12:00:00 PM Hospital EDT 11892753 Psychoactive Psychoactive Complaint 12/18/2017 [facility] substance use substance use 12:00:00 PM Hospita l disorder (disorder) disorder EDT 80976366 Psychoactive Psychoactive Complaint 12/18/2017 [facility] substance use substance use 12:00:00 PM Hospita l disorder (disorder) disorder EDT 930377766 Bipolar affective Bipolar affective Complaint 12/18/2017 [facility] disorder, current disorder, current 12:00:00 PM Hospital episode depression episode depression EDT (disorder) 88377195 Opioid dependence Opioid dependence Complaint 12/18/2017 [facility] (disorder) 12:00:00 PM Hospital EDT 50409363 Bipolar disorder Bipolar disorder Complaint 12/18/2017 [facility] (disorder) 12:00:00 PM Hospital EDT 67341247 Psychoactive Psychoactive Complaint 12/18/2017 [facility] substance use substance use 12:00:00 PM Hospita l disorder (disorder) disorder EDT 76319869 Psychoactive Psychoactive Complaint 12/18/2017 [facility] substance use substance use 12:00:00 PM Hospita l disorder (disorder) disorder EDT 318625511 Bipolar affective Bipolar affective Complaint 12/18/2017 [facility] disorder, current disorder, current 12:00:00 PM Hospital episode depression episode depression EDT (disorder) 32158472 Opioid dependence Opioid dependence Complaint 12/18/2017 [facility] (disorder) 12:00:00 PM Hospital EDT 43598895 Bipolar disorder Bipolar disorder Complaint 12/18/2017 [facility] (disorder) 12:00:00 PM Hospital EDT 41511600 Psychoactive Psychoactive Complaint 12/18/2017 [facility] substance use substance use 12:00:00 PM Hospita l disorder (disorder) disorder EDT 57297125 Psychoactive Psychoactive Complaint 12/18/2017 [facility] substance use substance use 12:00:00 PM Hospita l disorder (disorder) disorder EDT 199271885 Bipolar affective Bipolar affective Complaint 12/18/2017 [facility] disorder, current disorder, current 12:00:00 PM Hospital episode depression episode depression EDT (disorder) 38295488 Opioid dependence Opioid dependence Complaint 12/18/2017 [facility] (disorder) 12:00:00 PM Hospital EDT 95927550 Bipolar disorder Bipolar disorder Complaint 12/18/2017 [facility] (disorder) 12:00:00 PM Hospital EDT 96607609 Psychoactive Psychoactive Complaint 12/18/2017 [facility] substance use substance use 12:00:00 PM Hospita l disorder (disorder) disorder EDT 04049589 Psychoactive Psychoactive Complaint 12/18/2017 [facility] substance use substance use 12:00:00 PM Hospita l disorder (disorder) disorder EDT 100433375 Bipolar affective Bipolar affective Complaint 12/18/2017 [facility] disorder, current disorder, current 12:00:00 PM Hospital episode depression episode depression EDT (disorder) 26809073 Opioid dependence Opioid dependence Complaint 12/18/2017 [facility] (disorder) 12:00:00 PM Hospital EDT 48808469 Bipolar disorder Bipolar disorder Complaint 12/18/2017 [facility] (disorder) 12:00:00 PM Hospital EDT 49731712 Psychoactive Psychoactive Complaint 12/18/2017 [facility] substance use substance use 12:00:00 PM Hospita l disorder (disorder) disorder EDT 00786120 Psychoactive Psychoactive Complaint 12/18/2017 [facility] substance use substance use 12:00:00 PM Hospita l disorder (disorder) disorder EDT 684819933 Bipolar affective Bipolar affective Complaint 12/18/2017 [facility] disorder, current disorder, current 12:00:00 PM Hospital episode depression episode depression EDT (disorder) [id number] Opioid dependence Opioid dependence Complaint 12/18/2017 [facility] (disorder[facility] 12:00:00 PM Hospital EDT [id number] Bipolar disorder Bipolar disorder Complaint 12/18/2017 [facility]00 PM [facility] EDT [id number] Opioid dependence Opioid dependence Complaint 12/18/2017 [facility] (disorder) 12:00:00 PM Hospital EDT [id number] Bipolar disorder Bipolar disorder Complaint 12/18/2017 [facility] (disorder) 12:00:00 PM Hospital EDT [id number] Opioid dependence Opioid dependence Complaint 05/18/2017 [facility] with current use with current use 12:00:00 PM H ospital EDT 80383882 Cannabis dependence Cannabis Complaint 05/18/2017 [facility] (disorder) dependence 12:00:00 PM Hospital EDT [id number] Opioid abuse Opioid abuse Complaint 05/18/2017 [facility] (disorder) 12:00:00 PM Hospital EDT [id number] Schizoaffective Schizoaffective Complaint 05/18/2017 [facility] disorder, disorder, 12:00:00 PM Hospital depressive type depressive type EDT (disorder) [id number] Opioid dependence Opioid dependence Complaint 05/18/2017 [facility] with current use with current use 12:00:00 PM H ospital EDT [id number] Cannabis dependence Cannabis Complaint 05/18/2017 [facility] (disorder) dependence 12:00:00 PM Hospital EDT 8534531 Opioid abuse Opioid abuse Complaint 05/18/2017 [facility] (disorder[facility] 12:00:00 PM Hospital EDT 82354025 Schizoaffective Schizoaffective Complaint 05/18/2017 [facility] disorder, disorder, 12:00:00 PM Hospital depressive type depressive type EDT (disorder) 051095825 Opioid dependence Opioid dependence Complaint 05/18/2017 [facility] with current use with current use 12:00:00 PM H ospital EDT 23822761 Cannabis dependence Cannabis Complaint 05/18/2017 [facility] (disorder) dependence 12:00:00 PM Hospital EDT 1207568 Opioid abuse Opioid abuse Complaint 05/18/2017 [facility] (disorder) 12:00:00 PM Hospital EDT [id number] Schizoaffective Schizoaffective Complaint 05/18/2017 [facility] disorder, disorder, 12:00:00 PM Hospital depressive type depressive type EDT (disorder) 033524794 Opioid dependence Opioid dependence Complaint 05/18/2017 [facility] with current use with current use 12:00:00 PM H ospital EDT 41139083 Cannabis dependence Cannabis Complaint 05/18/2017 [facility] (disorder) dependence 12:00:00 PM Hospital EDT 5227686 Opioid abuse Opioid abuse Complaint 05/18/2017 [facility] (disorder) 12:00:00 PM Hospital EDT 40398515 Schizoaffective Schizoaffective Complaint 05/18/2017 [facility] disorder, disorder, 12:00:00 PM Hospital depressive type depressive type EDT (disorder) 949992594 Opioid dependence Opioid dependence Complaint 05/18/2017 [facility] with current use with current use 12:00:00 PM H ospital EDT 57745936 Cannabis dependence Cannabis Complaint 05/18/2017 [facility] (disorder) dependence 12:00:00 PM Hospital EDT 7200933 Opioid abuse Opioid abuse Complaint 05/18/2017 [facility] (disorder) 12:00:00 PM Hospital EDT 11411668 Schizoaffective Schizoaffective Complaint 05/18/2017 [facility] [place] disorder, disorder, 12:00:00 PM Hospital depressive type depressive type EDT (disorder) 183368761 Opioid dependence Opioid dependence Complaint 05/18/2017 [facility] with current use with current use 12:00:00 PM H ospital EDT 30624660 Cannabis dependence Cannabis Complaint 05/18/2017 [facility]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 0.80-1.2 Above high normal <content Saint Platelet poor 0 styleCode="Bold" Jeanette plasma by >INR Medical Coagulation </content>1.27 # Center assay H<content styleCode="Itali cs"> (0.80-1.20 #)</content> aPTT in 25.1-36. <content Saint Platelet poor 5 styleCode="Bold" Jeanette plasma by >Partial Medical Coagulation Thromboplastin Center assay Time </content>30.8 SEC<content styleCode="Itali cs"> (25.1-36.5 SEC)</content> ID Date Data Source [facility].[id number] 01/16/2020 08:55:00 AM EDT [facility] Center Name Value Range Interpretation Description Data Sup porting Code Source(s) Document(s ) Chloride 98-107 <content Saint [Moles/volume] in styleCode="Bold"> [facility] Serum or Plasma Chloride Medical </content>102 Center MEQ/L<content styleCode="Italic s"> (98-107 MEQ/L)</content> Sodium 137-145 <content Saint [Moles/volume] in styleCode="Bold"> [facility] Serum or Plasma Sodium Medical </content>137 Center MEQ/L<content styleCode="Italic s"> (137-145 MEQ/L)</content> Carbon dioxide, 22-30 <content Saint total styleCode="Bold"> Jeanette [Moles/volume] in Carbon Dioxide Medical Serum or Plasma </content>26 Center MEQ/L<content styleCode="Italic s"> (22-30 MEQ/L)</content> UNK 9-20 <content Saint styleCode="Bold"> Jeanette BUN </content>14 Medical MG/DL<content Center styleCode="Italic s"> (9-20 MG/DL)</content> Potassium <content Saint [Moles/volume] in styleCode="Bold"> [facility] Serum or Plasma Potassium Medical </content>Test Center not performed. MEQ/L (Reference Range: not available)
Glucose 74-106 Above high <content Saint [Mass/volume] in normal styleCode="Bold"> [facility] Serum or Plasma Glucose Medical </content>108 Center MG/DL H<content styleCode="Italic s"> (74-106 MG/DL)</content> UNK > 60 <content Saint styleCode="Bold"> [facility] EGFR Medical </content>149 Center GFR<content styleCode="Italic s"> [...] s"> (3.5-5.0 G/DL)</content> ID Date Data Source GFR(Creatinine).[id number] 01/16/2020 08:55:00 AM EDT [facility] 0-0400 Name Value Range Interpretation Code Description Data Meche rce(s) Supporting Document(s ) UNK > 60 <content [facility] styleCode="Bold"> Medical Cent er EGFR </content>149 GFR<content styleCode="Italic s"> (> 60 GFR)</content> ID Date Data Source HematologyRou.[id number] 01/16/2020 08:55:00 AM EDT [facility] 0400 Name Value Range Interpretation Description [...] Platelets 130-400 <content Saint [#/volume] in styleCode="Bold [facility] Blood by ">Platelet Medical Automated count Count Center </content>247 KCUMM<content styleCode="Ital ics"> (130-400 KCUMM)</content > Platelet mean 8.0-11.0 <content Saint volume [Entitic styleCode="Bold [facility] volume] in Blood ">Mean Platelet Medical by Automated Volume Center count </content>10.8 FL<content styleCode="Ital ics"> (8.0-11.0 FL)</content> ID Date Data Source Liver 01/16/2020 08:55:00 AM EDT [facility] Profile.[id number] Name Value Range Interpretation Description Data Sup [...] s"> (0.0-0.3 MG/DL)</content> ID Date Data Source [id number] 01/16/2020 12:00:00 AM EDT [facility] Name Value Range Interpretation Code Description Data Meche rce(s) Supporting Document(s ) 2019-nCoV [facility] RNA XXX ELISABETH+probe- Imp This lab was ordered by [facility] and reported by [employer]. ID Date Data Source Urinalysis.[id number] 01/03/2020 07:00:00 AM EDT [facility] 0 Name Value Range Interpretation Description Data Sup porting Code Source(s) Document(s ) UNK CLEAR <content Saint styleCode="Chris Bhats d">Urine Medical Clarity Center </content>JUICE R <content styleCode="Evy lics"> (CLEAR )</content> Color of Urine YELLOW <content Saint styleCode="Chris Bhats d">Color, Medical Urine Center </content>YELL OW <content styleCode="Evy lics"> (YELLOW )</content> Specific 1.015-1.02 Above high <content Saint gravity of 5 normal styleCode="Chris Jeanette Urine by Test d">Urine Medical strip Specific Center [place] </content>>= 1.030 H<content styleCode="Evy lics"> (1.015-1.025 )</content> UNK NEGATIVE <content Saint styleCode="Chris Bhats d">Urine Medical Bilirubin Center </content>NEGA TIVE <content [...] t> Urobilinogen 0.2-1.0 <content Saint [Units/volume] styleCode="Chris Jeanette in Urine by d">Urine Medical Test strip Urobilinogen Center </content>0.2 MG/DL<content styleCode="Evy lics"> (0.2-1.0 MG/DL)</conten t> Leukocyte NEGATIVE <content Saint esterase styleCode="Chris Jeanette [Presence] in d">Urine Medical Urine by Test Leukocyte Center strip </content>NEGA TIVE <content styleCode="Evy lics"> (NEGATIVE )</content> pH of Urine by 4.5-8.0 <content Saint Test strip styleCode="Chris Jeanette d">Urine pH Medical </content>6.0 Center <content styleCode="Evy lics"> (4.5-8.0 )</content> Protein NEGATIVE <content Saint [Mass/volume] styleCode="Chris Jeanette in Urine by d">Urine Medical Test strip Protein Center </content>NEGA TIVE MG/DL<content styleCode="Evy lics"> (NEGATIVE MG/DL)</conten t> Nitrite NEGATIVE <content [facility] [Presence] in styleCode="Chris Jeanette Urine by Test d">Urine Medical strip Nitrite Center </content>NEGA TIVE <content styleCode="Evy lics"> (NEGATIVE )</content> ID Date Data Source CHMROUTINECCDA.[id number] 01/03/2020 07:00:00 AM EDT [facility] -0400 Name Value Range Interpretation Description Data Sup porting Code Source(s) Document(s ) Cannabinoids <content Saint [Presence] in styleCode="Chris Jeanette Urine by Screen d">Cannabinoid Medical method >50 ng/mL s Center </content>PRES UMPTIVE POSITIVE NG/ML (Reference Range: not available)<br/ > ID Date Data Source HematologyRou.[id number] 01/03/2020 06:10:00 AM EDT [facility] 0400 Name Value Range Interpretation Description [...] (0.0 KCUMM)</content > ID Date Data Source GFR(Creatinine).[id number] 01/03/2020 06:10:00 AM EDT [facility] 0-0400 Name Value Range Interpretation Code Description Data Meche rce(s) Supporting Document(s ) UNK > 60 <content [facility] styleCode="Bold"> Medical Cent er EGFR </content>127 GFR<content styleCode="Italic s"> (> 60 GFR)</content> ID Date Data Source [facility].[id number] 01/03/2020 06:10:00 AM EDT [facility] Name Value Range Interpretation Description Data Sup porting Code Source(s) Document(s ) Chloride 98-107 <content Saint [Moles/volume] styleCode="Chris Bhats in Serum or d">Chloride Medical Plasma </content>104 [...] 60 GFR)</content> UNK 9-20 <content Saint styleCode="Chris Jeanette d">BUN Medical </content>13 Center MG/DL<content styleCode="Evy lics"> (9-20 MG/DL)</conten t> Glucose 74-106 Above high normal <content Saint [Mass/volume] styleCode="Chris Jeanette in Serum or d">Glucose Medical Plasma </content>112 Center MG/DL H<content styleCode="Evy lics"> (74-106 MG/DL)</conten t> Creatinine 0.5-1.3 <content Saint [Mass/volume] styleCode="Chris Jeanette in Serum or d">Creatinine Medical Plasma </content>0.8 Center MG/DL<content styleCode="Evy lics"> (0.5-1.3 MG/DL)</conten t> ID Date Data Source [id number] 11/24/2019 01:25:00 PM EDT [facility] CUT-OFF >= 25 NG/ML.THE FINDINGS OF THE [...] rce(s) Supporting Document(s ) PCP (UR) NEGATIVE [facility] ID Date Data Source [id number] 11/24/2019 01:25:00 PM EDT [facility] CUT-OFF >= 50 NG/ML. Name Value Range Interpretation Code Description Data Meche rce(s) Supporting Document(s ) THC (UR) POSITIVE [facility] ID Date Data Source [id number] 11/24/2019 01:25:00 PM EDT [facility] CUT-OFF >= 300 NG/ML. Name Value Range Interpretation Description Data Sup porting Code Source(s) Document(s ) OPIATES (UR) NEGATIVE [facility] ID Date Data Source [id number] [facility] NG/ML. Name Value Range Interpretation Description Data Sup porting Code Source(s) Document(s ) COCAINE (UR) POSITIVE [facility] ID Date Data Source [id number] 11/24[facility]2019 [facility] 200 NG/ML. Name Value Range Interpretation Description Data Sup porting Code Source(s) Document(s ) BENZODIAZEPINES POSITIVE [place] (UR) [facility] ID Date Data Source [id number] 11/24/2019 01:25:00 PM EDT [facility] CUT-OFF >= 200 NG/ML. Name Value Range Interpretation Description Data Sup porting Code Source(s) Document(s ) BARBITURATES NEGATIVE [place] (UR) Hospital ID Date Data Source [id number] 11/24/2019 01:25:00 PM [facility] CUT-OFF >= 1000 NG/ML. Name Value Range Interpretation Description Data Sup porting Code Source(s) Document(s ) AMPHETAMINES NEGATIVE [place] (UR) Hospital ID Date Data Source [id number] 11/24/2019 01:16:00 PM [facility] Proc Tech:ROSLYN SNEED Name Value Range Interpretation Description Data Sup porting Code Source(s) Document(s ) Glucose 151 mg/dL [place] [Mass/volume] [facility] in Capillary blood by Glucometer ID Date Data Source [id number] 11/24/2019 10:37:00 AM [facility] REFERENCE RANGES: NONE DETECTED <20 MG/DL NONE TO MILD EUPHORIA 20-49 MG/DL MILD EUPHORIA 50-99 MG/DL MODERATE EUPHORIA 100-149 MG/DL INTOXICATION 150-300 MG/DL Name Value Range Interpretation Description Data Sup porting Code Source(s) Document(s ) Ethanol < 20 [place] [Mass/volume mg/dL Hospital ] in Serum or Plasma ID Date Data Source [id number] 11/24/2019 10:37:00 AM [facility] TEST RESULT IS A TOTAL TRICYCLIC VALUE.T [...] porting Code Source(s) Document(s ) TRICYCLIC 195 [place] ANTIDEPRESSANT ng/mL Hospital ID Date Data Source [id number] 11/24/2019 10:37:00 AM [facility] REFERENCE RANGES: ANALGESIC: 0.0 - 10.0 MG/DL. ARTHRITIC THERAPY: 15.0 - 30.0 MG/DL. Name Value Range Interpretation Description Data Sup porting Code Source(s) Document(s ) Salicylates < 3.0 [place] [Mass/volume] mg/dL Hospital in Serum or Plasma ID Date Data Source [id number] 11/24/2019 10:37:00 AM [facility] THERAPEUTIC RANGE: 10.0-30.0 UG/MLTOXIC RANGE: 4 HRS AFTER INGESTION >150 UG/ML 12 HRS AFTER INGESTION >35 UG/ML Name Value Range Interpretation Description Data Sup porting Code Source(s) Document(s ) ACETAMINOPHEN < 10.0 [place] ug/mL Hospital ID Date Data Source [id number] 11/24/2019 10:37:00 AM EDT [facility] Name Value Range Interpretation Description Data Sup porting Code Source(s) Document(s ) Creatine 520 U/L [facility] [Enzymatic activity/volu me] in Serum or Plasma ID Date Data Source [id number] 11/24/2019 10:37:00 AM EDT [facility] Name Value Range Interpretation Description Data Sup porting Code Source(s) Document(s ) Aspartate 34 U/L [place] aminotransferase [place] [Enzymatic Hospital activity/volume] in Serum or Plasma ID Date Data Source [id number] 11/24/2019 10:37:00 AM [facility] Name Value Range Interpretation Description Data Sup porting Code Source(s) Document(s ) Alanine 44 U/L [place] aminotransferase [place] [Enzymatic Hospital activity/volume] in Serum or Plasma ID Date Data Source [id number] 11/24/2019 [facility]37[facility] Name Value Range Interpretation Description Data Sup porting Code Source(s) Document(s ) Alkaline 57 U/L [facility] [Enzymatic activity/volume ] in Serum or Plasma ID Date Data Source [id number] 11/24/2019 10:37:00 AM [facility] Name Value Range Interpretation Description Data Sup porting Code Source(s) Document(s ) Bilirubin.t 0.4 mg/dL [facility] [Mass/volum e] in Serum or Plasma ID Date Data Source [id number] 11/24/2019 10:37:00 AM [facility] Name Value Range Interpretation Code Description Data Meche rce(s) Supporting Document(s ) Albumin/Glob 2.2 [place] ulin [Mass Hospital Ratio] in Serum or Plasma ID Date Data Source [id number] 11/24/2019 10:37:00 AM EDT [facility] Name Value Range Interpretation Description Data Sup porting Code Source(s) Document(s ) Albumin 4.2 g/dL [place] [Mass/volume Hospital ] in Serum or Plasma ID Date Data Source [id number] 11/24/2019 10:37:00 AM EDT [facility] Name Value Range Interpretation Description Data Sup porting Code Source(s) Document(s ) Protein 6.1 g/dL [place] [Mass/volume Hospital ] in Serum or Plasma ID Date Data Source [id number] 11/24/2019 10:37:00 AM EDT [facility] Name Value Range Interpretation Description Data Sup porting Code Source(s) Document(s ) Calcium 9.3 mg/dL [place] [Mass/volume Hospital ] in Serum or Plasma ID Date Data Source [id number] 11/24/2019 10:37:00 AM EDT [facility] Name Value Range Interpretation Code Description Data Meche rce(s) Supporting Document(s ) Urea 15.0 [place] nitrogen/Cre Hospital atinine [Mass Ratio] in Serum or Plasma ID Date Data Source [id number] 11/24/2019 10:37:00 AM EDT [facility] Name Value Range Interpretation Description Data Sup porting Code Source(s) Document(s ) Creatinine 0.6 mg/dL [place] [Mass/volume] Hospital in Serum or Plasma ID Date Data Source [id number] 11/24/2019 10:37:00 AM EDT [facility] Name Value Range Interpretation Description Data Sup porting Code Source(s) Document(s ) Urea nitrogen 9 mg/dL [place] [Mass/volume] Hospital in Serum or Plasma ID Date Data Source [id number] 11/24/2019 10:37:00 AM EDT [facility] Value Range Interpretation Code Description Data Meche rce(s) Supporting Document(s ) Anion gap in 9 [place] Serum or [facility] Plasma ID Date Data Source [id number] 11/24/2019 10:37:00 AM EDT [facility] Name Value Range Interpretation Description Data Sup porting Code Source(s) Document(s ) Carbon 31 mmol/L [place] dioxide, Hospital total [Moles/volu me] in Serum or Plasma ID Date Data Source [id number] 11/24/2019 10:37:00 AM EDT [facility] Value Range Interpretation Description Data Sup porting Code Source(s) Document(s ) Chloride 105 [place] [Moles/volum mmol/L Hospital e] in Serum or Plasma ID Date Data Source [id number] 11/24/2019 10:37:00 AM EDT [facility] Value Range Interpretation Description Data Sup porting Code Source(s) Document(s ) Potassium 3.9 [place] [Moles/volume mmol/L Hospital ] in Serum or Plasma ID Date Data Source [id number] 11/24/2019 10:37:00 AM EDT [facility] Value Range Interpretation Description Data Sup porting Code Source(s) Document(s ) Sodium 141 mmol/L [place] [Moles/volu Hospital me] in Serum or Plasma ID Date Data Source [id number] 11/24/2019 10:37:00 AM EDT [facility] Name Value Range Interpretation Description Data Sup porting Code Source(s) Document(s ) Glucose 109 mg/dL [place] [Mass/volume Hospital ] in Serum or Plasma ID Date Data Source [id number] 11/24/2019 10:37:00 AM EDT [facility] Name Value Range Interpretation Code Description Data Supporting Source(s) Document(s ) NUCLEATED RBCS 0.0 % [place] (AUTO Hospital DIFF%)DIS ID Date Data Source [id number] 11/24/2019 10:37:00 AM EDT [facility] Value Range Interpretation Description Data Sup porting Code Source(s) Document(s ) Differential AUTOMATED [place] cell count Hospital method - Blood ID Date Data Source [id number] 11/24/2019 10:37:00 AM EDT [facility] Name Value Range Interpretation Description Data Sup porting Code Source(s) Document(s ) Immature 0.02 [place] granulocytes 10*3/uL Hospital [#/volume] in Blood by Automated count ID Date Data Source [id number] 11/24/2019 10:37:00 AM EDT [facility] Name Value Range Interpretation Description Data Sup porting Code Source(s) Document(s ) Basophils 0.05 [place] [#/volume] in 10*3/uL Hospital Blood by Automated count ID Date Data Source [id number] 11/24/2019 10:37:00 AM EDT [facility] Name Value Range Interpretation Description Data Sup porting Code Source(s) Document(s ) Eosinophils 0.45 [place] [#/volume] in 10*3/uL Hospital Blood by Automated count ID Date Data Source [id number] 11/24/2019 10:37:00 AM EDT [facility] Name Value Range Interpretation Description Data Sup porting Code Source(s) Document(s ) Monocytes 1.10 [place] [#/volume] in 10*3/uL Hospital Blood by Automated count ID Date Data Source [id number] 11/24/2019 10:37:00 AM EDT [facility] Name Value Range Interpretation Description Data Sup porting Code Source(s) Document(s ) Lymphocytes 3.10 [place] [#/volume] in 10*3/uL Hospital Blood by Automated count ID Date Data Source [id number] 11/24/2019 10:37:00 AM EDT [facility] Value Range Interpretation Description Data Sup porting Code Source(s) Document(s ) Neutrophils 3.82 [place] [#/volume] in 10*3/uL Hospital Blood by Automated count ID Date Data Source [id number] 11/24/2019 10:37:00 AM EDT [facility] Value Range Interpretation Description Data Sup porting Code Source(s) Document(s ) Nucleated 0.0 % [place] erythrocytes/10 Hospital 0 leukocytes [Ratio] in Blood by Automated count ID Date Data Source [id number] 11/24/2019 10:37:00 AM EDT [facility] Value Range Interpretation Description Data Sup porting Code Source(s) Document(s ) Immature 0.2 % [place] granulocytes/10 Hospital 0 leukocytes in Blood by Automated count ID Date Data Source [id number] 11/24/2019 10:37:00 AM EDT [facility] Value Range Interpretation Description Data Sup porting Code Source(s) Document(s ) Basophils/100 0.6 % [place] leukocytes in Hospital Blood by Automated count ID Date Data Source [id number] 11/24/2019 10:37:00 AM EDT [facility] Value Range Interpretation Description Data Sup porting Code Source(s) Document(s ) Eosinophils/100 5.3 % [place] leukocytes in Hospital Blood by Automated count ID Date Data Source [id number] 11/24/2019 10:37:00 AM EDT [facility] Value Range Interpretation Description Data Sup porting Code Source(s) Document(s ) Monocytes/100 12.9 % [place] leukocytes in Hospital Blood by Automated count ID Date Data Source [id number] 11/24/2019 10:37:00 AM EDT [facility] Value Range Interpretation Description Data Sup porting Code Source(s) Document(s ) Lymphocytes/10 36.3 % [place] 0 leukocytes Hospital in Blood by Automated count ID Date Data Source [id number] 11/24/2019 10:37:00 AM EDT [facility] Value Range Interpretation Description Data Sup porting Code Source(s) Document(s ) Neutrophils/10 44.7 % [place] 0 leukocytes Hospital in Blood by Automated count ID Date Data Source [id number] 11/24/2019 10:37:00 AM EDT [facility] Value Range Interpretation Description Data Sup porting Code Source(s) Document(s ) Platelet mean 11.2 fL [place] volume Hospital [Entitic volume] in Blood by Automated count ID Date Data Source [id number] 11/24/2019 10:37:00 AM EDT [facility] Value Range Interpretation Description Data Sup porting Code Source(s) Document(s ) Platelets 178 [place] [#/volume] in 10*3/uL Hospital Blood by Automated count ID Date Data Source [id number] 11/24/2019 10:37:00 AM EDT [facility] Value Range Interpretation Description Data Sup porting Code Source(s) Document(s ) Erythrocyte 11.8 % [place] distribution Hospital width [Ratio] by Automated count ID Date Data Source [id number] 11/24/2019 10:37:00 AM EDT [facility] Value Range Interpretation Description Data Sup porting Code Source(s) Document(s ) Erythrocyte mean 34.7 [place] corpuscular g/dL Hospital hemoglobin concentration [Mass/volume] by Automated count ID Date Data Source [id number] 11/24/2019 10:37:00 AM EDT [facility] Value Range Interpretation Description Data Sup porting Code Source(s) Document(s ) Erythrocyte 32.4 pg [facility] corpuscular hemoglobin [Entitic mass] by Automated count ID Date Data Source [id number] 11/24/2019 10:37:00 AM EDT [facility] Value Range Interpretation Description Data Sup porting Code Source(s) Document(s ) Erythrocyte 93.2 fL [facility] corpuscular volume [Entitic volume] by Automated count ID Date Data Source [id number] 11/24/2019 10:37:00 AM EDT [facility] Value Range Interpretation Description Data Sup porting Code Source(s) Document(s ) Hematocrit 33.1 % [place] [Volume Hospital Fraction] of Blood by Automated count ID Date Data Source [id number] 11/24/2019 10:37:00 AM EDT [facility] Value Range Interpretation Description Data Sup porting Code Source(s) Document(s ) Hemoglobin 11.5 g/dL [place] [Mass/volume] Hospital in Blood ID Date Data Source [id number] 11/24/2019 10:37:00 AM EDT [facility] Value Range Interpretation Description Data Sup porting Code Source(s) Document(s ) Erythrocytes 3.55 [place] [#/volume] in 10*6/uL Hospital Blood by Automated count ID Date Data Source [id number] 11/24/2019 10:37:00 AM EDT [facility] Value Range Interpretation Description Data Sup porting Code Source(s) Document(s ) Leukocytes 8.5 [place] [#/volume] in 10*3/uL Hospital Blood by Automated count ID Date Data Source [id number] 11/14/2019 12:00:00 AM EDT [facility] Name Value Range Interpretation Code Description Data Meche rce(s) Supporting Document(s ) 2019-nCoV [facility] RNA XXX ELIASBETH+probe- Imp This lab was ordered by [facility] and reported by [employer]. ID Date Data Source Urinalysis.[id number] 01/22/2019 12:28:00 AM EDT [facility] 0 Name Value Range Interpretation Description [...] by Test d">Urine Medical strip Specific [facility] [place] </content><= 1.005 L<content styleCode="Evy lics"> (1.015-1.025 )</content> Hemoglobin NEGATIVE <content [facility] [Presence] in styleCode="Chris Reid Urine by Test d">Urine Blood Medical strip </content>NEGA Center TIVE <content styleCode="Evy lics"> (NEGATIVE )</content> Urobilinogen 0.2-1.0 <content [facility] [Units/volume] styleCode="Chris Reid in Urine by d">Urine Medical [...] Data Source Liver 01/22/2019 12:28:00 AM EDT [facility] Profile.[id number] Name Value Range Interpretation Description Data Sup [...] s"> (3.5-5.0 G/DL)</content> ID Date Data Source HematologyRou.[id number] 01/22/2019 12:28:00 AM EDT [facility] 0400 Name Value Range Interpretation Description [...] ics"> (0 /100)</content> ID Date Data Source GFR(Creatinine).[id number] 01/22/2019 12:28:00 AM EDT [facility] 0-0400 Name Value Range Interpretation Code Description Data Meche rce(s) Supporting Document(s ) UNK > 60 <content [facility] styleCode="Bold"> Medical Cent er EGFR </content>128 GFR<content styleCode="Italic s"> (> 60 GFR)</content> ID Date Data Source Coagulation 01/22/2019 12:28:00 AM [facility] Rout.[id number] EDT Name Value Range Interpretation Description Data Sup porting Code Source(s) Document(s ) INR in <content [facility] Platelet poor styleCode="Bold"> [facility] plasma by INR Medical Coagulation </content>Test Center assay not performed. # (Reference Range: not available)
aPTT in <content [facility] Platelet poor styleCode="Bold"> [place] plasma by Partial Medical Coagulation Thromboplastin Center assay Time </content>Test not performed. SEC (Reference Range: not available)
UNK <content [facility] styleCode="Bold"> [facility] Protime Medical </content>Test Center not performed. SEC (Reference Range: not available)
ID Date Data Source [id number] 01/22/2019 12:28:00 AM EDT [facility] -0400 Name Value Range Interpretation Description Data Sup porting Code Source(s) Document(s ) Protein 6.3-8.2 <content [facility] [Mass/volume] styleCode="Chris Bhats in Serum or d">Total Medical Plasma Protein [...] (2.3-3.5 G/DL)</content > ID Date Data Source [facility].[id number] 01/22/2019 12:28:00 AM EDT [facility] Name Value Range Interpretation Description Data Sup porting Code Source(s) Document(s ) Carbon dioxide, 22-30 <content [facility] total styleCode="Bold"> [facility]ette [Moles/volume] in Carbon Dioxide Medical Serum or Plasma </content>28 Center MEQ/L<content styleCode="Italic s"> (22-30 MEQ/L)</content> Sodium 137-145 <content [facility] [Moles/volume] in styleCode="Bold"> [facility] Serum or Plasma Sodium Medical </content>142 Center MEQ/L<content styleCode="Italic s"> (137-145 MEQ/L)</content> Potassium 3.5-5.3 <content [facility] [Moles/volume] in styleCode="Bold"> [facility] Serum or Plasma Potassium Medical </content>4.3 Center MEQ/L<content styleCode="Italic s"> (3.5-5.3 MEQ/L)</content> Chloride 98-107 <content Saint [Moles/volume] in styleCode="Bold"> [facility] Serum or Plasma Chloride Medical </content>103 Center [...] Unknown if ever Nohemi Reid smoked smoked [facility] Center Smoking Unknown if ever completed Unknown if ever Xenia e [place] smoked smoked [facility] Vital Signs ID Date Data Source UNK Name Value Range Interpretation Description Data Sour ce(s) Code Body surface 1.6 m2 1.6 m2 [facility] area Derived Health Syste m from formula Body mass index 18.4 kg/m2 18.4 kg/[facility] Health Syst em Body weight 56.69 kg 56.69 kg [facility] Body height 175.26 cm 175.26 cm [facility] System Body 98.2 [degF] 0 - 200 Normal (applies to 98.2 [degF] [facility] temperature non-numeric Health Syste m results) Body 36.7 Wendi 0 - 99.9 Normal (applies to 36.7 Wendi [facility] iore temperature non-numeric Health Syste m results) Diastolic blood 66 mm[Hg] 0 - 999 Below low normal 66 mm[Hg] [facility] pressure Health System Systolic blood 114 mm[Hg] 0 - 999 Normal (applies to 114 mm[Hg] [facility] pressure non-numeric Health System results) Oxygen 93 % 0 - 999 Normal (applies to 93 % [facility] iore saturation in non-numeric Health Sys tem Arterial blood results) by Pulse oximetry Respiratory 20 0 - 999 Above high normal 20 [facility] iore rate Health System Heart rate 192 0 - 999 Above upper panic 192 [facility] limits Health System Heart rate 102 0 - 999 Above high normal 102 [facility] Health System Body 37.381112 Wendi 37.372124 Wendi [facility] temperature Medical Cente r Respiratory 20 /min 20 /min [facility] Heart rate 67 /min 67 /min [facility] Diastolic blood 86 mm[Hg] 86 mm[Hg] [facility] pressure Medical Center Systolic blood 105 mm[Hg] 105 mm[Hg] [facility] pressure Medical Center Body 36.273918 Wendi 36.790024 Wendi [facility] temperature Medical Cente r Respiratory 20 /min 20 /min [facility] rate Medical Center Heart rate 53 /min 53 /min [facility] Diastolic blood 59 mm[Hg] 59 mm[Hg] [facility] pressure Medical Center Systolic blood 107 mm[Hg] 107 mm[Hg] [facility] pressure Medical Center Body 36.046316 Wendi 36.605701 Wendi [facility] temperature Medical Cente r Respiratory 20 /min 20 /min [facility] rate Medical Center Heart rate 82 /min 82 /min [facility] Diastolic blood 78 mm[Hg] 78 mm[Hg] [facility] pressure Medical Center Systolic blood 118 mm[Hg] 118 mm[Hg] [facility] pressure Medical Center Heart rate 102 /min 102 /min [facility] Diastolic blood 74 mm[Hg] 74 mm[Hg] [facility] pressure Medical Center Systolic blood 113 mm[Hg] 113 mm[Hg] [facility] pressure Medical Center Body 37.001616 Wendi 37.310182 Wendi [facility] temperature Medical Cente r Respiratory 20 /min 20 /min [facility] rate Medical Center Heart rate 55 /min 55 /min [facility] Diastolic blood 46 mm[Hg] 46 mm[Hg] [facility] pressure Medical Center Systolic blood 87 mm[Hg] 87 mm[Hg] [facility] pressure Medical Center Body 36.792536 Wendi 36.183360 Wendi [facility] temperature Medical Cente r Respiratory 18 /min 18 /min [facility] rate Medical Center Heart rate 57 /min 57 /min [facility] Diastolic blood 64 mm[Hg] 64 mm[Hg] [facility] pressure Medical Center Systolic blood 118 mm[Hg] 118 mm[Hg] [facility] pressure Medical Center Body weight 57.545700 kg 57.448510 kg [facility] Measured Medical Center Body height 182.150487 cm 182.368432 cm [facility] Body mass index 17.04 kg/m2 17.04 kg/m2 [facility] (BMI) [Ratio] Medical [facility] Body weight 57.657339 kg 57.855666 kg [facility] Measured Medical Center Body height 182.551134 cm 182.066360 cm [facility] Body mass index 17.04 kg/m2 17.04 kg/m2 [facility] (BMI) [Ratio] Medical [facility] Body 36.706769 Wendi 36.789883 Wendi [facility] Medical Cente r Respiratory 20 /min 20 /min [facility] Heart rate 68 /min 68 /min [facility] Oxygen 97 % 97 % [facility] saturation in Medical [facility] Arterial blood by Pulse oximetry Body 36.373904 Wendi 36.629242 Wendi [facility] temperature Medical Cente r Respiratory 18 /min 18 /min [facility] rate Medical Center Heart rate 62 /min 62 /min [facility] Diastolic blood 79 mm[Hg] 79 mm[Hg] [facility] pressure Medical Center Systolic blood 128 mm[Hg] 128 mm[Hg] [facility] pressure Medical Center Body weight 58.445466 kg 58.470316 kg [facility] Measured Medical Center Oxygen 96 % 96 % [facility] saturation in Medical [facility] Arterial blood by Pulse oximetry Body height 182.410584 cm 182.791079 cm [facility] Body mass index 17.6 kg/m2 17.6 kg/m2 [facility] (BMI) [Ratio] Medical [address] [facility] Body 36.846598 Wendi 36.734258 Wendi [facility] Medical Cente r Respiratory 18 /min 18 /min [facility] Diastolic blood 86 mm[Hg] 86 mm[Hg] [facility] pressure Medical Media Systolic blood 136 mm[Hg] 136 mm[Hg] [facility] Diastolic blood 75 mmHg 75 mmHg [facility] Systolic blood 107 mmHg 107 mmHg [facility] Respiratory 18 bpm 18 bpm [facility] Heart rate 87 bpm 87 bpm [facility] Diastolic blood 72 mmHg 72 mmHg [facility] Systolic blood 113 mmHg 113 mmHg [facility] Respiratory 18 bpm 18 bpm [facility] Heart rate 86 bpm 86 bpm [facility] Body 98.[address] [facility] Diastolic blood 80 mmHg 80 mmHg [facility] Systolic blood 109 mmHg 109 mmHg [facility] Respiratory 16 bpm 16 bpm [facility] Heart rate 86 bpm 86 bpm [facility] Body 98.[address] [facility] Systolic blood 121 mm[Hg] 121 mm[Hg] [facility] Diastolic blood 77 mm[Hg] 77 mm[Hg] [facility] Heart rate 84 /min 84 /min [facility] Oxygen 99 % 99 % [facility] [place] saturation in Medical [facility] Arterial blood by Pulse oximetry Respiratory 18 /min 18 /min [facility] Body 36.187000 Wendi 36.127012 Wendi [facility] Medical Cente r Systolic blood 111 mm[Hg] 111 mm[Hg] [facility] Diastolic blood 48 mm[Hg] 48 mm[Hg] [facility] pressure Medical Center Heart rate 95 /min 95 /min [facility] Oxygen 97 % 97 % [facility] saturation in Medical [address] Arterial blood by Pulse oximetry Respiratory 19 /min 19 /min [facility] Body 36.944766 Wendi 36.811793 Wendi [facility] Medical Cente r Body 36.673262 Wendi 36.463173 Wendi [facility] temperature Medical Cente r Respiratory 18 /min 18 /min [facility] Center Oxygen 98 % 98 % [facility] saturation in Medical [address] Arterial blood by Pulse oximetry Heart rate 82 /min 82 /min [facility] Diastolic blood 82 mm[Hg] 82 mm[Hg] [facility] pressure Medical Center Systolic blood 136 mm[Hg] 136 mm[Hg] [facility] pressure Medical Center Body 37.474115 Wendi 37.362912 Wendi [facility] temperature Medical Cente r Respiratory 18 /min 18 /min [facility] Oxygen 97 % 97 % [facility] saturation in Medical [address] [facility] Arterial blood by Pulse oximetry Heart rate 88 /min 88 /min [facility] Diastolic blood 76 mm[Hg] 76 mm[Hg] [facility] pressure Medical Center Systolic blood 142 mm[Hg] 142 mm[Hg] [facility] Body 35.013566 Wendi 35.460101 Wendi [facility] temperature Medical Cente r Respiratory 18 /min 18 /min [facility] Oxygen 99 % 99 % [facility] saturation in Medical [address] Arterial blood by Pulse oximetry Heart rate 100 /min 100 /min [facility] Diastolic blood 76 mm[Hg] 76 mm[Hg] [facility] pressure Medical Center Systolic blood 138 mm[Hg] 138 mm[Hg] [facility] pressure Medical Center Body 37.680462 Wendi 37.111738 Wendi [facility] temperature Medical Cente r Respiratory 17 /min 17 /min [facility] Oxygen 97 % 97 % [facility] saturation in Medical [address] Arterial blood by Pulse oximetry Heart rate 92 /min 92 /min [facility] Diastolic blood 88 mm[Hg] 88 mm[Hg] [facility] pressure Medical Center Systolic blood 146 mm[Hg] 146 mm[Hg] [facility] pressure Medical Center Body weight 79.520711 kg 79.859814 kg [facility] Measured Medical Center Body 36.160824 Wendi 36.252754 Wendi [facility] temperature Medical Cente r Respiratory 16 /min 16 /min [facility] Oxygen 95 % 95 % [facility] saturation in Medical [address] [facility] Arterial blood by Pulse oximetry Heart rate 107 /min 107 /min [facility] Body height 193.579790 cm 193.234164 cm [facility] Center Diastolic blood 100 mm[Hg] 100 mm[Hg] [facility] pressure Medical Center Systolic blood 155 mm[Hg] 155 mm[Hg] [facility] pressure Medical Center Body mass index 21.3 kg/m2 21.3 kg/m2 [facility] (BMI) [Ratio] Medical [facility] [facility] Diastolic blood 83 mmHg 83 mmHg [facility] Systolic blood 131 mmHg 131 mmHg [facility] Respiratory 18 bpm 18 bpm [facility] Heart rate 112 bpm 112 bpm [facility] Diastolic blood 76 mmHg 76 mmHg [facility] Systolic blood 126 mmHg 126 mmHg [facility] Respiratory 18 bpm 18 bpm [facility] Heart rate 100 bpm 100 bpm [facility] Body 98.5 98.5 [facility] Di[facility] blood 62 mmHg 62 mmHg [facility] Systolic blood 118 mmHg 118 mmHg [facility] Respiratory 18 bpm 18 bpm [facility] Heart rate 111 bpm 111 bpm [facility] Diastolic blood 76 mmHg 76 mmHg [facility] Systolic blood 132 mmHg 132 mmHg [facility] Respiratory 18 bpm 18 bpm [facility] Heart rate 105 bpm 105 bpm [facility] Body 98.3 98.3 [facility] Di[facility] blood 71 mmHg 71 mmHg [facility] Systolic blood 119 mmHg 119 mmHg [facility] Respiratory 18 bpm 18 bpm [facility] Heart rate 120 bpm 120 bpm [facility] Diastolic blood 77 mmHg 77 mmHg [facility] Systolic blood 139 mmHg 139 mmHg [facility] Respiratory 18 bpm 18 bpm [facility] Heart rate 110 bpm 110 bpm [facility] Body 98.3 98.3 [facility] Diastolic blood 74 mmHg 74 mmHg [facility] Systolic blood 118 mmHg 118 mmHg [facility] Respiratory 18 bpm 18 bpm [facility] Heart rate 118 bpm 118 bpm [facility] Diastolic blood 83 mmHg 83 mmHg [facility] Systolic blood 122 mmHg 122 mmHg [facility] Respiratory 18 bpm 18 bpm [facility] Heart rate 111 bpm 111 bpm [facility] Diastolic blood 57 mmHg 57 mmHg [facility] Systolic blood 128 mmHg 128 mmHg [facility] Respiratory 18 bpm 18 bpm [facility] Heart rate 90 bpm 90 bpm [facility] Diastolic blood 78 mmHg 78 mmHg [facility] Systolic blood 137 mmHg 137 mmHg [facility] Respiratory 18 bpm 18 bpm [facility] Heart rate 85 bpm 85 bpm [facility] Body 98.[address] [facility] Diastolic blood 70 mmHg 70 mmHg [facility] Systolic blood 115 mmHg 115 mmHg [facility] Heart rate 89 bpm 89 bpm [facility] Body weight 144 lbs 144 lbs [facility] Diastolic blood 89 mmHg 89 mmHg [facility] Systolic blood 141 mmHg 141 mmHg [facility] Respiratory 18 bpm 18 bpm [facility] Heart rate 110 bpm 110 bpm [facility] Body 98.[address] [facility] Body weight 144 lbs 144 lbs [facility] Diastolic blood 87 mmHg 87 mmHg [facility] Systolic blood 145 mmHg 145 mmHg [facility] Respiratory 18 bpm 18 bpm [facility] Heart rate 98 bpm 98 bpm [facility] Body 98.[address] [facility] Diastolic blood 68 mm[Hg] 68 mm[Hg] [facility] Systolic blood 118 mm[Hg] 118 mm[Hg] [facility] Respiratory 20 /min 20 /min [facility] Heart rate 90 /min 90 /min [facility] Body 36.05316 Wendi 36.63279 Wendi [facility] Body 97.3 [degF] 97.3 [degF] [facility] Body mass index 22.0 kg/m2 22.0 kg/m2 [facility] (BMI) [Ratio] Hospital Body weight 165.35 [lb_av] 165.35 [lb_av] [facility] Diastolic blood 73 mmHg 73 mmHg [facility] Systolic blood 113 mmHg 113 mmHg [facility] Respiratory 18 bpm 18 bpm [facility] Heart rate 109 bpm 109 bpm [facility] Diastolic blood 70 mmHg 70 mmHg [facility] Systolic blood 122 mmHg 122 mmHg [facility] Respiratory 18 bpm 18 bpm [facility] Heart rate 91 bpm 91 bpm [facility] Body 96.4 96.4 [facility] Diastolic blood 83 mmHg 83 mmHg [facility] Systolic blood 127 mmHg 127 mmHg [facility] Respiratory 18 bpm 18 bpm [facility] Heart rate 98 bpm 98 bpm [facility] Diastolic blood 78 mmHg 78 mmHg [facility] Systolic blood 120 mmHg 120 mmHg [facility] Respiratory 18 bpm 18 bpm [facility] Heart rate 98 bpm 98 bpm [facility] Body 98.6 98.6 [facility] Respiratory 18 bpm 18 bpm [facility] Body 96.3 96.3 [facility] Diastolic blood 81 mmHg 81 mmHg [facility] Systolic blood 125 mmHg 125 mmHg [facility] Heart rate 82 bpm 82 bpm [facility] Diastolic blood 71 mmHg 71 mmHg [facility] Systolic blood 118 mmHg 118 mmHg [facility] Heart rate 84 bpm 84 bpm [facility] Diastolic blood 67 mmHg 67 mmHg [facility] Systolic blood 111 mmHg 111 mmHg [facility] Respiratory 19 bpm 19 bpm [facility] Heart rate 86 bpm 86 bpm [facility] Body 97.2 97.2 [facility] Diastolic blood 64 mmHg 64 mmHg [facility] Systolic blood 113 mmHg 113 mmHg [facility] Respiratory 93 bpm 93 bpm [facility] Heart rate 18 bpm 18 bpm [facility] Body 98.0 98.0 [facility] Diastolic blood 64 mmHg 64 mmHg [facility] Systolic blood 115 mmHg 115 mmHg [facility] Respiratory 90 bpm 90 bpm [facility] Heart rate 18 bpm 18 bpm [facility] Body 98.0 98.0 [facility] Diastolic blood 74 mmHg 74 mmHg [facility] Systolic blood 118 mmHg 118 mmHg [facility] Respiratory 18 bpm 18 bpm [facility] Heart rate 78 bpm 78 bpm [facility] Diastolic blood 74 mmHg 74 mmHg [facility] Systolic blood 112 mmHg 112 mmHg [facility] Respiratory 18 bpm 18 bpm [facility] Heart rate 65 bpm 65 bpm [facility] Body 96.3 96.3 [facility] Diastolic blood 63 mmHg 63 mmHg [facility] Systolic blood 104 mmHg 104 mmHg [facility] Heart rate 103 bpm 103 bpm [facility] Diastolic blood 54 mmHg 54 mmHg [facility] Systolic blood 95 mmHg 95 mmHg [facility] Respiratory 18 bpm 18 bpm [facility] Heart rate 86 bpm 86 bpm [facility] Body 98.0 98.0 [facility] Diastolic blood 76 mmHg 76 mmHg [facility] Systolic blood 110 mmHg 110 mmHg [facility] Heart rate 102 bpm 102 bpm [facility] Diastolic blood 71 mmHg 71 mmHg [facility] Systolic blood 120 mmHg 120 mmHg [facility] Respiratory 19 bpm 19 bpm [facility] Heart rate 94 bpm 94 bpm [facility] Body 97.6 97.6 [facility] Respiratory 18 bpm 18 bpm [facility] Body 97.5 97.5 [facility] Diastolic blood 71 mmHg 71 mmHg [facility] Systolic blood 121 mmHg 121 mmHg [facility] Heart rate 89 bpm 89 bpm [facility] Systolic blood 131 mmHg 131 mmHg [facility] Heart rate 107 bpm 107 bpm [facility] Respiratory 20 bpm 20 bpm [facility] Body 97.9 97.9 [facility] Diastolic blood 78 mmHg 78 mmHg [facility] Body weight 133 lbs 133 lbs [facility] Respiratory 20 bpm 20 bpm [facility] Body 97.1 97.1 [facility] Diastolic blood 68 mmHg 68 mmHg [facility] Systolic blood 122 mmHg 122 mmHg [facility] Heart rate 87 bpm 87 bpm [facility] Diastolic blood 67 mmHg 67 mmHg [facility] Systolic blood 102 mmHg 102 mmHg [facility] Respiratory 18 bpm 18 bpm [facility] Heart rate 94 bpm 94 bpm [facility] Body 98.[address] [facility] Diastolic blood 73 mmHg 73 mmHg [facility] Systolic blood 122 mmHg 122 mmHg [facility] Respiratory 18 bpm 18 bpm [facility] Heart rate 80 bpm 80 bpm [facility] Body 97.[address] [facility] Diastolic blood 74 mmHg 74 mmHg [facility] Systolic blood 114 mmHg 114 mmHg [facility] Respiratory 18 bpm 18 bpm [facility] Heart rate 77 bpm 77 bpm [facility] Body 97.[address] [facility] Body 36.207660 Wendi 36.627883 Wendi [facility] Res[facility] 18 /min 18 /min [facility] Oxygen 97 % 97 % [facility] saturation in Medical [place] [address] Arterial blood by Pulse oximetry Heart rate 78 /min 78 /min [facility] Diastolic blood 78 mm[Hg] 78 mm[Hg] [facility] pressure Medical Center Systolic blood 116 mm[Hg] 116 mm[Hg] [facility] pressure Medical Center Body 36.560277 Wendi 36.384191 Wendi [facility] Respiratory 18 /min 18 /min [facility] Oxygen 99 % 99 % [facility] saturation in Medical [address] [address] Arterial blood by Pulse oximetry Heart rate 82 /min 82 /min [facility] Diastolic blood 74 mm[Hg] 74 mm[Hg] [facility] pressure Medical Center Systolic blood 119 mm[Hg] 119 mm[Hg] [facility] pressure [facility] Center Diastolic blood 83 mmHg 83 mmHg [facility] Systolic blood 139 mmHg 139 mmHg [facility] Respiratory 18 bpm 18 bpm [facility] Heart rate 114 bpm 114 bpm [facility] Diastolic blood 80 mmHg 80 mmHg [facility] Systolic blood 144 mmHg 144 mmHg [facility] Respiratory 18 bpm 18 bpm [facility] Heart rate 101 bpm 101 bpm [facility] Body 97.[address] [facility] Body weight 150 lbs 150 lbs [facility] Diastolic blood 86 mmHg 86 mmHg [facility] Systolic blood 130 mmHg 130 mmHg [facility] Respiratory 20 bpm 20 bpm [facility] Heart rate 119 bpm 119 bpm [facility] Diastolic blood 87 mmHg 87 mmHg [facility] Systolic blood 141 mmHg 141 mmHg [facility] Respiratory 20 bpm 20 bpm [facility] Heart rate 110 bpm 110 bpm [facility] Body 97.[address] [facility] Diastolic blood 78 mmHg 78 mmHg [facility] Systolic blood 124 mmHg 124 mmHg [facility] Respiratory 18 bpm 18 bpm [facility] Heart rate 124 bpm 124 bpm [facility] Body 98.[address] [facility] Body 36.582655 Wendi 36.382213 Wendi [facility] temperature Medical Cente r Respiratory 17 /min 17 /min [facility] Oxygen 98 % 98 % [facility] saturation in Medical [place] [address] Arterial blood by Pulse oximetry Heart rate 98 /min 98 /min [facility] Diastolic blood 87 mm[Hg] 87 mm[Hg] [facility] pressure Medical Center Systolic blood 146 mm[Hg] 146 mm[Hg] [facility] pressure Medical Center Body weight 85.792331 kg 85.948041 kg [facility] Measured [facility] Body 36.878579 Wendi 36.058527 Wendi [facility] temperature Medical Cente r Respiratory 18 /min 18 /min [facility] Oxygen 98 % 98 % [facility] saturation in Medical [place] [address] Arterial blood by Pulse oximetry Heart rate 81 /min 81 /min [facility] Diastolic blood 78 mm[Hg] 78 mm[Hg] [facility] pressure [facility] Center Systolic blood 141 mm[Hg] 141 mm[Hg] [facility] pressure Medical Center Diastolic blood 66 mmHg 66 mmHg [facility] Systolic blood 127 mmHg 127 mmHg [facility] Respiratory 18 bpm 18 bpm [facility] Heart rate 109 bpm 109 bpm [facility] Diastolic blood 67 mmHg 67 mmHg [facility] Systolic blood 114 mmHg 114 mmHg [facility] Respiratory 18 bpm 18 bpm [facility] Heart rate 94 bpm 94 bpm [facility] Body 97.4 97.4 [facility] Diastolic blood 58 mmHg 58 mmHg [facility] Systolic blood 124 mmHg 124 mmHg [facility] Respiratory 18 bpm 18 bpm [facility] Heart rate 110 bpm 110 bpm [facility] Body weight 132 lbs 132 lbs [facility] Diastolic blood 68 mmHg 68 mmHg [facility] Systolic blood 102 mmHg 102 mmHg [facility] Respiratory 18 bpm 18 bpm [facility] Heart rate 88 bpm 88 bpm [facility] Body 98.2 98.2 [facility] Diastolic blood 69 mmHg 69 mmHg [facility] Systolic blood 108 mmHg 108 mmHg [facility] Respiratory 18 bpm 18 bpm [facility] Heart rate 70 bpm 70 bpm [facility] Body 98.2 98.2 [facility] Diastolic blood 83 mmHg 83 mmHg [facility] Systolic blood 136 mmHg 136 mmHg [facility] Respiratory 18 bpm 18 bpm [facility] Heart rate 101 bpm 101 bpm [facility] Diastolic blood 77 mmHg 77 mmHg [facility] Systolic blood 134 mmHg 134 mmHg [facility] Respiratory 18 bpm 18 bpm [facility] Heart rate 111 bpm 111 bpm [facility] Respiratory 18 bpm 18 bpm [facility] Body 97.4 97.4 [facility] Diastolic blood 67 mmHg 67 mmHg [facility] Systolic blood 98 mmHg 98 mmHg [facility] Heart rate 91 bpm 91 bpm [facility] Diastolic blood 75 mmHg 75 mmHg [facility] Systolic blood 119 mmHg 119 mmHg [facility] Respiratory 18 bpm 18 bpm [facility] Heart rate 107 bpm 107 bpm [facility] Body 99.4 99.4 [facility] Diastolic blood 76 mmHg 76 mmHg [facility] Systolic blood 118 mmHg 118 mmHg [facility] Heart rate 104 bpm 104 bpm [facility] Diastolic blood 72 mmHg 72 mmHg [facility] Systolic blood 115 mmHg 115 mmHg [facility] Respiratory 18 bpm 18 bpm [facility] Heart rate 91 bpm 91 bpm [facility] Body 97.7 97.7 [facility] Body weight 128 lbs 128 lbs [facility] Diastolic blood 73 mmHg 73 mmHg [facility] Systolic blood 125 mmHg 125 mmHg [facility] Heart rate 96 bpm 96 bpm [facility] Diastolic blood 82 mmHg 82 mmHg [facility] Systolic blood 125 mmHg 125 mmHg [facility] Respiratory 20 bpm 20 bpm [facility] Heart rate 96 bpm 96 bpm [facility] Body 98.7 98.7 [facility] Body 98.7 98.7 [facility] Diastolic blood 73 mmHg 73 mmHg [facility] Systolic blood 125 mmHg 125 mmHg [facility] Respiratory 20 bpm 20 bpm [facility] Heart rate 96 bpm 96 bpm [facility] Respiratory 18 bpm 18 bpm [facility] Body 99.0 99.0 [facility] Diastolic blood 65 mmHg 65 mmHg [facility] Systolic blood 103 mmHg 103 mmHg [facility] Heart rate 84 bpm 84 bpm [facility] Respiratory 18 bpm 18 bpm [facility] Body 97.6 97.6 [facility] Di[facility] 67 mmHg 67 mmHg [facility] Systolic blood 108 mmHg 108 mmHg [facility] Heart rate 88 bpm 88 bpm [facility] Diastolic blood 71 mmHg 71 mmHg [facility] Systolic blood 110 mmHg 110 mmHg [facility] Heart rate 80 bpm 80 bpm [facility] Diastolic blood 70 mmHg 70 mmHg [facility] Systolic blood 107 mmHg 107 mmHg [facility] Respiratory 18 bpm 18 bpm [facility] Heart rate 72 bpm 72 bpm [facility] Body 97.3 97.3 [facility] Diastolic blood 60 mmHg 60 mmHg [facility] Systolic blood 112 mmHg 112 mmHg [facility] Respiratory 20 bpm 20 bpm [facility] Heart rate 94 bpm 94 bpm [facility] Body 98.6 98.6 [facility] Diastolic blood 62 mmHg 62 mmHg [facility] Systolic blood 109 mmHg 109 mmHg [facility] Respiratory 20 bpm 20 bpm [facility] Heart rate 86 bpm 86 bpm [facility] Body 98.6 98.6 [facility] Diastolic blood 84 mmHg 84 mmHg [facility] Systolic blood 118 mmHg 118 mmHg [facility] Heart rate 66 bpm 66 bpm [facility] Diastolic blood 72 mmHg 72 mmHg [facility] Systolic blood 110 mmHg 110 mmHg [facility] Respiratory 18 bpm 18 bpm [facility] Heart rate 68 bpm 68 bpm [facility] Body 97.6 97.6 [facility] Diastolic blood 63 mmHg 63 mmHg [facility] Systolic blood 105 mmHg 105 mmHg [facility] Respiratory 16 bpm 16 bpm [facility] Heart rate 77 bpm 77 bpm [facility] Body 98.1 98.1 [facility] Diastolic blood 80 mmHg 80 mmHg [facility] Systolic blood 127 mmHg 127 mmHg [facility] Respiratory 16 bpm 16 bpm [facility] Heart rate 82 bpm 82 bpm [facility] Diastolic blood 78 mmHg 78 mmHg [facility] Systolic blood 123 mmHg 123 mmHg [facility] Respiratory 16 bpm 16 bpm [facility] Heart rate 82 bpm 82 bpm [facility] Body 36.7 36.7 [facility] Body 97.5 97.5 [facility] Diastolic blood 73 mmHg 73 mmHg [facility] Systolic blood 117 mmHg 117 mmHg [facility] Respiratory 18 bpm 18 bpm [facility] Heart rate 93 bpm 93 bpm [facility] Diastolic blood 72 mmHg 72 mmHg [facility] Systolic blood 99 mmHg 99 mmHg [facility] Respiratory 18 bpm 18 bpm [facility] Heart rate 83 bpm 83 bpm [facility] Body weight 127 lbs 127 lbs [facility] Diastolic blood 54 mmHg 54 mmHg [facility] Systolic blood 111 mmHg 111 mmHg [facility] Respiratory 18 bpm 18 bpm [facility] Heart rate 80 bpm 80 bpm [facility] Body 97.8 97.8 [facility] Body 36.221166 Wendi 36.940670 Wendi [facility] temperature Medical Cente r Respiratory 18 /min 18 /min [facility] Heart rate 72 /min 72 /min [facility] Diastolic blood 50 mm[Hg] 50 mm[Hg] [facility] pressure Medical Center Systolic blood 118 mm[Hg] 118 mm[Hg] [facility] pressure Medical Center Body 36.863616 Wendi 36.695945 Wendi [facility] Respiratory 18 /min 18 /min [facility] Heart rate 84 /min 84 /min [facility] Diastolic blood 47 mm[Hg] 47 mm[Hg] [facility] pressure [facility] Media Systolic blood 123 mm[Hg] 123 mm[Hg] [facility] Body 36.959586 Wendi 36.044141 Wendi [facility] Respiratory 20 /min 20 /min [facility] Heart rate 65 /min 65 /min [facility] Diastolic blood 51 mm[Hg] 51 mm[Hg] [facility] Systolic blood 97 mm[Hg] 97 mm[Hg] [facility] Body 36.786998 Wendi 36.405703 Wendi [facility] Respiratory 16 /min 16 /min [facility] Oxygen 98 % 98 % [facility] saturation in Medical [place] [facility] Arterial blood by Pulse oximetry Heart rate 85 /min 85 /min [facility] Diastolic blood 55 mm[Hg] 55 mm[Hg] [facility] pressure Medical Media Systolic blood 100 mm[Hg] 100 mm[Hg] [facility] pressure Medical Media Body 36.826187 Wendi 36.558875 Wendi [facility] temperature Medical Cente r Respiratory 18 /min 18 /min [facility] Heart rate 47 /min 47 /min [facility] Diastolic blood 45 mm[Hg] 45 mm[Hg] [facility] Systolic blood 98 mm[Hg] 98 mm[Hg] [facility] Body weight 51.950415 kg 51.095027 kg [facility] Measured [facility] Center Body height 182.075204 cm 182.847860 cm [facility] Body mass index 15.33 kg/m2 15.33 kg/m2 [facility] (BMI) [Ratio] Medical [facility] Body 36.446505 Wendi 36.709574 Wendi [facility] Cente r Respiratory 18 /min 18 /min [facility] Heart rate 88 /min 88 /min [facility] Diastolic blood 50 mm[Hg] 50 mm[Hg] [facility] Systolic blood 110 mm[Hg] 110 mm[Hg] [facility] Heart rate 73 /min 73 /min [facility] Diastolic blood 59 mm[Hg] 59 mm[Hg] [facility] Systolic blood 118 mm[Hg] 118 mm[Hg] [facility] Center Body 37.828463 Wendi 37.096533 Wendi [facility] Cente r Respiratory 16 /min 16 /min [facility] Body weight 51.718783 kg 51.499964 kg [facility] Measured [facility] Center Body height 182.418285 cm 182.189242 cm [facility] Body mass index 15.33 kg/m2 15.33 kg/m2 [facility] (BMI) [Ratio] Medical [facility] Body weight 51.143435 kg 51.395494 kg [facility] Measured [facility] Center Body height 182.662480 cm 182.665220 cm [facility] Body mass index 15.33 kg/m2 15.33 kg/m2 [facility] (BMI) [Ratio] Medical [facility] Body 37.306140 Wendi 37.374160 Wendi [facility] Cente r Respiratory 18 /min 18 /min [facility] Heart rate 77 /min 77 /min [facility] Diastolic blood 55 mm[Hg] 55 mm[Hg] [facility] Systolic blood 106 mm[Hg] 106 mm[Hg] [facility] Center Body weight 54.439193 kg 54.382963 kg [facility] Oxygen 95 % 95 % [facility] saturation in Medical [address] Arterial blood by Pulse oximetry Body 36.224961 Wendi 36.909287 Wendi [facility] temperature Medical Cente r Respiratory 17 /min 17 /min [facility] rate Medical Center Heart rate 77 /min 77 /min [facility] Diastolic blood 62 mm[Hg] 62 mm[Hg] [facility] pressure [facility] Center Systolic blood 117 mm[Hg] 117 mm[Hg] [facility] pressure Medical Center Body 36.771811 Wendi 36.496812 Wendi [facility] temperature Medical Cente r Respiratory 20 /min 20 /min [facility] Oxygen 98 % 98 % [facility] saturation in Medical [place] [facility] Arterial blood by Pulse oximetry Heart rate 67 /min 67 /min [facility] Diastolic blood 62 mm[Hg] 62 mm[Hg] [facility] pressure [facility] Center Systolic blood 109 mm[Hg] 109 mm[Hg] [facility] pressure Medical Center Body 36.306867 Wendi 36.936610 Wendi [facility] temperature Medical Cente r Respiratory 19 /min 19 /min [facility] Oxygen 98 % 98 % [facility] saturation in Medical [place] [facility] Arterial blood by Pulse oximetry Heart rate 69 /min 69 /min [facility] Diastolic blood 94 mm[Hg] 94 mm[Hg] [facility] pressure [facility] Center Systolic blood 113 mm[Hg] 113 mm[Hg] [facility] pressure Medical Center Body 36.707991 Wendi 36.712068 Wendi [facility] temperature Medical Cente r Respiratory 16 /min 16 /min [facility] Oxygen 98 % 98 % [facility] saturation in Medical [place] [facility] Arterial blood by Pulse oximetry Heart rate 81 /min 81 /min [facility] Diastolic blood 50 mm[Hg] 50 mm[Hg] [facility] pressure [facility] Center Systolic blood 100 mm[Hg] 100 mm[Hg] [facility] pressure Medical Center Diastolic blood 68 mmHg 68 mmHg [facility] Systolic blood 119 mmHg 119 mmHg [facility] Heart rate 97 bpm 97 bpm [facility] Diastolic blood 75 mmHg 75 mmHg [facility] Systolic blood 119 mmHg 119 mmHg [facility] Respiratory 18 bpm 18 bpm [facility] Heart rate 88 bpm 88 bpm [facility] Body 97 [facility] 97 [facility] Diastolic blood 67 mmHg 67 mmHg [facility] Systolic blood 120 mmHg 120 mmHg [facility] Respiratory 18 bpm 18 bpm [facility] Heart rate 108 bpm 108 bpm [facility] Body 96.0 96.0 [facility] Diastolic blood 70 mmHg 70 mmHg [facility] Systolic blood 117 mmHg 117 mmHg [facility] Heart rate 108 bpm 108 bpm [facility] Diastolic blood 67 mmHg 67 mmHg [facility] Systolic blood 121 mmHg 121 mmHg [facility] Respiratory 18 bpm 18 bpm [facility] Heart rate 91 bpm 91 bpm [facility] Body 96.2 96.2 [facility] Diastolic blood 75 mmHg 75 mmHg [facility] Systolic blood 124 mmHg 124 mmHg [facility] Respiratory 18 bpm 18 bpm [facility] Heart rate 95 bpm 95 bpm [facility] Diastolic blood 80 mmHg 80 mmHg [facility] Systolic blood 131 mmHg 131 mmHg [facility] Respiratory 18 bpm 18 bpm [facility] Heart rate 94 bpm 94 bpm [facility] Body 98.7 98.7 [facility] Diastolic blood 68 mmHg 68 mmHg [facility] Systolic blood 125 mmHg 125 mmHg [facility] Respiratory 18 bpm 18 bpm [facility] Heart rate 971 bpm 971 bpm [facility] Diastolic blood 74 mmHg 74 mmHg [facility] Systolic blood 132 mmHg 132 mmHg [facility] Respiratory 18 bpm 18 bpm [facility] Heart rate 83 bpm 83 bpm [facility] Body 97.4 97.4 [facility] Diastolic blood 89 mmHg 89 mmHg [facility] Systolic blood 115 mmHg 115 mmHg [facility] Heart rate 76 bpm 76 bpm [facility] Diastolic blood 74 mmHg 74 mmHg [facility] Systolic blood 120 mmHg 120 mmHg [facility] Respiratory 19 bpm 19 bpm [facility] Heart rate 86 bpm 86 bpm [facility] Body 97.1 97.1 [facility] Diastolic blood 68 mmHg 68 mmHg [facility] Systolic blood 129 mmHg 129 mmHg [facility] Respiratory 18 bpm 18 bpm [facility] Heart rate 112 bpm 112 bpm [facility] Diastolic blood 64 mmHg 64 mmHg [facility] Systolic blood 116 mmHg 116 mmHg [facility] Respiratory 18 bpm 18 bpm [facility] Heart rate 108 bpm 108 bpm [facility] Body 96.1 96.1 [facility] Diastolic blood 74 mmHg 74 mmHg [facility] Systolic blood 125 mmHg 125 mmHg [facility] Respiratory 18 bpm 18 bpm [facility] Heart rate 88 bpm 88 bpm [facility] Body weight 127 lbs 127 lbs [facility] Diastolic blood 69 mmHg 69 mmHg [facility] Systolic blood 117 mmHg 117 mmHg [facility] Respiratory 18 bpm 18 bpm [facility] Heart rate 77 bpm 77 bpm [facility] Body 95.7 95.7 [facility] Diastolic blood 68 mmHg 68 mmHg [facility] Systolic blood 117 mmHg 117 mmHg [facility] Respiratory 18 bpm 18 bpm [facility] Heart rate 74 bpm 74 bpm [facility] Respiratory 18 bpm 18 bpm [facility] Heart rate 66 bpm 66 bpm [facility] Body 98.1 98.1 [facility] Diastolic blood 81 mmHg 81 mmHg [facility] Systolic blood 102 mmHg 102 mmHg [facility] Diastolic blood 69 mmHg 69 mmHg [facility] Systolic blood 134 mmHg 134 mmHg [facility] Respiratory 18 bpm 18 bpm [facility] Heart rate 64 bpm 64 bpm [facility] Diastolic blood 63 mmHg 63 mmHg [facility] Systolic blood 110 mmHg 110 mmHg [facility] Respiratory 18 bpm 18 bpm [facility] Heart rate 67 bpm 67 bpm [facility] Body 95.9 95.9 [facility] Diastolic blood 69 mmHg 69 mmHg [facility] Systolic blood 104 mmHg 104 mmHg [facility] Respiratory 18 bpm 18 bpm [facility] [facility] Heart rate 82 bpm 82 bpm [facility] Diastolic blood 62 mmHg 62 mmHg [facility] Systolic blood 96 mmHg 96 mmHg [facility] Respiratory 18 bpm 18 bpm [facility] Heart rate 76 bpm 76 bpm [facility] Body 97.9 97.9 [facility] Diastolic blood 62 mmHg 62 mmHg [facility] Systolic blood 133 mmHg 133 mmHg [facility] Respiratory 18 bpm 18 bpm [facility] Heart rate 98 bpm 98 bpm [facility] Body 98.2 98.2 [facility] Diastolic blood 70 mmHg 70 mmHg [facility] Systolic blood 122 mmHg 122 mmHg [facility] Respiratory 18 bpm 18 bpm [facility] Heart rate 101 bpm 101 bpm [facility] Body 97.8 97.8 [facility] Diastolic blood 65 mmHg 65 mmHg [facility] Systolic blood 112 mmHg 112 mmHg [facility] Heart rate 89 bpm 89 bpm [facility] Diastolic blood 62 mmHg 62 mmHg [facility] Systolic blood 115 mmHg 115 mmHg [facility] Respiratory 16 bpm 16 bpm [facility] Heart rate 70 bpm 70 bpm [facility] Body 98.[address] [facility] ID Date Data Source [id number] 02/28/2020 10:23:15 PM EDT [facility] Name Value Range Interpretation Code Description Data Source(s) Body weight Measured 144 lb 144 lb [facility] ID Date Data Source [id number] 02/24/2020 01:41:59 PM EDT [facility] Name Value Range Interpretation Code Description Data Source(s) Body weight Measured 144 lb 144 lb [facility] ID Date Data Source [id number] 02/25/2020 12:12:49 PM EDT [facility] Name Value Range Interpretation Code Description Data Source(s) Body weight Measured 144 lb 144 lb [facility] ID Date Data Source [id number] 11/30/2019 10:37:35 PM [facility] Name Value Range Interpretation Code Description Data Source(s) Body weight Measured 144 lb 144 lb [facility] Body weight Measured 133 lb 133 lb [facility] ID Date Data Source [id number] 11/24/2019 11:44:52 PM [facility] Name Value Range Interpretation Code Description Data Source(s) Body weight Measured 133 lb 133 lb [facility] ID Date Data Source [id number] 11/20/2019 10:41:33 PM [facility] Name Value Range Interpretation Code Description Data Source(s) Body weight Measured 133 lb 133 lb [facility] ID Date Data Source [id number] 11/13/2019 01:17:01 PM [facility] Name Value Range Interpretation Code Description Data Source(s) Body weight Measured 133 lb 133 lb [facility] ID Date Data Source [id number] 08/22/2019 11:14:15 PM [facility] Name Value Range Interpretation Code Description Data Source(s) Body weight Measured 133 lb 133 lb [facility] Body weight Measured 150 lb 150 lb [facility] ID Date Data Source [id number] 08/15/2019 09:05:11 PM [facility] Value Range Interpretation Code Description Data Source(s) Body weight Measured 150 lb 150 lb [facility] Patient Treatment Plan of Care Planned Activity Planned Date Details Description Data Source (s) 0.9% NaCl IV 02/06/2020 01:30:18 [facility] Tylenol Infusion (AD 02/06/2020 01:04:23 [facility] Tylenol Infusion (AD 01/16/2020 11:39:37 [facility]
[2020-04-07] MEDS ORDERED: METHADONE HCL 10 MG TABLET (FOR DETOX USE ONLY) PO ONE (23:45)
[2020-04-07] MEDS ORDERED: diphenhydrAMINE HCL 25 MG CAPSULE (FP) PO ONE (23:45)
[2020-04-08] MEDS: chlordiazePOXIDE HCL 25 MG CAPSULE PO SCH ×3 (00:54→10:14)
[2020-04-08] MEDS ORDERED: METHADONE HCL 5 MG TABLET (FOR DETOX USE ONLY) ONE (09:23)
[2020-04-08] MEDS ORDERED: METHADONE HCL 10 MG TABLET (FOR DETOX USE ONLY) ONE (09:23)
--- NOTE | 2020-04-08 09:40 | PN ---
S CIWA - CIWA Score Nausea/Vomitin Muscle Tremors: 2 Anxiety: 2 Agitation: 2 Paroxysmal Sweats: 1-Minimal Palms Moist Orientation: 0-Oriented Tacttile Disturbances: 1-Very Mild Itch/Numbness Auditory Disturbances: 0-None Visual Disturbances: 0-None Headache: 2-Mild CIWA-Ar Total Score: 12 BHS COWS - Scale Resting Pulse: 0= [place] 80 or Below Sweatin= No chills or Flushing Restless Observation: 0= Sits Still Pupil Size: 1= Pupils >than Normal Bone or Joint Aches: 2= Severe Diffuse Aches Runny Nose/ Eye Tearin= Runny Nose/Eyes GI Upset > 30mins: 2= Nausea/Diarrhea Tremor Observation of Outstretched Hands: 2= Slight Tremor Visible Yawning Observation: 1= 1-2x During Session Anxiety or Irritability: 2=Irritable/Anxious Goose Flesh Skin: 0=Smooth Skin COWS Score: 12 S Progress Note (SOAP) Subjective: alert,irritable,anxious,interrupted sleep,aching pain in the body and back,nausea Objective: 04/08/20 12:40 Vital Signs Temperature 98.4 F 04/08/20 08:45 Pulse Rate 89 04/08/20 08:45 Respiratory Rate 18 04/08/20 08:45 Blood Pressure 120/59 L 04/08/20 08:45 O2 Sat by Pulse Oximetry (%) 99 04/08/20 08:45 04/08/20 12:40 Laboratory Last Values WBC 10.8 K/mm3 (4.0-10.0) H 04/08/20 08:00 RBC 4.15 M/mm3 (4.00-5.60) 04/08/20 08:00 Hgb 13.4 GM/dL (11.7-16.9) 04/08/20 08:00 Hct 38.8 % (35.4-49) 04/08/20 08:00 MCV 93.4 fl (80-96) 04/08/20 08:00 MCH 32.3 pg (25.7-33.7) 04/08/20 08:00 MCHC 34.5 g/dl (32.0-35.9) 04/08/20 08:00 RDW 13.2 % (11.9-15.9) 04/08/20 08:00 Plt Count 224 K/MM3 (134-434) 04/08/20 08:00 MPV 10.0 fl (7.5-11.1) 04/08/20 08:00 Sodium 137 mmol/L (136-145) 04/08/20 08:00 Potassium 3.9 mmol/L (3.5-5.1) 04/08/20 08:00 Chloride 101 mmol/L (98-107) 04/08/20 08:00 Carbon Dioxide 31 mmol/L (21-32) 04/08/20 08:00 Anion Gap 5 MMOL/L (8-16) L 04/08/20 08:00 BUN 10.3 mg/dL (7-18) 04/08/20 08:00 Creatinine 0.8 mg/dL (0.55-1.3) 04/08/20 08:00 Est GFR (CKD-EPI)AfAm 145.93 04/08/20 08:00 Est GFR (CKD-EPI)NonAf 125.91 04/08/20 08:00 Random Glucose 82 mg/dL (74-106) 04/08/20 08:00 Calcium 8.7 mg/dL (8.5-10.1) 04/08/20 08:00 Total Bilirubin 0.2 mg/dL (0.2-1) 04/08/20 08:00 AST 27 U/L (15-37) 04/08/20 08:00 ALT 22 U/L (13-61) 04/08/20 08:00 Alkaline Phosphatase 76 U/L (45-117) 04/08/20 08:00 Total Protein 6.6 g/dl (6.4-8.2) 04/08/20 08:00 Albumin 3.4 g/dl (3.4-5.0) 04/08/20 08:00 Assessment: 04/08/20 12:42 withdrawal symptom Plan: continue detox methadone and librium regimen,encourage oral fluid,repeat cbc in am,Dr neely consultation appreciated
[2020-04-08] MEDS ORDERED: METHADONE (DETOX) 20 MG, METHADONE (DETOX) 5 MG PO ONE (10:00)
--- NOTE | 2020-04-08 10:06 | CONSULT ---
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 Refer to addiction counselor's summary for further information Medical History: Unremarkable except history of appendectomy in 2018. Smokes cigarettes 1 ppd Psychiatric History: Patient is known for three previous admissions to this facility. He reports that his first psychiatric breakdown occurred at age 17 when he was admitted to [facility] in [place] for depression and auditory hallucinations. He said that he was diagnosed with Bipolar Disorder and started on psychotropic medications including Sturgeon and Risperdal. Reports multiple subsequent psychiatric hospitalizations all at [facility] in [place], [place]. Reports that his most recent admission was in February 2020 for depression and anxiety. He said that he was discharged on Gabapentin 600 m/bid, Seroquel 100 mg/day & 300 mg/hs, Remeron 30 mg/hs and Ativan and referred to [facility] in [place], [place]. Claims that inpatient detox admission is required before he can be scheduled for a psychiatric appointment at [facility]. Reports taking Sturgeon, Valproate, Aripriprazole, Risperdal as well as Seroquel in the past. Reportedly he is known for chronic non-adherence to OPD care and medications. He was referred to [facility] before but never complied. Denies previous suicide attempts. At present, denies experiencing psychotic, manic or depressive symptoms, S/H ideations. However, reports sleeping poorly Physical/Sexual Abuse/Trauma History: Denies history of abuse as a child or DV relationship as an adult Mental Status Exam - Mental Status Exam Alert and Oriented to: Time, Place, Person Cognitive Function: Fair Patient Appearance: Well Groomed Mood: Hopeful, Euthymic Patient Behavior: Cooperative Speech Pattern: Clear Voice Loudness: Normal Thought Process: Intact, Goal Oriented Hallucinations: Denies Suicidal Ideation: Denies Homicidal Ideation: Denies Insight/Judgement: Poor Sleep: Poorly Appetite: Good Muscle strength/Tone: Normal Gait/Station: Normal Psychiatric Findings - Problem List ([place] 1, 2,3) (1) Bipolar disorder Current Visit: No Status: Chronic (2) Substance-induced sleep disorder Current Visit: Yes Status: Acute (3) Opioid dependence with withdrawal Current Visit: Yes Status: Acute (4) Sedative, hypnotic, or anxiolytic withdrawal Current Visit: Yes Status: Acute (5) Cocaine dependence Current Visit: Yes Status: Acute Qualifiers: Substance use status: uncomplicated Qualified Code(s): F14.20 - Cocaine dependence, uncomplicated (6) Cannabis dependence Current Visit: Yes Status: Chronic (7) Nicotine dependence Current Visit: Yes Status: Chronic Qualifiers: Nicotine product type: cigarettes (8) Appendicitis Current Visit: No Status: Resolved Qualifiers: Appendicitis type: unspecified Qualified Code(s): K37 - Unspecified appendicitis - Initial Treatment Plan Initial Treatment Plan: 1) Resume Gabapentin 600 mg po BID, Remeron 30 mg po HS and Seroquel 100 mg daily & 300 mg/HS. 2) Continue inpatient detoxification
[2020-04-08] MEDS: NICOTINE 14 MG/24 HOURS TOPICAL PATCH TD SCH (10:14)
[2020-04-08] MEDS: PRENATAL VITAMINS W/ FOLIC ACID TABLET (FP) PO SCH (10:14)
[2020-04-08 10:25] LABS: ALBUMIN 3.4 g/dl (3.4-5.0); BILIRUBIN,TOTAL 0.2 mg/dL (0.2-1); BLOOD UREA NITROGEN 10.3 mg/dL (7-18); CALCIUM 8.7 mg/dL (8.5-10.1); CREATININE 0.8 mg/dL (0.55-1.3); POTASSIUM 3.9 mmol/L (3.5-5.1); TOT PROT 6.6 g/dl (6.4-8.2)
[2020-04-08 10:40] LABS: HEMATOCRIT 38.8 % (35.4-49); HEMOGLOBIN 13.4 GM/dL (11.7-16.9); MCH 32.3 pg (25.7-33.7); MCHC 34.5 g/dl (32.0-35.9); MEAN CELL VOLUME 93.4 fl (80-96); PLATELET COUNT 224 K/MM3 (134-434); RBC 4.15 M/mm3 (4.00-5.60); RDW 13.2 % (11.9-15.9); WHITE BLOOD COUNT 10.8 K/mm3 (4.0-10.0)
[2020-04-08] MEDS: GABAPENTIN 300 MG CAPSULE PO SCH ×2 (11:46→21:29)
[2020-04-08] MEDS: QUEtiapine FUMARATE 100 MG TABLET (FP) PO SCH (11:46)
[2020-04-08] MEDS: hydrOXYzine PAMOATE 25 MG CAPSULE (FP) PO PRN ×2 (13:01→17:30)
[2020-04-08] MEDS: IBUPROFEN 600 MG TABLET (FP) PO PRN (13:01)
--- NOTE | 2020-04-08 13:11 | PN ---
[facility] Progress Note Note: patient would like regimen to change from methadone and librium regimen to methadone and valium regimen
[2020-04-08] MEDS: diazePAM 5 MG TABLET PO PRN ×3 (13:57→23:59)
[2020-04-08] MEDS: SILVER SULFADIAZINE 1% TOP CREAM 50 GM JAR TP SCH ×2 (14:44→23:07)
[2020-04-08] MEDS: ACETAMINOPHEN 325 MG TABLET (FP) PO PRN (14:58)
[2020-04-08] MEDS: METHOCARBAMOL 500 MG TABLET PO PRN ×2 (14:58→19:58)
[2020-04-08] MEDS: diazePAM 5 MG TABLET PO SCH ×2 (17:30→23:08)
[2020-04-08] MEDS ORDERED: HYDROCORTISONE 0.5% TOPICAL CREAM 30 GM TUBE TP PRN (19:45)
[2020-04-08] MEDS: cloNIDine HCL 0.1 MG TABLET PO PRN (19:58)
[2020-04-08] MEDS: THIAMINE HCL 100 MG TABLET (FP) PO SCH (21:29)
[2020-04-08] MEDS: QUEtiapine FUMARATE 300 MG TABLET PO SCH (21:29)
[2020-04-08] MEDS: MIRTAZAPINE 30 MG TABLET PO SCH (21:29)
--- NOTE | 2020-04-08 21:53 | PN ---
S Progress Note Note: [pt came to proposal lead writer requesting meds for anxiety , reports feeling upset about the conversation he had with his father . pt requesting to have psychiatric meds adjusted and face ointment . reports planning oral surgery for 05/09/2020 AAO x 3 Vital Signs - 24 hr 04/07/20 04/08/20 04/08/20 22:33 00:03 05:38 Temperature 97.9 F 98 F 96.2 F L Pulse Rate 112 H 94 H 76 Respiratory 19 20 18 Rate Blood Pressure 106/70 113/64 98/62 O2 Sat by Pulse 95 96 Oximetry (%) 04/08/20 04/08/20 04/08/20 08:45 13:18 17:15 Temperature 98.4 F 97.9 F 97.1 F L Pulse Rate 89 84 94 H Respiratory 18 18 16 Rate Blood Pressure 120/59 L 122/60 112/63 O2 Sat by Pulse 96 99 99 Oximetry (%) 04/08/20 21:12 Temperature 98.2 F Pulse Rate 91 H Respiratory 16 Rate Blood Pressure 114/59 L O2 Sat by Pulse 99 Oximetry (%) P : Clonidine prn encouraged use of prn meds : Vistaril , Diazepam Hydrocortisone ointment Psychiatry re-evaluation in a.m.
[2020-04-08] MEDS: MELATONIN 5 MG TABLETS PO SCH (23:07)
[2020-04-09] MEDS: MELATONIN 5 MG TABLETS PO SCH ×2 (00:04→22:39)
[2020-04-09] MEDS ORDERED: chlordiazePOXIDE HCL 25 MG CAPSULE PO SCH (05:00)
[2020-04-09] MEDS: diazePAM 5 MG TABLET PO SCH ×4 (07:22→22:33)
--- NOTE | 2020-04-09 09:24 | PN ---
S CIWA - CIWA Score Nausea/Vomitin-Mild Nausea/No Vomiting Muscle Tremors: 2 Anxiety: 2 Agitation: 2 Paroxysmal Sweats: 2 Orientation: 0-Oriented Tacttile Disturbances: 1-Very Mild Itch/Numbness Auditory Disturbances: 0-None Visual Disturbances: 0-None Headache: 2-Mild CIWA-Ar Total Score: 12 BHS COWS - Scale Resting Pulse: 1= [place] 81-100 Sweatin= No chills or Flushing Restless Observation: 0= Sits Still Pupil Size: 0= Normal to Room Light Bone or Joint Aches: 1= Mild Discomfort Runny Nose/ Eye Tearin= Runny Nose/Eyes GI Upset > 30mins: 2= Nausea/Diarrhea Tremor Observation of Outstretched Hands: 2= Slight Tremor Visible Yawning Observation: 0= None Anxiety or Irritability: 2=Irritable/Anxious Goose Flesh Skin: 0=Smooth Skin COWS Score: 10 [facility] Progress Note (SOAP) Subjective: alert,irritable,anxious,interrupted sleep,tremor,pain in the body and back,aching pain Objective: 04/09/20 14:15 Vital Signs Temperature 98.0 F 04/09/20 12:59 Pulse Rate 86 04/09/20 12:59 Respiratory Rate 16 04/09/20 12:59 Blood Pressure 114/59 L 04/09/20 12:59 O2 Sat by Pulse Oximetry (%) 99 04/09/20 12:59 04/09/20 14:20 Laboratory Last Values WBC 9.1 K/mm3 (4.0-10.0) 04/09/20 08:00 RBC 4.00 M/mm3 (4.00-5.60) 04/09/20 08:00 Hgb 13.3 GM/dL (11.7-16.9) 04/09/20 08:00 Hct 38.2 % (35.4-49) 04/09/20 08:00 MCV 95.5 fl (80-96) 04/09/20 08:00 MCH 33.3 pg (25.7-33.7) 04/09/20 08:00 MCHC 34.8 g/dl (32.0-35.9) 04/09/20 08:00 RDW 13.8 % (11.9-15.9) 04/09/20 08:00 Plt Count 210 K/MM3 (134-434) 04/09/20 08:00 MPV 9.9 fl (7.5-11.1) 04/09/20 08:00 Sodium 137 mmol/L (136-145) 04/08/20 08:00 Potassium 3.9 mmol/L (3.5-5.1) 04/08/20 08:00 Chloride 101 mmol/L (98-107) 04/08/20 08:00 Carbon Dioxide 31 mmol/L (21-32) 04/08/20 08:00 Anion Gap 5 MMOL/L (8-16) L 04/08/20 08:00 BUN 10.3 mg/dL (7-18) 04/08/20 08:00 Creatinine 0.8 mg/dL (0.55-1.3) 04/08/20 08:00 Est GFR (CKD-EPI)AfAm 145.93 04/08/20 08:00 Est GFR (CKD-EPI)NonAf 125.91 04/08/20 08:00 Random Glucose 82 mg/dL (74-106) 04/08/20 08:00 Calcium 8.7 mg/dL (8.5-10.1) 04/08/20 08:00 Total Bilirubin 0.2 mg/dL (0.2-1) 04/08/20 08:00 AST 27 U/L (15-37) 04/08/20 08:00 ALT 22 U/L (13-61) 04/08/20 08:00 Alkaline Phosphatase 76 U/L (45-117) 04/08/20 08:00 Total Protein 6.6 g/dl (6.4-8.2) 04/08/20 08:00 Albumin 3.4 g/dl (3.4-5.0) 04/08/20 08:00 Syphilis Serology Non-reactive (NONREACTIVE) 04/08/20 08:00 COVID-19 (ELISABETH) Not detected (Not Detected) 04/07/20 11:20 Assessment: 04/09/20 14:20 withdrawal symptom Plan: continue detox methadone and librium regimen,psychiatric reevaluation for medications
[2020-04-09] MEDS ORDERED: METHADONE HCL 10 MG TABLET (FOR DETOX USE ONLY) PO ONE (10:00)
--- NOTE | 2020-04-09 10:07 | EKG ---
Test Reason : Blood Pressure : / mmHG Vent. Rate : 071 BPM Atrial Rate : 071 BPM P-R Int : 164 ms QRS Dur : 092 ms QT Int : 394 ms P-R-T Axes : 071 081 067 degrees QTc Int : 428 ms NORMAL SINUS RHYTHM NORMAL ECG WHEN COMPARED WITH ECG OF 08-NOV-2017 14:31, NO SIGNIFICANT CHANGE WAS FOUND Confirmed by Ronaldo Vasques ([id number]) on 04/09/2020 10:06:43 AM Referred By: Navdeep Dwyer Confirmed By:Ronaldo Vasques
[2020-04-09] MEDS: SILVER SULFADIAZINE 1% TOP CREAM 50 GM JAR TP SCH ×2 (10:11→22:38)
[2020-04-09] MEDS: GABAPENTIN 300 MG CAPSULE PO SCH ×2 (10:11→22:33)
[2020-04-09] MEDS: PRENATAL VITAMINS W/ FOLIC ACID TABLET (FP) PO SCH (10:11)
[2020-04-09] MEDS: QUEtiapine FUMARATE 100 MG TABLET (FP) PO SCH (10:11)
[2020-04-09] MEDS: NICOTINE 14 MG/24 HOURS TOPICAL PATCH TD SCH (10:11)
[2020-04-09] MEDS: HYDROCORTISONE 1% TOPICAL CREAM 30 GM TUBE TP SCH ×2 (10:12→22:39)
[2020-04-09] MEDS: METHOCARBAMOL 500 MG TABLET PO PRN ×2 (10:39→23:12)
[2020-04-09 10:44] LABS: HEMATOCRIT 38.2 % (35.4-49); HEMOGLOBIN 13.3 GM/dL (11.7-16.9); MCH 33.3 pg (25.7-33.7); MCHC 34.8 g/dl (32.0-35.9); MEAN CELL VOLUME 95.5 fl (80-96); MEAN PLT VOLUME 9.9 fl (7.5-11.1); PLATELET COUNT 210 K/MM3 (134-434); RDW 13.8 % (11.9-15.9); WHITE BLOOD COUNT 9.1 K/mm3 (4.0-10.0)
[2020-04-09] MEDS: IBUPROFEN 600 MG TABLET (FP) PO PRN ×2 (11:17→20:22)
[2020-04-09] MEDS: P-EPHED 60MG/TRIPROLIDI 2.5MG TABLET PO PRN ×2 (13:01→23:12)
[2020-04-09] MEDS: diazePAM 5 MG TABLET PO PRN ×2 (13:02→19:08)
--- NOTE | 2020-04-09 14:58 | PN ---
[facility] Progress Note Note: seen by Dr Killian, patient complained of chest pain, ekg nsr,normal ekg close monitoring withdrawal symptom Vital Signs Temperature 98.0 F 04/09/20 12:59 Pulse Rate 86 04/09/20 12:59 Respiratory Rate 16 04/09/20 12:59 Blood Pressure 114/59 L 04/09/20 12:59 O2 Sat by Pulse Oximetry (%) 99 04/09/20 12:59 continue detox methadone and valium regimen close monitoring
[2020-04-09] MEDS: hydrOXYzine PAMOATE 25 MG CAPSULE (FP) PO PRN (17:19)
[2020-04-09] MEDS: ACETAMINOPHEN 325 MG TABLET (FP) PO PRN (18:05)
[2020-04-09] MEDS: THIAMINE HCL 100 MG TABLET (FP) PO SCH (22:33)
[2020-04-09] MEDS: QUEtiapine FUMARATE 300 MG TABLET PO SCH (22:33)
[2020-04-09] MEDS: MIRTAZAPINE 30 MG TABLET PO SCH (22:33)
[2020-04-10] MEDS ORDERED: chlordiazePOXIDE HCL 10 MG CAPSULE PO PRN
--- NOTE | 2020-04-10 00:29 | PN ---
[facility] Progress Note Note: Patient had verbal altercation with 3 other patients who all left against medical advice. As per Land Lease Information Clerk on duty, Mr Medrano, patient will sign treatment contract to maintain good behavior and he was transferred to [address] [place] [address]. Patient agreed to maintain good behavior and avoid conflicts, verbal altercation and unit disruption. Vital Signs Temperature 95.2 F L 04/09/20 18:10 Pulse Rate 73 04/09/20 18:10 Respiratory Rate 16 04/09/20 18:10 Blood Pressure 101/49 L 04/09/20 18:10 O2 Sat by Pulse Oximetry (%) 99 04/09/20 18:10 Laboratory Last Values WBC 9.1 K/mm3 (4.0-10.0) 04/09/20 08:00 RBC 4.00 M/mm3 (4.00-5.60) 04/09/20 08:00 Hgb 13.3 GM/dL (11.7-16.9) 04/09/20 08:00 Hct 38.2 % (35.4-49) 04/09/20 08:00 MCV 95.5 fl (80-96) 04/09/20 08:00 MCH 33.3 pg (25.7-33.7) 04/09/20 08:00 MCHC 34.8 g/dl (32.0-35.9) 04/09/20 08:00 RDW 13.8 % (11.9-15.9) 04/09/20 08:00 Plt Count 210 K/MM3 (134-434) 04/09/20 08:00 MPV 9.9 fl (7.5-11.1) 04/09/20 08:00 Sodium 137 mmol/L (136-145) 04/08/20 08:00 Potassium 3.9 mmol/L (3.5-5.1) 04/08/20 08:00 Chloride 101 mmol/L (98-107) 04/08/20 08:00 Carbon Dioxide 31 mmol/L (21-32) 04/08/20 08:00 Anion Gap 5 MMOL/L (8-16) L 04/08/20 08:00 BUN 10.3 mg/dL (7-18) 04/08/20 08:00 Creatinine 0.8 mg/dL (0.55-1.3) 04/08/20 08:00 Est GFR (CKD-EPI)AfAm 145.93 04/08/20 08:00 Est GFR (CKD-EPI)NonAf 125.91 04/08/20 08:00 Random Glucose 82 mg/dL (74-106) 04/08/20 08:00 Calcium 8.7 mg/dL (8.5-10.1) 04/08/20 08:00 Total Bilirubin 0.2 mg/dL (0.2-1) 04/08/20 08:00 AST 27 U/L (15-37) 04/08/20 08:00 ALT 22 U/L (13-61) 04/08/20 08:00 Alkaline Phosphatase 76 U/L (45-117) 04/08/20 08:00 Total Protein 6.6 g/dl (6.4-8.2) 04/08/20 08:00 Albumin 3.4 g/dl (3.4-5.0) 04/08/20 08:00 Syphilis Serology Non-reactive (NONREACTIVE) 04/08/20 08:00 COVID-19 (ELISABETH) Not detected (Not Detected) 04/07/20 11:20 Action: Continue detox
[2020-04-10] MEDS ORDERED: chlordiazePOXIDE HCL 10 MG CAPSULE PO SCH (05:00)
[2020-04-10] MEDS: diazePAM 5 MG TABLET PO SCH ×3 (05:36→22:31)
[2020-04-10] MEDS ORDERED: METHADONE HCL 5 MG TABLET (FOR DETOX USE ONLY) ONE (08:53)
[2020-04-10] MEDS ORDERED: METHADONE HCL 10 MG TABLET (FOR DETOX USE ONLY) ONE (08:53)
[2020-04-10] MEDS: IBUPROFEN 600 MG TABLET (FP) PO PRN ×2 (09:19→17:53)
[2020-04-10] MEDS ORDERED: METHADONE (DETOX) 10 MG, METHADONE (DETOX) 5 MG PO ONE (10:00)
[2020-04-10] MEDS: QUEtiapine FUMARATE 100 MG TABLET (FP) PO SCH (10:08)
[2020-04-10] MEDS: PRENATAL VITAMINS W/ FOLIC ACID TABLET (FP) PO SCH (10:08)
[2020-04-10] MEDS: GABAPENTIN 300 MG CAPSULE PO SCH ×2 (10:10→22:31)
[2020-04-10] MEDS: diazePAM 5 MG TABLET PO PRN ×3 (10:10→19:43)
[2020-04-10] MEDS: SILVER SULFADIAZINE 1% TOP CREAM 50 GM JAR TP SCH ×2 (10:11→22:32)
[2020-04-10] MEDS: NICOTINE 14 MG/24 HOURS TOPICAL PATCH TD SCH (10:13)
[2020-04-10] MEDS: HYDROCORTISONE 1% TOPICAL CREAM 30 GM TUBE TP SCH ×2 (10:15→22:32)
--- NOTE | 2020-04-10 10:36 | PN ---
[facility] CIWA - CIWA Score Nausea/Vomitin-No Nausea/No Vomiting Muscle Tremors: 2 Anxiety: 2 Agitation: 2 Paroxysmal Sweats: No Perspiration Orientation: 0-Oriented Tacttile Disturbances: 0-None Auditory Disturbances: 0-None Visual Disturbances: 0-None Headache: 1-Very Mild CIWA-Ar Total Score: 7 BHS COWS - Scale Resting Pulse: 1= [place] 81-100 Sweatin= No chills or Flushing Restless Observation: 0= Sits Still Pupil Size: 0= Normal to Room Light Bone or Joint Aches: 1= Mild Discomfort Runny Nose/ Eye Tearin= Nasal Congestion GI Upset > 30mins: 1= Stomach Cramp Tremor Observation of Outstretched Hands: 2= Slight Tremor Visible Yawning Observation: 0= None Anxiety or Irritability: 2=Irritable/Anxious Goose Flesh Skin: 0=Smooth Skin COWS Score: 8 S Progress Note (SOAP) Subjective: alert,irritable,anxious,interrupted sleep,pain in the body, Objective: 04/10/20 15:53 Vital Signs Temperature 97.8 F 04/10/20 12:38 Pulse Rate 86 04/10/20 12:38 Respiratory Rate 18 04/10/20 12:38 Blood Pressure 141/92 04/10/20 12:38 O2 Sat by Pulse Oximetry (%) 100 04/10/20 12:38 04/10/20 15:54 Laboratory Last Values WBC 9.1 K/mm3 (4.0-10.0) 04/09/20 08:00 RBC 4.00 M/mm3 (4.00-5.60) 04/09/20 08:00 Hgb 13.3 GM/dL (11.7-16.9) 04/09/20 08:00 Hct 38.2 % (35.4-49) 04/09/20 08:00 MCV 95.5 fl (80-96) 04/09/20 08:00 MCH 33.3 pg (25.7-33.7) 04/09/20 08:00 MCHC 34.8 g/dl (32.0-35.9) 04/09/20 08:00 RDW 13.8 % (11.9-15.9) 04/09/20 08:00 Plt Count 210 K/MM3 (134-434) 04/09/20 08:00 MPV 9.9 fl (7.5-11.1) 04/09/20 08:00 Sodium 137 mmol/L (136-145) 04/08/20 08:00 Potassium 3.9 mmol/L (3.5-5.1) 04/08/20 08:00 Chloride 101 mmol/L (98-107) 04/08/20 08:00 Carbon Dioxide 31 mmol/L (21-32) 04/08/20 08:00 Anion Gap 5 MMOL/L (8-16) L 04/08/20 08:00 BUN 10.3 mg/dL (7-18) 04/08/20 08:00 Creatinine 0.8 mg/dL (0.55-1.3) 04/08/20 08:00 Est GFR (CKD-EPI)AfAm 145.93 04/08/20 08:00 Est GFR (CKD-EPI)NonAf 125.91 04/08/20 08:00 Random Glucose 82 mg/dL (74-106) 04/08/20 08:00 Calcium 8.7 mg/dL (8.5-10.1) 04/08/20 08:00 Total Bilirubin 0.2 mg/dL (0.2-1) 04/08/20 08:00 AST 27 U/L (15-37) 04/08/20 08:00 ALT 22 U/L (13-61) 04/08/20 08:00 Alkaline Phosphatase 76 U/L (45-117) 04/08/20 08:00 Total Protein 6.6 g/dl (6.4-8.2) 04/08/20 08:00 Albumin 3.4 g/dl (3.4-5.0) 04/08/20 08:00 Syphilis Serology Non-reactive (NONREACTIVE) 04/08/20 08:00 COVID-19 (ELISABETH) Not detected (Not Detected) 04/07/20 11:20 Assessment: 04/10/20 15:54 withdrawal symptom Plan: continue detox methadone and valium regimen,psychiatric reevaluation,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
--- NOTE | 2020-04-10 14:06 | EKG ---
Test Reason : Blood Pressure : / mmHG Vent. Rate : 084 BPM Atrial Rate : 084 BPM P-R Int : 154 ms QRS Dur : 086 ms QT Int : 366 ms P-R-T Axes : 068 068 056 degrees QTc Int : 432 ms NORMAL SINUS RHYTHM NORMAL ECG WHEN COMPARED WITH ECG OF 08-APR-2020 11:55, NO SIGNIFICANT CHANGE WAS FOUND Confirmed by BARBRA BERMUDEZ MD ([id number]) on 04/10/2020 2:05:43 PM Referred By: Navdeep Dwyer Confirmed By:BARBRA BERMUDEZ MD
[2020-04-10] MEDS: hydrOXYzine PAMOATE 50 MG CAPSULE (FP) PO PRN ×2 (15:26→22:33)
--- NOTE | 2020-04-10 16:12 | PN ---
Psychiatric Progress Note Vital Signs: Vital Signs Period Temp Pulse Resp BP Sys/[place] Pulse Ox Last 24 Hr 95.2 F-98.4 F 73-92 16-20 101-141/49-92 98-100 Date of Session: 04/10/20 Chief Complaint:: "I can't sleep and i feel restless." HPI: Patient admitted to for opioid, cocaine, benzodiazepine and cannabis. Consultation ordered due to patient reporting feeling anxious, restless, and sleeping poorly. ROS: Patient is ambulatory, alert +oriented X3, and mildly irritable. Current Medications: Active Medications Generic Name Dose Route Start Last Admin Trade Name Freq PRN Reason Stop Dose Admin Acetaminophen 650 mg 04/07/20 23:20 04/09/20 18:05 Tylenol - PO 650 mg Q6H PRN Administration PAIN LEVEL 4 - 6 Acetaminophen 650 mg 04/07/20 23:20 Tylenol - PO Q6H PRN FEVER Al Hydroxide/Mg Hydroxide 30 ml 04/07/20 23:20 Mylanta Oral Suspension - PO Q6H PRN DYSPEPSIA Benzocaine 1 applic 04/07/20 23:24 Anbesol - MM Q6H PRN ORAL PAIN/MOUTH SORES Bismuth Subsalicylate 524 mg 04/07/20 23:20 04/09/20 10:54 Pepto-Bismol - PO 524 mg Q1H PRN Administration DIARRHEA Clonidine 0.1 mg 04/08/20 19:52 04/08/20 19:58 Catapres - PO 0.1 mg Q4H PRN Administration WITHDRAWAL(CONT SUBST) Diazepam 5 mg 04/10/20 06:00 04/10/20 13:42 Valium - PO 04/10/20 22:01 5 mg TID POLO Administration Diazepam 5 mg 04/11/20 06:00 Valium - PO 04/11/20 18:01 Q12H POLO Diazepam 10 mg 04/08/20 13:14 04/10/20 15:26 Valium - PO 04/11/20 13:13 10 mg Q4H PRN Administration WITHDRAWAL(CONT SUBST) Diazepam 5 mg 04/12/20 06:00 Valium - PO 04/12/20 06:01 ONCE ONE Eucalyptus/Menthol/Phenol/Sorbitol 1 each 04/07/20 23:20 Cepastat Lozenge - MM 04/13/20 23:20 Q4H PRN SORE THROAT Gabapentin 600 mg 04/08/20 10:45 04/10/20 10:10 Neurontin - PO 600 mg BID POLO Administration Guaifenesin 10 ml 04/07/20 23:20 Robitussin - PO Q6H PRN COUGH Hydrocortisone 1 applic 04/09/20 10:00 04/10/20 10:15 Hytone 1% Cream - TP 1 applic BID POLO Administration Hydroxyzine Pamoate 50 mg 04/10/20 14:28 04/10/20 15:26 Vistaril - PO 50 mg Q6H PRN Administration ANXIETY Ibuprofen 600 mg 04/07/20 23:20 04/10/20 09:19 Motrin - PO 600 mg Q6H PRN Administration PAIN LEVEL 1 - 3 Magnesium Citrate 300 ml 04/07/20 23:20 Citroma - PO Q48H PRN CONSTIPATION Magnesium Hydroxide 30 ml 04/07/20 23:20 Milk Of Magnesia - PO PRN PRN CONSTIPATION Melatonin 5 mg 04/08/20 22:00 04/09/20 22:39 Melatonin PO Not Given HS POLO Methadone HCl 5 mg 04/12/20 06:00 Dolophine - PO 04/12/20 06:01 ONCE@0600 ONE Methadone HCl 10 mg 04/11/20 10:00 Dolophine - PO 04/11/20 10:01 ONCE ONE Methocarbamol 500 mg 04/07/20 23:20 04/09/20 23:12 Robaxin - PO 04/13/20 23:20 500 mg Q6H PRN Administration MUSCLE SPASMS Mirtazapine 30 mg 04/08/20 22:00 04/09/20 22:33 Remeron - PO 30 mg HS POLO Administration Nicotine 14 mg 04/08/20 10:00 04/10/20 10:13 Nicoderm Patch - TD 14 mg DAILY POLO Administration Ondansetron HCl 4 mg 04/07/20 23:20 Zofran Odt - SL Q8H PRN Nausea/Vomiting Multivit/Folic Acid/Iron 1 tab 04/08/20 10:00 04/10/20 10:08 Vitamins (Sjr) - PO 1 tab DAILY POLO Administration Pseudoephedrine/Triprolidine 1 combo 04/07/20 23:20 04/09/20 23:12 Actifed - PO 1 combo Q6H PRN Administration NASAL CONGESTION Quetiapine Fumarate 300 mg 04/08/20 22:00 04/09/20 22:33 Seroquel - PO 300 mg HS POLO Administration Quetiapine Fumarate 100 mg 04/08/20 10:45 04/10/20 10:08 Seroquel - PO 100 mg DAILY POLO Administration Silver Sulfadiazine 1 applic 04/08/20 13:45 04/10/20 10:11 Silvadene - TP 1 applic BID POLO Administration Thiamine HCl 100 mg 04/08/20 22:00 04/09/20 22:33 Vitamin B1 - PO 100 mg HS POLO Administration Medication(s) Change(s): Yes. 1) Will d/c Seroquel 100mg daily + 300mg HS + Vistaril 25mg q4h. 2) Will order Seroquel 150mg daily + 350mg HS + Vistaril 50mg q6h. Current Side Effect: No Lab tests ordered: No Lab tests reviewed: Yes Provider note:: Chart reviewed. Patient seen by Dr. Killian. Dr. Yancey's note read and appreciated. Mr. Grewal approached freelance writer concerning medication adjustment due to his worsening irritability, restlessness, and difficulty sleeping. Patient reports feeling sad because of his opiate use. States that he was using two bundles a day before admitting himself to detox. Mr. Grewal reports being involved a several verbal altercations as he reports difficulty staying calm. In addition patient states that he is usually awake throughout the night due to the medications not working. Medications and chart reviewed. As per nursing staff patient has presented with irritability and has had verbal alterc ations on the unit. Patient had to be transferred to 3N last night after a verbal altercation with other patient's on the unit. Mr. Grewal is requesting medication adjustment due to his mood instability. Medications to be adjusted ( please review medication section). Patient denies auditory/ visual hallucinations, suicidal/ homicidal ideation. 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 Patient satisifed and receptive to feedback. Total face to face time:: 25 Mental Status Exam - Mental Status Exam Alert and Oriented to: Time, Place, Person Cognitive Function: Good Patient Appearance: Well Groomed Mood: Withdrawn, Anxious Affect: Mood Congruent Patient Behavior: Fatigued, Cooperative Speech Pattern: Appropriate Voice Loudness: Normal Thought Process: Goal Oriented Thought Disorder: Not Present Hallucinations: Denies Suicidal Ideation: Denies Homicidal Ideation: Denies Insight/Judgement: Poor Sleep: Poorly Appetite: Fair Muscle strength/Tone: Normal Gait/Station: Normal Psychiatric Treatment Plan - Problem List (1) Cocaine dependence Current Visit: Yes Qualifiers: Substance use status: uncomplicated Qualified Code(s): F14.20 - Cocaine dependence, uncomplicated (2) Opioid dependence with withdrawal Current Visit: Yes (3) Sedative, hypnotic, or anxiolytic withdrawal Current Visit: Yes (4) Substance-induced sleep disorder Current Visit: Yes (5) Cannabis dependence Current Visit: Yes (6) Bipolar disorder Current Visit: Yes
[2020-04-10] MEDS: cloNIDine HCL 0.1 MG TABLET PO PRN (17:34)
[2020-04-10] MEDS: METHOCARBAMOL 500 MG TABLET PO PRN (17:34)
[2020-04-10] MEDS: ACETAMINOPHEN 325 MG TABLET (FP) PO PRN (18:39)
[2020-04-10] MEDS ORDERED: QUEtiapine FUMARATE 100 MG TABLET (FP) ONE (21:38)
[2020-04-10] MEDS ORDERED: MIRTAZAPINE 15 MG TABLET (FP) ONE (21:38)
[2020-04-10] MEDS ORDERED: QUEtiapine FUMARATE 50 MG TABLET ONE (21:38)
[2020-04-10] MEDS ORDERED: QUEtiapine FUMARATE 300 MG TABLET PO SCH (22:00)
[2020-04-10] MEDS ORDERED: QUETIAPINE FUMARATE 300 MG, QUETIAPINE FUMARATE 50 MG PO SCH (22:00)
[2020-04-10] MEDS: MELATONIN 5 MG TABLETS PO SCH (22:32)
[2020-04-10] MEDS: MIRTAZAPINE 30 MG TABLET PO SCH (22:32)
[2020-04-10] MEDS: THIAMINE HCL 100 MG TABLET (FP) PO SCH (22:32)
[2020-04-11] MEDS ORDERED: chlordiazePOXIDE HCL 10 MG CAPSULE PO SCH (05:00)
[2020-04-11] MEDS ORDERED: diazePAM 5 MG TABLET PO SCH (06:00)
--- NOTE | 2020-04-11 08:38 | PN ---
[facility] CIWA - CIWA Score Nausea/Vomitin-No Nausea/No Vomiting Muscle Tremors: None Anxiety: 1-Mildly Anxious Agitation: 0-Normal Activity Paroxysmal Sweats: No Perspiration Orientation: 0-Oriented Tacttile Disturbances: 0-None Auditory Disturbances: 0-None Visual Disturbances: 0-None Headache: 0-None Present CIWA-Ar Total Score: 1 [facility] COWS - Scale Resting Pulse: 1= SD 81-100 Sweatin= No chills or Flushing Restless Observation: 0= Sits Still Pupil Size: 0= Normal to Room Light Bone or Joint Aches: 0= None Runny Nose/ Eye Tearin= None GI Upset > 30mins: 0= None Tremor Observation of Outstretched Hands: 0= None Yawning Observation: 0= None Anxiety or Irritability: 0= None Goose Flesh Skin: 0=Smooth Skin COWS Score: 1 [facility] Progress Note (SOAP) Subjective: alert,no complaint Objective: 04/11/20 10:51 Vital Signs Temperature 98.4 F 04/11/20 09:14 Pulse Rate 97 H 04/11/20 09:14 Respiratory Rate 20 04/11/20 09:14 Blood Pressure 135/85 04/11/20 09:14 O2 Sat by Pulse Oximetry (%) 98 04/11/20 06:24 Assessment: 04/11/20 10:51 no withdrawal symptom Plan: stable for discharge today,declined rehab,follow up with after care program as arrangement [facility]
[2020-04-11 09:32] VITALS: BP 135/85; PULSE 97; TEMP 98.4
[2020-04-11] MEDS ORDERED: QUEtiapine FUMARATE 50 MG TABLET PO SCH (10:00)
[2020-04-11] MEDS ORDERED: METHADONE HCL 10 MG TABLET (FOR DETOX USE ONLY) PO ONE (10:00)
[2020-04-11] MEDS: GABAPENTIN 300 MG CAPSULE PO SCH (10:07)
[2020-04-11] MEDS: HYDROCORTISONE 1% TOPICAL CREAM 30 GM TUBE TP SCH (10:11)
[2020-04-11] MEDS: PRENATAL VITAMINS W/ FOLIC ACID TABLET (FP) PO SCH (10:11)
[2020-04-11] MEDS: SILVER SULFADIAZINE 1% TOP CREAM 50 GM JAR TP SCH (10:11)
[2020-04-11] MEDS: NICOTINE 14 MG/24 HOURS TOPICAL PATCH TD SCH (10:11)
--- NOTE | 2020-04-11 10:34 | PN ---
[facility] Progress Note Note: Patient is discharged today. Scripts for 30 ays supply of medications(Gabapentin 600 mg/bid, Remeron 30 mg/hs, Seroquel 100 mg/day & 300 mg/hs) are electronically transmitted to [facility], [address] [place], [place] [address]
--- NOTE | 2020-04-11 10:54 | DS ---
[facility] Detox Discharge Summary Admission Date: 04/07/20 Discharge Date: 04/11/20 - History Present History: Cannabis Dependence, Cocaine Dependence, Opioid Dependence, Sedative Dependence Additional Comments: alert,oriented x 3 ambulation on the unit lung clear,on auscultation bilaterally abdomen soft,no distension,no pain,no tenderness no withdrawal symptom stable for discharge today declined rehab follow up with [facility] on Tuesday04/14/2020 at 09am left the unit in stable condition Dr Rodriguez notified for psychiatric medication,stated that DR Killian will take care of it total time spending on discharge 35 minutes also he will follow up with his Medical Provider Dr Isaiah Ervin total time discharge spending 35 minutes Pertinent Past History: old injury left facial area nicotine dependence bipolar disorder - Physical Exam Results Vital Signs: Vital Signs Temperature 98.4 F 04/11/20 09:14 Pulse Rate 97 H 04/11/20 09:14 Respiratory Rate 20 04/11/20 09:14 Blood Pressure 135/85 04/11/20 09:14 O2 Sat by Pulse Oximetry (%) 98 04/11/20 06:24 Pertinent Admission Physical Exam Findings: withdrawal signs and symptom Laboratory Last Values WBC 9.1 K/mm3 (4.0-10.0) 04/09/20 08:00 RBC 4.00 M/mm3 (4.00-5.60) 04/09/20 08:00 Hgb 13.3 GM/dL (11.7-16.9) 04/09/20 08:00 Hct 38.2 % (35.4-49) 04/09/20 08:00 MCV 95.5 fl (80-96) 04/09/20 08:00 MCH 33.3 pg (25.7-33.7) 04/09/20 08:00 MCHC 34.8 g/dl (32.0-35.9) 04/09/20 08:00 RDW 13.8 % (11.9-15.9) 04/09/20 08:00 Plt Count 210 K/MM3 (134-434) 04/09/20 08:00 MPV 9.9 fl (7.5-11.1) 04/09/20 08:00 Sodium 137 mmol/L (136-145) 04/08/20 08:00 Potassium 3.9 mmol/L (3.5-5.1) 04/08/20 08:00 Chloride 101 mmol/L (98-107) 04/08/20 08:00 Carbon Dioxide 31 mmol/L (21-32) 04/08/20 08:00 Anion Gap 5 MMOL/L (8-16) L 04/08/20 08:00 BUN 10.3 mg/dL (7-18) 04/08/20 08:00 Creatinine 0.8 mg/dL (0.55-1.3) 04/08/20 08:00 Est GFR (CKD-EPI)AfAm 145.93 04/08/20 08:00 Est GFR (CKD-EPI)NonAf 125.91 04/08/20 08:00 Random Glucose 82 mg/dL (74-106) 04/08/20 08:00 Calcium 8.7 mg/dL (8.5-10.1) 04/08/20 08:00 Total Bilirubin 0.2 mg/dL (0.2-1) 04/08/20 08:00 AST 27 U/L (15-37) 04/08/20 08:00 ALT 22 U/L (13-61) 04/08/20 08:00 Alkaline Phosphatase 76 U/L (45-117) 04/08/20 08:00 Total Protein 6.6 g/dl (6.4-8.2) 04/08/20 08:00 Albumin 3.4 g/dl (3.4-5.0) 04/08/20 08:00 Syphilis Serology Non-reactive (NONREACTIVE) 04/08/20 08:00 COVID-19 (ELISABETH) Not detected (Not Detected) 04/07/20 11:20 Vital Signs Temperature 98.4 F 04/11/20 09:14 Pulse Rate 97 H 04/11/20 09:14 Respiratory Rate 20 04/11/20 09:14 Blood Pressure 135/85 04/11/20 09:14 O2 Sat by Pulse Oximetry (%) 98 04/11/20 06:24 - Treatment Hospital Course: Detox Protocol Followed, Detoxed Safely, Responded well, Discharged Condition Good Patient has Accepted a Rehab Referral to: declined - Medication Discharge Medications: Ambulatory Orders Gabapentin 600 mg PO BID #60 tablet 04/11/20 Mirtazapine [Remeron -] 30 mg PO HS #30 tablet 04/11/20 Quetiapine Fumarate [Seroquel -] 100 mg PO DAILY #30 tablet 04/11/20 Quetiapine Fumarate [Seroquel -] 300 mg PO HS #30 tablet 04/11/20 - Diagnosis (1) Opioid dependence with withdrawal Current Visit: Yes Status: Acute (2) Cocaine dependence Current Visit: Yes Status: Acute Qualifiers: Substance use status: uncomplicated Qualified Code(s): F14.20 - Cocaine dependence, uncomplicated (3) Sedative, hypnotic, or anxiolytic withdrawal Current Visit: Yes Status: Acute (4) Bipolar disorder Current Visit: Yes Status: Chronic (5) Cannabis dependence Current Visit: Yes Status: Chronic - AMA Did Patient Leave Against Medical Advice: No
[2020-04-12] MEDS ORDERED: chlordiazePOXIDE HCL 10 MG CAPSULE PO ONE (05:00)
[2020-04-12] MEDS ORDERED: METHADONE HCL 5 MG TABLET (FOR DETOX USE ONLY) PO ONE (06:00)
[2020-04-12] MEDS ORDERED: diazePAM 5 MG TABLET PO ONE (06:00)
== END 2020-04-11 10:13 | disposition home or self-care (01) | DRG 773 ==
LOC: YASAS 22:00 → Y6N 23:12 → Y3N 04-09 22:49
PROVIDERS: ADMIT Allergy & Immunology; ATTEND Allergy & Immunology
PROC: HZ2ZZZZ Detoxification Services for Substance Abuse Treatment (ICD-10-PCS; principal; 2020-04-07)
DX: F11.23 Opioid dependence with withdrawal (principal); F13.230 Sedative, hypnotic or anxiolytic dependence with withdrawal, uncomplicated; F14.20 Cocaine dependence, uncomplicated; F12.20 Cannabis dependence, uncomplicated; F17.210 Nicotine dependence, cigarettes, uncomplicated; F19.282 Other psychoactive substance dependence with psychoactive substance-induced sleep disorder; F31.9 Bipolar disorder, unspecified; R76.11 Nonspecific reaction to tuberculin skin test without active tuberculosis; Z90.49 Acquired absence of other specified parts of digestive tract
CPT/HCPCS: 36415; 80053; 85027; 86780; 93005; 93010; J0735; U0003

== ENCOUNTER 2020-04-12 14:13 | Emergency (ER) | payer OTHER ==
[2020-04-12] MEDS ORDERED: NALOXONE HCL 0.4 MG/ML VIAL ONE (14:17)
[2020-04-12 14:23] VITALS: BMI 20.3
--- NOTE | 2020-04-12 15:00 | PDOC ---
History of Present Illness - General Chief Complaint: Overdose Stated Complaint: OVERDOSE Time Seen by Provider: 04/12/20 14:28 History Source: Patient, EMS Exam Limitations: Clinical Condition - History of Present Illness Initial Comments: 04/12/20 15:07 24M with PMH of heroin abuse presented to ED via EMS for apparent overdose. Per EMS, family found him somnolent and disoriented. He was just discharged from rehab yesterday. Per the pt, he snorted heroin. He was agitated and repeatedly refused narcan. Otherwise pt was not able to provide hx because of repeatedly nodding off. ROS: unable to assess due to somnolence PE GENERAL: arousable to voice, otherwise disoriented; no acute distress HEAD: No signs of trauma, normocephalic, atraumatic NECK: Normal ROM, supple, no LAD, JVD, or masses HEART: Regular rate and rhythm, normal S1/S2, no murmurs, rubs or gallops, peripheral pulses normal and equal bilaterally. LUNGS: No distress, clear to auscultation bilaterally ABDOMEN: Soft, nontender. No guarding, no rebound. No masses EXTREMITIES: Normal inspection, Normal range of motion, no edema. No clubbing or cyanosis. NEUROLOGICAL: Slurred speech, no focal sensorimotor deficits SKIN: Warm, Dry, normal turgor, no rashes or lesions noted Assessment and Plan -observe vitals Shahbaz Sanchez, PGY1 Emergency Medicine Past History - Medical History Allergies/Adverse Reactions: Allergies Allergy/AdvReac Type Severity Reaction Status Date / Time No Known Allergies Allergy Verified 04/12/20 14:56 Home Medications: Ambulatory Orders Gabapentin 600 mg PO BID #60 tablet 04/11/20 Mirtazapine [Remeron -] 30 mg PO HS #30 tablet 04/11/20 Quetiapine Fumarate [Seroquel -] 100 mg PO DAILY #30 tablet 04/11/20 Quetiapine Fumarate [Seroquel -] 300 mg PO HS #30 tablet 04/11/20 Anemia: No Asthma: No Cancer: No Cardiac Disorders: No CVA: No COPD: No CHF: No DVT: No Dementia: No Diabetes: No GI Disorders: No Disorders: No HTN: No Hypercholesterolemia: No Kidney Stones: No Liver Disease: No Psychiatric Problems: Yes (BIPOLOAR) Seizures: No Thyroid Disease: No - Surgical History Abdominal Surgery: No Appendectomy: Yes Cardiac Surgery: No Cholecystectomy: No Lung Surgery: No Neurologic Surgery: No Orthopedic Surgery: No - Reproductive History Testicular Surgery: No - Immunization History Immunization Up to Date: Yes - Psycho-Social/Smoking History Smoking History: Current every day smoker Have you smoked in the past 12 months: Yes Number of Cigarettes Smoked Daily: 20 Cigars Per Day: 0 Information on smoking cessation initiated: No 'Breaking Loose' booklet given: 01/29/18 - Substance Abuse Hx (Audit-C & DAST Scrn) How often the patient has a drink containing alcohol: Monthly or less Score: In Men: 4 or > Positive; In Women: 3 or > Positive: 1 Screen Result (Pos requires Nsg. Audit-10AR): Negative In the last yr the pt used illegal drug/Rx for NonMed reason: Yes Score: Yes response is considered Positive: 1 Screen Result (Positive result requires Nsg. DAST-10): Positive *Physical Exam - Vital Signs Last Vital Signs Temp Pulse Resp BP Pulse Ox 98.6 F 101 H 19 116/75 98 04/12/20 14:23 04/12/20 14:23 04/12/20 14:23 04/12/20 14:23 04/12/20 14:23 Medical Decision Making - Medical Decision Making 04/12/20 15:38 24M with PMH of heroin abuse presented to ED via EMS for apparent overdose. Pt was disoriented with slurred speech, somnolent, but arousable to speech. O2 sat in 80s-90s, but pt was maintaining respiratory drive. Narcan was deferred and pt is observed. 04/12/20 15:52 Pt woke up suddenly, ambulating, asking for food. Pt demands to go home. Discharge - Discharge Information Problems reviewed: Yes Clinical Impression/Diagnosis: Opioid overdose Qualifiers: Encounter type: initial encounter Injury intent: undetermined intent Qualified Code(s): T40.2X4A - Poisoning by other opioids, undetermined, initial encounter Condition: Stable Disposition: HOME - Admission No - Follow up/Referral Referrals: Estiven Ervin MD [Primary Care Provider] - - Patient Discharge Instructions Patient Printed Discharge Instructions: DI for Opioid Use Disorder Additional Instructions: You were seen in the ED for opiate overdose. There does not appear to be an acute need for immediate hospitalization. You are advised to follow up with your Primary Care Physician within 1 week. Return to the ED immediately if you experience overdose symptoms. - Post Discharge Activity
--- OUTSIDE RECORDS SUMMARY | 2020-04-12 15:22 | XMS ---
:1995 [facility] Providers Name Role Phone HHHVCC, HVC9 Unavailable Unavailable ED STAFF DENISE MACHUCA [...] ARNOLD Unavailable Unavailable MD ORLIN Unavailable Unavailable MD Amado Unavailable Unavailable Derek Unavailable [phone] KRISTI SARGINE Unavailable Unavailable MD HERNANDEZ Unavailable Unavailable ED STAFF PHYSICIAN Unavailable Unavailable NEHA SLAVA Unavailable Unavailable ED STAFF PHYSICIAN Unavailable Unavailable Other Unavailable Unavailable Maikol DOE Unavailable Unavailable MD DARREN Unavailable Unavailable MD ABRAHAM Unavailable Unavailable EMERGENCY SERVICE, X Unavailable Unavailable TOÑA YUNGY Unavailable Unavailable Neha VELARDE Unavailable Unavailable Neha VELARDE Unavailable Unavailable ALEXIS TONY Unavailable Unavailable ARTIS MORGAN Unavailable Unavailable MOHJERRY Unavailable Unavailable PEPPER MARTINEZ Unavailable Unavailable Re-disclosure [...] is protected by Article 27-F of the [facility] Public Health law. If you continue you may haveaccess to information: Regarding HIV / AIDS; Provided by facilities licensed or operated by the [facility] Office of Mental Health; or Provided by the [facility] Office for People With Developmental Disabilities. If such information is present, then the following [facility] mandated warning applies: This information has been [...] law may result in a fine or care home sentence or both. A general authorization for the release of medical or other information is NOT sufficient authorization for further disclosure. 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 Karan 11:48:00 AM FACE?/EMPRESS [facility] MDAttender: EDT - Doctor Other 04/06/2020 01:15:00 PM EDT PEPPER SPRAY TO FACE?/EMPRESS Patient discharged. Inpatient Attender: PRIYANKAHAMZAH ALEXIS H-HAL6 04/03/2020 03:06:00 [facility] PRIYANKAENGAttender: STAFF ED PM EDT - 04/05/2020 Medical Center STAFF PHYSICIANAdmitter: 11:35:00 AM EDT CECILY ESPINOZA PRIYANKAENGReferrer: CECILY HOBSONWILHAMZAH Patient discharged. Outpatient Attender: SLAVA Galicia 03/26/2020 [facility] ARNABAdmitter: SLAVA 12:00:00 PM EDT [facility] NEHA SLAVA Attender: Slava Neha Positive 03/26/2020 NEX TGEN ([facility] Directions 12:00:00 PM EDT [facility] 03/26/2020 [place]) 12:00:00 PM EDT Inpatient Attender: SISI GORMAN 02/24/2020 [facility] CARLENESAdmitter: ALE 01:31:00 PM EDT - [facility] 02/28/2020 10:23:00 PM EDT Patient discharged. Outpatient ST 02/24/2020 12:16:00 PM EDT - [address] [place] [address] 02:41:00 PM EDT Patient discharged. Outpatient Attender: ARCADIO CANNON 02/23/2020 09:25:00 [facility] SONDRAdmitter: ARCADIO PM EDT - 02/23/2020 [facility] REGGIE 11:04:00 PM EDT Patient discharged. Emergency Attender: EDDIE, 02/06/2020 RT H[facility] PROBLEM [facility] 12[facility]00 AM EDT [facility] EMERGENCY SERVICE, [email or web address] ation XAdmitter: ARTIS MORGAN RT HIP PROBLEM Emergency Attender: DILSHAD 01/16/2020 [facility]IAL [facility] 11:24:00 AM EDT [facility] EMERGENCY SERVICE, Corpor ation XAdmitter: DILSHAD, LEIA FACIAL BRUISING Emergency Attender: SINA ED STAFF H 01/16/2020 08:00:00 AM [facility] PHYSICIANAttender: STAFF ED EDT - 01/16/2020 Medical Center STAFF PHYSICIANAdmitter: SINA 01:12:00 PM EDT ED STAFF PHYSICIAN Patient discharged. Emergency Attender: DENISE ED STAFF H 01/03/2020 05:21:00 AM [facility] PHYSICIANAttender: STAFF ED EDT - 01/03/2020 Medical Center STAFF PHYSICIANAdmitter: 04:53:00 PM EDT DENISE ED STAFF PHYSICIAN Patient discharged. Inpatient Attender: SISI GORMAN 11/24/2019 11:32:00 [facility] V[facility]CTOR EDT - 11/30/2019 [facility] 10:36:00 PM EDT Patient discharged. Outpatient STV 11/24/2019 10:35:00 PM EDT - [address] [place] [address] 11:44:00 PM EDT Patient discharged. Emergency Attender: Karina Fischer 11/24/2019 10:08:00 OVERD OSE AM.LUCY [facility] MDConsultant: Bailey AM EDT - 11/24/2019 [facility] Sheikh PRACHI 10:22:00 PM EDT OVERDOSE AM.LUCY Patient discharged. Inpatient Attender: COLIN GORMAN 11/13/2019 01:09:00 PM [facility] SOTOAttender: MEGHAN EDT - 11/20/2019 [facility] MAXIMUS CHOWdmitter: 10:41:00 PM EDT RODRÍGUEZ ZAPATA Patient discharged. Outpatient STV 11/13/2019 09:23:00 AM EDT - [address] [place] [address] 02:16:00 PM EDT Patient discharged. Outpatient Attender: HVC9 HHHVCC 09/04/2019 01:39:25 PM [facility] Patient admitted. Unlisted evaluation 08/22/2019 05:11:00 NETSMART (Mental and management PM EST [facility]) Inpatient Attender: IVON 08/15/2019 08:26:00 [facility] MARK PM EST - 08/22/2019 Hospi turner FAEZAdmitter: 11:14:00 PM EST JASON DOE Patient discharged. Attender: 08/15/2019 [facility] [place] [id number] 08:26:00 PM [facility]_6766 Outpatient STV 08/15/2019 [facility] [place] 07:53:00 PM EST - Hospita l 08/15/2019 09:05:00 PM EST Patient discharged. Attender: 08/15/2019 [facility] [place] [id number] 07:53:00 PM [facility]6766 Emergency Attender: VERNA Galicia 06/29/2019 [facility] ENIDttender: STAFF ED STAFF 01:43:00 AM [facility] Medical [place] PHYSICIANAdmitter: VERNA BERRY 06/29/2019 VERNA 04:54:00 AM EST Patient discharged. Outpatient Attender: SLAVA H 05/31/2019 [facility] [place] siddiqui NEHA QUIÑONEZdmitter: 12:00:00 PM [facility] SLAVA GIRALDO Attender: Slava Positive 05/31/2019 [facility] D[facility] 12:00:00 PM [facility] - 05/31/2019 Medical 12:00:00 PM [facility]) Psychiatric Attender: Omero Akhtar Positive 05/31/2019 NEX TGEN ([facility] Sean Derek Directions 10:14:00 AM [facility] Interview (45+ - 05/31/2019 Medical Min) 10:14:00 AM [facility]) Inpatient Attender: CIARRA CANNON-2S 03/17/2019 [facility] Erwin wisdom JOSE LAdmitter: 09:36:00 AM EDT Hos blessingal JASON ELISABETHPayal - 03/21/2019 11:11:00 PM EDT Patient discharged. Attender: 03/17/2019 [facility] [id number] 09:36:00 AM EDT [facility]_6766 Outpatient STV 03/17/2019 [facility] [place] 09:11:00 AM EDT - Hospita l 03/17/2019 11:11:00 PM EDT Patient discharged. Attender: 03/17/2019 [facility] [id number] 09:11:00 AM EDT Hospital [facility]ART_6766 Emergency H 02/22/2019 [facility] 02:40:00 AM EDT - [facility] 02/22/2019 05:09:00 AM EDT Patient discharged. Emergency H 02/22/2019 12:09:00 AM EDT - [address] [place] [address] 02:12:00 AM EDT Patient discharged. Outpatient 02/15/2019 10:14:10 AM EDT [facility] ([facility]) Patient admitted. Outpatient 02/15/2019 10:14:06 AM EDT [facility] ([facility]) Patient admitted. Outpatient 02/15/2019 09:52:56 AM EDT [facility] ([facility]) Patient admitted. Outpatient 02/15/2019 09:52:52 AM EDT [facility] ([facility]) Patient admitted. Outpatient 02/08/2019 10:58:52 AM EDT [facility] ([facility]) Patient admitted. Outpatient 02/08/2019 10:58:48 AM EDT [facility] ([facility]) Patient admitted. Inpatient Attender: JORDAN CANNON-1D 02/05/2019 06:18:00 [facility] Roselny TORREYPHOENIX CHILDREN'S HOSPITALdmitter: CIARRA EDT - 02/14/2019 [facility] 10:33:00 PM EDT Patient discharged. Attender: 02/05/2019 [facility] [id number] 06:18:00 PM EDT [facility]_[address] 02/05/2019 [place] 07:49:00 [facility] 02/05/2019 06:24:00 PM EDT Patient discharged. Attender: 02/05/2019 [facility] [place] [id number] 07:49:00 AM [facility]: 01/29/2019 [facility] [id number] 05:02:00 PM EDT [facility]_6766 Inpatient Attender: CIARRA DOMINGOAttender: STV-3S 01/27/2019 [facility] JORDAN WILLISAdmitter: ANESHAN 07:31:00 PM EDT [facility] - 02/05/2019 06:17:00 PM EDT Patient discharged. Attender: 01/27/2019 [facility] [id number] 07:31:00 PM EDT [facility]6766 Outpatient [facility] 01/27/2019 [facility] 05:47:00 PM EDT [facility] 01/27/2019 05:03:00 PM EDT Patient discharged. Attender: 01/27/2019 [place] [id number] 05:47:[address] Inpatient Attender: JUAN MARTINEZAdmitter: H-HAL5 01/21/2019 [facility] JUAN MARTINEZReferrer: JUAN 10:15:00 PM E DT [facility] - 01/25/2019 [place] 08:27:00 AM EDT Outpatient Attender: Brittany Carter MDAdmitter: [facility] 01/21/2019 [facility]any Carter MD 07:47:00 PM EDT [facility] 01/21/2019 [facility] 08:31:00 PM EDT Attender: 01/21/2019 [facility] [id number] 07:47:00 PM EDT [place] [id number] [facility] Emergency H 01/09/2019 [facility] 08:57:00 PM EDT Medical Center Attender: 01/27/2018 [facility] [id number] 06:40:00 PM EDT [place] [id number] Hospital Attender: 12/18/2017 [place] [id number] 06:39:00 PM EDT [facility]6766 Hospital Attender: 12/18/2017 [place] [id number] 05:30:00 PM [place] 5344766 Hospital Attender: 10/12/2017 [place] [id number] 02:11:00 PM [place] [address] Hospital Attender: 05/18/2017 [place] [id number] 08:22:00 PM [place] [address] Hospital Attender: 05/18/2017 [place] [id number] 07:09:00 PM [place] [address] Hospital Attender: 08/19/2016 [id number] 04:28:00 PM [place] [address] Hospital Attender: 08/19/[id number] 02:28:00 PM [place] [address] Hospital Attender: 12/12/[id number] 03:08:00 PM [place] [address] Hospital Attender: 12/11/[id number] 06:00:00 PM [place] [address] Hospital Attender: 12/05/2015 [address].[id number] 03:04:00 PM [place] [address] Hospital Attender: 12/05/[id number] 12:13:00 PM [place] [address] Hospital Attender: 11/27/2015 [address].[id number] 02:31:00 PM [place] [address] Hospital Attender: 11/16/2015 [place] [id number] 12:23:00 PM EDT [facility]6766 Hospital Attender: 06/23/2015 [facility] [id number] 04:55:00 PM [place] 8559066 Hospital Attender: 06/23/2015 [facility] [id number] 02:24:00 PM [place] 8559066 Hospital Attender: 12/29/2012 [facility] [id number] 01:51:00 PM EDT [place] [id number] Hospital Attender: 12/28/2012 [facility] [id number] 02:55:00 PM EDT [place] 4624066 Hospital Attender: 11/22/2012 [facility] [id number] 03:45:00 PM EDT [place] [id number] Hospital Attender: 11/20/2012 [facility] [id number] 11:09:[address] Immunizations Vaccine Date Status Description Data Source(s) Tdap 01/16/2020 09:09:00 AM EDT completed S [facility] Medications Medication Brand Start Product Dose Route Administrative Pharmacy [facility] Indications Reaction Description Data Name Date Form Instructions Instructions Source(s) 0.9% NaCl 0.9% 999 UNK active 0.9% NaCl [facility] IV NaCl 2020 mL IV Give [facility] IV 01:30: 1000 mL; IV Health 18 AM rate: [facility] EDT over 30 Corporatio minutes n Medication administered onsite Tylenol Tylenol 02/06/2020 1000 UNK active Tylen ol [facility] 01:04:23 AM mg Infus [facility] (AD (AD EDT (ADULT) or Care GT 50 kg Corporation 1000 mg IVPB Medication administered onsite Afrin 12 Hour 01/17/2020 999 MG UNK completed Afrin 12 [place] 0.05 % Nasal 02:36:12 PM Hour 0.05 % [employer] [facility] EDT Nasal [facility] USE Corpora tion 1 SPRAY IN EACH NOSTRIL TWICE DAILY. Dispense: 15 Supervising physician: Artis Morgan Amoxicillin-P 01/17/2020 999 MG UNK [facility] ot 02:36:12 PM [facility] Clavulanate T Clavulanate [facility] 87 875-125 MG Corporati on Oral Tablet TAKE 1 TABLET TWICE DAILY AFTER MEALS Dispense: 20 Supervising physician: Artis Morgan Amoxicillin-P 01/17/2020 999 MG UNK [facility] ot 02:36:12 PM [facility] Clavulanate [facility] Clavulanate [facility] 87 875-125 MG Corporati on Oral Tablet TAKE 1 TABLET TWICE DAILY AFTER MEALS Dispense: 20 Supervising physician: Artis Morgan Afrin 12 Hour 01/17/2020 999 MG UNK completed Afrin 12 [place] 0.05 % Nasal 02:36:12 PM Hour 0.05 % [facility] EDT Nasal [facility] [employer] USE Corpora tion 1 SPRAY IN EACH NOSTRIL TWICE DAILY. Dispense: 15 Supervising physician: Artis Morgan Afrin 12 Hour 01/16/2020 999 MG UNK completed Afrin 12 [place] 0.05 % Nasal 04:31:06 PM Hour 0.05 % [employer] [facility] EDT Nasal [facility] USE Corpora tion 1 SPRAY IN EACH NOSTRIL TWICE DAILY. Dispense: 15 Supervising physician: MATY Root Amoxicillin-P 01/16/2020 999 MG UNK completed [facility] ot 04:31:06 PM [facility] Clavulanate T Clavulanate [facility] 87 875-125 MG Corporati on Oral Tablet TAKE 1 TABLET TWICE DAILY AFTER MEALS Dispense: 20 Supervising physician: MATY Root Afrin 12 Hour 01/16/2020 999 MG UNK completed Afrin 12 [place] 0.05 % Nasal 04:31:06 PM Hour 0.05 % [employer] [facility] EDT Nasal [facility] USE Corpora tion 1 SPRAY IN EACH NOSTRIL TWICE DAILY. Dispense: 15 Supervising physician: MATY Root Amoxicillin-P 01/16/2020 999 MG UNK completed Amoxicillin- [place] ot 04:31:06 PM [facility] Clavulanate EDT Clavulanate H [facility] 87 875-125 MG Corporati on Oral Tablet TAKE 1 TABLET TWICE DAILY AFTER MEALS Dispense: 20 Supervising physician: MATY Root Tylenol Tylenol 01/16/2020 1000 UNK active Tylen ol [facility] (AD Infusion 11:39:37 AM [facility] ([facility] ([facility] or Health Ca re GT 50 kg [employer] 1000 mg IVPB Medication administered onsite Buprenorphine Suboxone - 11/30/2019 1 SUBLINGUAL complete d Suboxone - [facility] 8 MG / 8 MG-2 MG 12:00:00 AM Film 8 MG-2 [facility] N[facility] 2 MG SUBLINGUAL EDT SUBLI [facility] Oral Strip Film Film [Suboxone] gabapentin [...] 999 oral completed aaliyah apentin [place] MG [facility] Corporati on Buprenorphine Suboxone 999 sublingual completed Suboxone [place] 12 MG / MG [facility] Naloxone 3 MG Health Oral Strip Care [Suboxone] Corporati on quetiapine 25 Seroquel 999 oral completed Se roquel [place] MG Oral Tablet MG er Co unty [Seroquel] Health Care Corporati on quetiapine 25 Seroquel 999 oral completed Se roquel [place] MG Oral Tablet MG er Co unty [Seroquel] Health Care Corporati on No known completed [facility] medications. [facility] gabapentin gabapentin 999 oral completed aaliyah apentin [place] MG [facility] Corporati on Buprenorphine Suboxone 999 sublingual completed Suboxone [place] 12 MG / MG [facility] Naloxone 3 MG Health Oral Strip Care [Suboxone] Corporati on Insurance Providers Payer name Policy type Policy ID Covered Covered republican's Policy P linden / Coverage republican ID relationship to [place] Inf ormation type españa MVP MEDICAID [id number] SP [id number] [facility] [id number] 01 [id number] ACUTE W [id number] 01 [id number] O MVP MEDICAID [id number] SP [id number] [facility] [place] Medicaid [id number] MVP Medicaid Medicaid [id number] 1 [id number] Self Pay Self Pay 1 MVP/HHP O [id number] 01 [id number] [facility] [id number] 01 [id number] ACUTE MVP PSYCH OP O [id number] 01 [id number] W [id number] MVP/HHP O [id number] 01 [id number] 500 SELF PAY [id number] Self [id number] MEDICAID OP [id number] Self [id number] MMC MVP [id number] Self [id number] 500 HARMONIOUS SELF PAY [id number] Self [id number] MEDICAID INP [id number] Self [id number] H PSYCH UNK [id number] MEDICAID [id number] SP [id number] MVP MEDICAID [id number] SP [id number] [facility] UNK [id number] [place] [id number] PT [id number] [employer] [place] SELF PAY 0000 Self 0000 MEDICAID INP [id number] Self [id number] H PSYCH MMC MVP [id number] Self [id number] 500 HARMONIOUS [place] [id number] PT [id number] [employer] [place] SELF PAY 00 Self 00 MEDICAID INP [id number] Self [id number] H PSYCH MMC MVP [id number] Self [id number] 500 HARMONIOUS SELF PAY 0000 Self 0000 MEDICAID INP [id number] Self [id number] H PSYCH MMC MVP [id number] Self [id number] 500 HARMONIOUS MVP/HHP [id number] self [id number] SELF PAY 00 Self 00 MEDICAID INP [id number] Self [id number] H PSYCH MMC MVP [id number] Self [id number] 500 HARMONIOUS HEALTHCARE SELF PAY 00 Self 00 MEDICAID INP [id number] Self [id number] H REHAB MVP/HHP O [id number] 01 [id number] 500 MVP MEDICAID [id number] SP [id number] HMO SELF PAY 00 Self 00 MEDICAID INP [id number] Self [id number] H PSYCH MMC P [id number] Self [id number] [facility] O [id number] 01 [id number] ACUTE SVHW O [id number] INPATIENT - 0 ER VISIT MVP/HHP O [id number] 01 [id number] 500 Problems, Conditions, and Diagnoses Code Display Name Description Problem Type Effective Data Sour ce(s) Dates 480912148 Mixed anxiety and Mixed anxiety and Complaint 07/18/2019 [facility] depressive disorder depressive 12:00:00 PM Hosp ital (disorder) disorder EST [id number] Psychoactive Psychoactive Complaint 12/18/2017 [facility] substance use substance use 12:00:00 PM Hospita l disorder (disorder) disorder EDT 08479341 Psychoactive Psychoactive Complaint 12/18/2017 [facility] substance use substance use 12:00:00 PM Hospita l disorder (disorder) disorder EDT 572741015 Bipolar affective Bipolar affective Complaint 12/18/2017 [facility] disorder, current disorder, current 12:00:00 PM Hospital episode depression episode depression EDT (disorder) 05455863 Opioid dependence Opioid dependence Complaint 12/18/2017 [facility] (disorder) 12:00:00 PM Hospital EDT 14907570 Bipolar disorder Bipolar disorder Complaint 12/18/2017 [facility] (disorder) 12:00:00 PM Hospital EDT 38902096 Psychoactive Psychoactive Complaint 12/18/2017 [facility] substance use substance use 12:00:00 PM Hospita l disorder (disorder) disorder EDT 13350679 Psychoactive Psychoactive Complaint 12/18/2017 [facility] substance use substance use 12:00:00 PM Hospita l disorder (disorder) disorder EDT 191993902 Bipolar affective Bipolar affective Complaint 12/18/2017 [facility] disorder, current disorder, current 12:00:00 PM Hospital episode depression episode depression EDT (disorder) 54008846 Opioid dependence Opioid dependence Complaint 12/18/2017 [facility] (disorder) 12:00:00 PM Hospital EDT 02836608 Bipolar disorder Bipolar disorder Complaint 12/18/2017 [facility] (disorder) 12:00:00 PM Hospital EDT 42936415 Psychoactive Psychoactive Complaint 12/18/2017 [facility] substance use substance use 12:00:00 PM Hospita l disorder (disorder) disorder EDT 97318325 Psychoactive Psychoactive Complaint 12/18/2017 [facility] substance use substance use 12:00:00 PM Hospita l disorder (disorder) disorder EDT 439658447 Bipolar affective Bipolar affective Complaint 12/18/2017 [facility] disorder, current disorder, current 12:00:00 PM Hospital episode depression episode depression EDT (disorder) 27599830 Opioid dependence Opioid dependence Complaint 12/18/2017 [facility] (disorder) 12:00:00 PM Hospital EDT 85204088 Bipolar disorder Bipolar disorder Complaint 12/18/2017 [facility] (disorder) 12:00:00 PM Hospital EDT 33956206 Psychoactive Psychoactive Complaint 12/18/2017 [facility] substance use substance use 12:00:00 PM Hospita l disorder (disorder) disorder EDT 49378513 Psychoactive Psychoactive Complaint 12/18/2017 [facility] substance use substance use 12:00:00 PM Hospita l disorder (disorder) disorder EDT 514169159 Bipolar affective Bipolar affective Complaint 12/18/2017 [facility] disorder, current disorder, current 12:00:00 PM Hospital episode depression episode depression EDT (disorder) 90928951 Opioid dependence Opioid dependence Complaint 12/18/2017 [facility] (disorder) 12:00:00 PM Hospital EDT 79586097 Bipolar disorder Bipolar disorder Complaint 12/18/2017 [facility] (disorder) 12:00:00 PM Hospital EDT 83291756 Psychoactive Psychoactive Complaint 12/18/2017 [facility] substance use substance use 12:00:00 PM Hospita l disorder (disorder) disorder EDT 23411645 Psychoactive Psychoactive Complaint 12/18/2017 [facility] substance use substance use 12:00:00 PM Hospita l disorder (disorder) disorder EDT 592602124 Bipolar affective Bipolar affective Complaint 12/18/2017 [facility] disorder, current disorder, current 12:00:00 PM Hospital episode depression episode depression EDT (disorder) 19150076 Opioid dependence Opioid dependence Complaint 12/18/2017 [facility] (disorder) 12:00:00 PM Hospital EDT 13421965 Bipolar disorder Bipolar disorder Complaint 12/18/2017 [facility] (disorder) 12:00:00 PM Hospital EDT 76990925 Psychoactive Psychoactive Complaint 12/18/2017 [facility] substance use substance use 12:00:00 PM Hospita l disorder (disorder) disorder EDT 15174557 Psychoactive Psychoactive Complaint 12/18/2017 [facility] substance use substance use 12:00:00 PM Hospita l disorder (disorder) disorder EDT 416577420 Bipolar affective Bipolar affective Complaint 12/18/2017 [facility] disorder, current disorder, current 12:00:00 PM Hospital episode depression episode depression EDT (disorder) [id number] Opioid dependence Opioid dependence Complaint 12/18/2017 [facility]00 PM [facility] EDT [id number] Bipolar disorder Bipolar disorder Complaint 12/18/2017 [facility] EDT [id number] Opioid dependence Opioid dependence Complaint 12/18/2017 [facility] (disorder) 12:00:00 PM Hospital EDT 25976860 Bipolar disorder Bipolar disorder Complaint 12/18/2017 [facility]00 PM [facility] EDT [id number] Opioid dependence Opioid dependence Complaint 05/18/2017 [facility] with current use with current use 12:00:00 PM H [facility]spital EDT [id number] Cannabis dependence Cannabis Complaint 05/18/2017 [facility] (disorder) dependence 12:00:00 PM Hospital EDT [id number] Opioid abuse Opioid abuse Complaint 05/18/2017 [facility]:00 PM [facility] EDT [id number] Schizoaffective Schizoaffective Complaint 05/18/2017 [facility] disorder, disorder, 12:00:00 PM Hospital depressive type depressive type EDT (disorder) 106286813 Opioid dependence Opioid dependence Complaint 05/18/2017 [facility] with current use with current use 12:00:00 PM H [facility]spital EDT 04301586 Cannabis dependence Cannabis Complaint 05/18/2017 [facility] (disorder) dependence 12:00:00 PM Hospital EDT [id number] Opioid abuse Opioid abuse Complaint 05/18/2017 [facility] 12:[facility]:00 PM [facility] EDT [id number] Schizoaffective Schizoaffective Complaint 05/18/2017 [facility] disorder, disorder, 12:00:00 PM Hospital depressive type depressive type EDT (disorder) 393034750 Opioid dependence Opioid dependence Complaint 05/18/2017 [facility] with current use with current use 12:00:00 PM H [facility]spital EDT 78186546 Cannabis dependence Cannabis Complaint 05/18/2017 [facility] (disorder) dependence 12:00:00 PM Hospital EDT 2163084 Opioid abuse Opioid abuse Complaint 05/18/2017 [facility] 12:[facility]:00 PM [facility] EDT 74002780 Schizoaffective Schizoaffective Complaint 05/18/2017 [facility] [place] disorder, disorder, 12:00:00 PM Hospital depressive type depressive type EDT (disorder) 429107506 Opioid dependence Opioid dependence Complaint 05/18/2017 [facility] with current use with current use 12:00:00 PM [facility]spital EDT 68565636 Cannabis dependence Cannabis Complaint 05/18/2017 [facility] (disorder) dependence 12:00:00 PM Hospital EDT 0002093 Opioid abuse Opioid abuse Complaint 05/18/2017 [facility] 12:[facility]:00 PM [facility] EDT 47151989 Schizoaffective Schizoaffective Complaint 05/18/2017 [facility] disorder, disorder, 12:00:00 PM Hospital depressive type depressive type EDT (disorder) 229423045 Opioid dependence Opioid dependence Complaint 05/18/2017 [facility] with current use with current use 12:00:00 PM H ospital EDT 21614107 Cannabis dependence Cannabis Complaint 05/18/2017 [facility] (disorder) dependence 12:00:00 PM Hospital EDT 7106212 Opioid abuse Opioid abuse Complaint 05/18/2017 [facility] 12:[facility]:00 PM Hospital EDT 72236636 Schizoaffective Schizoaffective Complaint 05/18/2017 [facility] disorder, disorder, 12:00:00 PM Hospital depressive type depressive type EDT (disorder) 023280051 Opioid dependence Opioid dependence Complaint 05/18/2017 [facility] with current use with current use 12:00:00 PM H ospital EDT 21423215 Cannabis dependence Cannabis Complaint 05/18/2017 [facility]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 MG/DL)</conten t> Nitrite NEGATIVE <content [facility] [Presence] in styleCode="Chris Reid Urine by Test d">Urine Medical strip Nitrite Center </content>NEGA TIVE <content styleCode="Evy lics"> (NEGATIVE )</content> ID Date Data Source [id number] 01/03/2020 07:00:00 AM EDT [facility] -0400 Name Value Range Interpretation Description Data Sup porting Code Source(s) Document(s ) Cannabinoids <content [facility] [Presence] in styleCode="Chris Reid Urine by Screen d">Cannabinoid Medical method >50 ng/mL s Center </content>PRES UMPTIVE POSITIVE NG/ML (Reference Range: not available)<br/ > ID Date Data Source HematologyRou.[id number] 01/03/2020 06:10:00 AM EDT [facility] 0400 Name Value Range Interpretation Description Data [...] (0.0 KCUMM)</content > ID Date Data Source GFR(Creatinine).[id number] 01/03/2020 06:10:00 AM EDT [facility] 0-0400 Name Value Range Interpretation Code Description Data Meche rce(s) Supporting Document(s ) UNK > 60 <content [facility] styleCode="Bold"> Medical Cent er EGFR </content>127 GFR<content styleCode="Italic s"> (> 60 GFR)</content> ID Date Data Source [id number] 01/03/2020 06:10:00 AM EDT [facility] Name Value Range Interpretation Description Data [...] Bhats in Serum or d">Calcium Medical Plasma </content>9.7 [...] (0.5-1.3 MG/DL)</conten t> ID Date Data Source [id number] 11/24/2019 01:25:00 PM EDT [facility] CUT-OFF >= 25 NG/ML.THE FINDINGS OF [...] rce(s) Supporting Document(s ) PCP (UR) NEGATIVE [facility] ID Date Data Source [id number] 11/24/2019 01:25:00 PM EDT [facility] CUT-OFF >= 50 NG/ML. Name Value Range Interpretation Code Description Data Meche rce(s) Supporting Document(s ) THC (UR) POSITIVE [facility] ID Date Data Source [id number] 11/24/2019 01:25:00 PM EDT [facility] CUT-OFF >= 300 NG/ML. Name Value Range Interpretation Description Data Sup porting Code Source(s) Document(s ) OPIATES (UR) NEGATIVE [facility] ID Date Data Source [id number] 11/24/2019 01:25:00 PM EDT [facility] CUT-OFF >= 300 NG/ML. Name Value Range Interpretation Description Data Sup porting Code Source(s) Document(s ) COCAINE (UR) POSITIVE [facility] ID Date Data Source [id number] 11/24/2019 01:25:00 PM EDT [facility] CUT-OFF >= 200 NG/ML. Name Value Range Interpretation Description Data Sup porting Code Source(s) Document(s ) BENZODIAZEPINES POSITIVE Rescue (UR) [facility] ID Date Data Source [id number] 11/24/2019 01:25:00 PM EDT [facility] CUT-OFF >= 200 NG/ML. Name Value Range Interpretation Description Data Sup porting Code Source(s) Document(s ) BARBITURATES NEGATIVE [facility] (UR) Hospital ID Date Data Source [id number] 11/24/2019 01:25:00 PM [facility] CUT-OFF >= 1000 NG/ML. Name Value Range Interpretation Description Data Sup porting Code Source(s) Document(s ) AMPHETAMINES NEGATIVE [facility] (UR) Hospital ID Date Data Source [id number] 11/24/2019 01:16:00 PM [facility] Clinical Lab Specialist:ROSLYN SNEED Name Value Range Interpretation Description Data Sup porting Code Source(s) Document(s ) Glucose 151 mg/dL [facility] [Mass/volume] [facility] in Capillary blood by Glucometer ID Date Data Source [id number] 11/24/2019 10:37:00 AM [facility] REFERENCE RANGES: NONE DETECTED <20 MG/DL NONE TO MILD EUPHORIA 20-49 MG/DL MILD EUPHORIA 50-99 MG/DL MODERATE EUPHORIA 100-149 MG/DL INTOXICATION 150-300 MG/DL Name Value Range Interpretation Description Data Sup porting Code Source(s) Document(s ) Ethanol < 20 [facility] [Mass/volume mg/dL [facility] ] in Serum or Plasma ID Date Data Source [id number] 11/24/2019 10:37:00 AM [facility] TEST RESULT IS A TOTAL TRICYCLIC VALUE.T [...] porting Code Source(s) Document(s ) TRICYCLIC 195 [facility] ANTIDEPRESSANT ng/mL Hospital ID Date Data Source [id number] 11/24/2019 10:37:00 AM [facility] REFERENCE RANGES: ANALGESIC: 0.0 - 10.0 MG/DL. ARTHRITIC THERAPY: 15.0 - 30.0 MG/DL. Name Value Range Interpretation Description Data Sup porting Code Source(s) Document(s ) Salicylates < 3.0 [facility] [Mass/volume] mg/dL Hospital in Serum or Plasma ID Date Data Source [id number] 11/24/2019 10:37:00 AM [facility] THERAPEUTIC RANGE: 10.0-30.0 UG/MLTOXIC RANGE: 4 HRS AFTER INGESTION >150 UG/ML 12 HRS AFTER INGESTION >35 UG/ML Name Value Range Interpretation Description Data Sup porting Code Source(s) Document(s ) ACETAMINOPHEN < 10.0 [facility] ug/mL Hospital ID Date Data Source [id number] 11/24/2019 10:37:00 AM [facility] Name Value Range Interpretation Description Data Sup porting Code Source(s) Document(s ) Creatine 520 U/L [facility] kinase Hospital [Enzymatic activity/volu me] in Serum or Plasma ID Date Data Source [id number] 11/24/2019 10:37:00 AM [facility] Name Value Range Interpretation Description Data Sup porting Code Source(s) Document(s ) Aspartate 34 U/L White aminotransferase [facility] [Enzymatic Hospital activity/volume] in Serum or Plasma ID Date Data Source [id number] 11/24/2019 10:37:00 AM [facility] Name Value Range Interpretation Description Data Sup porting Code Source(s) Document(s ) Alanine 44 U/L White aminotransferase [facility] [Enzymatic Hospital activity/volume] in Serum or Plasma ID Date Data Source [id number] 11/24/2019 10:37:00 AM [facility] Name Value Range Interpretation Description Data Sup porting Code Source(s) Document(s ) Alkaline 57 U/L [facility] phosphatase [facility] [Enzymatic activity/volume ] in Serum or Plasma ID Date Data Source [id number] 11/24/2019 10:37:00 AM EDT [facility] Name Value Range Interpretation Description Data Sup porting Code Source(s) Document(s ) Bilirubin.t 0.4 mg/dL [facility] [Mass/volum e] in Serum or Plasma ID Date Data Source [id number] 11/24/2019 10:37:00 AM EDT [facility] Name Value Range Interpretation Code Description Data Meche rce(s) Supporting Document(s ) Albumin/Glob 2.2 [facility] [Mass Hospital Ratio] in Serum or Plasma ID Date Data Source [id number] 11/24/2019 10:37:00 AM EDT [facility] Name Value Range Interpretation Description Data Sup porting Code Source(s) Document(s ) Albumin 4.2 g/dL [facility] [Mass/volume Hospital ] in Serum or Plasma ID Date Data Source [id number] [facility] Range Interpretation Description Data Sup porting Code Source(s) Document(s ) Protein 6.1 g/dL [facility] [Mass/volume Hospital ] in Serum or Plasma ID Date Data Source [id number] 11/24/2019 10:37:00 AM EDT [facility] Name Value Range Interpretation Description Data Sup porting Code Source(s) Document(s ) Calcium 9.3 mg/dL [facility] [Mass/volume Hospital ] in Serum or Plasma ID Date Data Source [id number] 11/24/2019 10:37:00 AM EDT [facility] Name Value Range Interpretation Code Description Data Meche rce(s) Supporting Document(s ) Urea 15.0 [facility] nitrogen/Cre Hospital atinine [Mass Ratio] in Serum or Plasma ID Date Data Source [id number] 11/24/2019 10:37:00 AM EDT [facility] Value Range Interpretation Description Data Sup porting Code Source(s) Document(s ) Creatinine 0.6 mg/dL [facility] [Mass/volume] Hospital in Serum or Plasma ID Date Data Source [id number] 11/24/2019 10:37:00 AM EDT [facility] Value Range Interpretation Description Data Sup porting Code Source(s) Document(s ) Urea nitrogen 9 mg/dL [facility] [Mass/volume] Hospital in Serum or Plasma ID Date Data Source [id number] 11/24/2019 10:37:00 AM EDT [facility] Value Range Interpretation Code Description Data Meche rce(s) Supporting Document(s ) Anion gap in 9 [facility] Serum or [facility] Plasma ID Date Data Source [id number] 11/24/2019 10:37:00 AM EDT [facility] Value Range Interpretation Description Data Sup porting Code Source(s) Document(s ) Carbon 31 mmol/L [facility] dioxide, Hospital total [Moles/volu me] in Serum or Plasma ID Date Data Source [id number] 11/24/2019 10:37:00 AM EDT [facility] Value Range Interpretation Description Data Sup porting Code Source(s) Document(s ) Chloride 105 [facility] [Moles/volum mmol/L Hospital e] in Serum or Plasma ID Date Data Source [id number] 11/24/2019 10:37:00 AM EDT [facility] Value Range Interpretation Description Data Sup porting Code Source(s) Document(s ) Potassium 3.9 [facility] [Moles/volume mmol/L Hospital ] in Serum or Plasma ID Date Data Source [id number] 11/24/2019 10:37:00 AM EDT [facility] Name Value Range Interpretation Description Data Sup porting Code Source(s) Document(s ) Sodium 141 mmol/L [facility] [[facility]vol[facility] de] in Serum or Plasma ID Date Data Source [id number] 11/24/2019 10:37:00 AM EDT [facility] Value Range Interpretation Description Data Sup porting Code Source(s) Document(s ) Glucose 109 mg/dL [facility] [Mass/volume Hospital ] in Serum or Plasma ID Date Data Source [id number] 11/24/2019 10:37:00 AM EDT [facility] Value Range Interpretation Code Description Data Supporting Source(s) Document(s ) NUCLEATED RBCS 0.0 % [facility] (AUTO Hospital DIFF%)DIS ID Date Data Source [id number] 11/24/2019 10:37:00 AM EDT [facility] Value Range Interpretation Description Data Sup porting Code Source(s) Document(s ) Differential AUTOMATED [facility] cell count [facility] method - Blood ID Date Data Source [id number] 11/24/2019 10:37:00 AM EDT [facility] Value Range Interpretation Description Data Sup porting Code Source(s) Document(s ) Immature 0.02 [facility] granulocytes 10*3/uL Hospital [#/volume] in Blood by Automated count ID Date Data Source [id number] 11/24/2019 10:37:00 AM EDT [facility] Name Value Range Interpretation Description Data Sup porting Code Source(s) Document(s ) Basophils 0.05 [facility] [#/volume] in 10*3/uL Hospital Blood by Automated count ID Date Data Source [id number] 11/24/2019 10:37:00 AM EDT [facility] Name Value Range Interpretation Description Data Sup porting Code Source(s) Document(s ) Eosinophils 0.45 [facility] [#/volume] in 10*3/uL Hospital Blood by Automated count ID Date Data Source [id number] 11/24/2019 10:37:00 AM EDT [facility] Value Range Interpretation Description Data Sup porting Code Source(s) Document(s ) Monocytes 1.10 [facility] [#/volume] in 10*3/uL Hospital Blood by Automated count ID Date Data Source [id number] 11/24/2019 10:37:00 AM EDT [facility] Value Range Interpretation Description Data Sup porting Code Source(s) Document(s ) Lymphocytes 3.10 [facility] [#/volume] in 10*3/uL Hospital Blood by Automated count ID Date Data Source [id number] 11/24/2019 10:37:00 AM EDT [facility] Value Range Interpretation Description Data Sup porting Code Source(s) Document(s ) Neutrophils 3.82 [facility] [#/volume] in 10*3/uL Hospital Blood by Automated count ID Date Data Source [id number] 11/24/2019 10:37:00 AM EDT [facility] Value Range Interpretation Description Data Sup porting Code Source(s) Document(s ) Nucleated 0.0 % [facility] erythrocytes/10 Hospital 0 leukocytes [Ratio] in Blood by Automated count ID Date Data Source [id number] 11/24/2019 10:37:00 AM EDT [facility] Value Range Interpretation Description Data Sup porting Code Source(s) Document(s ) Immature 0.2 % [facility] granulocytes/10 Hospital 0 leukocytes in Blood by Automated count ID Date Data Source [id number] 11/24/2019 10:37:00 AM EDT [facility] Name Value Range Interpretation Description Data Sup porting Code Source(s) Document(s ) Basophils/100 0.6 % [facility] leukocytes in [facility] Blood by Automated count ID Date Data Source [id number] 11/24/2019 10:37:00 AM EDT [facility] Name Value Range Interpretation Description Data Sup porting Code Source(s) Document(s ) Eosinophils/100 5.3 % [facility] leukocytes in Hospital Blood by Automated count ID Date Data Source [id number] 11/24/2019 10:37:00 AM EDT [facility] Value Range Interpretation Description Data Sup porting Code Source(s) Document(s ) Monocytes/100 12.9 % [facility] leukocytes in [facility] Blood by Automated count ID Date Data Source [id number] 11/24/2019 10:37:00 AM EDT [facility] Value Range Interpretation Description Data Sup porting Code Source(s) Document(s ) Lymphocytes/10 36.3 % [facility] 0 leukocytes Hospital in Blood by Automated count ID Date Data Source [id number] 11/24/2019 10:37:00 AM EDT [facility] Value Range Interpretation Description Data Sup porting Code Source(s) Document(s ) Neutrophils/10 44.7 % [facility] 0 leukocytes Hospital in Blood by Automated count ID Date Data Source [id number] 11/24/2019 10:37:00 AM EDT [facility] Name Value Range Interpretation Description Data Sup porting Code Source(s) Document(s ) Platelet mean 11.2 fL [facility] volume [facility] [Entitic volume] in Blood by Automated count ID Date Data Source [id number] 11/24/2019 10:37:00 AM EDT [facility] Value Range Interpretation Description Data Sup porting Code Source(s) Document(s ) Platelets 178 [facility] [#/volume] in 10*3/uL Hospital Blood by Automated count ID Date Data Source [id number] 11/24/2019 10:37:00 AM [facility] Value Range Interpretation Description Data Sup porting Code Source(s) Document(s ) Erythrocyte 11.8 % [facility] distribution Hospital width [Ratio] by Automated count ID Date Data Source [id number] 11/24/2019 10:37:00 AM [facility] Value Range Interpretation Description Data Sup porting Code Source(s) Document(s ) Erythrocyte mean 34.7 [facility] corpuscular g/dL [facility] hemoglobin concentration [Mass/volume] by Automated count ID Date Data Source [id number] 11/24/2019 10:37:00 AM [facility] Value Range Interpretation Description Data Sup porting Code Source(s) Document(s ) Erythrocyte 32.4 pg [facility] corpuscular hemoglobin [Entitic mass] by Automated count ID Date Data Source [id number] 11/24/2019 10:37:00 AM [facility] Value Range Interpretation Description Data Sup porting Code Source(s) Document(s ) Erythrocyte 93.2 fL [facility] corpuscular volume [Entitic volume] by Automated count ID Date Data Source [id number] 11/24/2019 10:37:00 AM [facility] Value Range Interpretation Description Data Sup porting Code Source(s) Document(s ) Hematocrit 33.1 % [facility] [Volume Hospital Fraction] of Blood by Automated count ID Date Data Source [id number] 11/24/2019 10:37:00 AM [facility] Value Range Interpretation Description Data Sup porting Code Source(s) Document(s ) Hemoglobin 11.5 g/dL [facility] [Mass/volume] Hospital in Blood ID Date Data Source [id number] 11/24/2019 10:37:00 AM EDT [facility] Name Value Range Interpretation Description Data Sup porting Code Source(s) Document(s ) Erythrocytes 3.55 [facility] [#/volume] in 10*6/uL Hospital Blood by Automated count ID Date Data Source [id number] 11/24/2019 10:37:00 AM EDT [facility] Name Value Range Interpretation Description Data Sup porting Code Source(s) Document(s ) Leukocytes 8.5 [facility] [#/volume] in 10*3/uL Hospital Blood by Automated count ID Date Data Source [id number] 11/14/2019 12:00:00 AM EDT [facility] Name Value Range Interpretation Code Description Data Meche rce(s) Supporting Document(s ) 2019-nCoV [facility] RNA XXX ELISABETH+probe- Imp This lab was ordered by [facility] and reported by [employer] ID Date Data Source [id number] 01/22/2019 12:28:00 AM EDT [facility] 0 Name Value Range Interpretation Description Data [...] )</content> Glucose NEGATIVE <content [facility] [Mass/volume] styleCode="Chris Reid in [...] normal <content [facility] gravity of 5 styleCode="Chris Jeanette Urine by Test d">Urine Medical strip Specific Center [place] </content><= 1.005 L<content styleCode="Evy lics"> (1.015-1.025 )</content> Hemoglobin NEGATIVE <content [facility] [Presence] in styleCode="Chris Jeanette Urine by Test d">Urine Blood Medical strip </content>NEGA Center TIVE <content styleCode="Evy lics"> (NEGATIVE )</content> Urobilinogen 0.2-1.0 <content [facility] [Units/volume] styleCode="Chris Jeanette in Urine by d">Urine Medical Test strip Urobilinogen Center </content>0.2 MG/DL<content styleCode="Evy lics"> (0.2-1.0 MG/DL)</conten t> Leukocyte NEGATIVE <content [facility] esterase styleCode="Chris Jeanette [Presence] in d">Urine Medical Urine by Test Leukocyte Center strip </content>NEGA TIVE <content styleCode="Evy lics"> (NEGATIVE )</content> Nitrite NEGATIVE <content [facility] [Presence] in styleCode="[facility] Urine by Test d">Urine Medical strip Nitrite Center </content>NEGA TIVE <content styleCode="Evy lics"> (NEGATIVE )</content> ID Date Data Source [id number] 01/22/2019 12:28:00 AM EDT [facility] Profile.[id number] Name Value Range Interpretation Description Data Sup [...] s"> (3.5-5.0 G/DL)</content> ID Date Data Source HematologyRou.[id number] 01/22/2019 12:28:00 AM EDT [facility] 0400 Name Value Range Interpretation Description Data [...] KCUMM)</content > UNK 0.0-0.6 <content Saint styleCode="Bold Jenaette ">Eosinophil Medical Count Center </content>0.26 KCUMM<content styleCode="Ital [...] ics"> (0 /100)</content> ID Date Data Source GFR(Creatinine).[id number] 01/22/2019 12:28:00 AM EDT [facility] 0-0400 Name Value Range Interpretation Code Description Data Meche rce(s) Supporting Document(s ) UNK > 60 <content [facility] styleCode="Bold"> Medical Cent er EGFR </content>128 GFR<content styleCode="Italic s"> (> 60 GFR)</content> ID Date Data Source Coagulation 01/22/2019 12:28:00 AM [facility] ical Center Rout.[id number] EDT Name Value Range Interpretation Description Data Sup porting Code Source(s) Document(s ) INR in <content Saint Platelet poor styleCode="Bold"> Jeanette plasma by INR Medical Coagulation </content>Test Center assay not performed. # (Reference Range: not available)
aPTT in <content Saint Platelet poor styleCode="Bold"> Jeanette plasma by Partial Medical Coagulation Thromboplastin Center assay Time </content>Test not performed. SEC (Reference Range: not available)
UNK <content Saint styleCode="Bold"> Jeanette Protime Medical </content>Test Center not performed. SEC (Reference Range: not available)
ID Date Data Source CHMROUTINECCDA.[id number] 01/22/2019 12:28:00 AM EDT [facility] -0400 Name Value Range Interpretation Description Data Sup porting Code Source(s) Document(s ) Protein 6.3-8.2 <content Saint [Mass/volume] styleCode="Chris Jeanette in Serum or d">Total Medical Plasma Protein Center </content>8.2 G/DL<content styleCode="Evy lics"> (6.3-8.2 G/DL)</content > Phosphate 2.5-4.5 <content Saint [Mass/volume] styleCode="Chris Bhats in Serum or d">Phosphorus Medical Plasma </content>3.6 [...] > UNK >= 1.0 <content Saint styleCode="Chris Bhats d">AG Ratio Medical </content>1.5 Center <content styleCode="Evy lics"> (>= 1.0 )</content> UNK 2.3-3.5 <content Saint styleCode="Chris Bhats d">Globulin Medical </content>3.3 Center G/DL<content styleCode="Evy lics"> (2.3-3.5 G/DL)</content > ID Date Data Source [facility].[id number] 01/22/2019 12:28:00 AM EDT [facility] Name Value Range Interpretation [...] Chloride 98-107 <content Saint [Moles/volume] in styleCode="Bold"> [facility] Serum or Plasma Chloride Medical </content>103 [...] Daily Smoker completed Daily Smoker [facility] 10:30:00 PM EDT Medical C enter Smoking Unknown if ever completed Unknown if ever Nohemi Reid smoked smoked Medical Center Smoking Unknown if ever completed Unknown if ever Xenia Castro smoked smoked Hospital Vital Signs ID Date Data Source UNK Name Value Range Interpretation Description Data Sour ce(s) Code Body surface 1.6 m2 1.6 m2 [facility] area Derived Health Syste m from formula Body mass index 18.4 kg/m2 18.4 kg/m2 [facility] e (BMI) [Ratio] Health Syst em Body weight 56.69 kg 56.69 kg [facility] Body height 175.26 cm 175.26 cm [facility] Body 98.2 [degF] 0 - 200 Normal (applies to 98.2 [degF] [facility]ore temperature non-numeric Health Syste m results) Body 36.7 Wendi 0 - 99.9 Normal (applies to 36.7 Wendi [facility] non-numeric Health Syste m results) Diastolic blood 66 mm[Hg] 0 - 999 Below low normal 66 mm[Hg] [facility] teore pressure Health System Systolic blood 114 mm[Hg] 0 - 999 Normal (applies to 114 mm[Hg] [facility] non-numeric Health System results) Oxygen 93 % 0 - 999 Normal (applies to 93 % [facility] iore saturation in non-numeric Health Sys tem Arterial blood results) by Pulse oximetry Respiratory 20 0 - 999 Above high normal 20 [facility] iore rate Health System Heart rate 192 0 - 999 Above upper panic 192 [facility] limits Health System Heart rate 102 0 - 999 Above high normal 102 [facility] Body 37.759627 Wendi 37.552469 Wendi [facility] temperature Medical Cente r Respiratory 20 /min 20 /min [facility] rate Medical Center Heart rate 67 /min 67 /min [facility] Diastolic blood 86 mm[Hg] 86 mm[Hg] [facility] pressure Medical Center Systolic blood 105 mm[Hg] 105 mm[Hg] [facility] pressure Medical Center Body 36.826096 Wendi 36.536649 Wendi [facility] temperature Medical Cente r Respiratory 20 /min 20 /min [facility] rate Medical Center Heart rate 53 /min 53 /min [facility] Diastolic blood 59 mm[Hg] 59 mm[Hg] [facility] pressure Medical Center Systolic blood 107 mm[Hg] 107 mm[Hg] [facility] Medical Center Body 36.553315 Wendi 36.561999 Wendi [facility] Medical Cente r Respiratory 20 /min 20 /min [facility] Medical Center Heart rate 82 /min 82 /min [facility] Diastolic blood 78 mm[Hg] 78 mm[Hg] [facility] pressure Medical Center Systolic blood 118 mm[Hg] 118 mm[Hg] [facility] Medical Center Heart rate 102 /min 102 /min [facility] Diastolic blood 74 mm[Hg] 74 mm[Hg] [facility] Medical Center Systolic blood 113 mm[Hg] 113 mm[Hg] [facility] Medical Center Body 37.853192 Wendi 37.854871 Wendi [facility] Medical Cente r Respiratory 20 /min 20 /min [facility] Heart rate 55 /min 55 /min [facility] Diastolic blood 46 mm[Hg] 46 mm[Hg] [facility] Medical Center Systolic blood 87 mm[Hg] 87 mm[Hg] [facility] Medical Center Body 36.125628 Wendi 36.151331 Wendi [facility] Medical Cente r Respiratory 18 /min 18 /min [facility] Heart rate 57 /min 57 /min [facility] Diastolic blood 64 mm[Hg] 64 mm[Hg] [facility] Medical Center Systolic blood 118 mm[Hg] 118 mm[Hg] [facility] Medical [place] Body weight 57.799787 kg 57.432149 kg [facility] Measured [facility] Body height 182.723122 cm 182.600984 cm [facility] Body mass index 17.04 kg/m2 17.04 kg/m2 [facility] (BMI) [Ratio] Medical [facility] ter Body weight 57.626668 kg 57.557783 kg [facility] Measured Medical Center Body height 182.393729 cm 182.048101 cm [facility] Body mass index 17.04 kg/m2 17.04 [facility]m2 [facility] ([facility]) [Ratio] Medical [facility] ter Body 36.650509 Wendi 36.419367 Wendi [facility] temperature Medical Cente r Respiratory 20 /min 20 /min [facility] rate Medical Center Heart rate 68 /min 68 /min [facility] Oxygen 97 % 97 % [facility] saturation in Medical [address] Arterial blood by Pulse oximetry Body 36.713477 Wendi 36.661659 Wendi [facility] temperature Medical Cente r Respiratory 18 /min 18 /min [facility] rate Medical Center Heart rate 62 /min 62 /min [facility] Diastolic blood 79 mm[Hg] 79 mm[Hg] [facility] pressure Medical Center Systolic blood 128 mm[Hg] 128 mm[Hg] [facility] pressure Medical Center Body weight 58.103466 kg 58.403900 kg [facility] Measured Medical Center Oxygen 96 % 96 % [facility] saturation in Medical [address] Arterial blood by Pulse oximetry Body height 182.622069 cm 182.358936 cm [facility] Body mass index 17.6 kg/m2 17.6 kg/m2 [facility] (BMI) [Ratio] Medical [address] Body 36.648453 Wendi 36.368506 Wendi [facility] Medical Cente r Respiratory 18 /min 18 /min [facility] rate Medical Center Diastolic blood 86 mm[Hg] 86 mm[Hg] [facility] pressure Medical Center Systolic blood 136 mm[Hg] 136 mm[Hg] [facility] pressure Medical [place] Diastolic blood 75 mmHg 75 mmHg [facility] Systolic blood 107 mmHg 107 mmHg [facility] Respiratory 18 bpm 18 bpm [facility] Heart rate 87 bpm 87 bpm [facility] Diastolic blood 72 mmHg 72 mmHg [facility] Systolic blood 113 mmHg 113 mmHg [facility] Respiratory 18 bpm 18 bpm [facility] Heart rate 86 bpm 86 bpm [facility] Body 98.0 98.0 [facility] Diastolic blood 80 mmHg 80 mmHg [facility] Systolic blood 109 mmHg 109 mmHg [facility] Respiratory 16 bpm 16 bpm [facility] Heart rate 86 bpm 86 bpm [facility] Body 98.3 98.3 [facility] Systolic blood 121 mm[Hg] 121 mm[Hg] [facility] pressure Medical Center Diastolic blood 77 mm[Hg] 77 mm[Hg] [facility] pressure Medical Center Heart rate 84 /min 84 /min [facility] Oxygen 99 % 99 % [facility] saturation in Medical [address] Arterial blood by Pulse oximetry Respiratory 18 /min 18 /min [facility] Body 36.999308 Wendi 36.049999 Wendi [facility] Medical Cente r Systolic blood 111 mm[Hg] 111 mm[Hg] [facility] pressure Medical Center Diastolic blood 48 mm[Hg] 48 mm[Hg] [facility] pressure Medical Center Heart rate 95 /min 95 /min [facility] Oxygen 97 % 97 % [facility] saturation in Medical [address] Arterial blood by Pulse oximetry Respiratory 19 /min 19 /min [facility] Body 36.278627 Wendi 36.398515 Wendi [facility] Medical Cente r Body 36.862840 Wendi 36.847220 Wendi [facility] Medical Cente r Respiratory 18 /min 18 /min [facility] Oxygen 98 % 98 % [facility] saturation in Medical [address] Arterial blood by Pulse oximetry Heart rate 82 /min 82 /min [facility] Diastolic blood 82 mm[Hg] 82 mm[Hg] [facility] pressure Medical Center Systolic blood 136 mm[Hg] 136 mm[Hg] [facility] Body 37.877393 Wendi 37.523977 Wendi [facility] Medical Cente r Respiratory 18 /min 18 /min [facility] Oxygen 97 % 97 % [facility] saturation in Medical [address] Arterial blood by Pulse oximetry Heart rate 88 /min 88 /min [facility] Diastolic blood 76 mm[Hg] 76 mm[Hg] [facility] pressure Medical Center Systolic blood 142 mm[Hg] 142 mm[Hg] [facility] Medical Center Body 35.676151 Wendi 35.644076 Wendi [facility] temperature Medical Cente r Respiratory 18 /min 18 /min [facility] Oxygen 99 % 99 % [facility] saturation in Medical [address] Arterial blood by Pulse oximetry Heart rate 100 /min 100 /min [facility] Diastolic blood 76 mm[Hg] 76 mm[Hg] [facility] pressure Medical Center Systolic blood 138 mm[Hg] 138 mm[Hg] [facility] Medical Center Body 37.232522 Wendi 37.489754 Wendi [facility] temperature Medical Cente r Respiratory 17 /min 17 /min [facility] Oxygen 97 % 97 % [facility] saturation in Medical [address] Arterial blood by Pulse oximetry Heart rate 92 /min 92 /min [facility] Diastolic blood 88 mm[Hg] 88 mm[Hg] [facility] Medical [place] Systolic blood 146 mm[Hg] 146 mm[Hg] [facility] Medical [place] Body weight 79.386220 kg 79.997191 kg [facility] Measured Medical Center Body 36.058801 Wendi 36.812942 Wendi [facility] temperature Medical Cente r Respiratory 16 /min 16 /min [facility] Oxygen 95 % 95 % [facility] saturation in Medical [address] Arterial blood by Pulse oximetry Heart rate 107 /min 107 /min [facility] Body height 193.283624 cm 193.957376 cm [facility] Diastolic blood 100 mm[Hg] 100 mm[Hg] [facility] Medical [place] Systolic blood 155 mm[Hg] 155 mm[Hg] [facility] Body mass index 21.3 kg/m2 21.3 kg/m2 [facility] (BMI) [Ratio] Medical [address] Diastolic blood 83 mmHg 83 mmHg [facility] Systolic blood 131 mmHg 131 mmHg [facility] Respiratory 18 bpm 18 bpm [facility] Heart rate 112 bpm 112 bpm [facility] Diastolic blood 76 mmHg 76 mmHg [facility] Systolic blood 126 mmHg 126 mmHg [facility] Respiratory 18 bpm 18 bpm [facility] Heart rate 100 bpm 100 bpm [facility] Body 98.5 98.5 [facility] Diastolic blood 62 mmHg 62 mmHg [facility] Systolic blood 118 mmHg 118 mmHg [facility] Respiratory 18 bpm 18 bpm [facility] Heart rate 111 bpm 111 bpm [facility] Diastolic blood 76 mmHg 76 mmHg [facility] Systolic blood 132 mmHg 132 mmHg [facility] Respiratory 18 bpm 18 bpm [facility] Heart rate 105 bpm 105 bpm [facility] Body 98.3 98.3 [facility] Diastolic blood 71 mmHg 71 mmHg [facility] Systolic blood 119 mmHg 119 mmHg [facility] Respiratory 18 bpm 18 bpm [facility] Heart rate 120 bpm 120 bpm [facility] Diastolic blood 77 mmHg 77 mmHg [facility] Systolic blood 139 mmHg 139 mmHg [facility] Respiratory 18 bpm 18 bpm [facility] Heart rate 110 bpm 110 bpm [facility] Body 98.3 98.3 [facility] Diastolic blood 74 mmHg 74 mmHg [facility] Systolic blood 118 mmHg 118 mmHg [facility] Respiratory 18 bpm 18 bpm [facility] Heart rate 118 bpm 118 bpm [facility] Diastolic blood 83 mmHg 83 mmHg [facility] Systolic blood 122 mmHg 122 mmHg [facility] Respiratory 18 bpm 18 bpm [facility] Heart rate 111 bpm 111 bpm [facility] Diastolic blood 57 mmHg 57 mmHg [facility] Systolic blood 128 mmHg 128 mmHg [facility] Respiratory 18 bpm 18 bpm [facility] Heart rate 90 bpm 90 bpm [facility] Diastolic blood 78 mmHg 78 mmHg [facility] Systolic blood 137 mmHg 137 mmHg [facility] Respiratory 18 bpm 18 bpm [facility] Heart rate 85 bpm 85 bpm [facility] Body 98.4 98.4 [facility] Diastolic blood 70 mmHg 70 mmHg [facility] Systolic blood 115 mmHg 115 mmHg [facility] Heart rate 89 bpm 89 bpm [facility] Body weight 144 lbs 144 lbs [facility] Diastolic blood 89 mmHg 89 mmHg [facility] Systolic blood 141 mmHg 141 mmHg [facility] Respiratory 18 bpm 18 bpm [facility] Heart rate 110 bpm 110 bpm [facility] Body 98.5 98.5 [facility] Body weight 144 lbs 144 lbs [facility] Diastolic blood 87 mmHg 87 mmHg [facility] Systolic blood 145 mmHg 145 mmHg [facility] Respiratory 18 bpm 18 bpm [facility] Heart rate 98 bpm 98 bpm [facility] Body 98.5 98.5 [facility] Diastolic blood 68 mm[Hg] 68 mm[Hg] [facility] Systolic blood 118 mm[Hg] 118 mm[Hg] [facility] Respiratory 20 /min 20 /min [facility] Heart rate 90 /min 90 /min [facility] Body 36.31496 Wendi 36.55979 Wendi [facility] Body 97.3 [degF] 97.3 [degF] [facility] Body mass index 22.0 kg/m2 22.0 kg/m2 [facility] (BMI) [Ratio] Hospital Body weight 165.35 [lb_av] 165.35 [lb_av] [facility] Diastolic blood 73 mmHg 73 mmHg [facility] Systolic blood 113 mmHg 113 mmHg [facility] Respiratory 18 bpm 18 bpm [facility] Heart rate 109 bpm 109 bpm [facility] Diastolic blood 70 mmHg 70 mmHg [facility] Systolic blood 122 mmHg 122 mmHg [facility] Respiratory 18 bpm 18 bpm [facility] Heart rate 91 bpm 91 bpm [facility] Body 96.4 96.4 [facility] Diastolic blood 83 mmHg 83 mmHg [facility] Systolic blood 127 mmHg 127 mmHg [facility] Respiratory 18 bpm 18 bpm [facility] Heart rate 98 bpm 98 bpm [facility] Diastolic blood 78 mmHg 78 mmHg [facility] Systolic blood 120 mmHg 120 mmHg [facility] Respiratory 18 bpm 18 bpm [facility] Heart rate 98 bpm 98 bpm [facility] Body 98.6 98.6 [facility] Respiratory 18 bpm 18 bpm [facility] Body 96.3 96.3 [facility] Diastolic blood 81 mmHg 81 mmHg [facility] Systolic blood 125 mmHg 125 mmHg [facility] Heart rate 82 bpm 82 bpm [facility] Diastolic blood 71 mmHg 71 mmHg [facility] Systolic blood 118 mmHg 118 mmHg [facility] Heart rate 84 bpm 84 bpm [facility] Diastolic blood 67 mmHg 67 mmHg [facility] Systolic blood 111 mmHg 111 mmHg [facility] Respiratory 19 bpm 19 bpm [facility] Heart rate 86 bpm 86 bpm [facility] Body 97.2 97.2 [facility] Diastolic blood 64 mmHg 64 mmHg [facility] Systolic blood 113 mmHg 113 mmHg [facility] Respiratory 93 bpm 93 bpm [facility] Heart rate 18 bpm 18 bpm [facility] Body 98.0 98.0 [facility] Diastolic blood 64 mmHg 64 mmHg [facility] Systolic blood 115 mmHg 115 mmHg [facility] Respiratory 90 bpm 90 bpm [facility] Heart rate 18 bpm 18 bpm [facility] Body 98.0 98.0 [facility] Diastolic blood 74 mmHg 74 mmHg [facility] Systolic blood 118 mmHg 118 mmHg [facility] Respiratory 18 bpm 18 bpm [facility] Heart rate 78 bpm 78 bpm [facility] Diastolic blood 74 mmHg 74 mmHg [facility] Systolic blood 112 mmHg 112 mmHg [facility] Respiratory 18 bpm 18 bpm [facility] Heart rate 65 bpm 65 bpm [facility] Body 96.3 96.3 [facility] Diastolic blood 63 mmHg 63 mmHg [facility] Systolic blood 104 mmHg 104 mmHg [facility] Heart rate 103 bpm 103 bpm [facility] Diastolic blood 54 mmHg 54 mmHg [facility] Systolic blood 95 mmHg 95 mmHg [facility] Respiratory 18 bpm 18 bpm [facility] Heart rate 86 bpm 86 bpm [facility] Body 98.0 98.0 [facility] Diastolic blood 76 mmHg 76 mmHg [facility] Systolic blood 110 mmHg 110 mmHg [facility] Heart rate 102 bpm 102 bpm [facility] Diastolic blood 71 mmHg 71 mmHg [facility] Systolic blood 120 mmHg 120 mmHg [facility] Respiratory 19 bpm 19 bpm [facility] Heart rate 94 bpm 94 bpm [facility] Body 97.6 97.6 [facility] Respiratory 18 bpm 18 bpm [facility] Body 97.5 97.5 [facility] Diastolic blood 71 mmHg 71 mmHg [facility] Systolic blood 121 mmHg 121 mmHg [facility] Heart rate 89 bpm 89 bpm [facility] Systolic blood 131 mmHg 131 mmHg [facility] Heart rate 107 bpm 107 bpm [facility] Respiratory 20 bpm 20 bpm [facility] Body 97.9 97.9 [facility] Diastolic blood 78 mmHg 78 mmHg [facility] Body weight 133 lbs 133 lbs [facility] Respiratory 20 bpm 20 bpm [facility] Body 97.1 97.1 [facility] Diastolic blood 68 mmHg 68 mmHg [facility] Systolic blood 122 mmHg 122 mmHg [facility] Heart rate 87 bpm 87 bpm [facility] Diastolic blood 67 mmHg 67 mmHg [facility] Systolic blood 102 mmHg 102 mmHg [facility] Respiratory 18 bpm 18 bpm [facility] Heart rate 94 bpm 94 bpm [facility] Body 98.8 98.8 [facility] Diastolic blood 73 mmHg 73 mmHg [facility] Systolic blood 122 mmHg 122 mmHg [facility] Respiratory 18 bpm 18 bpm [facility] Heart rate 80 bpm 80 bpm [facility] Body 97.1 97.1 [facility] Diastolic blood 74 mmHg 74 mmHg [facility] Systolic blood 114 mmHg 114 mmHg [facility] Respiratory 18 bpm 18 bpm [facility] Heart rate 77 bpm 77 bpm [facility] Body 97.1 97.1 [facility] Body 36.145185 Wendi 36.647976 Wendi [facility] temperature Medical Cente r Respiratory 18 /min 18 /min [facility] Medical [place] Oxygen 97 % 97 % [facility] saturation in Medical [address] Arterial blood by Pulse oximetry Heart rate 78 /min 78 /min [facility] Diastolic blood 78 mm[Hg] 78 mm[Hg] [facility] pressure Medical Center Systolic blood 116 mm[Hg] 116 mm[Hg] [facility] pressure Medical Center Body 36.556396 Wendi 36.020938 Wendi [facility] Medical Cente r Respiratory 18 /min 18 /min [facility] Medical Center Oxygen 99 % 99 % [facility] saturation in Medical [address] Arterial blood by Pulse oximetry Heart rate 82 /min 82 /min [facility] Diastolic blood 74 mm[Hg] 74 mm[Hg] [facility] pressure Medical [place] Systolic blood 119 mm[Hg] 119 mm[Hg] [facility] pressure Medical [place] Diastolic blood 83 mmHg 83 mmHg [facility] Systolic blood 139 mmHg 139 mmHg [facility] Respiratory 18 bpm 18 bpm [facility] Heart rate 114 bpm 114 bpm [facility] Diastolic blood 80 mmHg 80 mmHg [facility] Systolic blood 144 mmHg 144 mmHg [facility] Respiratory 18 bpm 18 bpm [facility] Heart rate 101 bpm 101 bpm [facility] Body 97.1 97.1 [facility] Body weight 150 lbs 150 lbs [facility] Diastolic blood 86 mmHg 86 mmHg [facility] Systolic blood 130 mmHg 130 mmHg [facility] Respiratory 20 bpm 20 bpm [facility] Heart rate 119 bpm 119 bpm [facility] Diastolic blood 87 mmHg 87 mmHg [facility] Systolic blood 141 mmHg 141 mmHg [facility] Respiratory 20 bpm 20 bpm [facility] Heart rate 110 bpm 110 bpm [facility] Body 97.4 97.4 [facility] Diastolic blood 78 mmHg 78 mmHg [facility] Systolic blood 124 mmHg 124 mmHg [facility] Respiratory 18 bpm 18 bpm [facility] Heart rate 124 bpm 124 bpm [facility] Body 98.3 98.3 [facility] Body 36.399422 Wendi 36.227871 Wendi [facility] temperature Medical Cente r Respiratory 17 /min 17 /min [facility] Oxygen 98 % 98 % [facility] saturation in Medical [address] Arterial blood by Pulse oximetry Heart rate 98 /min 98 /min [facility] Diastolic blood 87 mm[Hg] 87 mm[Hg] [facility] pressure [facility] Center Systolic blood 146 mm[Hg] 146 mm[Hg] [facility] pressure Medical Center Body weight 85.233248 kg 85.163162 kg [facility] Measured [facility] Body 36.820924 Wendi 36.896689 Wendi [facility] Medical Cente r Respiratory 18 /min 18 /min [facility] rate Medical Center Oxygen 98 % 98 % [facility] saturation in Medical [address] Arterial blood by Pulse oximetry Heart rate 81 /min 81 /min [facility] Diastolic blood 78 mm[Hg] 78 mm[Hg] [facility] pressure Medical Center Systolic blood 141 mm[Hg] 141 mm[Hg] [facility] pressure Medical Center Diastolic blood 66 mmHg 66 mmHg [facility] Systolic blood 127 mmHg 127 mmHg [facility] Respiratory 18 bpm 18 bpm [facility] Heart rate 109 bpm 109 bpm [facility] Diastolic blood 67 mmHg 67 mmHg [facility] Systolic blood 114 mmHg 114 mmHg [facility] Respiratory 18 bpm 18 bpm [facility] Heart rate 94 bpm 94 bpm [facility] Body 97.4 97.4 [facility] Diastolic blood 58 mmHg 58 mmHg [facility] Systolic blood 124 mmHg 124 mmHg [facility] Respiratory 18 bpm 18 bpm [facility] Heart rate 110 bpm 110 bpm [facility] Body weight 132 lbs 132 lbs [facility] Diastolic blood 68 mmHg 68 mmHg [facility] Systolic blood 102 mmHg 102 mmHg [facility] Respiratory 18 bpm 18 bpm [facility] Heart rate 88 bpm 88 bpm [facility] Body 98.2 98.2 [facility] Diastolic blood 69 mmHg 69 mmHg [facility] Systolic blood 108 mmHg 108 mmHg [facility] Respiratory 18 bpm 18 bpm [facility] Heart rate 70 bpm 70 bpm [facility] Body 98.2 98.2 [facility] Diastolic blood 83 mmHg 83 mmHg [facility] Systolic blood 136 mmHg 136 mmHg [facility] Respiratory 18 bpm 18 bpm [facility] Heart rate 101 bpm 101 bpm [facility] Diastolic blood 77 mmHg 77 mmHg [facility] Systolic blood 134 mmHg 134 mmHg [facility] Respiratory 18 bpm 18 bpm [facility] Heart rate 111 bpm 111 bpm [facility] Respiratory 18 bpm 18 bpm [facility] Body 97.4 97.4 [facility] Diastolic blood 67 mmHg 67 mmHg [facility] Systolic blood 98 mmHg 98 mmHg [facility] Heart rate 91 bpm 91 bpm [facility] Diastolic blood 75 mmHg 75 mmHg [facility] Systolic blood 119 mmHg 119 mmHg [facility] Respiratory 18 bpm 18 bpm [facility] Heart rate 107 bpm 107 bpm [facility] Body 99.4 99.4 [facility] Diastolic blood 76 mmHg 76 mmHg [facility] Systolic blood 118 mmHg 118 mmHg [facility] Heart rate 104 bpm 104 bpm [facility] Diastolic blood 72 mmHg 72 mmHg [facility] Systolic blood 115 mmHg 115 mmHg [facility] Respiratory 18 bpm 18 bpm [facility] Heart rate 91 bpm 91 bpm [facility] Body 97.7 97.7 [facility] Body weight 128 lbs 128 lbs [facility] Diastolic blood 73 mmHg 73 mmHg [facility] Systolic blood 125 mmHg 125 mmHg [facility] Heart rate 96 bpm 96 bpm [facility] Diastolic blood 82 mmHg 82 mmHg [facility] Systolic blood 125 mmHg 125 mmHg [facility] Respiratory 20 bpm 20 bpm [facility] Heart rate 96 bpm 96 bpm [facility] Body 98.7 98.7 [facility] Body 98.7 98.7 [facility] Di[facility] blood 73 mmHg 73 mmHg [facility] Systolic blood 125 mmHg 125 mmHg [facility] Respiratory 20 bpm 20 bpm [facility] Heart rate 96 bpm 96 bpm [facility] Respiratory 18 bpm 18 bpm [facility] Body 99.0 99.0 [facility] Diastolic blood 65 mmHg 65 mmHg [facility] Systolic blood 103 mmHg 103 mmHg [facility] Heart rate 84 bpm 84 bpm [facility] Respiratory 18 bpm 18 bpm [facility] Body 97.6 97.6 [facility] Diastolic blood 67 mmHg 67 mmHg [facility] Systolic blood 108 mmHg 108 mmHg [facility] Heart rate 88 bpm 88 bpm [facility] Diastolic blood 71 mmHg 71 mmHg [facility] Systolic blood 110 mmHg 110 mmHg [facility] Heart rate 80 bpm 80 bpm [facility] Diastolic blood 70 mmHg 70 mmHg [facility] Systolic blood 107 mmHg 107 mmHg [facility] Respiratory 18 bpm 18 bpm [facility] Heart rate 72 bpm 72 bpm [facility] Body 97.3 97.3 [facility] Diastolic blood 60 mmHg 60 mmHg [facility] Systolic blood 112 mmHg 112 mmHg [facility] Respiratory 20 bpm 20 bpm [facility] Heart rate 94 bpm 94 bpm [facility] Body 98.6 98.6 [facility] Diastolic blood 62 mmHg 62 mmHg [facility] Systolic blood 109 mmHg 109 mmHg [facility] Respiratory 20 bpm 20 bpm [facility] Heart rate 86 bpm 86 bpm [facility] Body 98.6 98.6 [facility] Diastolic blood 84 mmHg 84 mmHg [facility] Systolic blood 118 mmHg 118 mmHg [facility] Heart rate 66 bpm 66 bpm [facility] Diastolic blood 72 mmHg 72 mmHg [facility] Systolic blood 110 mmHg 110 mmHg [facility] Respiratory 18 bpm 18 bpm [facility] Heart rate 68 bpm 68 bpm [facility] Body 97.6 97.6 [facility] Diastolic blood 63 mmHg 63 mmHg [facility] Systolic blood 105 mmHg 105 mmHg [facility] Respiratory 16 bpm 16 bpm [facility] Heart rate 77 bpm 77 bpm [facility] Body 98.1 98.1 [facility] Diastolic blood 80 mmHg 80 mmHg [facility] Systolic blood 127 mmHg 127 mmHg [facility] Respiratory 16 bpm 16 bpm [facility] Heart rate 82 bpm 82 bpm [facility] Diastolic blood 78 mmHg 78 mmHg [facility] Systolic blood 123 mmHg 123 mmHg [facility] Respiratory 16 bpm 16 bpm [facility] Heart rate 82 bpm 82 bpm [facility] Body 36.7 36.7 [facility] Body 97.5 97.5 [facility] Diastolic blood 73 mmHg 73 mmHg [facility] Systolic blood 117 mmHg 117 mmHg [facility] Respiratory 18 bpm 18 bpm [facility] Heart rate 93 bpm 93 bpm [facility] Diastolic blood 72 mmHg 72 mmHg [facility] Systolic blood 99 mmHg 99 mmHg [facility] Respiratory 18 bpm 18 bpm [facility] Heart rate 83 bpm 83 bpm [facility] Body weight 127 lbs 127 lbs [facility] Diastolic blood 54 mmHg 54 mmHg [facility] Systolic blood 111 mmHg 111 mmHg [facility] Respiratory 18 bpm 18 bpm [facility] Heart rate 80 bpm 80 bpm [facility] Body 97.8 97.8 [facility] Body 36.294689 Wendi 36.095393 Wendi [facility] Medical Cente r Respiratory 18 /min 18 /min [facility] Medical [place] Heart rate 72 /min 72 /min [facility] Diastolic blood 50 mm[Hg] 50 mm[Hg] [facility] pressure Medical Center Systolic blood 118 mm[Hg] 118 mm[Hg] [facility] pressure Medical Center Body 36.712895 Wendi 36.636940 Wendi [facility] temperature Medical Cente r Respiratory 18 /min 18 /min [facility] Heart rate 84 /min 84 /min [facility] Diastolic blood 47 mm[Hg] 47 mm[Hg] [facility] pressure Medical Center Systolic blood 123 mm[Hg] 123 mm[Hg] [facility] pressure Medical Center Body 36.636990 Wendi 36.361609 Wendi [facility] temperature Medical Cente r Respiratory 20 /min 20 /min [facility] Heart rate 65 /min 65 /min [facility] Diastolic blood 51 mm[Hg] 51 mm[Hg] [facility] pressure Medical Center Systolic blood 97 mm[Hg] 97 mm[Hg] [facility] pressure Medical Center Body 36.282724 Wendi 36.813282 Wendi [facility] Medical Cente r Respiratory 16 /min 16 /min [facility] Oxygen 98 % 98 % [facility] saturation in Medical [facility] ter Arterial blood by Pulse oximetry Heart rate 85 /min 85 /min [facility] Diastolic blood 55 mm[Hg] 55 mm[Hg] [facility] pressure Medical Center Systolic blood 100 mm[Hg] 100 mm[Hg] [facility] Body 36.317834 Wendi 36.350839 Wendi [facility] Medical Cente r Respiratory 18 /min 18 /min [facility] Heart rate 47 /min 47 /min [facility] Diastolic blood 45 mm[Hg] 45 mm[Hg] [facility] Medical Center Systolic blood 98 mm[Hg] 98 mm[Hg] [facility] Medical [place] Body weight 51.985721 kg 51.607186 kg [facility] Measured Medical Center Body height 182.306821 cm 182.831704 cm [facility] Body mass index 15.33 kg/m2 15.33 kg/m2 [facility] (BMI) [Ratio] [facility] [address] Body 36.579632 Wendi 36.826953 Wendi [facility] Medical Cente r Respiratory 18 /min 18 /min [facility] Heart rate 88 /min 88 /min [facility] Diastolic blood 50 mm[Hg] 50 mm[Hg] [facility] pressure Medical Center Systolic blood 110 mm[Hg] 110 mm[Hg] [facility] pressure Medical Center Heart rate 73 /min 73 /min [facility] Diastolic blood 59 mm[Hg] 59 mm[Hg] [facility] Center Systolic blood 118 mm[Hg] 118 mm[Hg] [facility] Body 37.243829 Wendi 37.728448 Wendi [facility] Medical Cente r Respiratory 16 /min 16 /min [facility] Body weight 51.536076 kg 51.472958 kg [facility] Measured [facility] Body height 182.756676 cm 182.223560 cm [facility] Body mass index 15.33 kg/m2 15.33 kg/m2 [facility] (BMI) [Ratio] Medical [facility] ter Body weight 51.992073 kg 51.587860 kg [facility] Body height 182.228933 cm 182.950234 cm [facility] Body mass index 15.33 kg/m2 15.33 kg/m2 [facility] (BMI) [Ratio] Medical [facility] ter Body 37.803592 Wendi 37.216762 Wendi [facility] temperature Medical Cente r Respiratory 18 /min 18 /min [facility] rate Medical Center Heart rate 77 /min 77 /min [facility] Diastolic blood 55 mm[Hg] 55 mm[Hg] [facility] pressure [facility] Systolic blood 106 mm[Hg] 106 mm[Hg] [facility] pressure Medical Center Body weight 54.733708 kg 54.078053 kg [facility]asured [facility] Oxygen 95 % 95 % [facility] saturation in Medical [facility] ter Arterial blood by Pulse oximetry Body 36.305686 Wendi 36.385696 Wendi [facility] temperature Medical Cente r Respiratory 17 /min 17 /min [facility] rate Medical Center Heart rate 77 /min 77 /min [facility] Diastolic blood 62 mm[Hg] 62 mm[Hg] [facility] pressure [facility] Systolic blood 117 mm[Hg] 117 mm[Hg] [facility] pressure Medical Center Body 36.025401 Wendi 36.847900 Wendi [facility] temperature Medical Cente r Respiratory 20 /min 20 /min [facility] Center Oxygen 98 % 98 % [facility] saturation in Medical [facility] ter Arterial blood by Pulse oximetry Heart rate 67 /min 67 /min [facility] Diastolic blood 62 mm[Hg] 62 mm[Hg] [facility] pressure [facility] Systolic blood 109 mm[Hg] 109 mm[Hg] [facility] pressure Medical Center Body 36.054915 Wendi 36.640049 Wendi [facility] temperature Medical Cente r Respiratory 19 /min 19 /min [facility] rate Medical Center Oxygen 98 % 98 % [facility] saturation in Medical [facility] ter Arterial blood by Pulse oximetry Heart rate 69 /min 69 /min [facility] Diastolic blood 94 mm[Hg] 94 mm[Hg] [facility] pressure [facility] Systolic blood 113 mm[Hg] 113 mm[Hg] [facility] pressure [facility] Center Body 36.600052 Wendi 36.156826 Wendi [facility] Medical Cente r Respiratory 16 /min 16 /min [facility] rate Medical Center Oxygen 98 % 98 % [facility] saturation in Medical [address] [facility] Arterial blood by Pulse oximetry Heart rate 81 /min 81 /min [facility] Diastolic blood 50 mm[Hg] 50 mm[Hg] [facility] pressure Medical Center Systolic blood 100 mm[Hg] 100 mm[Hg] [facility] pressure Medical Center Diastolic blood 68 mmHg 68 mmHg [facility] Systolic blood 119 mmHg 119 mmHg [facility] Heart rate 97 bpm 97 bpm [facility] Diastolic blood 75 mmHg 75 mmHg [facility] Systolic blood 119 mmHg 119 mmHg [facility] Respiratory 18 bpm 18 bpm [facility] Heart rate 88 bpm 88 bpm [facility] Body 97 [facility] 97 [facility] Diastolic blood 67 mmHg 67 mmHg [facility] Systolic blood 120 mmHg 120 mmHg [facility] Respiratory 18 bpm 18 bpm [facility] Heart rate 108 bpm 108 bpm [facility] Body 96.0 96.0 [facility] Diastolic blood 70 mmHg 70 mmHg [facility] Systolic blood 117 mmHg 117 mmHg [facility] Heart rate 108 bpm 108 bpm [facility] Diastolic blood 67 mmHg 67 mmHg [facility] Systolic blood 121 mmHg 121 mmHg [facility] Respiratory 18 bpm 18 bpm [facility] Heart rate 91 bpm 91 bpm [facility] Body 96.2 96.2 [facility] Diastolic blood 75 mmHg 75 mmHg [facility] Systolic blood 124 mmHg 124 mmHg [facility] Respiratory 18 bpm 18 bpm [facility] Heart rate 95 bpm 95 bpm [facility] Diastolic blood 80 mmHg 80 mmHg [facility] Systolic blood 131 mmHg 131 mmHg [facility] Respiratory 18 bpm 18 bpm [facility] Heart rate 94 bpm 94 bpm [facility] Body 98.7 98.7 [facility] Diastolic blood 68 mmHg 68 mmHg [facility] Systolic blood 125 mmHg 125 mmHg [facility] Respiratory 18 bpm 18 bpm [facility] Heart rate 971 bpm 971 bpm [facility] Diastolic blood 74 mmHg 74 mmHg [facility] Systolic blood 132 mmHg 132 mmHg [facility] Respiratory 18 bpm 18 bpm [facility] Heart rate 83 bpm 83 bpm [facility] Body 97.4 97.4 [facility] Diastolic blood 89 mmHg 89 mmHg [facility] Systolic blood 115 mmHg 115 mmHg [facility] Heart rate 76 bpm 76 bpm [facility] Diastolic blood 74 mmHg 74 mmHg [facility] Systolic blood 120 mmHg 120 mmHg [facility] Respiratory 19 bpm 19 bpm [facility] Heart rate 86 bpm 86 bpm [facility] Body 97.1 97.1 [facility] Diastolic blood 68 mmHg 68 mmHg [facility] Systolic blood 129 mmHg 129 mmHg [facility] Respiratory 18 bpm 18 bpm [facility] Heart rate 112 bpm 112 bpm [facility] Diastolic blood 64 mmHg 64 mmHg [facility] Systolic blood 116 mmHg 116 mmHg [facility] Respiratory 18 bpm 18 bpm [facility] Heart rate 108 bpm 108 bpm [facility] Body 96.1 96.1 [facility] Diastolic blood 74 mmHg 74 mmHg [facility] Systolic blood 125 mmHg 125 mmHg [facility] Respiratory 18 bpm 18 bpm [facility] Heart rate 88 bpm 88 bpm [facility] Body weight 127 lbs 127 lbs [facility] Diastolic blood 69 mmHg 69 mmHg [facility] Systolic blood 117 mmHg 117 mmHg [facility] Respiratory 18 bpm 18 bpm [facility] Heart rate 77 bpm 77 bpm [facility] Body 95.7 95.7 [facility] Diastolic blood 68 mmHg 68 mmHg [facility] Systolic blood 117 mmHg 117 mmHg [facility] Respiratory 18 bpm 18 bpm [facility] Heart rate 74 bpm 74 bpm [facility] Respiratory 18 bpm 18 bpm [facility] Heart rate 66 bpm 66 bpm [facility] Body 98.1 98.1 [facility] Diastolic blood 81 mmHg 81 mmHg [facility] Systolic blood 102 mmHg 102 mmHg [facility] Diastolic blood 69 mmHg 69 mmHg [facility] Systolic blood 134 mmHg 134 mmHg [facility] Respiratory 18 bpm 18 bpm [facility] Heart rate 64 bpm 64 bpm [facility] Diastolic blood 63 mmHg 63 mmHg [facility] Systolic blood 110 mmHg 110 mmHg [facility] Respiratory 18 bpm 18 bpm [facility] Heart rate 67 bpm 67 bpm [facility] Body 95.9 95.9 [facility] Diastolic blood 69 mmHg 69 mmHg [facility] Systolic blood 104 mmHg 104 mmHg [facility] Respiratory 18 bpm 18 bpm [facility] Heart rate 82 bpm 82 bpm [facility] Diastolic blood 62 mmHg 62 mmHg [facility] Systolic blood 96 mmHg 96 mmHg [facility] Respiratory 18 bpm 18 bpm [facility] Heart rate 76 bpm 76 bpm [facility] Body 97.9 97.9 [facility] Diastolic blood 62 mmHg 62 mmHg [facility] Systolic blood 133 mmHg 133 mmHg [facility] Respiratory 18 bpm 18 bpm [facility] Heart rate 98 bpm 98 bpm [facility] Body 98.2 98.2 [facility] Diastolic blood 70 mmHg 70 mmHg [facility] Systolic blood 122 mmHg 122 mmHg [facility] Respiratory 18 bpm 18 bpm [facility] Heart rate 101 bpm 101 bpm [facility] Body 97.8 97.8 [facility] Diastolic blood 65 mmHg 65 mmHg [facility] Systolic blood 112 mmHg 112 mmHg [facility] Heart rate 89 bpm 89 bpm [facility] Diastolic blood 62 mmHg 62 mmHg [facility] Systolic blood 115 mmHg 115 mmHg [facility] Respiratory 16 bpm 16 bpm [facility] Heart rate 70 bpm 70 bpm [facility] Body 98.1 98.1 [facility] ID Date Data Source [id number] 02/28/2020 10:23:15 PM EDT [facility] Name Value Range Interpretation Code Description Data Source(s) Body weight Measured 144 lb 144 lb [facility] ID Date Data Source [id number] 02/24/2020 01:41:59 PM EDT [facility] Name Value Range Interpretation Code Description Data Source(s) Body weight Measured 144 lb 144 lb [facility] ID Date Data Source [id number] 02/25/2020 12:12:49 PM EDT [facility] Name Value Range Interpretation Code Description Data Source(s) Body weight Measured 144 lb 144 lb [facility] ID Date Data Source [id number] 11/30/2019 10:37:35 PM EDT [facility] Name Value Range Interpretation Code Description Data Source(s) Body weight Measured 144 lb 144 lb [facility] Body weight Measured 133 lb 133 lb [facility] ID Date Data Source [id number] 11/24/2019 11:44:52 PM EDT [facility] Name Value Range Interpretation Code Description Data Source(s) Body weight Measured 133 lb 133 lb [facility] ID Date Data Source [id number] 11/20[facility]2019 [facility] Name Value Range Interpretation Code Description Data Source(s) Body weight Measured 133 lb 133 lb [facility] ID Date Data Source [id number] 11/13/2019 01:17:01 PM EDT [facility] Name Value Range Interpretation Code Description Data Source(s) Body weight Measured 133 lb 133 lb [facility] ID Date Data Source [id number] 08/22/2019 11:14:15 PM [facility] Name Value Range Interpretation Code Description Data Source(s) Body weight Measured 133 lb 133 lb [facility] Body weight Measured 150 lb 150 lb [facility] ID Date Data Source [id number] 08/15/2019 09:05:11 PM [facility] Name Value Range Interpretation Code Description Data Source(s) Body weight Measured 150 lb 150 lb [facility] Patient Treatment Plan of Care Planned Activity Planned Date Details Description Data Source (s) 0.9% NaCl IV 02/06/2020 01:30:18 [facility] Cor poration Tylenol Infusion (AD 02/06/2020 01:04:23 [facility] Cor poration Tylenol Infusion (AD 01/16/2020 11:39:37 [facility] poration
--- NOTE | 2020-04-12 15:29 | PDOC ---
Documentation entered by Dread Crawford SCRIBE, acting as scribe for Gautam Paredes MD. Gautam Paredes MD: This documentation has been prepared by the carlyne, Dread Crawford SCRIBE, under my direction and personally reviewed by me in its entirety. I confirm that the documentation accurately reflects all work, treatment, procedures, and medical decision making performed by me. Attending Attestation - Resident Resident Name: Shahbaz Sanchez - ED Attending Attestation I have performed the following: I have examined & evaluated the patient, The case was reviewed & discussed with the resident, I agree w/resident's findings & plan, Exceptions are as noted - HPI HPI: 04/12/20 15:10 The patient is a 24 year old male with a significant PMH of bipolar disorder, substance abuse, alcohol abuse, anxiety, and depression who presents to the emergency department [facility] for overdose s/p snorting heroin. Pt states he left rehab yesterday. Today decided to snort heroin and was found by family unresponsive. Pt did not receive narcan in the field. Allergies: NKDA Past surgical history: appendectomy Social Hx: current everyday smoker, monthly EtOH PCP: Estiven Ervin - Physicial Exam PE: 04/12/20 15:31 GENERAL: Somnolent but arousable, in no acute distress. HEAD: No signs of trauma EYES: PERRLA, EOMI, sclera anicteric, conjunctiva clear ENT: Auricles normal inspection, hearing grossly normal, nares patent, oropharynx clear without exudates. Moist mucosa NECK: Nontender, no stepoffs, Normal ROM, supple, no lymphadenopathy, JVD, or masses LUNGS: Breath sounds equal, clear to auscultation bilaterally. No wheezes, and no crackles HEART: Regular rate and rhythm, normal S1 and S2, no murmurs, rubs or gallops ABDOMEN: Soft, nontender, normoactive bowel sounds. No guarding, no rebound. No masses EXTREMITIES: Normal range of motion, no edema. No clubbing or cyanosis. No cords, erythema, or tenderness NEUROLOGICAL: Cranial nerves II through XII intact. 5/5 strength and sensation in all extremities, Normal speech, normal gait, normal cerebellar function SKIN: Warm, Dry, normal turgor, no rashes or lesions noted. - Medical Decision Making 04/12/20 15:32 24 M with heroin overdose. Protecting airway currently, no indication for narcan. - Reassess when sober 04/12/20 15:52 Pt now awake, alert, ambulatory with steady gait. Denies SI/HI/AVH Pt is well appearing, with normal vitals. Clinically stable for DC at this time. I discussed the physical exam findings, ancillary test results and final diagnoses with the patient. I answered all of the patient's questions. The patient was satisfied with the care received and felt comfortable with the discharge plan and treatment plan. The patient agrees to follow up with the primary care physician within 24-72 hours. Discharge - Discharge Information Problems reviewed: Yes Clinical Impression/Diagnosis: Opioid overdose Qualifiers: Encounter type: initial encounter Injury intent: undetermined intent Qualified Code(s): T40.2X4A - Poisoning by other opioids, undetermined, initial encounter Condition: Stable Disposition: HOME - Follow up/Referral Referrals: Estiven Ervin MD [Primary Care Provider] - - Patient Discharge Instructions Patient Printed Discharge Instructions: DI for Opioid Use Disorder Additional Instructions: You were seen in the ED for opiate overdose. There does not appear to be an acute need for immediate hospitalization. You are advised to follow up with your Primary Care Physician within 1 week. Return to the ED immediately if you experience overdose symptoms. - Post Discharge Activity
[2020-04-12 15:56] VITALS: BP 108/67; PULSE 61; TEMP 98
== END 2020-04-12 16:05 | disposition home or self-care (01) ==
LOC: JER 14:13
DX: T40.2X4A Poisoning by other opioids, undetermined, initial encounter (principal)
CPT/HCPCS: 99283-25

== ENCOUNTER 2020-04-26 23:02 | Emergency (ER) | payer OTHER ==
--- NOTE | 2020-04-26 23:10 | PDOC ---
History of Present Illness - General Chief Complaint: Alcohol intoxication Stated Complaint: HEROINE WITHDRAWAL Time Seen by Provider: 04/26/20 23:10 - History of Present Illness Initial Comments: This 24-year-old man with a history of multi-substance abuse, bipolar depression and anxiety presents in the company of his mother with history of opiate withdrawal . The patient states that he was discharged from detox program at [facility] (for opiates) approximately 2 weeks ago. He refused rehab at that time. After discharge, he began using heroin nearly immediately (patient states "about of a bundle a day"). States yesterday he decided to stop using narcotics; last dose was after he awakened yesterday morning. Today, he began having withdrawal symptoms of sweating/hot flashes, palpitations, nausea. He states he wishes to be enrolled in a detoxification program. He denies actual vomiting or diarrhea. He has had no recent fever or other symptoms. History of appendectomy Medications as noted below Smokes tobacco and marijuana daily/occasional alcohol Past History - Medical History Allergies/Adverse Reactions: Allergies Allergy/AdvReac Type Severity Reaction Status Date / Time No Known Allergies Allergy Verified 04/12/20 14:56 Home Medications: Ambulatory Orders Gabapentin 600 mg PO BID #60 tablet 04/11/20 Mirtazapine [Remeron -] 30 mg PO HS #30 tablet 04/11/20 Quetiapine Fumarate [Seroquel -] 100 mg PO DAILY #30 tablet 04/11/20 Quetiapine Fumarate [Seroquel -] 300 mg PO HS #30 tablet 04/11/20 Anemia: No Asthma: No Cancer: No Cardiac Disorders: No CVA: No COPD: No CHF: No DVT: No Dementia: No Diabetes: No GI Disorders: No Disorders: No HTN: No Hypercholesterolemia: No Kidney Stones: No Liver Disease: No Psychiatric Problems: Yes (BIPOLOAR) Seizures: No Thyroid Disease: No - Surgical History Abdominal Surgery: No Appendectomy: Yes Cardiac Surgery: No Cholecystectomy: No Lung Surgery: No Neurologic Surgery: No Orthopedic Surgery: No - Reproductive History Testicular Surgery: No - Immunization History Immunization Up to Date: Yes - Psycho-Social/Smoking History Smoking History: Current every day smoker Have you smoked in the past 12 months: Yes Number of Cigarettes Smoked Daily: 20 Cigars Per Day: 0 'Breaking Loose' booklet given: 01/29/18 Review of Systems - Review of Systems Able to Perform ROS?: Yes Comments:: 12 point review of systems is negative except for what is noted in the history of present illness *Physical Exam - Physical Exam GENERAL: Adult male, alert and oriented x3, in moderate distress secondary to opiate withdrawal symptoms; HR 88/min, pulse ox 98% on room air,129/87 HEAD: Normal with no signs of trauma. EYES: PERRLA, EOMI, sclera anicteric, conjunctiva clear. ENT: Ears normal, nares patent, oropharynx clear without exudates. Dry mucous membranes. NECK: Normal range of motion, supple without lymphadenopathy, JVD, or masses. LUNGS: Breath sounds equal, clear to auscultation bilaterally. No wheezes, and no crackles. HEART:Regular rate and rhythm, normal S1 and S2 without murmur, rub or gallop. ABDOMEN:.normal bowel sounds No guarding,tenderness or rebound.No masses No distention. EXTREMITIES: Normal range of motion, no edema. No clubbing or cyanosis. No erythema, or tenderness. NEUROLOGICAL: Cranial nerves II through XII grossly intact. Normal speech. No focal neurological deficits. Medical Decision Making - Medical Decision Making 04/27/20 23:32 This 24-year-old man with a history of multiple, recently discharged after successful opiate detoxification from [facility], presents with opiate withdrawal symptoms approximately a day and a half after his most recent dose of heroin. Patient is interested in being enrolled in a detoxification program. Exam as noted. It was explained to the patient that, since it is very late in the evening, is highly unlikely to be able to be enrolled in a detoxification program. [facility] contacted and concurred that it was too late for admission for detoxification. Patient states that he will proceed to [facility] intake/admissions tomorrow morning. Patient given a dose of methadone 20 mg by mouth. Patient was observed for a short period of time and then was discharged in the company of his mother with plan to return in the morning to [facility] admissions area for detoxification program Discharge - Discharge Information Problems reviewed: Yes Clinical Impression/Diagnosis: Opiate withdrawal Condition: Stable Disposition: HOME - Follow up/Referral - Patient Discharge Instructions Patient Printed Discharge Instructions: DI for Drug or Alcohol Withdrawal Additional Instructions: Follow-up tomorrow morning at [facility] intake as previously Return to ER if you have vomiting or other severe symptoms - Post Discharge Activity
[2020-04-26 23:12] VITALS: BP 129/87; PULSE 88; TEMP 97.8; BMI 20.3
--- OUTSIDE RECORDS SUMMARY | 2020-04-26 23:29 | XMS ---
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 Code Source(s) Document(s ) Cannabinoids <content [facility] [Presence] in styleCode="[facility] Urine by Screen d">Cannabinoid Medical method >50 ng/mL s Center </content>PRES UMPTIVE POSITIVE NG/ML (Reference Range: not available)<br/ > ID Date Data Source Liver 04/23/2020 10:25:00 AM EDT [facility] Profile.[id number] Name Value Range Interpretation Description Data Sup porting Code Source(s) Document(s ) Aspartate 17-59 <content [facility] aminotransferase styleCode="Bold"> Michael hs [Enzymatic Aspartate Medical activity/volume] Aminotransferase Center in Serum or Plasma (AST) </content>23 IU/L<content styleCode="Italic s"> (17-59 IU/L)</content> Alanine 7-50 <content [facility] aminotransferase styleCode="Bold"> Michael hs [Enzymatic Alanine Medical activity/volume] Aminotransferase Center in Serum or Plasma (ALT) </content>21 IU/L<content styleCode="Italic s"> (7-50 IU/L)</content> Alkaline 38-126 <content [facility] phosphatase styleCode="Bold"> Jeanette [Enzymatic Alkaline Medical activity/volume] Phosphatase (ALP) Cente r in Serum or Plasma </content>75 IU/L<content styleCode="Italic s"> (38-126 IU/L)</content> Bilirubin.total 0.2-1.3 <content [facility] [Mass/volume] in styleCode="Bold"> Michael hs Serum or Plasma Bilirubin Total Medical </content>0.4 Center MG/DL<content styleCode="Italic s"> (0.2-1.3 MG/DL)</content> Albumin 3.5-5.0 <content [facility] [Mass/volume] in styleCode="Bold"> Michael hs Serum or Plasma Albumin Medical </content>5.0 Center G/DL<content styleCode="Italic s"> (3.5-5.0 G/DL)</content> UNK 0.0-0.3 <content [facility] styleCode="Bold"> Jeanette Bilirubin, Direct Medical </content>< 0.2 Center MG/DL<content styleCode="Italic s"> (0.0-0.3 MG/DL)</content> ID Date Data Source LIPID.[id number] 04/23/2020 10:25:00 AM EDT [facility] Center Name Value Range Interpretation Description Data Sup porting Code Source(s) Document(s ) Triglyceride < 150 <content [facility] [Mass/volume] in styleCode="Chris Jeanette Serum or Plasma d">Triglycerid [facility] </content>72 MG/DL<content styleCode="Evy lics"> (< 150 MG/DL)</conten t> Cholesterol -<200 <content [facility] [Mass/volume] in styleCode="Chris Jeanette Serum or Plasma d">Cholesterol Medical </content>199 Center MG/DL<content styleCode="Evy lics"> (-<200 MG/DL)</conten t> UNK < 100 Above high normal <content [facility] styleCode="Chris Jeanette d">LDL-Cholest Medical matthew Center </content>119 MG/DL H<content styleCode="Evy lics"> (< 100 MG/DL)</conten t> UNK > 60 <content [facility] styleCode="Chris Jeanette d">HDL- Medical Cholesterol Center </content>66 MG/DL<content styleCode="Evy lics"> (> 60 MG/DL)</conten t> ID Date Data Source HematologyRou.[id number] 04/23/2020 10:25:00 AM EDT [facility] 0400 Name Value Range Interpretation Description Data Sup porting Code Source(s) Document(s ) Leukocytes 4.4-11.0 <content [facility] [#/volume] in styleCode="Bold Jeanette Blood by ">White Blood Medical Automated count Cell Count Center </content>9.89 KCUMM<content styleCode="Ital ics"> (4.4-11.0 KCUMM)</content > Erythrocytes 4.4-5.9 Below low normal <content [facility] [#/volume] in styleCode="Bold Jeanette Blood by ">Red Blood Medical Automated count Cell Count Center </content>4.29 MCUMM L<content styleCode="Ital ics"> (4.4-5.9 MCUMM)</content > Hematocrit 41.0-53. Below low normal <content [facility] [Volume 0 styleCode="Bold Jeanette Fraction] of ">Hematocrit Medical Blood by </content>40.0 Center Automated count % L<content styleCode="Ital ics"> (41.0-53.0 %)</content> Erythrocyte mean 80.0-100 <content [facility] corpuscular .0 styleCode="Bold Jeanette volume [Entitic ">Mean Medical volume] by Corpuscular Center Automated count Volume </content>93.2 FL<content styleCode="Ital ics"> (80.0-100.0 FL)</content> Hemoglobin 13.5-17. <content [facility] [Mass/volume] in 5 styleCode="Bold Jeanette Blood ">Hemoglobin Medical </content>13.5 Center G/DL<content styleCode="Ital ics"> (13.5-17.5 G/DL)</content> Erythrocyte mean 26.0-34. <content [facility] corpuscular 0 styleCode="Bold Jeanette hemoglobin ">Mean Medical [Entitic mass] Corposcular Center by Automated Hemoglobin count </content>31.5 PG<content styleCode="Ital ics"> (26.0-34.0 PG)</content> Erythrocyte 11.5-14. <content [facility] distribution 5 styleCode="Bold Jeanette width [Ratio] by ">Red Cell Medical Automated count Distribution Center Width </content>13.2 %<content styleCode="Ital ics"> (11.5-14.5 %)</content> Platelet mean 8.0-11.0 <content [facility] volume [Entitic styleCode="Bold Jeanette volume] in Blood ">Mean Platelet Medical by Automated Volume Center count </content>9.8 FL<content styleCode="Ital ics"> (8.0-11.0 FL)</content> Erythrocyte mean 32.0-37. <content [facility] corpuscular 0 styleCode="Bold Jeanette hemoglobin ">Mean Corpus. Medical concentration Hgb Center [Mass/volume] by Concentration Automated count (MCHC) </content>33.8 G/DL<content styleCode="Ital ics"> (32.0-37.0 G/DL)</content> Platelets 130-400 <content [facility] [#/volume] in styleCode="Bold Jeanette Blood by ">Platelet Medical Automated count Count Center </content>327 KCUMM<content styleCode="Ital ics"> (130-400 KCUMM)</content > UNK 0.0 <content [facility] styleCode="Bold Jeanette ">Nucleated Red Medical Blood Cell Center Count </content>0.00 KCUMM<content styleCode="Ital ics"> (0.0 KCUMM)</content > UNK 0 <content [facility] styleCode="Bold Jeanette ">Nucleated Red Medical Blood Cell Center </content>0.0 /100<content styleCode="Ital ics"> (0 /100)</content> ID Date Data Source GFR(Creatinine).[id number] 04/23/2020 10:25:00 AM EDT [facility] 0-0400 Name Value Range Interpretation Code Description Data Meche rce(s) Supporting Document(s ) UNK > 60 <content [facility] styleCode="Bold"> Medical Cent er EGFR </content>111 GFR<content styleCode="Italic s"> (> 60 GFR)</content> ID Date Data Source CHMROUTINECCDA.[id number] 04/23/2020 10:25:00 AM EDT [facility] -0400 Name Value Range Interpretation Code Description Data Meche rce(s) Supporting Document(s ) UNK 4.2-5.8 <content [facility] styleCode="Bold" Medical Cente r >Hemoglobin A1C </content>5.8 %<content styleCode="Itali cs"> (4.2-5.8 %)</content> ID Date Data Source [facility].[id number] 04/23/2020 10:25:00 AM EDT [facility] Name Value Range Interpretation Description Data Sup porting Code Source(s) Document(s ) Chloride 98-107 Below low <content [facility] [Moles/volume] in normal styleCode="Bold"> [facility] Serum or Plasma Chloride Medical </content>97 Center MEQ/L L<content styleCode="Italic s"> (98-107 MEQ/L)</content> Carbon dioxide, 22-30 Above high <content [facility] total normal styleCode="Bold"> Jeanette [Moles/volume] in Carbon Dioxide Medical Serum or Plasma </content>32 Center MEQ/L H<content styleCode="Italic s"> (22-30 MEQ/L)</content> Potassium 3.5-5.3 <content [facility] [Moles/volume] in styleCode="Bold"> [facility] Serum or Plasma Potassium Medical </content>3.9 Center MEQ/L<content styleCode="Italic s"> (3.5-5.3 MEQ/L)</content> Sodium 137-145 <content [facility] [Moles/volume] in styleCode="Bold"> [facility] Serum or Plasma Sodium Medical </content>137 Center MEQ/L<content styleCode="Italic s"> (137-145 MEQ/L)</content> Creatinine 0.5-1.3 <content [facility] [Mass/volume] in styleCode="Bold"> Michael hs Serum or Plasma Creatinine Medical </content>0.9 Center MG/DL<content styleCode="Italic s"> (0.5-1.3 MG/DL)</content> UNK 9-20 <content [facility] styleCode="Bold"> Jeanette BUN </content>12 Medical MG/DL<content Center styleCode="Italic s"> (9-20 MG/DL)</content> Glucose 74-106 <content [facility] [Mass/volume] in styleCode="Bold"> Michael hs Serum or Plasma Glucose Medical </content>102 Center MG/DL<content styleCode="Italic s"> (74-106 MG/DL)</content> Calcium 8.4-10. Above high <content [facility] [Mass/volume] in 2 normal styleCode="Bold"> Michael hs Serum or Plasma Calcium Medical </content>10.5 Center MG/DL H<content styleCode="Italic s"> (8.4-10.2 MG/DL)</content> Alanine 7-50 <content [facility] aminotransferase styleCode="Bold"> Michael hs [Enzymatic Alanine Medical activity/volume] Aminotransferase Center in Serum or Plasma (ALT) </content>21 IU/L<content styleCode="Italic s"> (7-50 IU/L)</content> UNK > 60 <content [facility] styleCode="Bold"> Jeanette EGFR Medical </content>111 Center GFR<content styleCode="Italic s"> (> 60 GFR)</content> Aspartate 17-59 <content [facility] aminotransferase styleCode="Bold"> Michael hs [Enzymatic Aspartate Medical activity/volume] Aminotransferase Center in Serum or Plasma (AST) </content>23 IU/L<content styleCode="Italic s"> (17-59 IU/L)</content> Albumin 3.5-5.0 <content [facility] [Mass/volume] in styleCode="Bold"> Michael hs Serum or Plasma Albumin Medical </content>5.0 Center G/DL<content styleCode="Italic s"> (3.5-5.0 G/DL)</content> Alkaline 38-126 <content [facility] phosphatase styleCode="Bold"> Jeanette [Enzymatic Alkaline Medical activity/volume] Phosphatase (ALP) Cente r in Serum or Plasma </content>75 IU/L<content styleCode="Italic s"> (38-126 IU/L)</content> Bilirubin.total 0.2-1.3 <content [facility] [Mass/volume] in styleCode="Bold"> Michael hs Serum or Plasma Bilirubin Total Medical </content>0.4 Center MG/DL<content styleCode="Italic s"> (0.2-1.3 MG/DL)</content> ID Date Data Source Liver 04/12/2020 09:45:00 PM EDT [facility] Profile.[id number] Name Value Range Interpretation Description Data Sup porting Code Source(s) Document(s ) Alkaline 38-126 <content [facility] phosphatase styleCode="Bold"> Jeanette [Enzymatic Alkaline Medical activity/volume] Phosphatase (ALP) Cente r in Serum or Plasma </content>65 IU/L<content styleCode="Italic s"> (38-126 IU/L)</content> UNK 0.0-0.3 <content [facility] styleCode="Bold"> Jeanette Bilirubin, Direct Medical </content>< 0.2 Center MG/DL<content styleCode="Italic s"> (0.0-0.3 MG/DL)</content> Aspartate 17-59 Above high <content [facility] aminotransferase normal styleCode="Bold"> Michael hs [Enzymatic Aspartate Medical activity/volume] Aminotransferase Center in Serum or Plasma (AST) </content>83 IU/L H<content styleCode="Italic s"> (17-59 IU/L)</content> Alanine 7-50 Above high <content [facility] aminotransferase normal styleCode="Bold"> Michael hs [Enzymatic Alanine Medical activity/volume] Aminotransferase Center in Serum or Plasma (ALT) </content>75 IU/L H<content styleCode="Italic s"> (7-50 IU/L)</content> Bilirubin.total 0.2-1.3 Below low <content [facility] [Mass/volume] in normal styleCode="Bold"> Michael hs Serum or Plasma Bilirubin Total Medical </content>< 0.2 Center MG/DL L<content styleCode="Italic s"> (0.2-1.3 MG/DL)</content> Albumin 3.5-5.0 <content [facility] [Mass/volume] in styleCode="Bold"> Michael hs Serum or Plasma Albumin Medical </content>4.3 Center G/DL<content styleCode="Italic s"> (3.5-5.0 G/DL)</content> ID Date Data Source HematologyRou.[id number] 04/12/2020 09:45:00 PM EDT [facility] 0400 Name Value Range Interpretation Description Data Sup porting Code Source(s) Document(s ) Leukocytes 4.4-11.0 Above high <content Saint [#/volume] in normal styleCode="Bold Jeanette Blood by ">White Blood Medical Automated count Cell Count Center </content>12.05 KCUMM H<content styleCode="Ital ics"> (4.4-11.0 KCUMM)</content > Erythrocytes 4.4-5.9 Below low normal <content Saint [#/volume] in styleCode="Bold Jeanette Blood by ">Red Blood Medical Automated count Cell Count Center </content>3.82 MCUMM L<content styleCode="Ital ics"> (4.4-5.9 MCUMM)</content > Hemoglobin 13.5-17. Below low normal <content [facility] [Mass/volume] in 5 styleCode="Bold Jeanette Blood ">Hemoglobin Medical </content>12.1 Center G/DL L<content styleCode="Ital ics"> (13.5-17.5 G/DL)</content> Erythrocyte mean 80.0-100 <content [facility] corpuscular .0 styleCode="Bold Jeanette volume [Entitic ">Mean Medical volume] by Corpuscular Center Automated count Volume </content>94.2 FL<content styleCode="Ital ics"> (80.0-100.0 FL)</content> Hematocrit 41.0-53. Below low normal <content [facility] [Volume 0 styleCode="Bold Jeanette Fraction] of ">Hematocrit Medical Blood by </content>36.0 Center Automated count % L<content styleCode="Ital ics"> (41.0-53.0 %)</content> Erythrocyte 11.5-14. <content [facility] distribution 5 styleCode="Bold Jeanette width [Ratio] by ">Red Cell Medical Automated count Distribution Center Width </content>13.2 %<content styleCode="Ital ics"> (11.5-14.5 %)</content> Erythrocyte mean 32.0-37. <content [facility] corpuscular 0 styleCode="Bold Jeanette hemoglobin ">Mean Corpus. Medical concentration Hgb Center [Mass/volume] by Concentration Automated count (MCHC) </content>33.6 G/DL<content styleCode="Ital ics"> (32.0-37.0 G/DL)</content> Erythrocyte mean 26.0-34. <content [facility] corpuscular 0 styleCode="Bold Jeanette hemoglobin ">Mean Medical [Entitic mass] Corposcular Center by Automated Hemoglobin count </content>31.7 PG<content styleCode="Ital ics"> (26.0-34.0 PG)</content> Platelets 130-400 <content Saint [#/volume] in styleCode="Bold Jeanette Blood by ">Platelet Medical Automated count Count Center </content>226 KCUMM<content styleCode="Ital ics"> (130-400 KCUMM)</content > Platelet mean 8.0-11.0 <content [facility] volume [Entitic styleCode="Bold Jeanette volume] in Blood ">Mean Platelet Medical by Automated Volume Center count </content>10.7 FL<content styleCode="Ital ics"> (8.0-11.0 FL)</content> UNK 0.0 <content Saint styleCode="Bold Jeanette ">Nucleated Red Medical Blood Cell Center Count </content>0.00 KCUMM<content styleCode="Ital ics"> (0.0 KCUMM)</content > UNK 0 <content Saint styleCode="Bold Jeanette ">Nucleated Red Medical Blood Cell Center </content>0.0 /100<content styleCode="Ital ics"> (0 /100)</content> ID Date Data Source GFR(Creatinine).[id number] 04/12/2020 09:45:00 PM EDT [facility] 0-0400 Name Value Range Interpretation Code Description Data Meche rce(s) Supporting Document(s ) UNK > 60 <content [facility] styleCode="Bold"> Medical Cent er EGFR </content>127 GFR<content styleCode="Italic s"> (> 60 GFR)</content> ID Date Data Source [id number] 04/12/2020 09:45:00 PM EDT [facility] Name Value Range Interpretation Description Data Sup porting Code Source(s) Document(s ) Chloride 98-107 <content [facility] [Moles/volume] in styleCode="Bold"> [facility]aim ph[facility] Serum or Plasma Chloride Medical </content>99 Center MEQ/L<content styleCode="Italic s"> (98-107 MEQ/L)</content> Sodium 137-145 <content [facility] [Moles/volume] in styleCode="Bold"> [facility]aim ph[facility] Serum or Plasma Sodium Medical </content>138 Center MEQ/L<content styleCode="Italic s"> (137-145 MEQ/L)</content> Potassium 3.5-5.3 <content [facility] [Moles/volume] in styleCode="Bold"> [facility]aim phs Serum or Plasma Potassium Medical </content>4.6 Center MEQ/L<content styleCode="Italic s"> (3.5-5.3 MEQ/L)</content> Carbon dioxide, 22-30 Above high <content [facility] total normal styleCode="Bold"> Jeanette [Moles/volume] in Carbon Dioxide Medical Serum or Plasma </content>33 Center MEQ/L H<content styleCode="Italic s"> (22-30 MEQ/L)</content> Calcium 8.4-10. <content [facility] [Mass/volume] in 2 styleCode="Bold"> Michael hs Serum or Plasma Calcium Medical </content>9.8 Center MG/DL<content styleCode="Italic s"> (8.4-10.2 MG/DL)</content> Glucose 74-106 Above high <content Saint [Mass/volume] in normal styleCode="Bold"> Michael hs Serum or Plasma Glucose Medical </content>116 Center MG/DL H<content styleCode="Italic s"> (74-106 MG/DL)</content> UNK 9-20 <content [facility] styleCode="Bold"> Jeanette BUN </content>12 Medical MG/DL<content Center styleCode="Italic s"> (9-20 MG/DL)</content> Creatinine 0.5-1.3 <content [facility] [Mass/volume] in styleCode="Bold"> Michael hs Serum or Plasma Creatinine Medical </content>0.8 Center MG/DL<content styleCode="Italic s"> (0.5-1.3 MG/DL)</content> Alanine 7-50 Above high <content [facility] aminotransferase normal styleCode="Bold"> Michael hs [Enzymatic Alanine Medical activity/volume] Aminotransferase Center in Serum or Plasma (ALT) </content>75 IU/L H<content styleCode="Italic s"> (7-50 IU/L)</content> UNK > 60 <content [facility] styleCode="Bold"> Jeanette EGFR Medical </content>127 Center GFR<content styleCode="Italic s"> (> 60 GFR)</content> Aspartate 17-59 Above high <content [facility] aminotransferase normal styleCode="Bold"> Michael hs [Enzymatic Aspartate Medical activity/volume] Aminotransferase Center in Serum or Plasma (AST) </content>83 IU/L H<content styleCode="Italic s"> (17-59 IU/L)</content> Alkaline 38-126 <content [facility] phosphatase styleCode="Bold"> Jeanette [Enzymatic Alkaline Medical activity/volume] Phosphatase (ALP) Cente r in Serum or Plasma </content>65 IU/L<content styleCode="Italic s"> (38-126 IU/L)</content> Albumin 3.5-5.0 <content [facility] [Mass/volume] in styleCode="Bold"> Michael hs Serum or Plasma Albumin Medical </content>4.3 Center G/DL<content styleCode="Italic s"> (3.5-5.0 G/DL)</content> Bilirubin.total 0.2-1.3 Below low <content [facility] [Mass/volume] in normal styleCode="Bold"> Michael hs Serum or Plasma Bilirubin Total Medical </content>< 0.2 Center MG/DL L<content styleCode="Italic s"> (0.2-1.3 MG/DL)</content> ID Date Data Source [id number] 04/07/2020 11:20:00 AM EDT [facility] Name Value Range Interpretation Description Data Sup porting Code Source(s) Document(s ) SARS [facility] coronavirus 2 RNA This lab was ordered by [facility] Manuel Shin and reported by [facility]. ID Date Data Source [id number] 04/06/2020 02:16:08 PM EDT [facility] Name Value Range Interpretation Description Data Sup porting Code Source(s) Document(s ) TroponinIQuantitative 0.00 Normal (applies [facility]roponin [facility] ng/ml to non-numeric Quantitative Health results) System ID Date Data Source [id number] 04/06/2020 02:16:08 PM EDT [facility] Name Value Range Interpretation Description Data Sup porting Code Source(s) Document(s ) [place] Less than Below low normal [place] Level, [place] [facility] [Mass/volu 0.101 [facility] me] in Performed At [facility] or [address] [address] ID Date Data Source [id number] 04/06/2020 02:16:08 PM EDT [facility] Name Value Range Interpretation [...] not required System ID Date Data Source [id number] 04/06/2020 02:16:08 PM EDT [facility] [...] System Automated count ID Date Data Source [id number] 04/06/2020 02:16:08 PM EDT [facility] Name Value Range Interpretation Description [...] Health results) System ID Date Data Source [id number] 04/06/2020 02:16:08 PM EDT [facility] [...] Screen results) method Cut-off = 200 ng/mL [id number],Urine Negative Normal (applies to Opiate 300, [facility] non-numeric results) Urine System Cut-off = 300 ng/mL Methadone Negative Normal (applies to Methadone Level, [facility] [Mass/volume] in non-numeric Urine System [...] (applies Phencyclidine, Urine [facility] [Mass/volume] in to non-[facility] yste Urine results) Cut-off = 25 ng/mL ID Date Data Source LIPID.[id number] 04/04/2020 06:40:00 AM EDT [facility] Name Value Range Interpretation Description Data Sup porting Code Source(s) Document(s ) Triglyceride < 150 <content [facility] [Mass/volume] in styleCode="Chris [facility] Serum or Plasma d">Triglycerid [facility] </content>46 MG/DL<content styleCode="Evy lics"> (< 150 MG/DL)</conten t> Cholesterol -<200 <content [facility] [Mass/volume] in styleCode="Chris [facility] Serum or Plasma d">Cholesterol Medical </content>160 Center MG/DL<content styleCode="Evy lics"> (-<200 MG/DL)</conten t> UNK > 60 Below low normal <content [facility] styleCode="Chris Jeanette d">HDL- Medical Cholesterol Center </content>53 MG/DL L<content styleCode="Evy lics"> (> 60 MG/DL)</conten t> UNK < 100 <content [facility] styleCode="Chris Jeanette d">[facility] </content>98 MG/DL<content styleCode="Evy lics"> (< 100 MG/DL)</conten t> ID Date Data Source HematologyRou.[id number] 04/04/2020 06:40:00 AM EDT [facility] 0400 Name Value Range Interpretation Description Data Sup porting Code Source(s) Document(s ) Leukocytes 4.4-11.0 <content [facility] [#/volume] in styleCode="Bold [facility] Blood by ">White Blood Medical Automated count [...] ics"> (0 /100)</content> ID Date Data Source GFR(Creatinine).[id number] 04/04/2020 06:40:00 AM EDT [facility] 0-0400 Name Value Range Interpretation Code Description Data Meche rce(s) Supporting Document(s ) UNK > 60 <content [facility] styleCode="Bold"> Medical Cent er EGFR </content>111 GFR<content styleCode="Italic s"> (> 60 GFR)</content> ID Date Data Source CHMROUTINECCDA.[id number] 04/04/2020 06:40:00 AM EDT [facility] -0400 Name Value Range Interpretation Description [...] (1.6-2.3 MG/DL)</conten t> ID Date Data Source [facility].[id number] 04/04/2020 06:40:00 AM EDT [facility] Name Value Range Interpretation Description [...] Jeanette in Serum or d">Calcium Medical Plasma </content>10.1 Center MG/DL<content styleCode="Evy lics"> (8.4-10.2 MG/DL)</conten t> UNK > 60 <content [facility] styleCode="Chris Jeanette d">EGFR Medical </content>111 Center GFR<content styleCode="Evy lics"> (> 60 GFR)</content> Glucose 74-106 <content [facility] [Mass/volume] styleCode="Chris Jeanette in Serum or d">Glucose Medical Plasma </content>91 Center MG/DL<content styleCode="Evy lics"> (74-106 MG/DL)</conten t> ID Date Data Source Urinalysis.[id number] 04/03/2020 08:35:00 PM EDT [facility] 0 Name Value Range Interpretation Description Data Sup porting Code Source(s) Document(s ) Ketones NEGATIVE <content [facility] [Mass/volume] styleCode="Chris Bhats [...] by Test d">Urine Medical strip Specific Center [place] </content>1.02 5 <content styleCode="Evy lics"> (1.015-1.025 )</content> pH of Urine by 4.5-8.0 <content [facility] Test strip styleCode="Chris Jeanette d">Urine pH Medical </content>6.5 Center <content styleCode="Evy lics"> (4.5-8.0 )</content> UNK 0-3 <content [facility] styleCode="Chris Jeanette d">Urine White Medical Blood Cell Center </content>0-3 HPF<content styleCode="Evy lics"> (0-3 HPF)</content> UNK NEGATIVE <content [facility] styleCode="Chris Bhats d">Urine Medical Bacteria Center </content>FEW HPF<content styleCode="Evy lics"> (NEGATIVE HPF)</content> Nitrite NEGATIVE <content [facility] [Presence] in styleCode="Chris Reid Urine by Test d">Urine Medical strip Nitrite Center </content>NEGA TIVE <content styleCode="Evy lics"> (NEGATIVE )</content> Leukocyte NEGATIVE <content [facility] esterase styleCode="Chris Reid [Presence] in d">Urine Medical Urine by Test [...] (NONE SEEN HPF)</content> ID Date Data Source [facility].[id number] 04/03/2020 08:35:00 PM EDT [facility] -0400 Name Value Range Interpretation Description Data Sup porting Code Source(s) Document(s ) Cannabinoids <content [facility] [Presence] in styleCode="Chris [facility] Urine by Screen d">Cannabinoid Medical method >50 ng/mL s Center </content>PRES UMPTIVE POSITIVE NG/ML (Reference Range: not available)<br/ > ID Date Data Source Liver 04/03/2020 04:10:00 PM EDT [facility] Profile.[id number] Name Value Range Interpretation Description Data Sup [...] s"> (0.0-0.3 MG/DL)</content> ID Date Data Source HematologyRou.[id number] 04/03/2020 04:10:00 PM EDT [facility] 0400 Name Value Range Interpretation Description [...] (0.0 KCUMM)</content > ID Date Data Source GFR(Creatinine).[id number] 04/03/2020 04:10:00 PM EDT [facility] 0-0400 Name Value Range Interpretation Code Description Data Meche rce(s) Supporting Document(s ) UNK > 60 <content [facility] styleCode="Bold"> Medical Cent er EGFR </content>127 GFR<content styleCode="Italic s"> (> 60 GFR)</content> ID Date Data Source [facility].[id number] 04/03/2020 04:10:00 PM EDT [facility] Name Value Range Interpretation Description Data Sup porting Code Source(s) Document(s ) Sodium 137-145 <content [facility] [Moles/volume] in styleCode="Bold"> [facility] Serum or Plasma Sodium Medical </content>138 Center MEQ/L<content styleCode="Italic s"> (137-145 MEQ/L)</content> Chloride 98-107 Below low <content [facility] [Moles/volume] in normal styleCode="Bold"> [facility] Serum or Plasma Chloride Medical </content>96 Center MEQ/L L<content styleCode="Italic s"> (98-107 MEQ/L)</content> Potassium 3.5-5.3 <content [facility] [Moles/volume] in styleCode="Bold"> [facility] Serum or Plasma Potassium Medical </content>4.6 Center [...] s"> (0.2-1.3 MG/DL)</content> ID Date Data Source [id number] 04/03/2020 12:00:00 AM EDT [facility] Name Value Range Interpretation Code Description Data Meche rce(s) Supporting Document(s ) nCoV [facility] RNA XXX ELISABETH+probe- Imp This lab was ordered by [facility] and reported by [facility] NTD. ID Date Data Source [id number] 02/25/2020 12:00:00 AM EDT [facility] Name Value Range Interpretation Code Description Data Meche rce(s) Supporting Document(s ) nCoV [facility] RNA XXX ELISABETH+probe- Imp This lab was ordered by [facility] and reported by [facility]. ID Date Data Source [id number] 01/16/2020 10:18:00 AM EDT [facility] Name Value Range Interpretation Description Data [...] Carbon 22-30 <content [facility] dioxide, total styleCode="Chris Reid [Moles/volume] d">Carbon Medical in Serum or Dioxide Center Plasma </content>27 MEQ/L<content styleCode="Evy lics"> (22-30 MEQ/L)</conten t> UNK > 60 <content styleCode="Chris Reid d">EGFR Medical </content>127 Center GFR<content styleCode="Evy lics"> (> 60 GFR)</content> ID Date Data Source GFR(Creatinine).[id number] 01/16/2020 10:18:00 AM EDT [facility] 0-0400 Name Value Range Interpretation Code Description Data Meche rce(s) Supporting Document(s ) UNK > 60 <content [facility] styleCode="Bold"> Medical Cent er EGFR </content>127 GFR<content styleCode="Italic s"> (> 60 GFR)</content> ID Date Data Source Coagulation 01/16/2020 09:51:00 AM [facility].[id number] EDT Name Value Range Interpretation Description Data [...] cs"> (25.1-36.5 SEC)</content> ID Date Data Source [facility].[id number] 01/16/2020 08:55:00 AM EDT [facility] Name Value Range Interpretation Description Data Sup porting Code Source(s) Document(s ) Chloride 98-107 <content [facility] [Moles/volume] in styleCode="Bold"> [facility] Serum or Plasma Chloride Medical </content>102 Center [...] s"> (3.5-5.0 G/DL)</content> ID Date Data Source GFR(Creatinine).[id number] 01/16/2020 08:55:00 AM EDT [facility] 0-0400 Name Value Range Interpretation Code Description Data Meche rce(s) Supporting Document(s ) UNK > 60 <content Saint Bhats styleCode="Bold"> Medical Cent er EGFR </content>149 GFR<content styleCode="Italic s"> (> 60 GFR)</content> ID Date Data Source HematologyRou.[id number] 01/16/2020 08:55:00 AM EDT [facility] 0400 Name Value Range Interpretation Description [...] Data Source Liver 01/16/2020 08:55:00 AM EDT [facility] Profile.[id number] Name Value Range Interpretation Description Data Sup [...] s"> (0.0-0.3 MG/DL)</content> ID Date Data Source [id number] 01/16/2020 12:00:00 AM EDT [facility] Name Value Range Interpretation Code Description Data Meche rce(s) Supporting Document(s ) 2019-nCoV [facility] RNA XXX ELISABETH+probe- Imp This lab was ordered by [facility] and reported by [facility] NTD. ID Date Data Source Urinalysis.[id number] 01/03/2020 07:00:00 AM EDT [facility] [...] by Test d">Urine Medical strip Specific Center [place] </content>>= 1.030 H<content styleCode="Evy lics"> (1.015-1.025 )</content> [...] lics"> (NEGATIVE )</content> ID Date Data Source [facility]OUTINE[facility].[id number] 01/03/2020 07:00:00 AM EDT [facility] -0400 Name Value Range Interpretation Description Data Sup porting Code Source(s) Document(s ) Cannabinoids <content [facility] [Presence] in styleCode="Chris [facility] Urine by Screen d">Cannabinoid Medical method >50 ng/mL s Center </content>PRES UMPTIVE POSITIVE NG/ML (Reference Range: not available)<br/ > ID Date Data Source HematologyRou.[id number] 01/03/2020 06:10:00 AM EDT [facility] 0400 Name Value Range Interpretation Description [...] (0.0 KCUMM)</content > ID Date Data Source GFR(Creatinine).[id number] 01/03/2020 06:10:00 AM EDT [facility] 0-0400 Name Value Range Interpretation Code Description Data Meche rce(s) Supporting Document(s ) UNK > 60 <content [facility] styleCode="Bold"> Medical Cent er EGFR </content>127 GFR<content styleCode="Italic s"> (> 60 GFR)</content> ID Date Data Source [id number] 01/03/2020 06:10:00 AM EDT [facility] Name Value Range Interpretation Description Data [...] (0.5-1.3 MG/DL)</conten t> ID Date Data Source [id number] 11/24/2019 01:25:[address] [facility] CUT-OFF >= 25 NG/ML.THE FINDINGS OF [...] Supporting Document(s ) PCP (UR) NEGATIVE [facility] ID Date Data Source [id number] 11/24/2019 01:25:[address] [facility] CUT-OFF >= 50 NG/ML. Name Value Range Interpretation Code Description Data Meche rce(s) Supporting Document(s ) THC (UR) POSITIVE [facility] ID Date Data Source [id number] 11/24/2019 01:25:[address] [facility] CUT-OFF >= 300 NG/ML. Name Value Range Interpretation Description Data Sup porting Code Source(s) Document(s ) OPIATES (UR) NEGATIVE [facility] ID Date Data Source [id number] 11/24/2019 01:25:[address] [facility] CUT-OFF >= 300 NG/ML. Name Value Range Interpretation Description Data Sup porting Code Source(s) Document(s ) COCAINE (UR) POSITIVE [facility] ID Date Data Source [id number] 11/24/2019 01:25:[address] [facility] CUT-OFF >= 200 NG/ML. Name Value Range Interpretation Description Data Sup porting Code Source(s) Document(s ) BENZODIAZEPINES POSITIVE [place] (UR) [facility] ID Date Data Source [id number] 11/24/2019 01:25:[address] [facility] CUT-OFF >= 200 NG/ML. Name Value Range Interpretation Description Data Sup porting Code Source(s) Document(s ) BARBITURATES NEGATIVE [place] (UR) Hospital ID Date Data Source [id number] 11/24/2019 01:25:[address] [facility] CUT-OFF >= 1000 NG/ML. Name Value Range Interpretation Description Data Sup porting Code Source(s) Document(s ) AMPHETAMINES NEGATIVE [place] (UR) Hospital ID Date Data Source [id number] 11/24/2019 01:16:[address] 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 Name Value Range Interpretation Description Data Sup porting Code Source(s) Document(s ) Glucose 151 mg/dL [place] [Mass/volume] [facility] in Capillary blood by Glucometer ID Date Data Source [id number] 11/24/2019 10:37:00 AM [facility] REFERENCE RANGES: NONE DETECTED <20 MG/DL NONE TO MILD EUPHORIA 20-49 MG/DL MILD EUPHORIA 50-99 MG/DL MODERATE EUPHORIA 100-149 MG/DL INTOXICATION 150-300 MG/DL Name Value Range Interpretation Description Data Sup porting Code Source(s) Document(s ) Ethanol < 20 [place] [Mass/volume mg/dL Hospital ] in Serum or Plasma ID Date Data Source [id number] 11/24/2019 10:37:00 AM [facility] TEST RESULT IS A TOTAL TRICYCLIC [...] porting Code Source(s) Document(s ) TRICYCLIC 195 [place] ANTIDEPRESSANT ng/mL Hospital ID Date Data Source [id number] 11/24/2019 10:37:00 AM [facility] REFERENCE RANGES: ANALGESIC: 0.0 - 10.0 MG/DL. ARTHRITIC THERAPY: 15.0 - 30.0 MG/DL. Name Value Range Interpretation Description Data Sup porting Code Source(s) Document(s ) Salicylates < 3.0 [place] [Mass/volume] mg/dL Hospital in Serum or Plasma ID Date Data Source [id number] 11/24/2019 10:37:00 AM [facility] THERAPEUTIC RANGE: 10.0-30.0 UG/MLTOXIC RANGE: 4 HRS AFTER INGESTION >150 UG/ML 12 HRS AFTER INGESTION >35 UG/ML Name Value Range Interpretation Description Data Sup porting Code Source(s) Document(s ) ACETAMINOPHEN < 10.0 [place] ug/mL Hospital ID Date Data Source [id number] 11/24/2019 10:37:[address] [facility] Name Value Range Interpretation Description Data Sup porting Code Source(s) Document(s ) Creatine 520 U/L [place] kinase [facility] [Enzymatic activity/volu me] in Serum or Plasma ID Date Data Source [id number] 11/24/2019 10:37:[address] [facility] Name Value Range Interpretation Description Data Sup porting Code Source(s) Document(s ) Aspartate 34 U/L [place] aminotransferase [place] [Enzymatic Hospital activity/volume] in Serum or Plasma ID Date Data Source [id number] 11/24/2019 10:37:[address] [facility] Name Value Range Interpretation Description Data Sup porting Code Source(s) Document(s ) Alanine 44 U/L [place] aminotransferase [place] [Enzymatic Hospital activity/volume] in Serum or Plasma ID Date Data Source [id number] 11/24/2019 10:37:[address] [facility] Name Value Range Interpretation Description Data Sup porting Code Source(s) Document(s ) Alkaline 57 U/L [place] phosphatase Hospital [Enzymatic activity/volume ] in Serum or Plasma ID Date Data Source [id number] 11/24/2019 [facility] Value Range Interpretation Description Data Sup porting Code Source(s) Document(s ) Bilirubin.t 0.4 mg/dL [facility] [Mass/volum e] in Serum or Plasma ID Date Data Source [id number] 11/24/2019 10:37:[address] [facility] Name Value Range Interpretation Code Description Data Meche rce(s) Supporting Document(s ) Albumin/Glob 2.2 [place] ulin [Mass Hospital Ratio] in Serum or Plasma ID Date Data Source [id number] 11/24/2019 10:37:[address] [facility] Name Value Range Interpretation Description Data Sup porting Code Source(s) Document(s ) Albumin 4.2 g/dL [place] [Mass/volume Hospital ] in Serum or Plasma ID Date Data Source [id number] 11/24/2019 10:37:[address] [facility] Name Value Range Interpretation Description Data Sup porting Code Source(s) Document(s ) Protein 6.1 g/dL [place] [Mass/volume Hospital ] in Serum or Plasma ID Date Data Source [id number] 11/24/2019 10:37:[address] [facility] Name Value Range Interpretation Description Data Sup porting Code Source(s) Document(s ) Calcium 9.3 mg/dL [place] [Mass/volume Hospital ] in Serum or Plasma ID Date Data Source [id number] 11/24/2019 10:37:00 AM EDT [facility] Value Range Interpretation Code Description Data Meche rce(s) Supporting Document(s ) Urea 15.0 [place] nitrogen/Cre Hospital atinine [Mass Ratio] in Serum or Plasma ID Date Data Source [id number] 11/24/2019 10:37:[address] [facility] Name Value Range Interpretation Description Data Sup porting Code Source(s) Document(s ) Creatinine 0.6 mg/dL [place] [Mass/volume] Hospital in Serum or Plasma ID Date Data Source [id number] 11/24/2019 10:37:[address] [facility] Name Value Range Interpretation Description Data Sup porting Code Source(s) Document(s ) Urea nitrogen 9 mg/dL [place] [Mass/volume] Hospital in Serum or Plasma ID Date Data Source [id number] 11/24/2019 10:37:[address] [facility] Name Value Range Interpretation Code Description Data Meche rce(s) Supporting Document(s ) Anion gap in 9 [place] Serum or [facility] Plasma ID Date Data Source [id number] 11/24/2019 10:37:00 AM EDT [facility] Value Range Interpretation Description Data Sup porting Code Source(s) Document(s ) Carbon 31 mmol/L [place] dioxide, Hospital total [Moles/volu me] in Serum or Plasma ID Date Data Source [id number] 11/24/2019 10:37:[address] [facility] Name Value Range Interpretation Description Data Sup porting Code Source(s) Document(s ) Chloride 105 [place] [Moles/volum mmol/L Hospital e] in Serum or Plasma ID Date Data Source [id number] 11/24/2019 10:37:[address] [facility] Name Value Range Interpretation Description Data Sup porting Code Source(s) Document(s ) Potassium 3.9 [place] [Moles/volume mmol/L Hospital ] in Serum or Plasma ID Date Data Source [id number] 11/24/2019 10:37:[address] [facility] Name Value Range Interpretation Description Data Sup porting Code Source(s) Document(s ) Sodium 141 mmol/L [place] [Moles/volu Hospital me] in Serum or Plasma ID Date Data Source [id number] 11/24/2019 10:37:[address] [facility] Name Value Range Interpretation Description Data Sup porting Code Source(s) Document(s ) Glucose 109 mg/dL [place] [Mass/volume Hospital ] in Serum or Plasma ID Date Data Source [id number] 11/24/2019 10:37:00 AM EDT [facility] Value Range Interpretation Code Description Data Supporting Source(s) Document(s ) NUCLEATED RBCS 0.0 % [place] (AUTO Hospital DIFF%)DIS ID Date Data Source [id number] 11/24/2019 10:37:00 AM EDT [facility] Value Range Interpretation Description Data Sup porting Code Source(s) Document(s ) Differential AUTOMATED [place] cell count Hospital method - Blood ID Date Data Source [id number] 11/24/2019 10:37:00 AM EDT [facility] Value Range Interpretation Description Data Sup porting Code Source(s) Document(s ) Immature 0.02 [place] granulocytes 10*3/uL Hospital [#/volume] in Blood by Automated count ID Date Data Source [id number] 11/24/2019 10:37:00 AM EDT [facility] Value Range Interpretation Description Data Sup porting Code Source(s) Document(s ) Basophils 0.05 [place] [#/volume] in 10*3/uL Hospital Blood by Automated count ID Date Data Source [id number] 11/24/2019 10:37:[address] [facility] Name Value Range Interpretation Description Data Sup porting Code Source(s) Document(s ) Eosinophils 0.45 [place] [#/volume] in 10*3/uL Hospital Blood by Automated count ID Date Data Source [id number] 11/24/2019 10:37:[address] [facility] Name Value Range Interpretation Description Data Sup porting Code Source(s) Document(s ) Monocytes 1.10 [place] [#/volume] in 10*3/uL Hospital Blood by Automated count ID Date Data Source [id number] 11/24/2019 10:37:[address] [facility] Name Value Range Interpretation Description Data Sup porting Code Source(s) Document(s ) Lymphocytes 3.10 [place] [#/volume] in 10*3/uL Hospital Blood by Automated count ID Date Data Source [id number] 11/24/2019 10:37:00 AM EDT [facility] Value Range Interpretation Description Data Sup porting Code Source(s) Document(s ) Neutrophils 3.82 [place] [#/volume] in 10*3/uL Hospital Blood by Automated count ID Date Data Source [id number] 11/24/2019 10:37:00 AM EDT [facility] Value Range Interpretation Description Data Sup porting Code Source(s) Document(s ) Nucleated 0.0 % [place] erythrocytes/10 Hospital 0 leukocytes [Ratio] in Blood by Automated count ID Date Data Source [id number] 11/24/2019 10:37:00 AM EDT [facility] Value Range Interpretation Description Data Sup porting Code Source(s) Document(s ) Immature 0.2 % [place] granulocytes/10 Hospital 0 leukocytes in Blood by Automated count ID Date Data Source [id number] 11/24/2019 10:37:00 AM EDT [facility] Value Range Interpretation Description Data Sup porting Code Source(s) Document(s ) Basophils/100 0.6 % [place] leukocytes in Hospital Blood by Automated count ID Date Data Source [id number] 11/24/2019 10:37:00 AM EDT [facility] Value Range Interpretation Description Data Sup porting Code Source(s) Document(s ) Eosinophils/100 5.3 % [place] leukocytes in Hospital Blood by Automated count ID Date Data Source [id number] 11/24/2019 10:37:[address] [facility] Name Value Range Interpretation Description Data Sup porting Code Source(s) Document(s ) Monocytes/100 12.9 % [place] leukocytes in Hospital Blood by Automated count ID Date Data Source [id number] 11/24/2019 10:37:[address] [facility] Name Value Range Interpretation Description Data Sup porting Code Source(s) Document(s ) Lymphocytes/10 36.3 % [place] 0 leukocytes Hospital in Blood by Automated count ID Date Data Source [id number] 11/24/2019 10:37:[address] [facility] Name Value Range Interpretation Description Data Sup porting Code Source(s) Document(s ) Neutrophils/10 44.7 % [place] 0 leukocytes Hospital in Blood by Automated count ID Date Data Source [id number] 11/24/2019 10:37:[address] [facility] Name Value Range Interpretation Description Data Sup porting Code Source(s) Document(s ) Platelet mean 11.2 fL [facility] [Entitic volume] in Blood by Automated count ID Date Data Source [id number] 11/24/2019 10:37:00 AM EDT [facility] Value Range Interpretation Description Data Sup porting Code Source(s) Document(s ) Platelets 178 [place] [#/volume] in 10*3/uL Hospital Blood by Automated count ID Date Data Source [id number] 11/24/2019 10:37:[address] [facility] Name Value Range Interpretation Description Data Sup porting Code Source(s) Document(s ) Erythrocyte 11.8 % [facility] Hospital width [Ratio] by Automated count ID Date Data Source [id number] 11/24/2019 10:37:00 AM EDT [facility] Value Range Interpretation Description Data Sup porting Code Source(s) Document(s ) Erythrocyte mean 34.7 [place] corpuscular g/dL Hospital hemoglobin concentration [Mass/volume] by Automated count ID Date Data Source [id number] 11/24/2019 10:37:00 AM [facility] Value Range Interpretation Description Data Sup porting Code Source(s) Document(s ) Erythrocyte 32.[address] [facility] corpuscular hemoglobin [Entitic mass] by Automated count ID Date Data Source [id number] 11/24/2019 10:37:00 AM [facility] Value Range Interpretation Description Data Sup porting Code Source(s) Document(s ) Erythrocyte 93.[address] [facility] corpuscular volume [Entitic volume] by Automated count ID Date Data Source [id number] 11/24/2019 10:37:00 AM [facility] Value Range Interpretation Description Data Sup porting Code Source(s) Document(s ) Hematocrit 33.1 % [place] [Volume Hospital Fraction] of Blood by Automated count ID Date Data Source [id number] 11/24/2019 10:37:00 AM [facility] Value Range Interpretation Description Data Sup porting Code Source(s) Document(s ) Hemoglobin 11.5 g/dL [place] [Mass/volume] Hospital in Blood ID Date Data Source [id number] 11/24/2019 10:37:00 AM [facility] Value Range Interpretation Description Data Sup porting Code Source(s) Document(s ) Erythrocytes 3.55 [place] [#/volume] in 10*6/uL Hospital Blood by Automated count ID Date Data Source [id number] 11/24/2019 10:37:00 AM EDT [facility] Name Value Range Interpretation Description Data Sup porting Code Source(s) Document(s ) Leukocytes 8.5 [place] [#/volume] in 10*3/uL [facility] Blood by Automated count ID Date Data Source [id number] 11/14/2019 12:00:00 AM EDT [facility] Name Value Range Interpretation Code Description Data Meche rce(s) Supporting Document(s ) 2019-nCoV [facility] RNA XXX ELISABETH+probe- Imp This lab was ordered by [facility] and reported by [employer]. Procedure Social History Code Duration Value Status Description Data Source(s ) Smoking 04/23/2020 10:19:00 Daily Smoker completed Daily Smoker S [facility] EDT Center Smoking 04/23/2020 10:15:00 Daily Smoker completed Daily Smoker S [facility] EDT Center Smoking 04/23/2020 10:05:00 Daily Smoker completed Daily Smoker S [facility] EDT Center Smoking 04/12/2020 11:30:00 Daily Smoker completed Daily Smoker S [facility] EDT Center Smoking 04/12/2020 10:15:00 Daily Smoker completed Daily Smoker S [facility] EDT Center Smoking 04/12/2020 09:29:00 Daily Smoker completed Daily Smoker S [facility] EDT Center Smoking 04/12/2020 09:19:00 Daily Smoker completed Daily Smoker S [facility] EDT Center Smoking 04/03/2020 07:42:00 Daily Smoker completed Daily Smoker S [facility] EDT Center Smoking 04/03/2020 04:39:00 Daily Smoker completed Daily Smoker S [facility] EDT Center Smoking 04/03/2020 04:01:00 Daily Smoker completed Daily Smoker S [facility] EDT Center Smoking 04/03/2020 03:40:00 Daily Smoker completed Daily Smoker S [facility] EDT Center Smoking 04/03/2020 03:15:00 Daily Smoker completed Daily Smoker S [facility] EDT Center Smoking 01/16/2020 08:36:00 Daily Smoker completed Daily Smoker S [facility] EDT Center Smoking 01/16/2020 08:25:00 Daily Smoker completed Daily Smoker S [facility] EDT Center Smoking 01/16/2020 08:19:00 Daily Smoker completed Daily Smoker S [facility] EDT Center Smoking 01/03/2020 01:53:00 Daily Smoker completed Daily Smoker S [facility] EDT Center Smoking 01/03/2020 05:39:00 Daily Smoker completed Daily Smoker S [facility] EDT Center Smoking 01/03/2020 05:30:00 Daily Smoker completed Daily Smoker S [facility] EDT Center Smoking 01/03/2020 05:22:00 Daily Smoker completed Daily Smoker S [facility] EDT Center Smoking 06/29/2019 02:38:00 Daily Smoker completed Daily Smoker S [facility] EST Center Smoking 06/29/2019 01:54:00 Daily Smoker completed Daily Smoker S [facility] EST Center Vital Signs ID Date Data Source UNK Name Value Range Interpretation Description Data Sour ce(s) Code Body 36.568165 Wendi 36.961224 Wendi [facility] Medical Cente r Respiratory 18 /min 18 /min [facility] Heart rate 61 /min 61 /min [facility] Diastolic blood 71 mm[Hg] 71 mm[Hg] [facility] Systolic blood 120 mm[Hg] 120 mm[Hg] [facility] Body 36.196058 Wendi 36.471941 Wendi [facility] Medical Cente r Respiratory 20 /min 20 /min [facility] Heart rate 90 /min 90 /min [facility] Diastolic blood 63 mm[Hg] 63 mm[Hg] [facility] pressure Medical Center Systolic blood 134 mm[Hg] 134 mm[Hg] [facility] pressure Medical Center Body weight 75.890228 kg 75.181922 kg [facility] Measured Medical Center Body 36.409044 Wendi 36.584512 Wendi [facility] Medical Cente r Respiratory 19 /min 19 /min [facility] Oxygen 97 % 97 % [facility] saturation in Medical [address] Arterial blood by Pulse oximetry Heart rate 96 /min 96 /min [facility] Body height 182.101140 cm 182.602013 cm [facility] Diastolic blood 65 mm[Hg] 65 mm[Hg] [facility] pressure Medical Center Systolic blood 127 mm[Hg] 127 mm[Hg] [facility] Body mass index 22.4 kg/m2 22.4 kg/m2 [facility] (BMI) [Ratio] [facility] [address] Body 36.840218 Wendi 36.012874 Wendi [facility] temperature Medical Cente r Respiratory 17 /min 17 /min [facility] Oxygen 99 % 99 % [facility] saturation in [facility] [address] Arterial blood by Pulse oximetry Heart rate 81 /min 81 /min [facility] Diastolic blood 76 mm[Hg] 76 mm[Hg] [facility] pressure Medical Center Systolic blood 131 mm[Hg] 131 mm[Hg] [facility] Body 36.953381 Wendi 36.678859 Wendi [facility] temperature Medical Cente r Respiratory 18 /min 18 /min [facility] Oxygen 99 % 99 % [facility] saturation in [facility] [address] Arterial blood by Pulse oximetry Heart rate 85 /min 85 /min [facility] Diastolic blood 78 mm[Hg] 78 mm[Hg] [facility] pressure Medical Center Systolic blood 132 mm[Hg] 132 mm[Hg] [facility] Center Body 36.230739 Wendi 36.911028 Wendi [facility] temperature Medical Cente r Respiratory 17 /min 17 /min [facility] Oxygen 97 % 97 % [place] saturation in Medical [facility] ter Arterial blood by Pulse oximetry Heart rate 91 /min 91 /min [facility] Diastolic blood 77 mm[Hg] 77 mm[Hg] [facility] pressure Medical Center Systolic blood 133 mm[Hg] 133 mm[Hg] [facility] Body surface 1.6 m2 1.6 m2 [facility] Derived Health Syste m from formula Body mass index 18.4 kg/m2 18.4 kg/m2 [facility] e (BMI) [Ratio] Health Syst em Body weight 56.69 kg 56.69 kg [facility] Body height 175.[address] [facility] Body 98.2 [degF] 0 - 200 Normal (applies to 98.2 [degF] [facility] temperature non-numeric Health Syste m results) Body 36.7 Wendi 0 - 99.9 Normal (applies to 36.7 Wendi [facility] iore temperature non-numeric Health Syste m results) Diastolic blood 66 mm[Hg] 0 - 999 Below low normal 66 mm[Hg] [facility] Systolic blood 114 mm[Hg] 0 - 999 Normal (applies to 114 mm[Hg] [facility] pressure non-numeric Health System results) Oxygen 93 % 0 - 999 Normal (applies to 93 % [facility] iore saturation in non-numeric Health Sys tem Arterial blood results) by Pulse oximetry Respiratory 20 0 - 999 Above high normal 20 [place] [facility] rate Health System Heart rate 192 0 - 999 Above upper panic 192 [facility] ore limits Health System Heart rate 102 0 - 999 Above high normal 102 [facility] Health System Body 37.206710 Wendi 37.309563 Wendi [facility] temperature Medical Cente r Respiratory 20 /min 20 /min [facility] rate Medical Center Heart rate 67 /min 67 /min [facility] Diastolic blood 86 mm[Hg] 86 mm[Hg] [facility] pressure Medical Center Systolic blood 105 mm[Hg] 105 mm[Hg] [facility] pressure Medical Center Body 36.249193 Wendi 36.250625 Wendi [facility] temperature Medical Cente r Respiratory 20 /min 20 /min [facility] rate Medical Center Heart rate 53 /min 53 /min [facility] Diastolic blood 59 mm[Hg] 59 mm[Hg] [facility] pressure Medical Center Systolic blood 107 mm[Hg] 107 mm[Hg] [facility] pressure Medical Center Body 36.784049 Wendi 36.512094 Wendi [facility] temperature Medical Cente r Respiratory 20 /min 20 /min [facility] rate Medical Center Heart rate 82 /min 82 /min [facility] Diastolic blood 78 mm[Hg] 78 mm[Hg] [facility] pressure Medical Center Systolic blood 118 mm[Hg] 118 mm[Hg] [facility] pressure Medical Center Heart rate 102 /min 102 /min [facility] Diastolic blood 74 mm[Hg] 74 mm[Hg] [facility] pressure Medical Center Systolic blood 113 mm[Hg] 113 mm[Hg] [facility] pressure Medical Center Body 37.454879 Wendi 37.116295 Wendi [facility] temperature Medical Cente r Respiratory 20 /min 20 /min [facility] rate Medical Center Heart rate 55 /min 55 /min [facility] Diastolic blood 46 mm[Hg] 46 mm[Hg] [facility] pressure Medical Center Systolic blood 87 mm[Hg] 87 mm[Hg] [facility] pressure Medical Center Body 36.450646 Wendi 36.758191 Wendi [facility] temperature Medical Cente r Respiratory 18 /min 18 /min [facility] rate Medical Center Heart rate 57 /min 57 /min [facility] Diastolic blood 64 mm[Hg] 64 mm[Hg] [facility] pressure Medical Center Systolic blood 118 mm[Hg] 118 mm[Hg] [facility] pressure Medical Center Body weight 57.554793 kg 57.208288 kg [facility] Measured [facility] Body height 182.012242 cm 182.388874 cm [facility] Body mass index 17.04 kg/m2 17.04 kg/m2 [facility] (BMI) [Ratio] [facility] [address] Body weight 57.095697 kg 57.120131 kg [facility] Measured [facility] Body height 182.065589 cm 182.974211 cm [facility] Body mass index 17.04 kg/m2 17.04 kg/m2 [facility] osephs (BMI) [Ratio] [facility] [address] Body 36.289519 Wendi 36.034354 Wendi [facility] temperature Medical Cente r Respiratory 20 /min 20 /min [facility] rate Medical Center Heart rate 68 /min 68 /min [facility] Oxygen 97 % 97 % [facility] saturation in Medical [address] Arterial blood by Pulse oximetry Body 36.316380 Wendi 36.056282 Wendi [facility] temperature Medical Cente r Respiratory 18 /min 18 /min [facility] rate Medical Center Heart rate 62 /min 62 /min [facility] Diastolic blood 79 mm[Hg] 79 mm[Hg] [facility] pressure Medical Center Systolic blood 128 mm[Hg] 128 mm[Hg] [facility] pressure Medical Center Body weight 58.896630 kg 58.467210 kg [facility] Measured [facility] Oxygen 96 % 96 % [place] saturation in Medical [address] Arterial blood by Pulse oximetry Body height 182.803091 cm 182.194395 cm [facility] Body mass index 17.6 kg/m2 17.6 kg/m2 [facility] (BMI) [Ratio] [facility] [address] Body 36.833612 Wendi 36.961934 Wendi [facility] Medical Cente r Respiratory 18 /min 18 /min [facility] Diastolic blood 86 mm[Hg] 86 mm[Hg] [facility] pressure Medical Center Systolic blood 136 mm[Hg] 136 mm[Hg] [facility] pressure Medical Center Diastolic blood 75 mmHg 75 mmHg [facility] Systolic blood 107 mmHg 107 mmHg [facility] Respiratory 18 bpm 18 bpm [facility] Heart rate 87 bpm 87 bpm [facility] Diastolic blood 72 mmHg 72 mmHg [facility] Systolic blood 113 mmHg 113 mmHg [facility] Respiratory 18 bpm 18 bpm [facility] Heart rate 86 bpm 86 bpm [facility] Body 98.0 98.0 [facility] Diastolic blood 80 mmHg 80 mmHg [facility] Systolic blood 109 mmHg 109 mmHg [facility] Respiratory 16 bpm 16 bpm [facility] Heart rate 86 bpm 86 bpm [facility] Body 98.3 98.3 [facility] Systolic blood 121 mm[Hg] 121 mm[Hg] [facility] pressure [facility] Diastolic blood 77 mm[Hg] 77 mm[Hg] [facility] pressure Medical Center Heart rate 84 /min 84 /min [facility] Oxygen 99 % 99 % [facility] saturation in [facility] [address] Arterial blood by Pulse oximetry Respiratory 18 /min 18 /min [facility] Body 36.905504 Wendi 36.455802 Wendi [facility] Medical Cente r Systolic blood 111 mm[Hg] 111 mm[Hg] [facility] pressure Medical Center Diastolic blood 48 mm[Hg] 48 mm[Hg] [facility] pressure Medical Center Heart rate 95 /min 95 /min [facility] Oxygen 97 % 97 % [facility] saturation in [facility] [address] Arterial blood by Pulse oximetry Respiratory 19 /min 19 /min [facility] Body 36.046125 Wendi 36.765799 Wendi [facility] temperature Medical Cente r Body 36.370256 Wendi 36.508331 Wendi [facility] temperature Medical Cente r Respiratory 18 /min 18 /min [facility] Oxygen 98 % 98 % [facility] saturation in [facility] [address] Arterial blood by Pulse oximetry Heart rate 82 /min 82 /min [facility] Diastolic blood 82 mm[Hg] 82 mm[Hg] [facility] pressure Medical Center Systolic blood 136 mm[Hg] 136 mm[Hg] [facility] Body 37.336864 Wendi 37.442733 Wendi [facility] temperature Medical Cente r Respiratory 18 /min 18 /min [facility] Oxygen 97 % 97 % [facility] saturation in [facility] [address] Arterial blood by Pulse oximetry Heart rate 88 /min 88 /min [facility] Diastolic blood 76 mm[Hg] 76 mm[Hg] [facility] pressure Medical Center Systolic blood 142 mm[Hg] 142 mm[Hg] [facility] Center Body 35.520567 Wendi 35.663125 Wendi [facility] Medical Cente r Respiratory 18 /min 18 /min [facility] Oxygen 99 % 99 % [facility] saturation in [facility] [address] Arterial blood by Pulse oximetry Heart rate 100 /min 100 /min [facility] Diastolic blood 76 mm[Hg] 76 mm[Hg] [facility] Center Systolic blood 138 mm[Hg] 138 mm[Hg] [facility] Center Body 37.976796 Wendi 37.065256 Wendi [facility] Medical Cente r Respiratory 17 /min 17 /min [facility] Oxygen 97 % 97 % [facility] saturation in Medical [address] Arterial blood by Pulse oximetry Heart rate 92 /min 92 /min [facility] Diastolic blood 88 mm[Hg] 88 mm[Hg] [facility] pressure Medical Center Systolic blood 146 mm[Hg] 146 mm[Hg] [facility] Body weight 79.256772 kg 79.234773 kg [facility] Measured Medical Center Body 36.729394 Wendi 36.413669 Wendi [facility] Medical Cente r Respiratory 16 /min 16 /min [facility] Oxygen 95 % 95 % [facility] saturation in [facility] [address] Arterial blood by Pulse oximetry Heart rate 107 /min 107 /min [facility] Body height 193.544565 cm 193.039415 cm [facility] Diastolic blood 100 mm[Hg] 100 mm[Hg] [facility] pressure Medical Center Systolic blood 155 mm[Hg] 155 mm[Hg] [facility] Body mass index 21.3 kg/m2 21.3 kg/m2 [facility] (BMI) [Ratio] [facility] [address] Diastolic blood 83 mmHg 83 mmHg [facility] Systolic blood 131 mmHg 131 mmHg [facility] Respiratory 18 bpm 18 bpm [facility] Heart rate 112 bpm 112 bpm [facility] Diastolic blood 76 mmHg 76 mmHg [facility] Systolic blood 126 mmHg 126 mmHg [facility] Respiratory 18 bpm 18 bpm [facility] Heart rate 100 bpm 100 bpm [facility] Body 98.5 98.5 [facility] Di[facility] 62 mmHg 62 mmHg [facility] Systolic blood 118 mmHg 118 mmHg [facility] Respiratory 18 bpm 18 bpm [facility] Heart rate 111 bpm 111 bpm [facility] Diastolic blood 76 mmHg 76 mmHg [facility] Systolic blood 132 mmHg 132 mmHg [facility] Respiratory 18 bpm 18 bpm [facility] Heart rate 105 bpm 105 bpm [facility] Body 98.3 98.3 [facility] Diastolic blood 71 mmHg 71 mmHg [facility] Systolic blood 119 mmHg 119 mmHg [facility] Respiratory 18 bpm 18 bpm [facility] Heart rate 120 bpm 120 bpm [facility] Diastolic blood 77 mmHg 77 mmHg [facility] Systolic blood 139 mmHg 139 mmHg [facility] Respiratory 18 bpm 18 bpm [facility] Heart rate 110 bpm 110 bpm [facility] Body 98.3 98.3 [facility] Diastolic blood 74 mmHg 74 mmHg [facility] Systolic blood 118 mmHg 118 mmHg [facility] Respiratory 18 bpm 18 bpm [facility] Heart rate 118 bpm 118 bpm [facility] Diastolic blood 83 mmHg 83 mmHg [facility] Systolic blood 122 mmHg 122 mmHg [facility] Respiratory 18 bpm 18 bpm [facility] Heart rate 111 bpm 111 bpm [facility] Diastolic blood 57 mmHg 57 mmHg [facility] Systolic blood 128 mmHg 128 mmHg [facility] Respiratory 18 bpm 18 bpm [facility] Heart rate 90 bpm 90 bpm [facility] Diastolic blood 78 mmHg 78 mmHg [facility] Systolic blood 137 mmHg 137 mmHg [facility] Respiratory 18 bpm 18 bpm [facility] Heart rate 85 bpm 85 bpm [facility] Body 98.4 98.4 [facility] Diastolic blood 70 mmHg 70 mmHg [facility] Systolic blood 115 mmHg 115 mmHg [facility] Heart rate 89 bpm 89 bpm [facility] Body weight 144 lbs 144 lbs [facility] Diastolic blood 89 mmHg 89 mmHg [facility] Systolic blood 141 mmHg 141 mmHg [facility] Respiratory 18 bpm 18 bpm [facility] Heart rate 110 bpm 110 bpm [facility] Body 98.5 98.5 [facility] Body weight 144 lbs 144 lbs [facility] Diastolic blood 87 mmHg 87 mmHg [facility] Systolic blood 145 mmHg 145 mmHg [facility] Respiratory 18 bpm 18 bpm [facility] Heart rate 98 bpm 98 bpm [facility] Body 98.5 98.5 [facility] Diastolic blood 68 mm[Hg] 68 mm[Hg] [facility] Systolic blood 118 mm[Hg] 118 mm[Hg] [facility] Respiratory 20 /min 20 /min [facility] Heart rate 90 /min 90 /min [facility] Body 36.70787 Wendi 36.81309 Wendi [facility] Body 97.3 [degF] 97.3 [degF] [facility] Body mass index 22.0 kg/m2 22.0 kg/m2 [facility] (BMI) [Ratio] Hospital Body weight 165.35 [lb_av] 165.35 [lb_av] [facility] Diastolic blood 73 mmHg 73 mmHg [facility] Systolic blood 113 mmHg 113 mmHg [facility] Respiratory 18 bpm 18 bpm [facility] Heart rate 109 bpm 109 bpm [facility] Diastolic blood 70 mmHg 70 mmHg [facility] Systolic blood 122 mmHg 122 mmHg [facility] Respiratory 18 bpm 18 bpm [facility] Heart rate 91 bpm 91 bpm [facility] Body 96.4 96.4 [facility] Diastolic blood 83 mmHg 83 mmHg [facility] Systolic blood 127 mmHg 127 mmHg [facility] Respiratory 18 bpm 18 bpm [facility] Heart rate 98 bpm 98 bpm [facility] Diastolic blood 78 mmHg 78 mmHg [facility] Systolic blood 120 mmHg 120 mmHg [facility] Respiratory 18 bpm 18 bpm [facility] Heart rate 98 bpm 98 bpm [facility] Body 98.6 98.6 [facility] Respiratory 18 bpm 18 bpm [facility] Body 96.3 96.3 [facility] Diastolic blood 81 mmHg 81 mmHg [facility] Systolic blood 125 mmHg 125 mmHg [facility] Heart rate 82 bpm 82 bpm [facility] Diastolic blood 71 mmHg 71 mmHg [facility] Systolic blood 118 mmHg 118 mmHg [facility] Heart rate 84 bpm 84 bpm [facility] Diastolic blood 67 mmHg 67 mmHg [facility] Systolic blood 111 mmHg 111 mmHg [facility] Respiratory 19 bpm 19 bpm [facility] Heart rate 86 bpm 86 bpm [facility] Body 97.2 97.2 [facility] Diastolic blood 64 mmHg 64 mmHg [facility] Systolic blood 113 mmHg 113 mmHg [facility] Respiratory 93 bpm 93 bpm [facility] Heart rate 18 bpm 18 bpm [facility] Body 98.0 98.0 [facility] Diastolic blood 64 mmHg 64 mmHg [facility] Systolic blood 115 mmHg 115 mmHg [facility] Respiratory 90 bpm 90 bpm [facility] Heart rate 18 bpm 18 bpm [facility] Body 98.0 98.0 [facility] Diastolic blood 74 mmHg 74 mmHg [facility] Systolic blood 118 mmHg 118 mmHg [facility] Respiratory 18 bpm 18 bpm [facility] Heart rate 78 bpm 78 bpm [facility] Diastolic blood 74 mmHg 74 mmHg [facility] Systolic blood 112 mmHg 112 mmHg [facility] Respiratory 18 bpm 18 bpm [facility] Heart rate 65 bpm 65 bpm [facility] Body 96.3 96.3 [facility] Diastolic blood 63 mmHg 63 mmHg [facility] Systolic blood 104 mmHg 104 mmHg [facility] Heart rate 103 bpm 103 bpm [facility] Diastolic blood 54 mmHg 54 mmHg [facility] Systolic blood 95 mmHg 95 mmHg [facility] Respiratory 18 bpm 18 bpm [facility] Heart rate 86 bpm 86 bpm [facility] Body 98.0 98.0 [facility] Diastolic blood 76 mmHg 76 mmHg [facility] Systolic blood 110 mmHg 110 mmHg [facility] Heart rate 102 bpm 102 bpm [facility] Diastolic blood 71 mmHg 71 mmHg [facility] Systolic blood 120 mmHg 120 mmHg [facility] Respiratory 19 bpm 19 bpm [facility] Heart rate 94 bpm 94 bpm [facility] Body 97.6 97.6 Fahrenheit [facility] Respiratory 18 bpm 18 bpm [facility] Body 97.5 97.5 [facility] Di[facility] blood 71 mmHg 71 mmHg [facility] Systolic blood 121 mmHg 121 mmHg [facility] Heart rate 89 bpm 89 bpm [facility] Systolic blood 131 mmHg 131 mmHg [facility] Heart rate 107 bpm 107 bpm [facility] Respiratory 20 bpm 20 bpm [facility] Body 97.9 97.9 [facility] Diastolic blood 78 mmHg 78 mmHg [facility] Body weight 133 lbs 133 lbs [facility] Respiratory 20 bpm 20 bpm [facility] Body 97.1 97.1 [facility] Di[facility] blood 68 mmHg 68 mmHg [facility] Systolic blood 122 mmHg 122 mmHg [facility] Heart rate 87 bpm 87 bpm [facility] Diastolic blood 67 mmHg 67 mmHg [facility] Systolic blood 102 mmHg 102 mmHg [facility] Respiratory 18 bpm 18 bpm [facility] Heart rate 94 bpm 94 bpm [facility] Body 98.8 98.8 [facility] Diastolic blood 73 mmHg 73 mmHg [facility] Systolic blood 122 mmHg 122 mmHg [facility] Respiratory 18 bpm 18 bpm [facility] Heart rate 80 bpm 80 bpm [facility] Body 97.1 97.1 [facility] Diastolic blood 74 mmHg 74 mmHg [facility] Systolic blood 114 mmHg 114 mmHg [facility] Respiratory 18 bpm 18 bpm [facility] Heart rate 77 bpm 77 bpm [facility] Body 97.1 97.1 [facility] Body [id number] Wendi [id number] Wendi [facility] Respiratory 18 /min 18 /min [facility] Oxygen 97 % 97 % [facility] saturation in Medical [address] Arterial blood by Pulse oximetry Heart rate 78 /min 78 /min [facility] Diastolic blood 78 mm[Hg] 78 mm[Hg] [facility] pressure Medical [place] Systolic blood 116 mm[Hg] 116 mm[Hg] [facility] Body [id number] Wendi [id number] Wendi [facility] r Respiratory 18 /min 18 /min [facility] Oxygen 99 % 99 % [facility] saturation in Medical [address] Arterial blood by Pulse oximetry Heart rate 82 /min 82 /min [facility] Diastolic blood 74 mm[Hg] 74 mm[Hg] [facility] pressure Medical Center Systolic blood 119 mm[Hg] 119 mm[Hg] [facility] pressure Medical [place] Diastolic blood 83 mmHg 83 mmHg [facility] Systolic blood 139 mmHg 139 mmHg [facility] Respiratory 18 bpm 18 bpm [facility] Heart rate 114 bpm 114 bpm [facility] Diastolic blood 80 mmHg 80 mmHg [facility] Systolic blood 144 mmHg 144 mmHg [facility] Respiratory 18 bpm 18 bpm [facility] Heart rate 101 bpm 101 bpm [facility] Body 97.1 97.1 [facility] Body [facility] 150 lbs 150 lbs [facility] Diastolic blood 86 mmHg 86 mmHg [facility] Systolic blood 130 mmHg 130 mmHg [facility] Respiratory 20 bpm 20 bpm [facility] Heart rate 119 bpm 119 bpm [facility] Diastolic blood 87 mmHg 87 mmHg [facility] Systolic blood 141 mmHg 141 mmHg [facility] Respiratory 20 bpm 20 bpm [facility] Heart rate 110 bpm 110 bpm [facility] Body 97.4 97.4 [facility] Diastolic blood 78 mmHg 78 mmHg [facility] Systolic blood 124 mmHg 124 mmHg [facility] Respiratory 18 bpm 18 bpm [facility] Heart rate 124 bpm 124 bpm [facility] Body 98.3 98.3 [facility] ID Date Data Source [id number] 02/28/2020 10:23:15 PM EDT [facility] Name Value Range Interpretation Code Description Data Source(s) Body weight Measured 144 lb 144 lb [facility] ID Date Data Source [id number] 02/24/2020 01:41:59 PM EDT [facility] Name Value Range Interpretation Code Description Data Source(s) Body weight Measured 144 lb 144 lb [facility] ID Date Data Source [id number] 02/25/2020 12:12:49 PM [facility] Name Value Range Interpretation Code Description Data Source(s) Body weight Measured 144 lb 144 lb [facility] ID Date Data Source [id number] 11/30/2019 10:37:35 PM EDT [facility] Name Value Range Interpretation Code Description Data Source(s) Body weight Measured 144 lb 144 lb [facility] Body weight Measured 133 lb 133 lb [facility] ID Date Data Source [id number] 11/24/2019 11:44:52 PM EDT [facility] Name Value Range Interpretation Code Description Data Source(s) Body weight Measured 133 lb 133 lb [facility] ID Date Data Source [id number] 11/20/2019 10:41:33 PM EDT [facility] Name Value Range Interpretation Code Description Data Source(s) Body weight Measured 133 lb 133 lb [facility] ID Date Data Source [id number] [facility] Interpretation Code Description Data Source(s) Body weight Measured 133 lb 133 lb [facility] ID Date Data Source [id number] 08/22/2019 11:14:15 PM [facility] Name Value Range Interpretation Code Description Data Source(s) Body weight Measured 133 lb 133 lb [facility] Body weight Measured 150 lb 150 lb [facility] ID Date Data Source [id number] 08/15/2019 09:05:11 PM [facility] Name Value Range Interpretation Code Description Data Source(s) Body weight Measured 150 lb 150 lb [facility] Patient Treatment Plan of Care Planned Activity Planned Date Details Description Data Source (s) 0.9% NaCl IV 02/06/2020 01:30:18 [facility] T[facility] Infusion (AD 02/06/2020 01:04[facility]
[2020-04-26] MEDS ORDERED: cloNIDine HCL 0.1 MG TABLET PO ONE (23:39)
[2020-04-26] MEDS ORDERED: PROMETHAZINE HCL 50 MG/1 ML AMP IM ONE (23:39)
[2020-04-26] MEDS ORDERED: METHADONE HCL 10 MG TABLET (FOR DETOX USE ONLY) PO ONE (23:46)
[2020-04-26] MEDS ORDERED: METHADONE HCL 10 MG TABLET ONE (23:47)
== END 2020-04-26 23:56 | disposition home or self-care (01) ==
LOC: FER 23:02
DX: F11.23 Opioid dependence with withdrawal (principal)
CPT/HCPCS: 99283-25

== ENCOUNTER 2020-07-01 09:49 | Inpatient (IN) | payer OTHER ==
[2020-07-01 11:41] VITALS: BMI 17.6
[2020-07-01] MEDS ORDERED: cloNIDine HCL 0.1 MG TABLET PO PRN (12:10)
[2020-07-01] MEDS ORDERED: MENTHOL/PHENOL 1 EACH UD MM PRN (12:10)
[2020-07-01] MEDS ORDERED: MAGNESIUM CITRATE 300 ML BOTTLE PO PRN (12:10)
[2020-07-01] MEDS ORDERED: ACETAMINOPHEN 325 MG TABLET (FP) PO PRN (12:10)
[2020-07-01] MEDS ORDERED: MAGNESIUM HYDROX 2400MG/30ML ORAL SUSPENSION 30 ML CUP PO PRN (12:10)
[2020-07-01] MEDS ORDERED: ONDANSETRON *ODT* 4 MG TABLET SL PRN (12:10)
[2020-07-01] MEDS ORDERED: BISMUTH SUBSALICYLATE 524 MG/30 ML UD PO PRN (12:10)
[2020-07-01] MEDS ORDERED: METHADONE HCL 10 MG TABLET (FOR DETOX USE ONLY) PO ONE (12:10)
[2020-07-01] MEDS ORDERED: IBUPROFEN 400 MG TABLET (FP) PO PRN (12:10)
[2020-07-01] MEDS ORDERED: MAG HYDROX/AL HYDROX/SIMETH 30 ML UNIT-DOSE CUP PO PRN (12:10)
[2020-07-01] MEDS ORDERED: NICOTINE POLACRILEX 2 MG GUM BUC PRN (12:10)
[2020-07-01] MEDS: NICOTINE 21 MG/24 HOURS TOPICAL PATCH TD SCH (12:52)
[2020-07-01] MEDS: hydrOXYzine PAMOATE 25 MG CAPSULE (FP) PO SCH ×3 (13:00→22:25)
[2020-07-01] MEDS: ACETAMINOPHEN 325 MG TABLET (FP) PO PRN (14:13)
[2020-07-01 15:35] LABS: HEMATOCRIT 40.6 % (35.4-49); HEMOGLOBIN 13.8 GM/dL (11.7-16.9); MCH 32.8 pg (25.7-33.7); MCHC 34.1 g/dl (32.0-35.9); MEAN CELL VOLUME 96.1 fl (80-96); MEAN PLT VOLUME 9.5 fl (7.5-11.1); PLATELET COUNT 278 K/MM3 (134-434); RBC 4.23 M/mm3 (4.00-5.60); RDW 14.5 % (11.9-15.9); WHITE BLOOD COUNT 6.8 K/mm3 (4.0-10.0)
[2020-07-01 15:39] LABS: POTASSIUM 4.1 mmol/L (3.5-5.1)
[2020-07-01 15:41] LABS: ALBUMIN 4.4 g/dl (3.4-5.0); BLOOD UREA NITROGEN 8.6 mg/dL (7-18)
[2020-07-01 15:44] LABS: CREATININE 0.8 mg/dL (0.55-1.3)
[2020-07-01 15:46] LABS: BILIRUBIN,TOTAL 0.3 mg/dL (0.2-1); TOT PROT 8.2 g/dl (6.4-8.2)
[2020-07-01] MEDS: METHOCARBAMOL 500 MG TABLET PO PRN (17:23)
[2020-07-01] MEDS ORDERED: traZODone HCL 50 MG TABLET (FP) PO SCH (22:00)
[2020-07-01] MEDS ORDERED: QUEtiapine FUMARATE 200 MG TABLET PO SCH (22:00)
[2020-07-01] MEDS ORDERED: MIRTAZAPINE 15 MG TABLET (FP) PO SCH (22:00)
[2020-07-01] MEDS ORDERED: MELATONIN 5 MG TABLETS PO SCH (22:00)
[2020-07-01] MEDS ORDERED: THIAMINE HCL 100 MG TABLET (FP) PO SCH (22:00)
[2020-07-01] MEDS ORDERED: MIRTAZAPINE 30 MG TABLET PO SCH (22:00)
[2020-07-02] MEDS: hydrOXYzine PAMOATE 25 MG CAPSULE (FP) PO SCH (05:50)
[2020-07-02] MEDS: METHOCARBAMOL 500 MG TABLET PO PRN ×2 (07:31→14:37)
[2020-07-02] MEDS: ACETAMINOPHEN 325 MG TABLET (FP) PO PRN (07:31)
[2020-07-02] MEDS ORDERED: METHADONE HCL 10 MG TABLET (FOR DETOX USE ONLY) ONE (08:35)
[2020-07-02] MEDS ORDERED: METHADONE HCL 5 MG TABLET (FOR DETOX USE ONLY) ONE (08:36)
[2020-07-02] MEDS ORDERED: PRENATAL VITAMINS W/ FOLIC ACID TABLET (FP) PO SCH (10:00)
[2020-07-02] MEDS ORDERED: QUEtiapine FUMARATE 100 MG TABLET (FP) PO SCH (10:00)
[2020-07-02] MEDS ORDERED: METHADONE (DETOX) 20 MG, METHADONE (DETOX) 5 MG PO ONE (10:00)
[2020-07-02] MEDS: NICOTINE 21 MG/24 HOURS TOPICAL PATCH TD SCH (10:02)
[2020-07-02] MEDS: hydrOXYzine PAMOATE 50 MG CAPSULE (FP) PO SCH ×2 (10:04→14:37)
[2020-07-02 14:31] VITALS: TEMP 98
[2020-07-02 18:20] VITALS: BP 121/77; PULSE 95
[2020-07-02] MEDS ORDERED: QUEtiapine FUMARATE 300 MG TABLET PO SCH (22:00)
[2020-07-02] MEDS ORDERED: MIRTAZAPINE 30 MG TABLET PO SCH (22:00)
[2020-07-03] MEDS ORDERED: METHADONE HCL 10 MG TABLET (FOR DETOX USE ONLY) PO ONE (10:00)
[2020-07-04] MEDS ORDERED: METHADONE (DETOX) 10 MG, METHADONE (DETOX) 5 MG PO ONE (10:00)
[2020-07-05] MEDS ORDERED: METHADONE HCL 10 MG TABLET (FOR DETOX USE ONLY) PO ONE (10:00)
[2020-07-06] MEDS ORDERED: METHADONE HCL 5 MG TABLET (FOR DETOX USE ONLY) PO ONE (06:00)
== END 2020-07-02 16:54 | disposition left against medical advice (07) | DRG 770 ==
LOC: YASAS 09:49 → Y3N 12:05
PROVIDERS: ADMIT Allergy & Immunology; ATTEND Allergy & Immunology
PROC: HZ2ZZZZ Detoxification Services for Substance Abuse Treatment (ICD-10-PCS; principal; 2020-07-01)
DX: F11.23 Opioid dependence with withdrawal (principal); F13.230 Sedative, hypnotic or anxiolytic dependence with withdrawal, uncomplicated; F12.20 Cannabis dependence, uncomplicated; F17.210 Nicotine dependence, cigarettes, uncomplicated; F19.24 Other psychoactive substance dependence with psychoactive substance-induced mood disorder; F31.9 Bipolar disorder, unspecified; G47.00 Insomnia, unspecified; R63.4 Abnormal weight loss; Z91.19 Patient's noncompliance with other medical treatment and regimen; Z86.59 Personal history of other mental and behavioral disorders
CPT/HCPCS: 36415; 80053; 85027; 86780; C9803; J0735; U0003

== ENCOUNTER 2020-11-24 10:41 | Inpatient (IN) | payer OTHER ==
[2020-11-24 12:00] VITALS: BMI 18.4
[2020-11-24] MEDS ORDERED: MENTHOL/PHENOL 1 EACH UD MM PRN (12:33)
[2020-11-24] MEDS ORDERED: ACETAMINOPHEN 325 MG TABLET (FP) PO PRN ×2 (12:33)
[2020-11-24] MEDS ORDERED: MAG HYDROX/AL HYDROX/SIMETH 30 ML UNIT-DOSE CUP PO PRN (12:33)
[2020-11-24] MEDS ORDERED: MAGNESIUM CITRATE 300 ML BOTTLE PO PRN (12:33)
[2020-11-24] MEDS ORDERED: cloNIDine HCL 0.1 MG TABLET PO PRN (12:33)
[2020-11-24] MEDS ORDERED: MAGNESIUM HYDROX 2400MG/30ML ORAL SUSPENSION 30 ML CUP PO PRN (12:33)
[2020-11-24] MEDS ORDERED: IBUPROFEN 400 MG TABLET (FP) PO PRN (12:33)
[2020-11-24] MEDS ORDERED: BUPRENORPHINE/NALOXONE 4 MG/1 MG FILM PACKET SL ONE (12:33)
[2020-11-24] MEDS ORDERED: LORazepam 1 MG TABLET PO PRN (12:33)
[2020-11-24] MEDS ORDERED: BISMUTH SUBSALICYLATE 262 MG/15 ML BTL PO PRN (12:33)
[2020-11-24] MEDS ORDERED: NICOTINE POLACRILEX 2 MG GUM BUC PRN (12:33)
[2020-11-24] MEDS ORDERED: ONDANSETRON *ODT* 4 MG TABLET SL PRN (12:33)
[2020-11-24] MEDS ORDERED: METHOCARBAMOL 500 MG TABLET PO PRN (12:33)
[2020-11-24] MEDS ORDERED: METHADONE HCL 10 MG TABLET (FOR DETOX USE ONLY) PO ONE (13:30)
[2020-11-24] MEDS: NICOTINE 14 MG/24 HOURS TOPICAL PATCH TD SCH (14:20)
[2020-11-24] MEDS: hydrOXYzine PAMOATE 25 MG CAPSULE (FP) PO SCH ×3 (14:20→22:30)
[2020-11-24 17:38] LABS: ALBUMIN 4.2 g/dl (3.4-5.0); CALCIUM 9.6 mg/dL (8.5-10.1)
[2020-11-24 17:39] LABS: BLOOD UREA NITROGEN 6.1 mg/dL (7-18)
[2020-11-24 17:40] LABS: HEMOGLOBIN 13.3 GM/dL (11.7-16.9); MEAN PLT VOLUME 9.7 fl (7.5-11.1); PLATELET COUNT 239 K/MM3 (134-434); RBC 4.02 M/mm3 (4.00-5.60); RDW 14.1 % (11.9-15.9); WHITE BLOOD COUNT 13.6 K/mm3 (4.0-10.0)
[2020-11-24] MEDS: LORazepam 2 MG TABLET PO SCH ×2 (17:41→22:29)
[2020-11-24 17:42] LABS: BILIRUBIN,TOTAL 0.3 mg/dL (0.2-1); CREATININE 0.7 mg/dL (0.55-1.3); TOT PROT 7.8 g/dl (6.4-8.2)
[2020-11-24 18:27] LABS: HIV INTERPRETATION NEGATIVE (NEGATIVE)
[2020-11-24] MEDS ORDERED: BUPRENORPHINE/NALOXONE 4 MG/1 MG FILM PACKET SL PRN (18:33)
[2020-11-24] MEDS ORDERED: MELATONIN 5 MG TABLETS PO SCH (22:00)
[2020-11-24] MEDS: THIAMINE HCL 100 MG TABLET (FP) PO SCH (22:30)
[2020-11-25] MEDS: LORazepam 2 MG TABLET PO SCH ×4 (05:53→22:46)
[2020-11-25] MEDS: hydrOXYzine PAMOATE 25 MG CAPSULE (FP) PO SCH ×5 (05:54→22:46)
[2020-11-25] MEDS ORDERED: BUPRENORPHINE/NALOXONE 12 MG-3 MG SL FILM PACKET SL ONE (09:00)
[2020-11-25] MEDS ORDERED: METHADONE HCL 5 MG TABLET (FOR DETOX USE ONLY) ONE (09:04)
[2020-11-25] MEDS ORDERED: METHADONE HCL 10 MG TABLET (FOR DETOX USE ONLY) ONE (09:04)
[2020-11-25] MEDS ORDERED: METHADONE (DETOX) 20 MG, METHADONE (DETOX) 5 MG PO ONE (10:00)
[2020-11-25] MEDS: NICOTINE 14 MG/24 HOURS TOPICAL PATCH TD SCH (10:08)
[2020-11-25] MEDS: QUEtiapine FUMARATE 50 MG TABLET PO SCH (12:35)
[2020-11-25] MEDS: PRENATAL VITAMINS W/ FOLIC ACID TABLET (FP) PO SCH (14:35)
[2020-11-25] MEDS: GABAPENTIN 300 MG CAPSULE PO SCH ×2 (14:35→22:46)
[2020-11-25] MEDS ORDERED: BUPRENORPHINE/NALOXONE 4 MG/1 MG FILM PACKET SL PRN (15:00)
[2020-11-25] MEDS: THIAMINE HCL 100 MG TABLET (FP) PO SCH (22:45)
[2020-11-25] MEDS: MIRTAZAPINE 30 MG TABLET PO SCH (22:46)
[2020-11-25] MEDS: QUEtiapine FUMARATE 300 MG TABLET PO SCH (22:46)
[2020-11-26] MEDS: GABAPENTIN 300 MG CAPSULE PO SCH ×3 (06:21→22:48)
[2020-11-26] MEDS: hydrOXYzine PAMOATE 25 MG CAPSULE (FP) PO SCH ×5 (06:21→22:49)
[2020-11-26] MEDS: LORazepam 1 MG TABLET PO SCH ×4 (06:21→22:49)
[2020-11-26] MEDS ORDERED: BUPRENORPHINE/NALOXONE 12 MG-3 MG SL FILM PACKET SL ONE (09:00)
[2020-11-26] MEDS ORDERED: METHADONE HCL 10 MG TABLET (FOR DETOX USE ONLY) PO ONE (10:00)
[2020-11-26] MEDS: QUEtiapine FUMARATE 50 MG TABLET PO SCH (10:27)
[2020-11-26] MEDS: PRENATAL VITAMINS W/ FOLIC ACID TABLET (FP) PO SCH (10:27)
[2020-11-26] MEDS: NICOTINE 14 MG/24 HOURS TOPICAL PATCH TD SCH (10:30)
[2020-11-26] MEDS: THIAMINE HCL 100 MG TABLET (FP) PO SCH (22:48)
[2020-11-26] MEDS: QUEtiapine FUMARATE 300 MG TABLET PO SCH (22:48)
[2020-11-26] MEDS: MIRTAZAPINE 30 MG TABLET PO SCH (22:48)
[2020-11-27] MEDS ORDERED: LORazepam 0.5 MG TABLET PO PRN
[2020-11-27] MEDS: LORazepam 0.5 MG TABLET PO SCH ×4 (08:20→22:52)
[2020-11-27] MEDS: hydrOXYzine PAMOATE 25 MG CAPSULE (FP) PO SCH ×5 (08:21→22:53)
[2020-11-27] MEDS: GABAPENTIN 300 MG CAPSULE PO SCH ×3 (08:21→22:52)
[2020-11-27] MEDS ORDERED: BUPRENORPHINE/NALOXONE 12 MG-3 MG SL FILM (DETOX) SL ONE (09:00)
[2020-11-27] MEDS ORDERED: METHADONE HCL 5 MG TABLET (FOR DETOX USE ONLY) ONE (09:45)
[2020-11-27] MEDS ORDERED: METHADONE HCL 10 MG TABLET (FOR DETOX USE ONLY) ONE (09:46)
[2020-11-27] MEDS ORDERED: METHADONE (DETOX) 10 MG, METHADONE (DETOX) 5 MG PO ONE (10:00)
[2020-11-27] MEDS: PRENATAL VITAMINS W/ FOLIC ACID TABLET (FP) PO SCH (10:23)
[2020-11-27] MEDS: QUEtiapine FUMARATE 50 MG TABLET PO SCH (10:23)
[2020-11-27] MEDS: NICOTINE 14 MG/24 HOURS TOPICAL PATCH TD SCH (10:25)
[2020-11-27] MEDS: SODIUM CHLORIDE NASAL SPRAY 44 ML BOTTLE NS SCH ×2 (10:26→18:15)
[2020-11-27] MEDS ORDERED: BUPRENORPHINE/NALOXONE 2 MG/0.5 MG FILM (DETOX) SL ONE (21:00)
[2020-11-27] MEDS: THIAMINE HCL 100 MG TABLET (FP) PO SCH (22:52)
[2020-11-27] MEDS: MIRTAZAPINE 30 MG TABLET PO SCH (22:52)
[2020-11-27] MEDS: QUEtiapine FUMARATE 300 MG TABLET PO SCH (22:52)
[2020-11-28] MEDS ORDERED: LORazepam 0.5 MG TABLET PO ONE (05:00)
[2020-11-28] MEDS ORDERED: BUPRENORPHINE/NALOXONE 4 MG/1 MG FILM (DETOX) SL ONE (06:00)
[2020-11-28 06:06] LABS: SARS-CoV-2 NAA Not Detected (Not Detected)
[2020-11-28] MEDS: hydrOXYzine PAMOATE 25 MG CAPSULE (FP) PO SCH ×2 (06:35→09:08)
[2020-11-28] MEDS: GABAPENTIN 300 MG CAPSULE PO SCH (06:35)
[2020-11-28] MEDS: SODIUM CHLORIDE NASAL SPRAY 44 ML BOTTLE NS SCH ×2 (07:03→09:10)
[2020-11-28 07:36] VITALS: BP 105/71; PULSE 75; TEMP 98
[2020-11-28] MEDS: QUEtiapine FUMARATE 50 MG TABLET PO SCH (09:08)
[2020-11-28] MEDS: NICOTINE 14 MG/24 HOURS TOPICAL PATCH TD SCH (09:08)
[2020-11-28] MEDS: PRENATAL VITAMINS W/ FOLIC ACID TABLET (FP) PO SCH (09:08)
[2020-11-28] MEDS ORDERED: METHADONE HCL 10 MG TABLET (FOR DETOX USE ONLY) PO ONE (10:00)
[2020-11-29] MEDS ORDERED: METHADONE HCL 5 MG TABLET (FOR DETOX USE ONLY) PO ONE (06:00)
== END 2020-11-28 09:50 | disposition other institution (70) | DRG 773 ==
LOC: YASAS 10:41 → Y6N 13:01
PROVIDERS: ADMIT Allergy & Immunology; ATTEND Allergy & Immunology
PROC: HZ2ZZZZ Detoxification Services for Substance Abuse Treatment (ICD-10-PCS; principal; 2020-11-24)
DX: F11.23 Opioid dependence with withdrawal (principal); F13.230 Sedative, hypnotic or anxiolytic dependence with withdrawal, uncomplicated; F14.20 Cocaine dependence, uncomplicated; F12.20 Cannabis dependence, uncomplicated; F17.210 Nicotine dependence, cigarettes, uncomplicated; F31.9 Bipolar disorder, unspecified; F19.282 Other psychoactive substance dependence with psychoactive substance-induced sleep disorder; F19.24 Other psychoactive substance dependence with psychoactive substance-induced mood disorder; D72.829 Elevated white blood cell count, unspecified; R76.11 Nonspecific reaction to tuberculin skin test without active tuberculosis; Z90.49 Acquired absence of other specified parts of digestive tract
CPT/HCPCS: 36415; 71046-TC-FY; 80053; 82962; 85027; 86780; 87389; 93005; 93010; C9803; Q0162; U0003; U0005